=== PATIENT | female | born 1970 | race Caucasian/White ===

== ENCOUNTER 2022-01-11 14:58 | Outpatient (REF) | payer OTHER, SELFPAY ==
--- NOTE | ~2022-01-11 | XR_ITS ---
EXAMINATION: XR hand wrist LT, 4 views XR hand wrist RT, 4 views XR ankle LT min 3V XR foot LT min 3V XR ankle RT min 3V XR foot RT min 3V CLINICAL INFORMATION: Reason for Exam M06.9 - Rheumatoid arthritis, unspecified COMPARISON: None. FINDINGS: Left wrist/hand: No fractures. No erosive changes. Small marginal osteophytes of the first CMC joint. Articular surfaces are otherwise maintained. No unusual soft tissue calcifications. Soft tissues unremarkable. Right wrist/hand: No fractures. No erosive changes. Small marginal osteophytes of the first CMC joint. Articular surfaces are otherwise maintained. No unusual soft tissue calcifications. Soft tissues unremarkable. Left ankle/foot: No acute fracture or dislocation. Well-corticated ossific density inferior to the distal fibula is chronic and degenerative in nature, potentially an old avulsion fracture or heterotopic ossification related to an old injury to the lateral collateral ligament. Ankle mortise is congruent. Talar dome intact. Small plantar calcaneal enthesophyte. Small marginal osteophytes of the first metatarsophalangeal joint and associated small bunion. No erosive changes. Tiny radiodensity within the soft tissues plantar to the first interspace may represent an object on the skin surface or deeper soft tissue foreign body, of doubtful clinical significance. No joint effusions. Right ankle/foot: No acute fracture or dislocation. Ankle mortise is congruent. Talar dome intact. Small plantar calcaneal enthesophyte. Small marginal osteophytes of the first metatarsophalangeal joint. No erosive changes. Soft tissues unremarkable. No joint effusions. XR/XR foot RT min 3V IMPRESSION: * No acute findings. * No evidence of inflammatory arthropathy. * Mild degenerative changes as described.
--- NOTE | ~2022-01-11 | XR_ITS ---
EXAMINATION: XR hand wrist LT, 4 views XR hand wrist RT, 4 views XR ankle LT min 3V XR foot LT min 3V XR ankle RT min 3V XR foot RT min 3V CLINICAL INFORMATION: Reason for Exam M06.9 - Rheumatoid arthritis, unspecified COMPARISON: None. FINDINGS: Left wrist/hand: No fractures. No erosive changes. Small marginal osteophytes of the first CMC joint. Articular surfaces are otherwise maintained. No unusual soft tissue calcifications. Soft tissues unremarkable. Right wrist/hand: No fractures. No erosive changes. Small marginal osteophytes of the first CMC joint. Articular surfaces are otherwise maintained. No unusual soft tissue calcifications. Soft tissues unremarkable. Left ankle/foot: No acute fracture or dislocation. Well-corticated ossific density inferior to the distal fibula is chronic and degenerative in nature, potentially an old avulsion fracture or heterotopic ossification related to an old injury to the lateral collateral ligament. Ankle mortise is congruent. Talar dome intact. Small plantar calcaneal enthesophyte. Small marginal osteophytes of the first metatarsophalangeal joint and associated small bunion. No erosive changes. Tiny radiodensity within the soft tissues plantar to the first interspace may represent an object on the skin surface or deeper soft tissue foreign body, of doubtful clinical significance. No joint effusions. Right ankle/foot: No acute fracture or dislocation. Ankle mortise is congruent. Talar dome intact. Small plantar calcaneal enthesophyte. Small marginal osteophytes of the first metatarsophalangeal joint. No erosive changes. Soft tissues unremarkable. No joint effusions. XR/XR foot LT min 3V IMPRESSION: * No acute findings. * No evidence of inflammatory arthropathy. * Mild degenerative changes as described.
--- NOTE | ~2022-01-11 | XR_ITS ---
EXAMINATION: XR hand wrist LT, 4 views XR hand wrist RT, 4 views XR ankle LT min 3V XR foot LT min 3V XR ankle RT min 3V XR foot RT min 3V CLINICAL INFORMATION: Reason for Exam M06.9 - Rheumatoid arthritis, unspecified COMPARISON: None. FINDINGS: Left wrist/hand: No fractures. No erosive changes. Small marginal osteophytes of the first CMC joint. Articular surfaces are otherwise maintained. No unusual soft tissue calcifications. Soft tissues unremarkable. Right wrist/hand: No fractures. No erosive changes. Small marginal osteophytes of the first CMC joint. Articular surfaces are otherwise maintained. No unusual soft tissue calcifications. Soft tissues unremarkable. Left ankle/foot: No acute fracture or dislocation. Well-corticated ossific density inferior to the distal fibula is chronic and degenerative in nature, potentially an old avulsion fracture or heterotopic ossification related to an old injury to the lateral collateral ligament. Ankle mortise is congruent. Talar dome intact. Small plantar calcaneal enthesophyte. Small marginal osteophytes of the first metatarsophalangeal joint and associated small bunion. No erosive changes. Tiny radiodensity within the soft tissues plantar to the first interspace may represent an object on the skin surface or deeper soft tissue foreign body, of doubtful clinical significance. No joint effusions. Right ankle/foot: No acute fracture or dislocation. Ankle mortise is congruent. Talar dome intact. Small plantar calcaneal enthesophyte. Small marginal osteophytes of the first metatarsophalangeal joint. No erosive changes. Soft tissues unremarkable. No joint effusions. XR/XR ankle RT min 3V IMPRESSION: * No acute findings. * No evidence of inflammatory arthropathy. * Mild degenerative changes as described.
--- NOTE | ~2022-01-11 | XR_ITS ---
EXAMINATION: XR hand wrist LT, 4 views XR hand wrist RT, 4 views XR ankle LT min 3V XR foot LT min 3V XR ankle RT min 3V XR foot RT min 3V CLINICAL INFORMATION: Reason for Exam M06.9 - Rheumatoid arthritis, unspecified COMPARISON: None. FINDINGS: Left wrist/hand: No fractures. No erosive changes. Small marginal osteophytes of the first CMC joint. Articular surfaces are otherwise maintained. No unusual soft tissue calcifications. Soft tissues unremarkable. Right wrist/hand: No fractures. No erosive changes. Small marginal osteophytes of the first CMC joint. Articular surfaces are otherwise maintained. No unusual soft tissue calcifications. Soft tissues unremarkable. Left ankle/foot: No acute fracture or dislocation. Well-corticated ossific density inferior to the distal fibula is chronic and degenerative in nature, potentially an old avulsion fracture or heterotopic ossification related to an old injury to the lateral collateral ligament. Ankle mortise is congruent. Talar dome intact. Small plantar calcaneal enthesophyte. Small marginal osteophytes of the first metatarsophalangeal joint and associated small bunion. No erosive changes. Tiny radiodensity within the soft tissues plantar to the first interspace may represent an object on the skin surface or deeper soft tissue foreign body, of doubtful clinical significance. No joint effusions. Right ankle/foot: No acute fracture or dislocation. Ankle mortise is congruent. Talar dome intact. Small plantar calcaneal enthesophyte. Small marginal osteophytes of the first metatarsophalangeal joint. No erosive changes. Soft tissues unremarkable. No joint effusions. XR/XR ankle LT min 3V IMPRESSION: * No acute findings. * No evidence of inflammatory arthropathy. * Mild degenerative changes as described.
--- NOTE | ~2022-01-11 | XR_ITS ---
EXAMINATION: XR hand wrist LT, 4 views XR hand wrist RT, 4 views XR ankle LT min 3V XR foot LT min 3V XR ankle RT min 3V XR foot RT min 3V CLINICAL INFORMATION: Reason for Exam M06.9 - Rheumatoid arthritis, unspecified COMPARISON: None. FINDINGS: Left wrist/hand: No fractures. No erosive changes. Small marginal osteophytes of the first CMC joint. Articular surfaces are otherwise maintained. No unusual soft tissue calcifications. Soft tissues unremarkable. Right wrist/hand: No fractures. No erosive changes. Small marginal osteophytes of the first CMC joint. Articular surfaces are otherwise maintained. No unusual soft tissue calcifications. Soft tissues unremarkable. Left ankle/foot: No acute fracture or dislocation. Well-corticated ossific density inferior to the distal fibula is chronic and degenerative in nature, potentially an old avulsion fracture or heterotopic ossification related to an old injury to the lateral collateral ligament. Ankle mortise is congruent. Talar dome intact. Small plantar calcaneal enthesophyte. Small marginal osteophytes of the first metatarsophalangeal joint and associated small bunion. No erosive changes. Tiny radiodensity within the soft tissues plantar to the first interspace may represent an object on the skin surface or deeper soft tissue foreign body, of doubtful clinical significance. No joint effusions. Right ankle/foot: No acute fracture or dislocation. Ankle mortise is congruent. Talar dome intact. Small plantar calcaneal enthesophyte. Small marginal osteophytes of the first metatarsophalangeal joint. No erosive changes. Soft tissues unremarkable. No joint effusions. XR/XR hand wrist RT IMPRESSION: * No acute findings. * No evidence of inflammatory arthropathy. * Mild degenerative changes as described.
--- NOTE | ~2022-01-11 | XR_ITS ---
EXAMINATION: XR hand wrist LT, 4 views XR hand wrist RT, 4 views XR ankle LT min 3V XR foot LT min 3V XR ankle RT min 3V XR foot RT min 3V CLINICAL INFORMATION: Reason for Exam M06.9 - Rheumatoid arthritis, unspecified COMPARISON: None. FINDINGS: Left wrist/hand: No fractures. No erosive changes. Small marginal osteophytes of the first CMC joint. Articular surfaces are otherwise maintained. No unusual soft tissue calcifications. Soft tissues unremarkable. Right wrist/hand: No fractures. No erosive changes. Small marginal osteophytes of the first CMC joint. Articular surfaces are otherwise maintained. No unusual soft tissue calcifications. Soft tissues unremarkable. Left ankle/foot: No acute fracture or dislocation. Well-corticated ossific density inferior to the distal fibula is chronic and degenerative in nature, potentially an old avulsion fracture or heterotopic ossification related to an old injury to the lateral collateral ligament. Ankle mortise is congruent. Talar dome intact. Small plantar calcaneal enthesophyte. Small marginal osteophytes of the first metatarsophalangeal joint and associated small bunion. No erosive changes. Tiny radiodensity within the soft tissues plantar to the first interspace may represent an object on the skin surface or deeper soft tissue foreign body, of doubtful clinical significance. No joint effusions. Right ankle/foot: No acute fracture or dislocation. Ankle mortise is congruent. Talar dome intact. Small plantar calcaneal enthesophyte. Small marginal osteophytes of the first metatarsophalangeal joint. No erosive changes. Soft tissues unremarkable. No joint effusions. XR/XR hand wrist LT IMPRESSION: * No acute findings. * No evidence of inflammatory arthropathy. * Mild degenerative changes as described.
[2022-01-11 15:43] LABS: MANUAL DIFF FLAG NO
[2022-01-11 16:02] LABS: Basophils Absolute Auto 0.1 X10*3/uL (0.0-0.2); Basophils Percent Auto 1.1 % (0-2); Eosinophils Absolute Auto 0.1 X10*3/uL (0.0-0.4); Eosinophils Percent Auto 1.4 % (0-4); Hematocrit 50.9 % (37.0-47.0); Hemoglobin 17.4 g/dl (12.0-16.0); Imm Gran Abs Auto 0.02 X10*3/uL (0.00-0.03); Imm Gran Pct Auto 0.3 % (0.0-0.4); Lymphocytes Absolute Auto 3.6 X10*3/uL (1.2-4.9); Mean Corpuscular HGB Conc 34.2 g/dl (31.0-35.0); Mean Corpuscular Hemoglobin 33.1 pg (27.0-33.0); Mean Corpuscular Volume 96.8 fL (80.0-98.0); Mean Platelet Volume 9.5 fL (9.4-12.3); Monocytes Absolute Auto 0.6 X10*3/uL (0.1-1.2); Neutrophils Absolute Auto 3.6 x10*3/uL (2.0-8.3); Neutrophils Percent Auto 45.2 % (45-73); Platelet Count 204 X10*3/uL (160-400); Red Blood Count 5.26 X10*6/uL (4.20-5.50); Red Cell Distribution Width 13.2 % (11.0-16.0)
[2022-01-11 16:07] LABS: Appearance Urine Clear; Color Urine Yellow; Glucose Urine UA Negative (Negative); Leukocyte Esterase Urine Negative (Negative); Nitrite Urine Negative (Negative); PH 5.5 (5.0-9.0); Specific Gravity - Urine 1.025 (1.005-1.025); Urine Blood Negative (Negative); Urine Ketones Trace mg/dL (Negative); Urine Protein Negative (Neg-Trace)
[2022-01-11 16:10] LABS: Bacteria Urine None Seen (None Seen); Hyaline Casts Urine 0-2 /LPF (0-2); RBC Urine 0-2 /HPF (0-2); WBC Urine 0-5 /HPF (0-5)
[2022-01-11 16:17] LABS: Alanine Aminotransferase 39 U/L (0-31); Albumin Level 4.9 g/dL (3.5-5.0); Alkaline Phosphatase 124 U/L (39-117); Anion Gap 17 (12-20); Aspartate Amino Transferase 39 U/L (5-31); Bilirubin Total 0.2 mg/dL (0.0-1.0); Blood Urea Nitrogen 11 mg/dL (9-16); C Reactive Protein 0.16 mg/dL (< or = 0.50); Calcium 10.1 mg/dL (8.4-10.2); Carbon Dioxide 28 mmol/L (22-29); Chloride 101 mmol/L (96-108); Estimated Glomerular Filt Rate > 60; Glucose Random 80 mg/dL (60-115); Potassium 3.7 mmol/L (3.3-5.1); Sodium 142 mmol/L (135-145); Total Protein 8.2 g/dL (6.5-8.0); Uric Acid 4.2 mg/dL (2.4-5.7)
[2022-01-11 16:25] LABS: Rheumatoid Factor < 15.0 IU/mL (<15.0)
[2022-01-11 16:45] LABS: Erythrocyte Sedimentation Rate 2 MM/HR (0-20)
[2022-01-11 16:46] LABS: Creatinine Urine 215.51 mg/dL; Protein/Creatinine Ratio, Ur 0.07 (<0.2); Total Protein Urine Random 16 mg/dL (<12)
[2022-01-12 04:14] LABS: HBS Num1 1.21 mIU/mL (0-7.99); HBc Num1 0.08 S/CO (0.00-0.79); HBsAGNum1 0.18 S/CO (0.00-0.99); HIV AB/AG Nonreactive (Nonreactive); HIV Num 1 0.05 S/CO (0.00-0.99); Hepatitis A Antibody IgM 0.22 Index (0-0.79); Hepatitis B Core Antibody Nonreactive (Nonreactive); Hepatitis B Surface Antigen Negative (Negative); ~HepC Num1 0.12 S/CO (0.00-0.79); ~Hepatitis A Antibody IgM Nonreactive (Nonreactive); ~Hepatitis B Surface Antibody NONREACTIVE (Nonreactive); ~Hepatitis C Antibody Nonreactive (Nonreactive)
[2022-01-12 13:42] LABS: Cardiolipin IgG Ab <2.0 GPL-U/mL
[2022-01-12 20:26] LABS: Antibody to SS-A Antigen <1.0 NEG AI (<1.0 NEG); Antibody to SS-B Antigen <1.0 NEG AI (<1.0 NEG); SM/Ribonucleoprotein Ab <1.0 NEG AI (<1.0 NEG); Scleroderma 70 Antibody <1.0 NEG AI (<1.0 NEG); Smith Protein <1.0 NEG AI (<1.0 NEG)
[2022-01-12 21:52] LABS: Anti-Centromere B Antibodies <1.0 NEG AI (<1.0 NEG)
[2022-01-13 10:26] LABS: Complement C3 139 mg/dL (83-193)
[2022-01-13 14:32] LABS: Cyclic Citrullinated Peptide <16 UNITS; IgA 303 mg/dL (47-310); IgG 1121 mg/dL (600-1640); IgM 144 mg/dL (50-300); TS Negative Control Passed; TS Panel A 1; TS Panel B 0; TS Positive Control Passed; TSpotTB Negative (Negative)
[2022-01-13 14:52] LABS: Mitochondrial Antibodies NEGATIVE (NEGATIVE)
[2022-01-14 11:43] LABS: Anti Nuclear Antibody Screen NEGATIVE (NEGATIVE)
[2022-01-14 12:55] LABS: Liver Kidney Microsomal Ab <=20.0 U (<=20.0)
[2022-01-14 22:47] LABS: Beta-2 Glycoprotein IgA <2.0 U/mL (<20.0); Beta-2 Glycoprotein IgG <2.0 U/mL (<20.0); Beta-2 Glycoprotein IgM 4.6 U/mL (<20.0)
[2022-01-15 06:26] LABS: PTT (LAC) Screen 32 sec (<=40)
[2022-01-15 12:57] LABS: DNAds, Crithidia Antibody Negative (Negative)
[2022-01-15 13:31] LABS: Smooth Muscle Antibody <20 U (<20)
[2022-01-16 21:26] LABS: HLA B27 Negative (Negative)
[2022-01-21 20:03] LABS: EJ Autoantibodies NOT DETECTED (NOT DETECTED); JO-1 Antibody <1.0 NEG AI (<1.0 NEGATIVE); MI 2 Autoantibodies NOT DETECTED (NOT DETECTED); OJ Autoantibodies NOT DETECTED (NOT DETECTED); PL 12 Autoantibodies NOT DETECTED (NOT DETECTED); PL 7 Autoantibodies NOT DETECTED (NOT DETECTED)
== END 2022-01-11 14:59 | disposition home or self-care (01) ==
LOC: HO.LAB 14:58
PROVIDERS: PCP Internal Medicine; Visit Provider Student in an Organized Health Care Education/Training Program
DX: Z11.59 Encounter for screening for other viral diseases (principal); Z11.7 Encounter for testing for latent tuberculosis infection; Z11.4 Encounter for screening for human immunodeficiency virus [HIV]; M06.9 Rheumatoid arthritis, unspecified; M25.542 Pain in joints of left hand; L40.9 Psoriasis, unspecified; R74.01 Elevation of levels of liver transaminase levels; R13.10 Dysphagia, unspecified
CPT/HCPCS: 73110; 73130; 73610; 73630; 80053; 81001; 82550; 82784; 84156; 84550; 85025; 85597; 85613; 85652; 85730; 86015; 86038; 86039; 86140; 86146; 86147; 86160; 86200; 86235; 86255; 86256; 86334; 86376; 86431; 86481; 86704; 86706; 86709; 86803; 86812; 87340; 87389; 99202

== ENCOUNTER 2022-01-12 10:13 | Outpatient (REF) | payer OTHER, SELFPAY ==
[2022-01-18 09:04] LABS: PEU-Protein Creat Ratio Rand 0.129 (0.024-0.184); PEU-Rand. Prot/Creat Ratio 129 mg/g creat (24-184); PEU-Random Ur. Gamma Globulin 26 %; PEU-Random Urine A1 Globulin 1 %; PEU-Random Urine A2 Globulin 10 %; PEU-Random Urine Albumin 37 %; PEU-Random Urine Beta Globulin 26 %; PEU-Random Urine Creatinine 147 mg/dL (20-275); PEU-Random Urine Protein 19 mg/dL (5-24)
== END 2022-01-12 10:14 | disposition home or self-care (01) ==
LOC: HO.LNP 10:13
PROVIDERS: Visit Provider Student in an Organized Health Care Education/Training Program
DX: M06.9 Rheumatoid arthritis, unspecified (principal)
CPT/HCPCS: 82570; 84156; 84166

== ENCOUNTER 2022-02-16 11:04 | Outpatient (REF) | payer OTHER, SELFPAY ==
[2022-02-16 13:12] LABS: Folate 19.6 ng/mL (> or = 4.0); Vitamin B12 296 pg/mL (200-900)
[2022-02-17 07:53] LABS: Prolactin 3.3 ng/mL
== END 2022-02-16 11:05 | disposition home or self-care (01) ==
LOC: HO.LAB 11:04
PROVIDERS: Visit Provider Psychiatry & Neurology Neurology
DX: G30.9 Alzheimer's disease, unspecified (principal)
CPT/HCPCS: 36415; 82607; 82746; 84146

== ENCOUNTER → 2022-02-22 12:49 | Outpatient (BNVA) | payer OTHER, SELFPAY | PROVIDERS: PCP Internal Medicine; Visit Provider Student in an Organized Health Care Education/Training Program | DX: L40.50 Arthropathic psoriasis, unspecified (principal); L40.9 Psoriasis, unspecified; R74.01 Elevation of levels of liver transaminase levels | CPT/HCPCS: 99212 ==

== ENCOUNTER → 2022-03-09 13:24 | Outpatient (BNVA) | payer OTHER, SELFPAY | PROVIDERS: PCP Internal Medicine; Referring Provider Internal Medicine; Visit Provider Student in an Organized Health Care Education/Training Program | DX: Z13.89 Encounter for screening for other disorder (principal) ==

== ENCOUNTER → 2022-04-20 10:18 | Outpatient (BNVA) | payer OTHER, SELFPAY | PROVIDERS: PCP Internal Medicine; Visit Provider Student in an Organized Health Care Education/Training Program | DX: L40.50 Arthropathic psoriasis, unspecified (principal); R74.01 Elevation of levels of liver transaminase levels; M79.7 Fibromyalgia | CPT/HCPCS: 99212 ==

== ENCOUNTER 2022-07-01 09:17 | Day surgery (SDC) | payer OTHER, SELFPAY ==
[2022-07-01] VITALS (7 sets, daily range): BP systolic 122–146; BP diastolic 84–96; PULSE 75–96; RESP 16–20; TEMP 36.8; O2SAT 93–98; BMI 24.2
--- NOTE | ~2022-07-01 | FL_ITS ---
EXAMINATION: XR LUMBAR PUNCTURE CLINICAL INFORMATION: Alzheimer's disease. COMPARISON: None available. TECHNIQUE: Fluoroscopic-guided lumbar puncture. FINDINGS: Informed consent was obtained from the patient prior to the procedure. During this process, the procedure and potential alternatives were explained, along with the intended outcome and benefits. The risks of the procedure, as well as the risk of not doing the procedure, were discussed. The patient was given the opportunity to ask questions regarding the procedure and appeared competent to make medical decisions. A signed consent form which documents this discussion was placed in the medical record. Using sterile technique and fluoroscopic guidance a 22-gauge spinal needle was directed into the thecal sac at the L4-L5 level. Opening pressure was approximately 20 cm of water. A total of 8.25 mL of CSF were removed. Patient tolerated procedure without difficulty. FLUOROSCOPY TIME: 0.6 minutes. DOSE AREA PRODUCT: 4.668 Gy-cm2 (baer-centimeter squared). FL/FL guided lumbar puncture LP IMPRESSION: Uncomplicated lumbar puncture.
[2022-07-01 09:54] LABS: MANUAL DIFF FLAG NO
[2022-07-01 09:58] LABS: Basophils Percent Auto 0.5 % (0-2); Eosinophils Percent Auto 0.2 % (0-4); Hematocrit 44.8 % (37.0-47.0); Hemoglobin 15.8 g/dl (12.0-16.0); Imm Gran Abs Auto 0.05 X10*3/uL (0.00-0.03); Imm Gran Pct Auto 0.9 % (0.0-0.4); Lymphocytes Absolute Auto 1.6 X10*3/uL (1.2-4.9); Lymphocytes Percent Auto 27.8 % (20-40); Mean Corpuscular HGB Conc 35.3 g/dl (31.0-35.0); Mean Corpuscular Hemoglobin 35.5 pg (27.0-33.0); Mean Corpuscular Volume 100.7 fL (80.0-98.0); Mean Platelet Volume 10.4 fL (9.4-12.3); Monocytes Absolute Auto 0.8 X10*3/uL (0.1-1.2); Monocytes Percent Auto 14.3 % (2-11); Neutrophils Absolute Auto 3.2 x10*3/uL (2.0-8.3); Neutrophils Percent Auto 56.3 % (45-73); Platelet Count 137 X10*3/uL (160-400); Red Blood Count 4.45 X10*6/uL (4.20-5.50); Red Cell Distribution Width 13.9 % (11.0-16.0); White Blood Count 5.6 X10*3/uL (4.8-10.8)
[2022-07-01 10:07] LABS: Prothrombin Time 10.9 SEC (10.0-13.1)
[2022-07-01 10:10] LABS: Partial Thromboplastin Time 29.5 SEC (26.0-36.4)
[2022-07-23 09:01] LABS: Other Ref Test - Misc SEE COMMENTS
== END 2022-07-01 15:42 | disposition home or self-care (01) ==
PROVIDERS: Radiology Diagnostic Radiology; PCP Internal Medicine; Visit Provider Psychiatry & Neurology Neurology
PROC: 009U3ZZ Drainage of Spinal Canal, Percutaneous Approach (ICD-10-PCS; CPT 62270; principal; 2022-07-01 11:00)
DX: G30.9 Alzheimer's disease, unspecified (principal); I67.9 Cerebrovascular disease, unspecified; F41.8 Other specified anxiety disorders; G43.009 Migraine without aura, not intractable, without status migrainosus; D35.2 Benign neoplasm of pituitary gland; Z79.51 Long term (current) use of inhaled steroids; Z79.899 Other long term (current) drug therapy
CPT/HCPCS: 36415; 62328; 85025; 85610; 85730

== ENCOUNTER → 2022-07-27 13:51 | Outpatient (BNVA) | payer OTHER, SELFPAY | PROVIDERS: PCP Internal Medicine; Visit Provider Psychiatry & Neurology Neurology | DX: G31.84 Mild cognitive impairment of uncertain or unknown etiology (principal) | CPT/HCPCS: 99202 ==

== ENCOUNTER → 2022-07-28 12:57 | Outpatient (BNVA) | payer OTHER, SELFPAY | PROVIDERS: PCP Internal Medicine; Visit Provider Student in an Organized Health Care Education/Training Program | DX: L40.50 Arthropathic psoriasis, unspecified (principal); L40.9 Psoriasis, unspecified; M79.7 Fibromyalgia; R74.01 Elevation of levels of liver transaminase levels | CPT/HCPCS: 99212 ==

== ENCOUNTER 2022-08-17 12:47 | Outpatient (RCR) | payer OTHER, SELFPAY ==
--- NOTE | 2022-08-23 13:58 | MHC.SP.ADU ---
Referring provider: Nora Mercado MD Reason for Referral: cognitive therapy Type of Treatment: 26618 Standardized Cognitive Performance Testing, per hour Date of Plan of Treatment: 08/17/22 Onset of Symptoms/Illness: 11/19/19 Date Treatment Started: 08/17/22 Medical Diagnosis: Mild cognitive impairment of uncertain or unknown etiology Primary Speech Language Diagnosis: I69.911 Memory deficit Secondary Speech Language Diagnosis: History Janeen Medina is a 52 year old woman who was referred by her neurologist, Dr. Mercado for an assessment and therapy due to a diagnosis of mild cognitive impairment. Ms. Medina reports that she went to Dr. Mercado for a second opinion after another MD diagnosed her with Alzheimer's Dementia. Ms. Medina reports the previous MD had failed to accurately complete a lumbar puncture and had otherwise given informal tests before suggesting this diagnosis. Ms. Medina has a maternal history of Alzheimer's which she described her mother having in her 60s and her aunt having in her 50s. However she also reported that Dr. Mercado advised her that the previous MD was in error giving her a diagnosis on limited information, and has referred her for further evaluation with a neuropsychologist. Ms. Medina reports that she experienced the trauma of losing her son to gun violence in 2019, which she believes escalated difficulties with her memory and processing. 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 However, she was no longer able to continue her business of running a [employer] story and became unemployed/disabled about 1 1/2 years ago. She noted that at that time she was having difficulty keeping the books for the business as well as managing ordering and inventory. Functionally, she reports difficulty recalling and remembering appointments, directions and details. She stated that she can watch and enjoy television programs, as long as there are re-caps between episodes (otherwise she has difficulty recalling plot and characters). She reported that reading novels is too difficulty because she forgets previous information. She is still driving, but only drives during the daytime and to familiar, routine places. Otherwise, she will use a transportation service to get to medical appointments. She is still able to shop for herself, but reports that she will forget her list and just wonder around the store until she finds things she needs. She currently lives in a room in shared house in [place] with at least another, unrelated adult who is her landlord. She reported that she left school after seventh grade to get , so never completed high school, nor obtained a GED. She reported that she was one of seventeen children. Medical History: Acid Reflux Arthritis Asthma COPD High Blood Pressure Other: Ms. Medina additionally reported a pituitary tumor, Depression/Anxiety, panic attacks, insomnia, Medication List: Please refer to medical record. Recent Hospitalizations: No Respiratory Needs: Room Air Patient Orientation: Alert & Oriented x 4 Social History: Employment Status: Unemployed Highest level of education obtained: Completed Grade School Current Living Situation: Lives in a rented room in a shared home in [place]. Ms. Medina expressed vulnerability about her housing, as her landlord has had a history of threatening to end her lease over issues such as forgetting to turn off the stove. Past Speech Language Therapy: None Other Therapies Seen in Current Calendar Year: None Reported Speech, Language, Cognition difficulties: Memory/Cognition Comments: Ms. Medina demonstrated moderate needs with immediate, remote and working memory today. Quality of Life: Fair. Ms. Medina is living independently and is able to manage her daily needs, but is concerned about her ability to sustain this. Patient Stated Goal of Speech-Language Therapy: Assess cognitive/memory domains, provide cognitive therapy strategies. Assessment Speech Production: Articulate Within Functional Limits Clinical Impression: Intact Observations: Ms. Medina presents with clear and articulate speech within normal expectations of function. Informal Voice Assessment: Voice Loudness: Normal Voice Nasal Resonance: Normal Voice Oral Resonance: Normal Voice Phonatory-based Quality: Normal Voice Pitch: Normal Voice Other Observations: Clinical Impression: Intact Clinicial Observations: Tests of Speech & Lang Adults: Clinical Impression: Did Not Test Observations: Ms. Medina informally presented with receptive and expressive language within functional expectations, and was able to express herself well in conversation. Tests of Cognition: RBANS Clinical Impression: Impaired Observations: The Repeatable Battery for the Assessment of Neuropsychological Status (RBANS-Update Form A) was used to assess aspects of cognitive memory, language and attention skills. The RBANS is considered a screening battery for adult cognitive function, and is repeatable for the purpose of evaluating any changes in function. Composite domains assessed in this evaluation are: Immediate Memory; Visuospatial/Constructional; Language; Attention; and Delayed Memory. Domain index scores and percentile ranking are the following: Subtest/Domain Visuospatial/Constructional: Index Score 75; Percentile Rank 5 Immediate Memory: Index Score 61; Percentile Rank 0.5 Language: Index Score 84; Percentile Rank 16 Attention: Index Score 56; Percentile Rank 0.1 Delayed Memory: Index Score 52; Percentile Rank <0.1 TOTAL TEST: Index Score 56; Percentile Rank 0.2 Janeen Medina presents with a moderate to severe impairment of her memory and processing. She has a relative area of strength in language skills represented in this test by word recall/labelling and generative language when listing items in a category (general word finding) Janeen had significant difficulty immediately recalling verbally presented information presented in discreet lists and does somewhat better in recalling information when presented in a narrative form. When recalling information from short term auditory memory, she was noted to recall a fairly fixed amount (e.g. three words from a set of 8) and tended to recall more recent information rather than the items presented initially. However she subsequently had difficulty recalling this information remotely (delayed memory). Janeen was able to copy/produce a picture with good visual detail and was noted to be both methodical and slow when doing visual/writing/drawing tasks. She had great difficulty recalling visual information remotely (delayed visual memory). Impressions and Recommendations Summary: Janeen Medina presents with a moderate to severe impairment of her memory and processing.? Testing today revealed significant weaknesses with immediate, short term recall of verbal information, as well as severe weakness with recall of both verbal and visual information after a delay.? It was noted however, that Ms. Medina demonstrated an awareness of what she might have difficulty with, as well as being very methodical and attentive when attempting tasks.? She has a relative strength with her language skills in general, which are judged to be largely within functional limits.? Ms. Medina would benefit from returning for outpatient therapy to address strategies and accommodations for her memory needs. Ms. Medina will have great difficulty recalling new information, details, brief data presented auditorily.? This may be most evident when verbal directions are given, or phone numbers are recited for recall, or specific dates or other information is briefly given and not written down.? However, this level of difficulty with short term memory can additionally affect general comprehension in daily activities such as difficulty recalling details from conversations, repeating conversational information, and misplacing needed items.? This also may affect other leisure areas such as understanding an evolving plot while reading or watching complex narratives.? Ms. Medina's difficulty with delayed recall/memory will also generally affect new learning, making changes in routines, or synthesizing new information or data, or acquiring new skills very difficult. It is important for for those close to Ms. Medina to know that remembering and recalling information and details will be very challenging, and that learning new tasks, however mundane, may take more time, and will need structure and practice in order to complete them.? It may be at times hard to anticipate what she might have difficulty with or what she cannot remember. Impact on Daily Function/Activity Limitations: Daily Activities: Moderate Interpersonal Interactions: Moderate Education: Moderate Employment: Moderate Community: Moderate Prognosis for Improvement: Fair Comment: Ms. Krauses self awareness of her needs, including her ability to monitor what she will have difficulty with and coping strategies she reported during this assessment indicate that she would benefit from learning specific strategies and accommodations for her memory needs. Further assessment by a neuropsychologist is needed for a complete diagnosis of her cognitive impairment. Recommendation for Speech Therapy: Outpatient Speech Therapy Frequency/Duration: one forty five minute therapy session weekly for a period of six to twelve weeks. Date Range for Service Requested: 6-12 weeks Time to Reassess: PRN Half-Way Goals: Janeen will apply strategies, applications and accommodations to manage tasks that require immediate and remote recall of information and details in four out of five contexts. Short Term Goals: Goal # : 1.1 Janeen will use a rehearsal strategy to recall a detail or specific information from verbal presented information with 80% accuracy Goal Status: Goal# : 2.1 Janeen will use a visualization strategy to recall a detail or specific information from verbally presented information with 80% accuracy. Goal Status: Goal # : 3.1 Janeen will use an association strategy to retrieve a specific word or generate words from a given category with 80% accuracy Goal Status: Goal # : 4.1 Janeen will electively use an adolfo or tech device to record and retrieve needed information in four out of five contexts. Goal Status: Recommended Referrals to be Discussed with Primary Care Provider: Ashkan Vernon has already been referred by her neurologist for a complete cognitive/linguistic assessment and diagnosis. Patient Education: Completed: Yes Patient/Caregiver Education: Described Results of Evaluation Patient expressed understanding of evaluation Comments/Barriers to Learning: Rock Cutter Clinican/Clinical Fellow: No Supervisory Statement: N/A Speech Language Pathologist: Kerry Salcedo M.A., [facility]-PATHOLOGY TRANSCRIPTIONIST
== END 2023-08-10 13:39 | disposition home or self-care (01) ==
LOC: HO.SH 12:47
PROVIDERS: Visit Provider Psychiatry & Neurology Neurology
DX: G31.84 Mild cognitive impairment of uncertain or unknown etiology (principal)
CPT/HCPCS: 96125

== ENCOUNTER 2022-08-17 20:43 | Emergency (ER) | payer OTHER, SELFPAY ==
[2022-08-17 20:59] VITALS: BP 134/91; PULSE 115; RESP 18; O2SAT 98
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
[2022-08-17 21:33] VITALS: BP 144/90; PULSE 107; RESP 18; TEMP 36.1; O2SAT 91; BMI 26.3
[2022-08-17 21:59] VITALS: BP 132/95; PULSE 114; RESP 16; TEMP 36.8; O2SAT 98
== END 2022-08-17 22:27 | disposition home or self-care (01) ==
PROVIDERS: Emergency Provider Emergency Medicine
DX: F10.920 Alcohol use, unspecified with intoxication, uncomplicated (principal); Y90.9 Presence of alcohol in blood, level not specified; I10 Essential (primary) hypertension; F17.210 Nicotine dependence, cigarettes, uncomplicated; Z79.899 Other long term (current) drug therapy
CPT/HCPCS: 99284

== ENCOUNTER 2022-11-17 09:04 | Outpatient (REF) | payer OTHER, SELFPAY ==
[2022-11-17 09:21] LABS: MANUAL DIFF FLAG NO
[2022-11-17 09:52] LABS: Basophils Absolute Auto 0.1 X10*3/uL (0.0-0.2); Basophils Percent Auto 1.1 % (0-2); Eosinophils Absolute Auto 0.3 X10*3/uL (0.0-0.4); Eosinophils Percent Auto 3.4 % (0-4); Hematocrit 46.2 % (37.0-47.0); Hemoglobin 15.5 g/dl (12.0-16.0); Imm Gran Abs Auto 0.04 X10*3/uL (0.00-0.03); Imm Gran Pct Auto 0.5 % (0.0-0.4); Lymphocytes Absolute Auto 2.6 X10*3/uL (1.2-4.9); Lymphocytes Percent Auto 32.4 % (20-40); Mean Corpuscular HGB Conc 33.5 g/dl (31.0-35.0); Mean Corpuscular Hemoglobin 33.8 pg (27.0-33.0); Mean Corpuscular Volume 100.7 fL (80.0-98.0); Mean Platelet Volume 10.9 fL (9.4-12.3); Monocytes Absolute Auto 0.7 X10*3/uL (0.1-1.2); Monocytes Percent Auto 8.3 % (2-11); Neutrophils Absolute Auto 4.3 x10*3/uL (2.0-8.3); Neutrophils Percent Auto 54.3 % (45-73); Platelet Count 219 X10*3/uL (160-400); Red Blood Count 4.59 X10*6/uL (4.20-5.50); Red Cell Distribution Width 11.9 % (11.0-16.0); White Blood Count 7.9 X10*3/uL (4.8-10.8)
[2022-11-17 10:29] LABS: Alanine Aminotransferase 21 U/L (0-31); Anion Gap 11 (12-20); Aspartate Amino Transferase 21 U/L (5-31); Bilirubin Total 0.4 mg/dL (0.0-1.0); Blood Urea Nitrogen 10 mg/dL (9-16); Calcium 9.6 mg/dL (8.4-10.2); Carbon Dioxide 26 mmol/L (22-29); Chloride 105 mmol/L (96-108); Estimated Glomerular Filt Rate > 60; Glucose Random 79 mg/dL (60-115); Potassium 3.8 mmol/L (3.3-5.1); Sodium 138 mmol/L (135-145)
[2022-11-17 10:30] LABS: Albumin Level 3.9 g/dL (3.5-5.0); Alkaline Phosphatase 94 U/L (39-117); C Reactive Protein 0.36 mg/dL (< or = 0.50); Total Protein 6.9 g/dL (6.5-8.0)
[2022-11-17 10:37] LABS: Erythrocyte Sedimentation Rate 9 MM/HR (0-20)
== END 2022-11-17 09:05 | disposition home or self-care (01) ==
LOC: HO.LAB 09:04
PROVIDERS: PCP Internal Medicine; Visit Provider Student in an Organized Health Care Education/Training Program
DX: L40.50 Arthropathic psoriasis, unspecified (principal)
CPT/HCPCS: 36415; 80053; 85025; 85652; 86140

== ENCOUNTER 2022-11-23 13:55 | Outpatient (AMB) | payer OTHER, SELFPAY ==
[2022-11-23 13:58] VITALS: BP 106/70; PULSE 104; TEMP 36.7; O2SAT 93; BMI 27.3
--- NOTE | 2022-11-23 13:58 | MHC.OFFVIS ---
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 Accompanied by: Self / Same As Patient Allergies cephalexin Adverse Reaction (Severe, Verified 11/23/22 14:02) Anaphylaxis acetaminophen [From Tylenol-Codeine] Adverse Reaction (Intermediate, Verified 11/23/22 14:02) Hives amoxicillin [From Augmentin] Adverse Reaction (Intermediate, Verified 11/23/22 14:02) Vomiting clavulanic acid [From Augmentin] Adverse Reaction (Intermediate, Verified 11/23/22 14:02) Vomiting codeine [From Tylenol-Codeine] Adverse Reaction (Intermediate, Verified 11/23/22 14:02) Hives morphine Adverse Reaction (Intermediate, Verified 11/23/22 14:02) Vomiting, Hives egg Adverse Reaction (Mild, Verified 11/23/22 14:02) Vomiting seafood Adverse Reaction (Verified 11/23/22 14:02) Angioedema Medication List - Last Reconciled 11/23/22 by Freddy Wild MD albuterol sulfate 90 mcg/actuation (ProAir HFA) 2 puffs inhalation Q6H PRN albuterol sulfate 0.63 mg inhalation QID PRN bupropion HCl 300 mg PO QAM buspirone 10 mg PO BID cetirizine (All Day Allergy (cetirizine)) 10 mg PO DAILY crisaborole 2% (Eucrisa) 1 appl topical BID donepezil 5 mg PO DAILY epinephrine (EpiPen) 0.3 mg IM Q4H PRN escitalopram oxalate 20 mg PO DAILY fluticasone propion-salmeterol 500-50 mcg/dose (Advair Diskus) 1 inh inhalation BID fluticasone propionate 50 mcg/actuation 1 spray intranasal DAILY hydrochlorothiazide 12.5 mg PO DAILY hydroxyzine HCl 25 mg PO TID ketoconazole 2% 1 appl topical 2XW Lactobacillus acidophilus 500,000,000 cells PO BID mirtazapine 7.5 mg PO BEDTIME montelukast 10 mg PO DAILY mupirocin calcium 2% 1 appl topical BID pantoprazole 40 mg PO DAILY sumatriptan succinate 50 mg PO Q2-4H PRN tiotropium bromide 2.5 mcg/actuation (Spiriva Respimat) 2 puffs inhalation DAILY topiramate 25 mg PO DAILY trazodone 100 mg PO BEDTIME triamcinolone acetonide 0.1% 1 appl topical DAILY ustekinumab (Stelara) Loading dose: 45 mg subQ at weeks 0 and 4 Maintenance dose: 45 mg subQ every 12 weeks varenicline mg PO zafirlukast 20 mg PO BID HPI HPI Comments History of Present Illness Details 52-year-old female with psoriasis and psoriatic arthritis presents for follow-up. She is compliant with Stelara. No reported side effects of the medication. Patient states she feels well overall. She gets bilateral elbow pain and stiffness lasting about 1 hour in the morning. Denies any swelling. She gets achiness in her arms and forearms. Over the last 2-3 months she has been having pain in both calves especially at night, she feels that she has to move her calves. Has not had any psoriasis patches in a long time. Initial history: This is a 51-year-old female with past medical history of asthma/COPD, anxiety, hypertension presents for evaluation of diffuse joint pain. Patient has been having diffuse joint pain for the last 6 years but got worse over the last 3 months. She has pain swelling and stiffness of her hands, elbows, ankles. Stiffness last for 4-5 hours in the morning improved with putting her hands under warm water. Patient does not like to take any medications like Tylenol or NSAIDs. 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 There is no history suggestive of uveitis or IBD. Also of note she has had dry eyes and dry mouth for years. She states she has difficulty swallowing and has severe heartburn. Patient has lost 40 lb over the last 3 years unintentionally. No fevers or night sweats. [facility] Medical History Anxiety Asthma Cataract Cataract (lens) fragments in eye following cataract surgery Cognitive impairment, mild, so stated Depression Dysphagia GERD (gastroesophageal reflux disease) Hepatic steatosis Hypertension Pituitary adenoma Surgical History Hx of tubal ligation Family History Mother Rheumatoid arthritis Lung cancer Congestive heart failure Active asthma Chronic obstructive airway disease Father Stomach cancer Arthritis Sister Multiple sclerosis Social History Household Members Other:: lives with roommate Housing: House Alcohol intake: current Tobacco use type: Cigarette Cigarettes Per Day: 5 Years Smoked: on and off over the years e-Cigarette/Vaping Use: Never Used service: No 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 Review of Systems Musc Reports arthralgias and Reports stiffness Skin/Breast Details: raynaud's Denies photosensitivity Psych Reports abnormal sleep pattern and Reports anxiety Physical Exam Vital Signs: Last Vital Signs Temp 98.1 F 11/23/22 13:58 Pulse 104 H 11/23/22 13:58 BP 106/70 11/23/22 13:58 Pulse Ox 93 11/23/22 13:58 BMI result Body Mass Index 27.3 Const General: cooperative, healthy appearing, comfortable, no acute distress and well developed Nutritional Appearance: average body habitus and well nourished Limitations: no limitations HEENT Head: Yes normocephalic and Yes atraumatic Mouth: Normal oral and palatal mucosa present and moist mucous membranes Resp Effort & Inspection: normal respiratory effort and able to speak in complete sentences GI Palpation (GI): Hepatomegaly present (Nodular border) Extrem Other: No MCP tenderness, negative MCP squeeze test, negative PIP squeeze test Few tender DIPs without swelling No flexor or extensor tendon tenderness of both hands No elbow pain with full flexion and extension bilaterally Left knee crepitus without pain or swelling Few fibromyalgia tender points Results Reviewed Results Reviewed: MRI OF BRAIN WITH AND WITHOUT CONTRAST Exam Date: 11/10/2022 1:56 PM Ordering Diagnosis: Pituitary microadenoma (HCC) ? MRI of the brain and pituitary fossa. ? History pituitary microadenoma. ? Examination was performed on 1.5 Áftima magnet without intravenous contrast followed by postcontrast study after administration of 15 mL of DOTAREM, utilizing pituitary protocol with dynamic administration of the contrast. Compared with previous examination from 10/01/2021. ? Again noted is prominence of the right aspect of the pituitary gland with focal area of decreased enhancement measuring approximately 5.5 x 2.5 mm in the coronal plane and 3.5 mm in the sagittal plane. It is not as well visualized on the sagittal plane as on prior study. Pituitary stalk is midline. Optic chiasm is not compressed. Normal signal voids noted in the cavernous portions of the internal carotid arteries. ? There is no evidence of midline shift, extra or intra-axial blood fluid collections. There is no visible masses or mass effect in the brain and cerebellum. Again noted are numerous foci of increased FLAIR signal in the subcortical and deep white matter of both cerebral hemispheres, unchanged since previous examination. The lesions revealed no restricted diffusion or enhancement. ? Cerebellar tonsils are normally positioned. Ventricular system is symmetric and normal in size. Paranasal sinuses and mastoid processes are aerated. ? CONCLUSIONS: Slight interval decrease in size of the hypoenhancing focus/microadenoma in the right aspect of the pituitary gland. Stable white matter signal abnormalities in both cerebral hemispheres. US SOFT TISSUE ABDOMEN/BACK, LIMITED ABD Exam Date: 05/26/2022 7:56 AM Ordering Diagnosis: Fatty liver ? Limited abdominal ultrasound. History fatty liver. ? Compared to previous examination from 08/29/2021. Gallbladder is unremarkable. There is no biliary ducts dilatation. Common biliary duct measures 5 mm. Liver is enlarged measuring 19.2 cm in long axis. It revealed coarse increased echogenicity without focal lesions, most likely due to hepatic steatosis. There is normal flow in the portal vein. Pancreas is not well seen due to artifact from the bowel gas. Right kidney measures 11.5 cm. There is some lobulated cyst in the lower pole measuring 3.5 x 2.7 x 3.2 cm. There is additional partially exophytic cyst in the lower pole measuring 0.9 x 0.8 x 0.9 cm. ? CONCLUSIONS: Hepatomegaly with abnormal echotexture most likely due to steatosis. Right kidney cysts. Assessment & Plan Assessment & Plan (1) Psoriatic arthritis: Comment: dx 02/2022 (+anti CarP Ab) NSAIDs could not be tolerated due to significant GI upset Failed Otezla due to GI upset MTX and LEF are contraindicated due to transaminitis. Patient could not tolerate Otezla due to significant GI upset with vomiting. TNF inhibitors are relatively contraindicated due to positive family history of demyelinating disease. Sister of multiple sclerosis Stelara started 03/10 effective Code(s): L40.50 - Arthropathic psoriasis, unspecified Plan: This is a 52-year-old female with psoriatic arthritis who returns for follow-up? Stelara started 02/2022 effective Continue Stelara 45 mg every 12 weeks Infectious screening hepatitis panel and T spot -ve 2021 Repeat labs before next visit in 4 months (2) Psoriasis: Code(s): L40.9 - Psoriasis, unspecified Plan: Well controlled on Stelara (3) Transaminitis: Code(s): R74.01 - Elevation of levels of liver transaminase levels Plan: Resolved, can be partly due to BOYLE associated with psoriasis. Patient stopped alcohol consumption. autoimmune liver antibodies are negative. Continue to follow-up with Gastroenterology (4) Fibromyalgia, primary: Code(s): M79.7 - Fibromyalgia Plan: Some improvement now with regular exercise. Patient is having some symptoms suggestive of restless leg at night. Follow-up with PCP Plan I spent 27 minutes reviewing patient's chart, evaluating patient, ordering diagnostic workup, counseling patient and documenting in the chart Orders: Orders Comprehensive Met. Panel 4 Months L40.50 - Arthropathic psoriasis, unspecified C Reactive Protein 4 Months L40.50 - Arthropathic psoriasis, unspecified Complete Blood Count Auto Diff 4 Months L40.50 - Arthropathic psoriasis, unspecified Erythrocyte Sedimentation Rate 4 Months L40.50 - Arthropathic psoriasis, unspecified Coding Level of Care Code Est Pt Level 4 (23848) Diagnoses Psoriatic arthritis L40.50 Psoriasis L40.9 Transaminitis R74.01 Fibromyalgia, primary M79.7
== END 2022-11-23 14:30 | disposition home or self-care (01) ==
PROVIDERS: Visit Provider Student in an Organized Health Care Education/Training Program
DX: L40.50 Arthropathic psoriasis, unspecified (principal); L40.9 Psoriasis, unspecified; R74.01 Elevation of levels of liver transaminase levels; M79.7 Fibromyalgia
CPT/HCPCS: 99214

== ENCOUNTER → 2022-11-23 13:55 | Outpatient (BNVA) | payer OTHER, SELFPAY | PROVIDERS: Visit Provider Student in an Organized Health Care Education/Training Program | DX: L40.50 Arthropathic psoriasis, unspecified (principal); L40.9 Psoriasis, unspecified; R74.01 Elevation of levels of liver transaminase levels; M79.7 Fibromyalgia | CPT/HCPCS: 99212 ==

== ENCOUNTER 2022-12-02 12:38 | Outpatient (AMB) | payer OTHER, SELFPAY ==
[2022-12-02 12:45] VITALS: BP 124/90; PULSE 76; O2SAT 95; BMI 27.5
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
== END 2022-12-02 13:19 | disposition home or self-care (01) ==
PROVIDERS: PCP Internal Medicine; Visit Provider Psychiatry & Neurology Neurology
DX: G31.84 Mild cognitive impairment of uncertain or unknown etiology (principal)
CPT/HCPCS: 99214

== ENCOUNTER → 2022-12-02 12:38 | Outpatient (BNVA) | payer OTHER, SELFPAY | PROVIDERS: PCP Internal Medicine; Visit Provider Psychiatry & Neurology Neurology | DX: G31.84 Mild cognitive impairment of uncertain or unknown etiology (principal) | CPT/HCPCS: 99212 ==

== ENCOUNTER 2023-01-17 12:41 | Outpatient (AMB) | payer OTHER, SELFPAY ==
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
[2023-01-17 12:50] VITALS: BP 118/78; PULSE 102; O2SAT 97; BMI 28.2
== END 2023-01-17 13:15 | disposition home or self-care (01) ==
PROVIDERS: PCP Internal Medicine; Visit Provider Nurse Practitioner Family
DX: G31.84 Mild cognitive impairment of uncertain or unknown etiology (principal)
CPT/HCPCS: 99213

== ENCOUNTER → 2023-01-17 12:41 | Outpatient (BNVA) | payer OTHER, SELFPAY | PROVIDERS: PCP Internal Medicine; Visit Provider Nurse Practitioner Family | DX: G31.84 Mild cognitive impairment of uncertain or unknown etiology (principal) | CPT/HCPCS: 99212 ==

== ENCOUNTER 2023-05-30 14:19 | Outpatient (AMB) | payer OTHER, SELFPAY ==
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
[2023-05-30 14:25] VITALS: BP 132/86; PULSE 84; RESP 16; O2SAT 95; BMI 29.8
== END 2023-05-30 15:49 | disposition home or self-care (01) ==
PROVIDERS: PCP Internal Medicine; Visit Provider Psychiatry & Neurology Neurology
DX: G31.84 Mild cognitive impairment of uncertain or unknown etiology (principal)
CPT/HCPCS: 99214

== ENCOUNTER → 2023-05-30 14:19 | Outpatient (BNVA) | payer OTHER, SELFPAY | PROVIDERS: PCP Internal Medicine; Visit Provider Psychiatry & Neurology Neurology | DX: G31.84 Mild cognitive impairment of uncertain or unknown etiology (principal) | CPT/HCPCS: 99212 ==

== ENCOUNTER 2023-08-17 09:56 | Outpatient (REF) | payer OTHER, SELFPAY ==
[2023-08-17 10:08] LABS: MANUAL DIFF FLAG NO
[2023-08-17 10:47] LABS: Basophils Absolute Auto 0.1 X10*3/uL (0.0-0.2); Basophils Percent Auto 0.9 % (0-2); Eosinophils Absolute Auto 0.8 X10*3/uL (0.0-0.4); Eosinophils Percent Auto 12.7 % (0-4); Hematocrit 47.9 % (37.0-47.0); Hemoglobin 16.7 g/dl (12.0-16.0); Imm Gran Abs Auto 0.02 X10*3/uL (0.00-0.03); Imm Gran Pct Auto 0.3 % (0.0-0.4); Lymphocytes Absolute Auto 2.4 X10*3/uL (1.2-4.9); Lymphocytes Percent Auto 37.4 % (20-40); Mean Corpuscular HGB Conc 34.9 g/dl (31.0-35.0); Mean Corpuscular Hemoglobin 32.1 pg (27.0-33.0); Mean Corpuscular Volume 91.9 fL (80.0-98.0); Mean Platelet Volume 10.3 fL (9.4-12.3); Monocytes Absolute Auto 0.5 X10*3/uL (0.1-1.2); Monocytes Percent Auto 8.4 % (2-11); Neutrophils Absolute Auto 2.6 x10*3/uL (2.0-8.3); Neutrophils Percent Auto 40.3 % (45-73); Platelet Count 170 X10*3/uL (160-400); Red Blood Count 5.21 X10*6/uL (4.20-5.50); Red Cell Distribution Width 14.3 % (11.0-16.0); White Blood Count 6.4 X10*3/uL (4.8-10.8)
[2023-08-17 11:21] LABS: Erythrocyte Sedimentation Rate 2 MM/HR (0-20)
[2023-08-17 11:22] LABS: Alanine Aminotransferase 21 U/L (0-31); Albumin Level 4.4 g/dL (3.5-5.0); Alkaline Phosphatase 95 U/L (39-117); Anion Gap 15 (12-20); Aspartate Amino Transferase 25 U/L (5-31); Bilirubin Total 0.5 mg/dL (0.0-1.0); Blood Urea Nitrogen 10 mg/dL (9-16); C Reactive Protein 0.36 mg/dL (< or = 0.50); Carbon Dioxide 27 mmol/L (22-29); Chloride 103 mmol/L (96-108); Estimated Glomerular Filt Rate > 60; Glucose Random 83 mg/dL (60-115); Potassium 3.8 mmol/L (3.3-5.1); Sodium 141 mmol/L (135-145); Total Protein 7.7 g/dL (6.5-8.0)
== END 2023-08-17 09:57 | disposition home or self-care (01) ==
LOC: HO.LAB 09:56
PROVIDERS: PCP Internal Medicine; Visit Provider Student in an Organized Health Care Education/Training Program
DX: L40.50 Arthropathic psoriasis, unspecified (principal)
CPT/HCPCS: 36415; 80053; 85025; 85652; 86140

== ENCOUNTER 2023-09-13 14:12 | Outpatient (AMB) | payer OTHER, SELFPAY ==
--- NOTE | 2023-09-13 14:24 | A.OFFVIS_ITS ---
Vital Signs 09/13/23 14:25 Height 4 ft 11 in Weight 143 lb 4.807 oz BMI 28.9 BP 132/60 Blood Pressure Location Rt brachial Position Sitting Intake Visit Reasons: PsA/cm Intake Note: Pt seen today for PsA follow up. Reports pain in left heel Solutions Manager Required: No Accompanied by: Self / Same As Patient Allergies cephalexin Adverse Reaction (Severe, Verified 09/13/23 14:31) Anaphylaxis acetaminophen [From Tylenol-Codeine] Adverse Reaction (Intermediate, Verified 09/13/23 14:31) Hives amoxicillin [From Augmentin] Adverse Reaction (Intermediate, Verified 09/13/23 14:31) Vomiting clavulanic acid [From Augmentin] Adverse Reaction (Intermediate, Verified 09/13/23 14:31) Vomiting codeine [From Tylenol-Codeine] Adverse Reaction (Intermediate, Verified 09/13/23 14:31) Hives morphine Adverse Reaction (Intermediate, Verified 09/13/23 14:31) Vomiting, Hives egg Adverse Reaction (Mild, Verified 09/13/23 14:31) Vomiting seafood Adverse Reaction (Verified 09/13/23 14:31) Angioedema Medication List - Last Reconciled 09/13/23 by Freddy Wild MD albuterol sulfate 90 mcg/actuation (ProAir HFA) 2 puffs inhalation Q6H PRN albuterol sulfate mg inhalation budesonide 180 mcg/actuation (Pulmicort Flexhaler) 2 inhalations inhalation BID citalopram 10 mg PO DAILY epinephrine (EpiPen) 0.3 mg IM Q4H PRN famotidine 20 mg PO BID fluticasone propionate 50 mcg/actuation 1 spray intranasal DAILY hydrochlorothiazide 12.5 mg PO DAILY hyoscyamine sulfate 0.125 mg PO BID-QID PRN levocetirizine 5 mg PO DAILY Stelara (ustekinumab) 45 mg (0.5 mL) subcut Q12W NS tiotropium bromide 2.5 mcg/actuation (Spiriva Respimat) 2 puffs inhalation DAILY trazodone 100 mg PO BEDTIME umeclidinium-vilanterol 62.5-25 mcg/actuation (Anoro Ellipta) 1 ea inhalation DAILY zafirlukast 20 mg PO BID HPI Comments Details: 53-year-old female with psoriasis and psoriatic arthritis presents for follow- up. She is compliant with Stelara. No reported side effects of the medication. She states that she was recently admitted to the hospital with an asthma exacerbation, she was admitted for 5 days, she was initially on BiPAP then on flow oxygen. Also treated with steroids and antibiotics. She was evaluated by her facilities and grounds director Dr. Thompson yesterday and Fasnera was discussed. Patient states that her skin is clear of psoriasis however she starts getting joint aches and stiffness before she is due for her Stelara shot. She is due for her Stelara about a month from now. Today she is having pain in the back of her Achilles and her left heel when she steps on it. Initial history: This is a 51-year-old female with past medical history of asthma/COPD, anxiety, hypertension presents for evaluation of diffuse joint pain. Patient has been having diffuse joint pain for the last 6 years but got worse over the last 3 months. She has pain swelling and stiffness of her hands, elbows, ankles. Stiffness last for 4-5 hours in the morning improved with putting her hands under warm water. Patient does not like to take any medications like Tylenol or NSAIDs. Of note 2 months ago she went to the asic verification engineer with a diffuse skin rash, was diagnosed with psoriasis and was prescribed multiple topical steroid creams with significant relief. There is no history suggestive of uveitis or IBD. Also of note she has had dry eyes and dry mouth for years. She states she has difficulty swallowing and has severe heartburn. Patient has lost 40 lb over the last 3 years unintentionally. No fevers or night sweats. [facility] Medical History (Updated 09/13/23 @ 15:02 by Freddy Wild MD) Transaminitis Cognitive impairment, mild, so stated Pituitary adenoma Cataract (lens) fragments in eye following cataract surgery Dysphagia Asthma Hypertension GERD (gastroesophageal reflux disease) Cataract Hepatic steatosis Depression Anxiety Surgical History Hx of tubal ligation Family History Mother Rheumatoid arthritis Lung cancer Congestive heart failure Active asthma Chronic obstructive airway disease Father Stomach cancer Arthritis Sister Multiple sclerosis Social History Household Members Other:: lives with roommate Housing: House Alcohol intake: current Alcohol intake frequency: holidays/special occasions only Patient Tobacco Use Status: Former Tobacco user Tobacco use type: Cigarette Cigarettes Per Day: 5 Years Smoked: on and off over the years e-Cigarette/Vaping Use: Never Used service: No 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 Female Reproductive History Menstrual Total pregnancies: 8 Full term: 6 Ab spontaneous: 2 Review of Systems Musc Reports arthralgias and Reports stiffness Skin/Breast Denies photosensitivity and Denies rash Psych Reports abnormal sleep pattern and Reports anxiety Physical Exam Vital Signs: Last Vital Signs BP 132/60 09/13/23 14:25 BMI result Body Mass Index 28.9 Const General: cooperative, healthy appearing, comfortable, no acute distress and well developed Nutritional Appearance: average body habitus and well nourished Limitations: no limitations HEENT Head: Yes normocephalic and Yes atraumatic Mouth: Normal oral and palatal mucosa present and moist mucous membranes Resp Effort & Inspection: normal respiratory effort and able to speak in complete sentences Auscultation: clear to auscultation bilaterally GI Palpation (GI): Hepatomegaly present (Nodular border) Extrem Other: No MCP tenderness, negative MCP squeeze test, negative PIP squeeze test No flexor or extensor tendon tenderness of both hands No elbow pain with full flexion and extension bilaterally Left Achilles tendon tenderness without swelling Results Reviewed Results Reviewed: MRI OF BRAIN WITH AND WITHOUT CONTRAST Exam Date: 11/10/2022 1:56 PM Ordering Diagnosis: Pituitary microadenoma (HCC) ? MRI of the brain and pituitary fossa. ? History pituitary microadenoma. ? Examination was performed on 1.5 Fátima magnet without intravenous contrast followed by postcontrast study after administration of 15 mL of DOTAREM, utilizing pituitary protocol with dynamic administration of the contrast. Compared with previous examination from 10/01/2021. ? Again noted is prominence of the right aspect of the pituitary gland with focal area of decreased enhancement measuring approximately 5.5 x 2.5 mm in the coronal plane and 3.5 mm in the sagittal plane. It is not as well visualized on the sagittal plane as on prior study. Pituitary stalk is midline. Optic chiasm is not compressed. Normal signal voids noted in the cavernous portions of the internal carotid arteries. ? There is no evidence of midline shift, extra or intra-axial blood fluid collections. There is no visible masses or mass effect in the brain and cerebellum. Again noted are numerous foci of increased FLAIR signal in the subcortical and deep white matter of both cerebral hemispheres, unchanged since previous examination. The lesions revealed no restricted diffusion or enhancement. ? Cerebellar tonsils are normally positioned. Ventricular system is symmetric and normal in size. Paranasal sinuses and mastoid processes are aerated. ? CONCLUSIONS: Slight interval decrease in size of the hypoenhancing focus/microadenoma in the right aspect of the pituitary gland. Stable white matter signal abnormalities in both cerebral hemispheres. US SOFT TISSUE ABDOMEN/BACK, LIMITED ABD Exam Date: 05/26/2022 7:56 AM Ordering Diagnosis: Fatty liver ? Limited abdominal ultrasound. History fatty liver. ? Compared to previous examination from 08/29/2021. Gallbladder is unremarkable. There is no biliary ducts dilatation. Common biliary duct measures 5 mm. Liver is enlarged measuring 19.2 cm in long axis. It revealed coarse increased echogenicity without focal lesions, most likely due to hepatic steatosis. There is normal flow in the portal vein. Pancreas is not well seen due to artifact from the bowel gas. Right kidney measures 11.5 cm. There is some lobulated cyst in the lower pole measuring 3.5 x 2.7 x 3.2 cm. There is additional partially exophytic cyst in the lower pole measuring 0.9 x 0.8 x 0.9 cm. ? CONCLUSIONS: Hepatomegaly with abnormal echotexture most likely due to steatosis. Right kidney cysts. Assessment & Plan Assessment & Plan (1) Psoriatic arthritis: Comment: dx 02/2022 (+anti CarP Ab) NSAIDs could not be tolerated due to significant GI upset Failed Otezla due to GI upset MTX and LEF are contraindicated due to transaminitis. Patient could not tolerate Otezla due to significant GI upset with vomiting. TNF inhibitors are relatively contraindicated due to positive family history of demyelinating disease. Sister of multiple sclerosis Stelara started 03/10 effective Code(s): L40.50 - Arthropathic psoriasis, unspecified Category: Medical Plan: This is a 52-year-old female with psoriatic arthritis who returns for follow- up? Stelara started 02/2022 effective Continue Stelara 45 mg every 12 weeks Patient was admitted twice for an asthma exacerbation over the last year. She was recently evaluated by her facilities and grounds director and Fasnera is being considered Mild flare-up affecting her left ankle. Start prednisone 10 mg daily for 10 days then stop Infectious screening hepatitis panel and T spot -ve 2021 Repeat labs before next visit in 6 months (2) Psoriasis: Code(s): L40.9 - Psoriasis, unspecified Category: Medical Plan: Well controlled on Stelara (3) Plantar fasciitis, left: Code(s): M72.2 - Plantar fascial fibromatosis Category: Medical Plan: Provided patient with a printout of home exercises Plan I spent 27 minutes reviewing patient's chart, evaluating patient, ordering diagnostic workup, counseling patient and documenting in the chart Orders: Orders C Reactive Protein 6 Months L40.50 - Arthropathic psoriasis, unspecified Erythrocyte Sedimentation Rate 6 Months L40.50 - Arthropathic psoriasis, unspecified T Spot TB 6 Months Z11.7 - Encounter for testing for latent tuberculosis infection Complete Blood Count Auto Diff 6 Months L40.50 - Arthropathic psoriasis, unspecified Comprehensive Met. Panel 6 Months L40.50 - Arthropathic psoriasis, unspecified Hepatitis A,B,C Profile 6 Months Z11.59 - Encounter for screening for other viral diseases Medications: New prednisone 10 mg PO DAILY 10 days 10 tabs 0RF Coding Level of Care Code Est Pt Level 4 (24105) Diagnoses Psoriatic arthritis L40.50 Psoriasis L40.9 Plantar fasciitis, left M72.2
[2023-09-13 14:25] VITALS: BP 132/60; BMI 28.9
== END 2023-09-13 14:56 | disposition home or self-care (01) ==
PROVIDERS: PCP Internal Medicine; Visit Provider Student in an Organized Health Care Education/Training Program
DX: L40.50 Arthropathic psoriasis, unspecified (principal); L40.9 Psoriasis, unspecified; M72.2 Plantar fascial fibromatosis
CPT/HCPCS: 99214

== ENCOUNTER → 2023-09-13 14:12 | Outpatient (BNVA) | payer OTHER, SELFPAY | PROVIDERS: PCP Internal Medicine; Visit Provider Student in an Organized Health Care Education/Training Program | DX: L40.50 Arthropathic psoriasis, unspecified (principal); L40.9 Psoriasis, unspecified; M72.2 Plantar fascial fibromatosis | CPT/HCPCS: 99212 ==

== ENCOUNTER 2024-03-06 15:21 | Outpatient (REF) | payer MEDICAID, SELFPAY ==
[2024-03-06 15:33] LABS: MANUAL DIFF FLAG NO
--- OUTSIDE RECORDS SUMMARY | 2024-03-06 16:00 | XMS_ITS | Continuity of Care Document ---
Author Organization [employer] [facility] Address [address] [place] [address] Phone Care Team Providers Care Body Builder Name Role Phone Shiva CANDELARIA FACC, Ced Unavailable Unavaila ble Procedures Procedure Date EKG Interpretation - Hospital 4 Advance Directives Directive Yes / No Effective Date File Name No Information Encounters Encounter Description Practice Location Reason(s) For Visit Diagnoses Date Provider Providers Copied on Encounter [employer] [facility], [address] [place], [place], [id number], tel:[phone] Issue [facility] No Information Shiva Coughlin. [address] [place], [place], [id number], [place]. tel:[phone] Referring Provider: Bruce Lebron, [address] [place] [address], [id number]. tel:[phone] Family History Family Member Type Diagnosis Age At Onset No Information Payers Payer name Insurance type Covered democrat ID Authoriza tion(s) Medicaid [id number] Social History Type Description Quantity Date Captured [...]
[2024-03-06 16:59] LABS: Basophils Percent Auto 0.3 % (0-2); Hematocrit 43.9 % (37.0-47.0); Imm Gran Abs Auto 0.02 X10*3/uL (0.00-0.03); Imm Gran Pct Auto 0.3 % (0.0-0.4); Lymphocytes Absolute Auto 2.4 X10*3/uL (1.2-4.9); Lymphocytes Percent Auto 35.4 % (20-40); Mean Corpuscular HGB Conc 34.2 g/dl (31.0-35.0); Mean Corpuscular Hemoglobin 31.6 pg (27.0-33.0); Mean Corpuscular Volume 92.6 fL (80.0-98.0); Mean Platelet Volume 10.3 fL (9.4-12.3); Monocytes Absolute Auto 0.8 X10*3/uL (0.1-1.2); Monocytes Percent Auto 11.3 % (2-11); Neutrophils Absolute Auto 3.5 x10*3/uL (2.0-8.3); Neutrophils Percent Auto 52.7 % (45-73); Platelet Count 213 X10*3/uL (160-400); Red Blood Count 4.74 X10*6/uL (4.20-5.50); Red Cell Distribution Width 13.8 % (11.0-16.0); White Blood Count 6.7 X10*3/uL (4.8-10.8)
[2024-03-06 17:47] LABS: Alanine Aminotransferase 32 U/L (0-31); Albumin Level 4.1 g/dL (3.5-5.0); Alkaline Phosphatase 97 U/L (39-117); Anion Gap 11 (12-20); Aspartate Amino Transferase 31 U/L (5-31); Bilirubin Total 0.3 mg/dL (0.0-1.0); Blood Urea Nitrogen 12 mg/dL (9-16); C Reactive Protein 0.38 mg/dL (< or = 0.50); Calcium 9.8 mg/dL (8.4-10.2); Carbon Dioxide 26 mmol/L (22-29); Chloride 103 mmol/L (96-108); Estimated Glomerular Filt Rate > 60; Glucose Random 94 mg/dL (60-115); Sodium 136 mmol/L (135-145); Total Protein 7.3 g/dL (6.5-8.0)
[2024-03-06 18:35] LABS: Erythrocyte Sedimentation Rate 7 MM/HR (0-20)
[2024-03-07 04:49] LABS: HBc Num1 0.11 S/CO (0.00-0.79); HBsAGNum1 0.33 S/CO (0.00-0.99); Hepatitis A Antibody IgM 0.16 Index (0-0.79); Hepatitis B Core Antibody Nonreactive (Nonreactive); Hepatitis B Surface Antigen Negative (Negative); ~HepC Num1 0.13 S/CO (0.00-0.79); ~Hepatitis A Antibody IgM Nonreactive (Nonreactive); ~Hepatitis B Surface Antibody NONREACTIVE (Nonreactive); ~Hepatitis C Antibody Nonreactive (Nonreactive)
[2024-03-09 02:53] LABS: TS Negative Control Passed; TS Panel A 0; TS Panel B 0; TS Positive Control Passed; TSpotTB Negative (Negative)
== END 2024-03-06 15:22 | disposition home or self-care (01) ==
LOC: HO.LAB 15:21
PROVIDERS: PCP Internal Medicine; Visit Provider Student in an Organized Health Care Education/Training Program
DX: L40.50 Arthropathic psoriasis, unspecified (principal); Z11.7 Encounter for testing for latent tuberculosis infection; Z11.59 Encounter for screening for other viral diseases
CPT/HCPCS: 36415; 80053; 85025; 85652; 86140; 86481; 86704; 86706; 86709; 86803; 87340

== ENCOUNTER 2024-03-27 08:19 | Outpatient (AMB) | payer OTHER, SELFPAY ==
--- OUTSIDE RECORDS SUMMARY | 2024-03-27 08:28 | XMS_ITS | Continuity of Care Document ---
Author Organization [facility] Address [address] [place] [address] Phone Care Team Providers Care Master [place] Name Role Phone Shiva CANDELARIA FACC, Ced Unavailable Unavaila ble Procedures Procedure Date EKG Interpretation - Hospital 4 Advance Directives Directive Yes / No Effective Date File Name No Information Encounters Encounter Description Practice Location Reason(s) For Visit Diagnoses Date Provider Providers Copied on Encounter [facility], [address] [place], [place], [id number], tel:[phone] [facility] No Information hSiva Coughlin. [address] [place], [place], [id number], [place]. tel:[phone] Referring Provider: Bruce Lebron, [address] [place] [address], [address]. tel:[phone] Family History Family Member Type Diagnosis Age At Onset No Information Payers Payer name Insurance type Covered constitution party ID Authoriza tion(s) Medicaid [id number] Social History Type Description Quantity Date Captured [...]
--- NOTE | 2024-03-27 08:36 | MHC.OFFVIS ---
Vital Signs 03/27/24 08:44 Height 4 ft 11 in Weight 140 lb 10.479 oz BMI 28.4 BP 124/80 Blood Pressure Location Rt brachial Position Sitting Pulse 75 Pulse Source Pulse Oximeter Pulse Oximetry (%) 92 Oxygen Delivery Method Room Air Intake Visit Reasons: PsA Intake Note: Patient presents for PsA. Allergies cephalexin Adverse Reaction (Severe, Verified 03/27/24 08:40) Anaphylaxis acetaminophen [From Tylenol-Codeine] Adverse Reaction (Intermediate, Verified 03/27/24 08:40) Hives amoxicillin [From Augmentin] Adverse Reaction (Intermediate, Verified 03/27/24 08:40) Vomiting clavulanic acid [From Augmentin] Adverse Reaction (Intermediate, Verified 03/27/24 08:40) Vomiting codeine [From Tylenol-Codeine] Adverse Reaction (Intermediate, Verified 03/27/24 08:40) Hives morphine Adverse Reaction (Intermediate, Verified 03/27/24 08:40) Vomiting, Hives egg Adverse Reaction (Mild, Verified 03/27/24 08:40) Vomiting seafood Adverse Reaction (Verified 03/27/24 08:40) Angioedema Medication List - Last Reconciled 03/27/24 by Freddy Wild MD albuterol sulfate 90 mcg/actuation (ProAir HFA) 2 puffs inhalation Q6H PRN albuterol sulfate mg inhalation budesonide 180 mcg/actuation (Pulmicort Flexhaler) 2 inhalations inhalation BID bupropion HCl XL 300 mg PO QAM citalopram 10 mg PO DAILY epinephrine (EpiPen) 0.3 mg IM Q4H PRN famotidine 20 mg PO BID fluticasone propionate 50 mcg/actuation 1 spray intranasal DAILY hydrochlorothiazide 12.5 mg PO DAILY hyoscyamine sulfate 0.125 mg PO BID-QID PRN levocetirizine 5 mg PO DAILY pantoprazole mg PO Stelara (ustekinumab) 45 mg (0.5 mL) subcut Q12W NS trazodone 100 mg PO BEDTIME umeclidinium-vilanterol 62.5-25 mcg/actuation (Anoro Ellipta) 1 ea inhalation DAILY zafirlukast 20 mg PO BID HPI Comments Details: 53-year-old female with psoriasis and psoriatic arthritis presents for follow-up. She is compliant with Stelara. No reported side effects of the medication. She states that her asthma has been much better since she was started on Fasenra. She states that she continues to have intermittent muscle aches, she continues to have intermittent left knee pain. Denies any rashes Initial history: This is a 51-year-old female with past medical history of asthma/COPD, anxiety, hypertension presents for evaluation of diffuse joint pain. Patient has been having diffuse joint pain for the last 6 years but got worse over the last 3 months. She has pain swelling and stiffness of her hands, elbows, ankles. Stiffness last for 4-5 hours in the morning improved with putting her hands under warm water. Patient does not like to take any medications like Tylenol or NSAIDs. Of note 2 months ago she went to the marketing graphics specialist with a diffuse skin rash, was diagnosed with psoriasis and was prescribed multiple topical steroid creams with significant relief. There is no history suggestive of uveitis or IBD. Also of note she has had dry eyes and dry mouth for years. She states she has difficulty swallowing and has severe heartburn. Patient has lost 40 lb over the last 3 years unintentionally. No fevers or night sweats. [facility] Medical History Transaminitis Cognitive impairment, mild, so stated Pituitary adenoma Cataract (lens) fragments in eye following cataract surgery Dysphagia Asthma Hypertension GERD (gastroesophageal reflux disease) Cataract Hepatic steatosis Depression Anxiety Surgical History Hx of tubal ligation Family History Mother Rheumatoid arthritis Lung cancer Congestive heart failure Active asthma Chronic obstructive airway disease Father Stomach cancer Arthritis Sister Multiple sclerosis Social History Household Members Other:: lives with roommate Housing: House Alcohol intake: current Alcohol intake frequency: holidays/special occasions only Patient Tobacco Use Status: Former Tobacco user Tobacco use type: Cigarette Cigarettes Per Day: 5 Years Smoked: on and off over the years e-Cigarette/Vaping Use: Never Used service: No 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 Review of Systems [facility] Reports arthralgias and Reports stiffness Skin/Breast Denies rash Physical Exam Vital Signs: Last Vital Signs Pulse 75 03/27/24 08:44 BP 124/80 03/27/24 08:44 Pulse Ox 92 03/27/24 08:44 Oxygen Delivery Method Room Air 03/27/24 08:44 BMI result Body Mass Index 28.4 Const General: cooperative, healthy appearing, comfortable, no acute distress and well developed Nutritional Appearance: average body habitus and well nourished Limitations: no limitations HEENT Head: Yes normocephalic and Yes atraumatic Mouth: Normal oral and palatal mucosa present and moist mucous membranes Resp Effort & Inspection: normal respiratory effort and able to speak in complete sentences Auscultation: clear to auscultation bilaterally GI Palpation (GI): Hepatomegaly present (Nodular border) Skin General skin exam: no rashes or lesions noted Extrem Other: No MCP tenderness, negative MCP squeeze test, negative PIP squeeze test No flexor or extensor tendon tenderness of both hands No elbow pain with full flexion and extension bilaterally Bilateral knee crepitus Assessment & Plan Assessment & Plan (1) Psoriatic arthritis: Comment: dx 02/2022 (+anti CarP Ab) NSAIDs could not be tolerated due to significant GI upset Failed Otezla due to GI upset MTX and LEF are contraindicated due to transaminitis. Patient could not tolerate Otezla due to significant GI upset with vomiting. TNF inhibitors are relatively contraindicated due to positive family history of demyelinating disease. Sister of multiple sclerosis Stelara started 03/10 effective Code(s): L40.50 - Arthropathic psoriasis, unspecified Category: Medical Plan: This is a 53-year-old female with psoriatic arthritis who returns for follow-up? Stelara started 02/2022 very effective effective Continue Stelara 45 mg every 12 weeks Labs before next visit in 6 months (2) Psoriasis: Code(s): L40.9 - Psoriasis, unspecified Category: Medical Plan: Well controlled on Stelara (3) Osteoarthritis of left knee: Code(s): M17.12 - Unilateral primary osteoarthritis, left knee Category: Medical Qualifiers: Osteoarthritis type: primary Qualified Code(s): M17.12 - Unilateral primary osteoarthritis, left knee Plan: OTC Voltaren gel trial (4) Fibromyalgia, primary: Code(s): M79.7 - Fibromyalgia Category: Medical Plan: Discussed management of fibromyalgia with patient. Is a noninflammatory, non-autoimmune central afferent processing disorder leading to a diffuse pain syndrome. Patient follows up regularly with psychotherapist and psychiatrist. Try to follow sleep hygiene practices. He mentioned that she had a sleep study within the last year and she does not have sleep apnea but she uses oxygen at night. Patient would benefit from increased physical activity, either through formal physical therapy or by joining a gym. Patient has been walking on the treadmill twice a week at the gym. Advised patient to consider adding some low-impact exercises such as aquatherapy or light weights Plan I spent 27 minutes reviewing patient's chart, evaluating patient, ordering diagnostic workup, counseling patient and documenting in the chart Orders: Orders C Reactive Protein 6 Months L40.50 - Arthropathic psoriasis, unspecified Erythrocyte Sedimentation Rate 6 Months L40.50 - Arthropathic psoriasis, unspecified Complete Blood Count Auto Diff 6 Months L40.50 - Arthropathic psoriasis, unspecified Comprehensive Met. Panel 6 Months L40.50 - Arthropathic psoriasis, unspecified Coding Level of Care Code Est Pt Level 4 (63471) Complex EM visit Add On G2211 Diagnoses Psoriatic arthritis L40.50 Psoriasis L40.9 Primary osteoarthritis of left knee M17.12 Osteoarthritis type: primary Fibromyalgia, primary M79.7
[2024-03-27 08:44] VITALS: BP 124/80; PULSE 75; O2SAT 92; BMI 28.4
== END 2024-03-27 09:07 | disposition home or self-care (01) ==
PROVIDERS: PCP Internal Medicine; Visit Provider Student in an Organized Health Care Education/Training Program
DX: L40.50 Arthropathic psoriasis, unspecified (principal); L40.9 Psoriasis, unspecified; M17.12 Unilateral primary osteoarthritis, left knee; M79.7 Fibromyalgia
CPT/HCPCS: 99214

== ENCOUNTER → 2024-03-27 08:19 | Outpatient (BNVA) | payer MEDICAID, SELFPAY | PROVIDERS: PCP Internal Medicine; Visit Provider Student in an Organized Health Care Education/Training Program ==

== ENCOUNTER 2024-07-29 07:59 | Outpatient (AMB) | payer OTHER, SELFPAY ==
--- OUTSIDE RECORDS SUMMARY | 2024-07-29 08:02 | XMS_ITS | Encounter Summary ---
Author Organization [facility] Address [address] [place] [address] Care Team Providers Care Operational Intelligence Analyst Name Role Phone Rebeka Manning MD Primary Care Prov ider Leif Booth MD Unavailable Fe Thompson MD Unavailable Alen Vu MD Unavailable Encounter Details Date Type Department Care Team Description 05/25/2023 Pt. Non Urgent Medical Question Pulmonology - [place] [address] [facility] [address] [place] [phone] Rosie Huff APRN [address] [facility] [address] [place] [phone] Social History Tobacco Use Types Packs/Day Years Used Date Smoking Tobacco: Some Days Cigarettes 0.5 Started: 12/2019; Last attempted to quit: 03/03/2022 Smokeless Tobacco: Never Comments:03/08/22: started s moking @ 11. 1/2 ppd; JOAQUIM:20 Alcohol Use Standard Drinks/Week Comments Yes 0 (1 standard drink = 0.6 oz pur e alcohol) social Sex Assigned at Date Recorded Female 11/09/2022 2:57 PM E DT Job Start Date Occupation Industry Not on file Not on file Not on file documented as of this encounter Miscellaneous Notes * Telephone Encounter - Hina Cook - 05/26/2023 10:02 AM ESTFrom: Janeen Medina To: Steph Huff Sent: 05/25/2023 4:37 PM EST Subject: X-ray of lungs Do you want me to do another. X-ray before my appointment I just wanna make sure I understand documented in this encounter Plan of Treatment Not on file documented as of this encounter Visit Diagnoses Not on filedocumented in this encounter Care Teams Operational Intelligence Analyst Relationship Specialty Start Date End Date Rebeka Manning MD [address] [place] [phone] PCP - General Internal Medicine 10/18/21 Leif Booth MD [address] [place] [id number] Lung Cancer Jacquard Loom Card Changer 03/08/22 Fe Thompson MD [address] [place] [phone] Specialist Pulmonology 12/06/23 Alen Vu MD [address] [place] [phone] Specialist Endocrinology 12/06/23 documented as of this encounter
--- OUTSIDE RECORDS SUMMARY | 2024-07-29 08:02 | XMS_ITS | Encounter Summary ---
Author Organization [facility] Address [address] [place] [address] Care Team Providers Care Overedger Name Role Phone Kelly Rudd MD Primary Care Provider Gem Mcgill MD Primary Care Provider Rebeka Jara MD Primary Care Prov ider Leif Booth MD Unavailable Fe Thompson MD Unavailable Alen Vu MD Unavailable Reason for Visit * Reason Onset Date Comments refill request 05/14/2018 Encounter Details Date Type Department Care Team Description 05/14/2018 Refill Adult Medicine [address] [address] Kelly Rudd MD refill request Social History Tobacco Use Types Packs/Day Years Used Date Smoking Tobacco: Former Smokeless Tobacco: Never Comments:quit 20 years ago - at that time pack/day Alcohol Use Standard Drinks/Week Comments No 0 (1 standard drink = 0.6 oz pur e alcohol) Sex Assigned at Date Recorded Female 11/09/2022 2:57 PM E DT Job Start Date Occupation Industry Not on file Not on file Not on file documented as of this encounter Miscellaneous Notes * Telephone Encounter - Josselyn Cook - 05/14/2018 11:42 AM EST Last office visit: 03.12.2018 * Telephone Encounter - Kalin Lin - 05/14/2018 11:37 AM EST Script needs to have no substitution Patient would like script to be: E-PRESCRIBED/FAXED TO PHARMACY WHEN WAS THE PATIENT'S LAST APPOINTMENT IN ADULT MEDICINE? 03-12-18 WHEN WAS THE LAST TIME THE PATIENT SAW THEIR PCP? Same as above Does patient have an upcoming appointment? no (THE MEDICATION REQUESTED IS ON THE MED LIST ABOVE) All of the medications requested were on the CURRENT MEDS list Did you check the Pharmacy information above?: YES Patient wants: 30 -day supply Is this a mail order prescription request ? NO If the refill is from a FAXED refill request what is the RX # listed on the fax? N/A Patients current insurance carrier is: Payor: [employer] FFS / Plan: [employer] [facility] / Product Type: MEDICAID RISK documented in this encounter Plan of Treatment Not on file documented as of this encounter Visit Diagnoses Not on filedocumented in this encounter Additional Health Concerns Infection Onset Date Last Indicated Resolved Time COVID-19 Comment:Tested positive for COVID 07/03/2022 07/04/20222022 1:38 PM EDT documented as of this encounter Care Teams Overedger Relationship Specialty Start Date End Date Kelly Rudd MD PCP - General Internal Medicine 11/06/1711/02 Gem Rodriguez MD PCP - General Internal Medicine 11/03/20 10/17/21 Nataliya Flores, Rebeka Junior MD [address] [place] [address] PCP - General Internal Medicine 10/18/21 Leif Booth MD [address] [place] [address] Lung Cancer Manufacturing Controller 03/08/22 Fe Thompson MD [address] [place] [phone] Specialist Pulmonology 12/06/23 Alen Vu MD [address] [place] [address] Specialist Endocrinology 12/06/23 documented as of this encounter
--- OUTSIDE RECORDS SUMMARY | 2024-07-29 08:02 | XMS_ITS | Encounter Summary ---
Author Organization [facility] Address [address] [place] [address] Care Team Providers Care Group Insurance Special Agent Name Role Phone Rebeka Manning MD Primary Care Prov ider Leif Booth MD Unavailable Fe Thompson MD Unavailable Alen Vu MD Unavailable Encounter Details Date Type Department Care Team Description 06/04/2023 Hospital Medical Records [address] [place] [address] Harley Pierce Social History Tobacco Use Types Packs/Day Years Used Date Smoking Tobacco: Former Cigarettes 0.5 1 - 03/03/2022 Smokeless Tobacco: Never Comments:03/08/22: started s moking @ 11. 1/2 ppd; JOAQUIM:20 Alcohol Use Standard Drinks/Week Comments Yes 0 (1 standard drink = 0.6 oz pur e alcohol) social Sex Assigned at Date Recorded Female 11/09/2022 2:57 PM E DT Job Start Date Occupation Industry Not on file Not on file Not on file documented as of this encounter Plan of Treatment Not on file documented as of this encounter Visit Diagnoses Not on filedocumented in this encounter Care Teams Group Insurance Special Agent Relationship Specialty Start Date End Date Rebeka Manning MD [address] [place] [address] [phone] PCP - General Internal Medicine 10/18/21 Leif Booth MD [address] [place] [address] Lung Cancer Office Aide 03/08/22 Fe Thompson MD [address] [place] [phone] Specialist Pulmonology 12/06/23 Alen Vu MD [address] [place] [address] Specialist Endocrinology 12/06/23 documented as of this encounter
--- OUTSIDE RECORDS SUMMARY | 2024-07-29 08:02 | XMS_ITS | Encounter Summary ---
Author Organization [employer] [facility] Address [address] [place] [address] Care Team Providers Care Wireless Operator Name Role Phone Rebeka Manning MD Primary Care Prov ider Leif Booth MD Unavailable Fe Thompson MD Unavailable Alen Vu MD Unavailable Encounter Details Date Type Department Care Team Description 09/03/2023 Hospital Medical Records [address] [place], [place] [phone] [place] [address] Social History Tobacco Use Types Packs/Day Years [...] on file documented as of this encounter Procedures Procedure Name Priority Date/Time Associated Diagnosis Comments OUTSIDE ECHO Routine 09/03/2023 documented in this encounter Results * OUTSIDE ECHO (09/03/2023) Provider Default CARDIOLOGY [facility] documented in this encounter Visit Diagnoses Not on filedocumented in this encounter Care Teams Wireless Operator Relationship Specialty Start Date End Date Rebeka Manning MD [address] [place] [address] PCP - General Internal Medicine 10/18/21 Leif Booth MD [address] [place] [address] Lung Cancer Steward/Stewardess Wine 03/08/22 Fe Thompson MD [address] [place] [phone] Specialist Pulmonology 12/06/23 Alen Vu MD [address] [place] [address] Specialist Endocrinology 12/06/23 documented as of this encounter
--- OUTSIDE RECORDS SUMMARY | 2024-07-29 08:02 | XMS_ITS | Encounter Summary ---
Author Organization [facility] Address [address] [place] [address] Care Team Providers Care Splicing Machine Operator Name Role Phone Rebeka Manning MD Primary Care Prov ider Leif Booth MD Unavailable Fe Thompson MD Unavailable Alen Vu MD Unavailable Encounter Details Date Type Department Care Team Description 10/24/2022 Telephone Endocrinology - [address] [address] Alen Vu MD [address] [place] [address] [phone] Social History Tobacco Use Types Packs/Day Years Used Date Smoking Tobacco: Every Day Cigarettes 0.5 Started: 12/2019; Last attempted to quit: 03/03/2022 Smokeless Tobacco: Never Comments:03/08/22: started s moking @ 11. 1/2 ppd; JOAQUIM:20 Alcohol Use Standard Drinks/Week Comments Yes 0 (1 standard drink = 0.6 oz pur e alcohol) social Sex Assigned at Date Recorded Female 11/09/2022 2:57 PM E DT Job Start Date Occupation Industry Not on file Not on file Not on file COVID-19 Exposure Response Date Recorded In the last 10 days, have yo u been in contact with someone who was confirmed or suspected to have Coronavirus/COVID-19? No / Unsure 10/24/2022 9:16 AM EDT documented as of this encounter Plan of Treatment Not on file documented as of this encounter Visit Diagnoses Not on filedocumented in this encounter Additional Health Concerns Infection Onset Date Last Indicated Resolved Time COVID-19 Comment:Tested positive for COVID 07/03/2022 07/04/20222022 1:38 PM EDT documented as of this encounter Care Teams Splicing Machine Operator Relationship Specialty Start Date End Date Rebeka Manning MD [address] [place] [address] PCP - General Internal Medicine 10/18/21 Leif Booth MD [address] [place] [address] Lung Cancer Director Paid Media 03/08/22 Fe Thompson MD [address] [place] [phone] Specialist Pulmonology 12/06/23 Alen Vu MD [address] [place] [address] Specialist Endocrinology 12/06/23 documented as of this encounter
--- OUTSIDE RECORDS SUMMARY | 2024-07-29 08:02 | XMS_ITS | Encounter Summary ---
Author Organization [facility] Address [address] [place] [address] Care Team Providers Care Gravity Meter Observer Name Role Phone Kelly Rudd MD Primary Care Provider Gem Mcgill MD Primary Care Provider Rebeka Jara MD Primary Care Prov ider Leif Booth MD Unavailable Fe Thompson MD Unavailable Alen Vu MD Unavailable Reason for Visit * Reason Comments E-prescribe Rx Request Encounter Details Date Type Department Care Team Description 05/04/2019 Refill Pulmonology - [place] [address] [facility] [address] [place] [phone] Anderson Zabala PA-C [address] [facility] [address] [place] [phone] E-prescribe Rx Request Social History Tobacco Use Types Packs/Day Years Used Date Smoking Tobacco: Former Cigarettes 1 Q uit: 1997 Smokeless Tobacco: Never Comments:quit 20 years ago [...] encounter Miscellaneous Notes * Telephone Encounter - Bria Young M.A. - 05/06/2019 10:31 AM EST Refill sent to pcp Lab Results Component Value Date NA 139 10/30/2018 K 4.3 10/30/2018 CO2 27 10/30/2018 CL 102 10/30/2018 BUN 11 10/30/2018 CREAT 0.53 10/30/2018 GLU 77 10/30/2018 CA 9.4 10/30/2018 GFR > 60 10/30/2018 Lab Results Component Value Date NA 139 10/30/2018 K 4.3 10/30/2018 CO2 27 10/30/2018 CL 102 10/30/2018 BUN 11 10/30/2018 CREAT 0.53 10/30/2018 GLU 77 10/30/2018 CA 9.4 10/30/2018 GFR > 60 10/30/2018 * Telephone Encounter - Betsey Little - 05/06/2019 8:31 AM EST Patient would like script to be: E-PRESCRIBED/FAXED TO PHARMACY WHEN WAS THE PATIENT'S LAST APPOINTMENT IN ADULT MEDICINE? 12.26.2018 WHEN WAS THE LAST TIME THE PATIENT SAW THEIR PCP? Has not seen Does patient have an upcoming appointment? Yes 05.20.2019 (THE MEDICATION REQUESTED IS ON THE MED LIST ABOVE) All of the medications requested were on the CURRENT MEDS list Did you check the Pharmacy information above?: NO Patient wants: 30 -day supply Is this a mail order prescription request ? NO If the refill is from a FAXED refill request what is the RX # listed on the fax? N/A Patients current insurance carrier is: Payor: [employer] FFS / Plan: [employer] / Product Type: MEDICAID RISK documented in this encounter Plan of Treatment Not on file documented as of this encounter Visit Diagnoses Diagnosis Gastroesophageal reflux disease, esophagitis presence not specified documented in this encounter Additional Health Concerns Infection Onset Date Last Indicated Resolved Time COVID-19 Comment:Tested positive for COVID 07/03/2022 07/04/20222022 1:38 PM EDT documented as of this encounter Care Teams Gravity Meter Observer Relationship Specialty Start Date End Date Kelly Rudd MD PCP - General Internal Medicine 11/06/1711/02 Gem Rodriguez MD PCP - General Internal Medicine 11/03/20 10/17/21 Rebeka Manning MD [address] [place] [address] PCP - General Internal Medicine 10/18/21 Leif Booth MD [address] [place] [address] Lung Cancer Electrical Instrument Maker 03/08/22 Fe Thompson MD [address] [place] [phone] Specialist Pulmonology 12/06/23 Alen Vu MD [address] [place] [address] Specialist Endocrinology 12/06/23 documented as of this encounter
--- OUTSIDE RECORDS SUMMARY | 2024-07-29 08:02 | XMS_ITS | Encounter Summary ---
Author Organization [facility] Address [address] [place] [address] Care Team Providers Care Picking Tech Name Role Phone Kelly Rudd MD Primary Care Provider Gem Mcgill MD Primary Care Provider Rebeka Jara MD Primary Care Prov ider Leif Booth MD Unavailable Fe Thompson MD Unavailable Alen Vu MD Unavailable Reason for Visit * Reason Onset Date Comments refill request 06/25/2019 Encounter Details Date Type Department Care Team Description 06/25/2019 Refill Respiratory and Diabetes Medicaid/ACO Pharmacist [address] [place] [address] Kelly Rudd MD refill request Social History [...] encounter Miscellaneous Notes * Telephone Encounter - Alisson Wilson Pharm.D - 06/25/2019 10:54 AM EDT Please consider 90 day supply for patient's medications for new pharmacy [facility] documented in this encounter Plan of Treatment Not on file documented as of this encounter Visit Diagnoses Diagnosis Gastroesophageal reflux disease, esophagitis presence not specified documented in this encounter Additional Health Concerns Infection Onset Date Last Indicated Resolved Time COVID-19 Comment:Tested positive for COVID 07/03/2022 07/04/20222022 1:38 PM EDT documented as of this encounter Care Teams Picking Tech Relationship Specialty Start Date End Date Kelly Rudd MD PCP - General Internal Medicine 11/06/1711/02 Gem Rodriguez MD PCP - General Internal Medicine 11/03/20 10/17/21 Rebeka Manning MD [address] [place] [address] PCP - General Internal Medicine 10/18/21 Leif Booth MD [address] [place] [address] Lung Cancer Lumber Mover 03/08/22 Fe Thompson MD [address] [place] [phone] Specialist Pulmonology 12/06/23 Alen Vu MD [address] [place] [address] Specialist Endocrinology 12/06/23 documented as of this encounter
--- OUTSIDE RECORDS SUMMARY | 2024-07-29 08:02 | XMS_ITS | Encounter Summary ---
Author Organization [facility] Address [address] [place] [address] Care Team Providers Care Carton Waxing Machine Operator Name Role Phone Rebeka Manning MD Primary Care Prov ider Lief Booth MD Unavailable Fe Thompson MD Unavailable Alen Vu MD Unavailable Encounter Details Date Type Department Care Team Description 10/30/2022 Hospital Medical Records [address] [place], [place] [phone] [place] [address] Social History Tobacco Use Types Packs/Day Years [...] Name Priority Date/Time Associated Diagnosis Comments OUTSIDE STRESS TEST Routine 10/31/2022 OUTSIDE LAB Routine 10/31/2022 OUTSIDE LAB Routine 10/31/2022 documented in this encounter Results * OUTSIDE LAB (10/31/2022) Provider Default LAB * OUTSIDE LAB (10/31/2022) Provider Default LAB * OUTSIDE STRESS TEST (10/31/2022) Provider Default CARDIOLOGY documented in this encounter Visit Diagnoses Not on filedocumented in this encounter Additional Health Concerns Infection Onset Date Last Indicated Resolved Time COVID-19 Comment:Tested positive for COVID 07/03/2022 07/04/20222022 1:38 PM EDT documented as of this encounter Care Teams Carton Waxing Machine Operator Relationship Specialty Start Date End Date Rebeka Manning MD [address] [place] [address] PCP - General Internal Medicine 10/18/21 Leif Booth MD [address] [place] [address] Lung Cancer Wood Crew Supervisor 03/08/22 Fe Thompson MD [address] [place] [phone] Specialist Pulmonology 12/06/23 Alen Vu MD [address] [place] [address] Specialist Endocrinology 12/06/23 documented as of this encounter
--- OUTSIDE RECORDS SUMMARY | 2024-07-29 08:02 | XMS_ITS | Encounter Summary ---
Author Organization [facility] Address [address] [place] [address] Care Team Providers Care Sas Developer Analyst Name Role Phone Rebeka Manning MD Primary Care Prov ider Leif Booth MD Unavailable Fe Thompson MD Unavailable Alen Vu MD Unavailable Encounter Details Date Type Department Care Team Description 06/01/2023 Telephone Pulmonology - [place] [address] [facility] [address] [place] [phone] Rosie Huff APRN [address] [phone] Social History Tobacco Use Types Packs/Day Years [...] encounter Miscellaneous Notes * Telephone Encounter - Chiara Avilez M.A. - 06/01/2023 4:27 PM EDT ----- Message from Janeen Medina sent at 06/01/2023 3:12 PM EDT ----- Regarding: Medications Contact: Do I take a anoro with Flovent or do I stop the Flovent ? documented in this encounter Plan of Treatment Not on file documented as of this encounter Visit Diagnoses Not on filedocumented in this encounter Care Teams Sas Developer Analyst Relationship Specialty Start Date End Date Rebeka Manning MD [address] [place] [address] PCP - General Internal Medicine 10/18/21 Leif Booth MD [address] [place] [address] Lung Cancer Causticiser 03/08/22 Fe Thompson MD [address] [place] [phone] Specialist Pulmonology 12/06/23 Alen Vu MD [address] [place] [address] Specialist Endocrinology 12/06/23 documented as of this encounter
--- OUTSIDE RECORDS SUMMARY | 2024-07-29 08:02 | XMS_ITS | Encounter Summary ---
Author Organization [facility] Address [address] [place] [address] Care Team Providers Care Landscape Manager Name Role Phone Kelly Rudd MD Primary Care Provider Gem Mcgill MD Primary Care Provider Rebeka Jara MD Primary Care Prov ider Leif Booth MD Unavailable Fe Thompson MD Unavailable Alen Vu MD Unavailable Reason for Visit * Reason Onset Date Comments medication problems 05/11/2018 ADVAIR DISKU S 250-50 MCG/DOSE diskus inhaler Encounter Details Date Type Department Care Team Description 05/11/2018 Telephone Adult Medicine [address] [address] Kelly Rudd MD medication problems (ADVAIR DISKUS 250-50 MCG/DOSE diskus inhaler) Social History Tobacco Use Types Packs/Day Years [...] encounter Miscellaneous Notes * Telephone Encounter - Betsey Acevedo M.A. - 05/14/2018 10:39 AM EST Advair diskus was approved from 05/11/18 until 05/11/2019 Pa number [id number] Approval faxed to pharmacy * Telephone Encounter - Raisa España M.A. - 05/11/2018 11:59 AM EST Prior auth done by form to [facility] for name brand advair diskus Dx asthma Tried and failed generic airduo,qvar,flovent,pulmicort inadequate response * Telephone Encounter - Omaira Bowen M.A. - 05/11/2018 9:27 AM EST Spoke with the pt and the pharmacy. The Brand name Advair is no longer covered. The pt has tried and failed fluticasone-salmeterol, Qvar, Flovent and Pulmicort. The pt is out of her Advair and unableto fill without a PA. Spoke with the pharmacist they are unable to fax over the rejection for the PA because she states there system automatically defaults to the generic. Will forward to the PA pooll * Telephone Encounter - Allison Couch - 05/11/2018 9:00 AM EST Who is calling? The patient Name of the medication ADVAIR DISKUS 250-50 MCG/DOSE diskus inhaler What is the specific problem or interaction? Patient state that her pharmacy wound not fill her script for the name brand. Patient state that she's tried everything else and that it did not work withthe generic brand. If the patient is having a problem with taking the med - how long has the problem been going on? N/A documented in this encounter Plan of Treatment Not on file documented as of this encounter Visit Diagnoses Not on filedocumented in this encounter Additional Health Concerns Infection Onset Date Last Indicated Resolved Time COVID-19 Comment:Tested positive for COVID 07/03/2022 07/04/20222022 1:38 PM EDT documented as of this encounter Care Teams Landscape Manager Relationship Specialty Start Date End Date Kelly Rudd MD PCP - General Internal Medicine 11/06/1711/02 Gem Rodriguez MD PCP - General Internal Medicine 11/03/20 10/17/21 Rebeka Manning MD [address] [place] [address] PCP - General Internal Medicine 10/18/21 Leif Booth MD [address] [place] [address] Lung Cancer Bale Sewer 03/08/22 Fe Thompson MD [address] [place] [phone] Specialist Pulmonology 12/06/23 Alen Vu MD [address] [place] [address] Specialist Endocrinology 12/06/23 documented as of this encounter
--- OUTSIDE RECORDS SUMMARY | 2024-07-29 08:02 | XMS_ITS | Encounter Summary ---
Author Organization [facility] Address [address] [place] [address] Care Team Providers Care Meat Team Member Name Role Phone Rebeka Manning MD Primary Care Prov ider Leif Booth MD Unavailable Fe Thompson MD Unavailable Alen Vu MD Unavailable Encounter Details Date Type Department Care Team Description 06/03/2023 Hospital Medical Records [address] [place] [address] [facility] Social History Tobacco Use Types Packs/Day Years [...] on filedocumented in this encounter Care Teams Meat Team Member Relationship Specialty Start Date End Date Rebeka Manning MD [address] [place] [address] PCP - General Internal Medicine 10/18/21 Leif Booth MD [address] [place] [address] Lung Cancer Guide Excursion 03/08/22 Fe Thompson MD [address] [place] [phone] Specialist Pulmonology 12/06/23 Alen Vu MD [address] [place] [address] Specialist Endocrinology 12/06/23 documented as of this encounter
--- OUTSIDE RECORDS SUMMARY | 2024-07-29 08:02 | XMS_ITS | Encounter Summary ---
Author Organization [facility] Address [address] [place] [address] Care Team Providers Care Geosciences Professor Name Role Phone Kelly Rudd MD Primary Care Provider Gem Mcgill MD Primary Care Provider Rebeka Jara MD Primary Care Prov ider Leif Booth MD Unavailable Fe Thompson MD Unavailable Alen Vu MD Unavailable Reason for Visit * Reason Onset Date Comments refill request 09/03/2019 Encounter Details Date Type Department Care Team Description 09/03/2019 Refill Respiratory and Diabetes Medicaid/ACO Pharmacist [address] [place] [address] Kelly Rudd MD refill request Social History [...] encounter Miscellaneous Notes * Telephone Encounter - Ngozi Thomas M.A. - 09/03/2019 2:43 PM EDT Last seen 08/31/19. Lab Results Component Value Date NA 139 10/30/2018 K 4.3 10/30/2018 CO2 27 10/30/2018 CL 102 10/30/2018 BUN 11 10/30/2018 CREAT 0.53 10/30/2018 GLU 77 10/30/2018 CA 9.4 10/30/2018 GFR > 60 10/30/2018 * Telephone Encounter - Alisson Wilson Pharm.D - 09/03/2019 2:36 PM EDT Generic airduo is on back order. It should not have been sustituted with Combivent as that is not the same class of medications. Generic symbicort is available and covered under her insurance. Also, Spiriva should have been substituted with Incruse Ellipta, not Breo Ellipta. Breo is an ICS/LABA not LAMA. Please consider the following medication changes. Pharmacy is notified. I will call patient. Thank you, Alisson Wilson, PharmD. Transition of Care Pharmacist [address] [phone] [email or web address] documented in this encounter Plan of Treatment Not on file documented as of this encounter Visit Diagnoses Not on filedocumented in this encounter Additional Health Concerns Infection Onset Date Last Indicated Resolved Time COVID-19 Comment:Tested positive for COVID 07/03/2022 07/04/20222022 1:38 PM EDT documented as of this encounter Care Teams Geosciences Professor Relationship Specialty Start Date End Date Kelly Rudd MD PCP - General Internal Medicine 11/06/1711/02 Gem Rodriguez MD PCP - General Internal Medicine 11/03/20 10/17/21 Rebeka Manning MD [address] [place] [place] [address] PCP - General Internal Medicine 10/18/21 Leif Booth MD [address] [place] [address] Lung Cancer Hedge Fund Accountant 03/08/22 Fe Thompson MD [address] [place] [phone] Specialist Pulmonology 12/06/23 Alen Vu MD [address] [place] [address] Specialist Endocrinology 12/06/23 documented as of this encounter
--- OUTSIDE RECORDS SUMMARY | 2024-07-29 08:02 | XMS_ITS | Encounter Summary ---
Author Organization [facility] Address [address] [place] [address] Care Team Providers Care Software Test Analyst Name Role Phone Kelly Rudd MD Primary Care Provider Gem Mcgill MD Primary Care Provider Rebeka Jara MD Primary Care Prov ider Leif Booth MD Unavailable Fe Thompson MD Unavailable Alen Vu MD Unavailable Reason for Visit * Reason Onset Date Comments medication problems 10/30/2018 Encounter Details Date Type Department Care Team Description 10/30/2018 Telephone Pulmonology - [place] [address] [facility] [address] [place] [phone] Anderson Zabala PA-C [address] [facility] [address] [place] [phone] medication problems Social History Tobacco Use Types Packs/Day Years [...] encounter Miscellaneous Notes * Telephone Encounter - Mag Saldivar - 10/30/2018 2:22 PM EDT Pharmacy requesting alternative for omeprazole (PRILOSEC) 20 MG capsule Take 1 Cap by mouth 2 timesdaily for 360 days. Insurance only covers 1 cap a day. documented in this encounter Plan of Treatment Not on file documented as of this encounter Visit Diagnoses Not on filedocumented in this encounter Additional Health Concerns Infection Onset Date Last Indicated Resolved Time COVID-19 Comment:Tested positive for COVID 07/03/2022 07/04/20222022 1:38 PM EDT documented as of this encounter Care Teams Software Test Analyst Relationship Specialty Start Date End Date Kelly Rudd MD PCP - General Internal Medicine 11/06/1711/02 Gem Rodriguez MD PCP - General Internal Medicine 11/03/20 10/17/21 Rebeka Manning MD [address] [place] [address] PCP - General Internal Medicine 10/18/21 Leif Booth MD [address] [place] [address] Lung Cancer Bank Teller 03/08/22 Fe Thompson MD [address] [place] [phone] Specialist Pulmonology 12/06/23 Alen Vu MD [address] [place] [address] Specialist Endocrinology 12/06/23 documented as of this encounter
--- OUTSIDE RECORDS SUMMARY | 2024-07-29 08:02 | XMS_ITS | Encounter Summary ---
Author Organization [facility] Address [address] [place] [address] Care Team Providers Care Shearing Supervisor Name Role Phone Rebeka Manning MD Primary Care Prov ider Leif Booth MD Unavailable Fe Thompson MD Unavailable Alen Vu MD Unavailable Encounter Details Date Type Department Care Team Description 05/24/2023 Telephone Pulmonology - [place] 175 [facility] [address] [place] [phone] Rosie Huff APRN 175 [facility] [address] [place] [phone] Social History Tobacco Use Types Packs/Day Years [...] on filedocumented in this encounter Care Teams Shearing Supervisor Relationship Specialty Start Date End Date Rebeka Manning MD [address] [place] [address] PCP - General Internal Medicine 10/18/21 Leif Booth MD [address] [place] [address] Lung Cancer Restaurant Hourly Manager 03/08/22 Fe Thompson MD [address] [place] [phone] Specialist Pulmonology 12/06/23 Alen Vu MD [address] [place] [address] Specialist Endocrinology 12/06/23 documented as of this encounter
--- OUTSIDE RECORDS SUMMARY | 2024-07-29 08:02 | XMS_ITS | Encounter Summary ---
Author Organization [facility] Address [address] [place] [address] Care Team Providers Care Skein Yard Drier Name Role Phone Rebeka Manning MD Primary Care Prov ider Leif Booth MD Unavailable Fe Thompson MD Unavailable Alen Vu MD Unavailable Reason for Visit * Reason Onset Date Comments Provider Call Back 01/17/2022 Encounter Details Date Type Department Care Team Description 01/17/2022 Telephone Gastroenterology - [place] 175 [facility] [address] [place] [phone] Maverick Hines PA-C 175 [facility] [address] [place] [address] Provider Call Back Social History Tobacco Use Types Packs/Day Years Used Date Smoking Tobacco: Every Day Cigarettes 0.5 Started: 12/2019 Smokeless Tobacco: Never Comments:restarted smoking 1 after son was killed,quit 20 years ago - at that time pack/day Alcohol Use Standard Drinks/Week Comments Yes 0 [...] suspected to have Coronavirus/COVID-19? No / Unsure 01/20/2022 11:02 AM EDT documented as of this encounter Miscellaneous Notes * Telephone Encounter - Sruthi Loyola M.A. - 01/18/2022 10:25 AM EDT Patient was called to book her for 4pm with [facility]. Left a message to call the office * Telephone Encounter - Lo Smallwood - 01/18/2022 10:16 AM EDT Patient was placed on waitlist. * Telephone Encounter - Magdalena Yin - 01/17/2022 2:09 PM EDT Pt scheduled for 03/28 @ 10am would like a sooner appt every time she east it feels like her stomach is on fire. Please advise for sooner appt [phone] documented in this encounter Plan of Treatment Not on file documented as of this encounter Visit Diagnoses Not on filedocumented in this encounter Additional Health Concerns Infection Onset Date Last Indicated Resolved Time COVID-19 Comment:Tested positive for COVID 07/03/2022 07/04/20222022 1:38 PM EDT documented as of this encounter Care Teams Skein Yard Drier Relationship Specialty Start Date End Date Rebeka Manning MD [address] [place] [address] PCP - General Internal Medicine 10/18/21 Leif Booth MD [address] [place] [address] Lung Cancer Roof Plumber 03/08/22 Fe Thompson MD [address] [place] [phone] Specialist Pulmonology 12/06/23 Alen Vu MD [address] [place] [address] Specialist Endocrinology 12/06/23 documented as of this encounter
--- OUTSIDE RECORDS SUMMARY | 2024-07-29 08:02 | XMS_ITS | Encounter Summary ---
Author Organization [facility] Address [address] [place] [address] Care Team Providers Care Barnworker Groom Name Role Phone Rebeka Manning MD Primary Care Prov ider Leif Booth MD Unavailable Fe Thompson MD Unavailable Alen Vu MD Unavailable Reason for Visit * Reason Onset Date Comments Medication 01/31/2022 Encounter Details Date Type Department Care Team Description 01/31/2022 Refill Gastroenterology - [address] [place] [phone] Brady Lynn MD [address] [place] [address] Medication Social History Tobacco Use Types Packs/Day Years [...] suspected to have Coronavirus/COVID-19? No / Unsure 01/31/2022 2:11 PM EST documented as of this encounter Plan of Treatment Not on file documented as of this encounter Visit Diagnoses Not on filedocumented in this encounter Additional Health Concerns Infection Onset Date Last Indicated Resolved Time COVID-19 Comment:Tested positive for COVID 07/03/2022 07/04/20222022 1:38 PM EDT documented as of this encounter Care Teams Barnworker Groom Relationship Specialty Start Date End Date Rebeka Manning MD [address] [place] [address] PCP - General Internal Medicine 10/18/21 Leif Booth MD [address] [place] [address] Lung Cancer Registrar [employer] 03/08/22 Fe Thompson MD [address] [place] [phone] Specialist Pulmonology 12/06/23 Alen Vu MD [address] [place] [address] Specialist Endocrinology 12/06/23 documented as of this encounter
--- OUTSIDE RECORDS SUMMARY | 2024-07-29 08:02 | XMS_ITS | Encounter Summary ---
Author Organization [facility] Address [address] [place] [address] Care Team Providers Care Animal Taxonomist Name Role Phone Rebeka Manning MD Primary Care Prov ider Leif Booth MD Unavailable Fe Thompson MD Unavailable Alen Vu MD Unavailable Encounter Details Date Type Department Care Team Description 11/28/2022 Telephone Gastroenterology - [place] 175 [facility] [address] [place] [phone] Maverick Hines PA-C [address] [address] Social History Tobacco Use Types Packs/Day Years [...] suspected to have Coronavirus/COVID-19? No / Unsure 12/01/2022 1:01 PM EDT documented as of this encounter Miscellaneous Notes * Telephone Encounter - Lo Mckeon-Alvarez - 11/28/2022 8:18 AM EDT Mailed letter to remind patient to have fasting labs and ultrasound. * Telephone Encounter - Maverick Hines PA-C - 11/28/2022 7:49 AM EDT Patient has a history of fatty liver and needs repeated labs fasting as well as ultrasound. Please give patient phone number to radiology department of choice and we will be in touch with her in regards to results. documented in this encounter Plan of Treatment Not on file documented as of this encounter Results * (ABNORMAL) FIBROSURE (12/08/2022 8:34 AM EDT) [id number] 238 106 - 279 mg/dL 12/13/2022 6:17 PM EDT [facility] HAPTOGLOBIN 103 43 - 212 mg/dL 12/13/2022 6:17 PM EDT [facility] APOLIPOPROTEIN A1 202(A) 101 - 198 mg/dL 12/13/2022 6:17 PM EDT [facility] TOTAL BILIRUBIN 0.6 0.2 - 1.2 mg/dL 12/13/2022 6:17 PM EDT [facility] GAMMA GLUTAMYL TRANSPEPTIDASE 108(A) 3 - 70 U/L 12/13/2022 6:17 PM EDT [facility] ALANINE AMINOTRANSFERASE (ALT) 17 6 - 29 U/L 12/13/2022 6:17 PM EDT [facility] LIVER FIBROSIS SCORE 0.29 11/19 6:17 PM EDT [facility] LIVER FIBROSIS STAGE F1 11/19 6:17 PM EDT [facility] LIVER FIBROSIS INTERPRETATION SEE NOTE 12/13/2022 6:17 PM EDT [facility] Comment: minimal fibrosis Fibro Test Score (f) ??Metavir Score ??f>=0 and f<=0.21 : F0 (no fibrosis) f>0.21 and f<=0.27 : F0-F1 (no fibrosis) f>0.27 and f<=0.31 : F1 (minimal fibrosis) f>0.31 and f<=0.48 : F1-F2 (minimal fibrosis) f>0.48 and f<=0.58 : F2 (moderate fibrosis) f>0.58 and f<=0.72 : F3 (advanced fibrosis) f>0.72 and f<=0.74 : F3-F4 (advanced fibrosis) f>0.74 and f<=1.00 : F4 (severe fibrosis) NECROINFLAMMATORY ACT SCORE 0.06 12/13/2022 6:17 PM EDT [facility] NECROINFLAMMATORY ACT GRADE A0 12/13/2022 6:17 PM EDT [facility] NECROINFLAMMATORY INTERPRET SEE NOTE 12/13/2022 6:17 PM EDT [facility] Comment: no activity ActiTest Score (a) ?Metavir Score ??a>=0 and a<=0.17 : A0 (no activity) a>0.17 and a<=0.29 : A0-A1 (no activity) a>0.29 and a<=0.36 : A1 (minimal activity) a>0.36 and a<=0.52 : A1-A2 (minimal activity) a>0.52 and a<=0.60 : A2 (significant activity) a>0.60 and a<=0.62 : A2-A3 (significant activity) a>0.62 and a<=1.00 : A3 (severe activity) LIVER FIBROSIS REFERENCE ID [id number] 12/13/2022 6:17 PM EDT [facility] LIVER FIBROSIS FOOTNOTE SEE NOTE 12/13/2022 6:17 PM [facility] Comment: The reliability of results is dependent on compliance with the preanalytical and analytical conditions recommended by [employer]. The tests have to be deferred for: acute hemolysis, acute hepatitis, acute inflammation, extra hepatic cholestasis. The advice of a specialist should be sought for interpretation in chronic hemolysis and Gilbert's syndrome. The test interpretation is not validated in liver transplant patients. Isolated extreme values of one of the components should lead to caution in interpreting the results. In case of discordance between a biopsy result and a test, it is recommended to seek the advice of a specialist. The causes of these discordances could be due to a flaw of the test or to a flaw in the biopsy: i.e. a liver biopsy has a 33% variability rate for one fibrosis stage. FibroTest is interpretable for chronic hepatitis B and C, alcoholic and non alcoholic steatosis. ActiTest is interpretable for chronic hepatitis B and C. The performance characteristics have been determined by [facility], [place]. It has not been cleared or approved by the U.S. Food and Drug Administration. Performance characteristics refer to the analytical performance of the test. [employer], the associated logo, Kuznech and all associated [employer] pierson are the registered trademarks of [employer]. All third democrat pierson - (R) and (TM) - are the property of their respective owners. (C) [id number] [employer]. All rights reserved. Test Performed at: [facility] [address] [place] [address], [place] ??[phone] ? I Marcos CANDELARIA, PhD, EMELI 12/08/2022 8:34 AM EDT 12/08/2022 8:34 AM EDT Narrative [facility] - 12/13/2022 6:17 PM EDT Release to patient->Immediate Maverick Hines PA-C LAB [facility] * CHG COMPREHENSIVE METABOLIC PANEL (12/08/2022 8:34 AM EDT) GLUCOSE 85 70 - 100 mg/dL 12/08/2022 10:59 AM EDT [facility] Comment:Reference range appl icable to fasting specimens only Blood Urea Nitrogen 10 5 - 25 mg/dL 12/08/2022 10:59 AM EDT [facility] CREAT 0.87 0.5 - 1.1 mg/dL 12/08/2022 10:59 AM EDT [facility] [place] [employer] GLOMERULAR FILTRATION RATE 79 >60 12/08/2022 10:59 AM EDT [facility] Comment: This eGFR result was calculated using the CKD-EPI 2020 Creatinine Equation NA 137 135 - 145 mEq/L 12/08/2022 10:59 AM EDT [facility] K 3.8 3.5 - 5.5 mmol/L 12/08/2022 10:59 AM EDT [facility] CL 99 96 - 110 mmol/L 12/08/2022 10:59 AM EDT [facility] CARBON DIOXIDE (CO2) 30 21 - 32 mmol/L 12/08/2022 10:59 AM EDT [facility] ANION GAP 8 3 - 11 12/08/2022 10:59 AM EDT [facility] CALCIUM 9.3 8.5 - 10.5 mg/dL 12/08/2022 10:59 AM EDT [facility] TOTAL PROTEIN (TP) 7.0 6.0 - 8.0 G/dL 12/08/2022 10:59 AM EDT [facility] Albumin 3.6 3.2 - 5.0 G/dL 12/08/2022 10:59 AM EDT [facility] BILIRUBIN TOTAL 0.6 0.0 - 1.4 mg/dL 12/08/2022 10:59 AM EDT [facility] SGOT 20 10 - 42 U/L 12/08/2022 10:59 AM EDT [facility] SGPT 27 10 - 60 U/L 12/08/2022 10:59 AM EDT [facility] ALK PHOS 90 42 - 121 U/L 12/08/2022 11:00 AM EDT [facility] 12/08/2022 8:34 AM EDT 12/08/2022 8:34 AM EDT Narrative [facility] - 12/08/2022 11:00 AM EDT Release to patient->Immediate Maverick Hines PA-C LAB [facility] * (ABNORMAL) CHG LIPID PANEL (12/08/2022 8:34 AM EDT) Cholesterol 253(H) 0 - 200 mg/dL 12/08/2022 10:59 AM EDT [facility] TRIGLYCERIDES 120 0 - 150 mg/dL 12/08/2022 10:59 AM EDT [facility] HDL CHOLESTEROL 80 >40 mg/dL 11:00 AM EDT [facility] LDL CALCULATED 149(H) 0 - 100 mg/dL 12/08/2022 11:00 AM EDT [facility] TC-HDLC RATIO 3.2 0 - 4.4 mg/dL 12/08/2022 11:00 AM EDT [facility] 12/08/2022 8:34 AM EDT 12/08/2022 8:34 AM EDT Narrative [facility] - 12/08/2022 11:00 AM EDT Release to patient->Immediate Maverick Hines PA-C LAB [facility] * (ABNORMAL) CHG BLOOD COUNT COMPLETE AUTO&AUTO DIFRNTL WBC (12/08/2022 8:34 AM EDT) WHITE BLOOD COUNT 7.6 4.8 - 10.8 x10-3/uL 12/08/2022 10:37 AM EDT [facility] RED BLOOD COUNT 5.0(H) 3.8 - 4.8 x10-6/uL 12/08/2022 10:37 AM EDT [facility] Hemoglobin 16.4(H) 11.5 - 16.0 g/dL 12/08/2022 10:37 AM EDT [facility] Hematocrit 48.8(H) 35 - 47 % 12/08/2022 10:37 AM EDT [facility] MEAN CORPUSCULAR VOLUME 98.2(H) 79 - 98 fL 12/08/2022 10:37 AM EDT [facility] MEAN CORPUSCULAR HEMOGLOBIN 33.0(H) 27 - 32 pg 12/08/2022 10:37 AM EDT [facility] MEAN CORPUSCULAR HGB CONC 33.6 32 - 37 g/dL 12/08/2022 10:37 AM EDT [facility] RED CELL DISTRIBUTION WIDTH 12.8 11 - 15 % 12/08/2022 10:37 AM EDT [facility] PLT COUNT 189 130 - 400 x10-3/uL 12/08/2022 10:37 AM EDT [facility] MEAN PLATELET VOLUME 10.3 7 - 11 fL 12/08/2022 10:37 AM EDT [facility] NRBC % AUTO 0.0 <1 % 12/08/2022 10:37 AM EDT [facility] NEUTROPHILS % 46.3 % 12/08/2022 10:37 AM EDT [facility] LYMPH % 32.9 % 12/08/2022 10:37 AM EDT [facility] MONO % 11.9 % 12/08/2022 10:37 AM EDT [facility] EOS % 7.7 % 12/08/2022 10:37 AM EDT [facility] BASO % 0.8 % 12/08/2022 10:37 AM EDT [facility] IMMATURE GRANULOCYTES % 0.4 % 12/08/2022 10:37 AM EDT [facility] NRBC # AUTO 0.00 <0.1 x10-3/uL 12/08/2022 10:37 AM EDT [facility] NEUT # 3.51 1.5 - 7.0 x10-3/uL 12/08/2022 10:37 AM EDT [facility] LYMPH # 2.49 1 - 5.0 x10-3/uL 12/08/2022 10:37 AM EDT [facility] MONO # 0.90 0.2 - 1.0 x10-3/uL 12/08/2022 10:37 AM EDT [facility] EOS # 0.58(H) 0 - 0.5 x10-3/uL 12/08/2022 10:37 AM EDT [facility] BASO # 0.06 0 - 0.2 x10-3/uL 12/08/2022 10:37 AM EDT [facility] IMMATURE GRANULOCYTES # 0.03 0 - 0.03 x10-3/uL 12/08/2022 10:37 AM EDT [facility] 12/08/2022 8:34 AM EDT 12/08/2022 8:34 AM EDT Narrative [facility] - 12/08/2022 10:37 AM EDT Release to patient->Immediate Maverick Donny PA-C LAB [facility] * US SOFT TISSUE ABDOMEN/BACK, LIMITED ABD (12/08/2022 8:29 AM EDT) 12/08/2022 12:4 4 PM EDT Narrative [facility] - 12/08/2022 12:46 PM EDT Limited abdominal ultrasound. History fatty liver. Comparison with prior studies, latest from 05/26/2022. Liver measures 15.7 cm in long axis as opposed to 19.2 cm previously. ??It revealed coarse increased echogenicity without evidence of focal lesions could be due to steatosis or chronic hepatocellular disease. ??Gallbladder is unremarkable. ??There is no biliary ducts dilatation. ?? Common biliary duct measures 3 mm. ??Pancreas was not visualized due to bowel gas artifact. ?? Right kidney measures 12 cm. ??There are 2 cysts in the lower pole measuring 2.8 x 2.6 x 3 cm and 0.8 x 1 x 0.9 cm. CONCLUSIONS: Interval decrease in size of the liver. ??Abnormal echotexture of the liver which could be due to steatosis or chronic hepatocellular disease. ??2 cysts in the lower pole of the right kidney. ??Nonvisualization of the pancreas. Procedure Note Ngozi Beard MD - 12/08/2022 Limited abdominal ultrasound. History fatty liver. Comparison with prior studies, latest from 05/26/2022. Liver measures 15.7 cm in long axis as opposed to 19.2 cm previously. Itrevealed coarse increased echogenicity without evidence of focal lesions could be due tosteatosis or chronic hepatocellular disease. Gallbladder is unremarkable. There is no biliaryducts dilatation. Common biliary duct measures 3 mm. Pancreas was not visualized due tobowel gas artifact. Right kidney measures 12 cm. There are 2 cysts in the lower polemeasuring 2.8 x 2.6 x 3 cm and 0.8 x 1 x 0.9 cm. CONCLUSIONS: Interval decrease in size of the liver. Abnormal echotextureof the liver which could be due to steatosis or chronic hepatocellular disease. 2 cysts inthe lower pole of the right kidney. Nonvisualization of the pancreas. Maverick Hines PA-C [facility] documented in this encounter Visit Diagnoses Diagnosis Fatty liver- Primary Other chronic nonalcoholic liver disease Fatty liver Other chronic nonalcoholic liver disease Fatty liver Other chronic nonalcoholic liver disease documented in this encounter Additional Health Concerns Infection Onset Date Last Indicated Resolved Time COVID-19 Comment:Tested positive for COVID 07/03/2022 07/04/20222022 1:38 PM EDT documented as of this encounter Care Teams Animal Taxonomist Relationship Specialty Start Date End Date Rebeka Manning MD [address] [place] [phone] PCP - General Internal Medicine 10/18/21 Leif Booth MD [address] [place] [address] Lung Cancer High School Coach 03/08/22 Fe Thompson MD [address] [place] [phone] Specialist Pulmonology 12/06/23 Alen Vu MD [address] [place] [address] Specialist Endocrinology 12/06/23 documented as of this encounter
--- OUTSIDE RECORDS SUMMARY | 2024-07-29 08:02 | XMS_ITS | Encounter Summary ---
Author Organization [facility] Address [address] [place] [address] Care Team Providers Care Floor Sander Name Role Phone Rebeka Manning MD Primary Care Prov ider Leif Booth MD Unavailable Fe Thompson MD Unavailable Alen Vu MD Unavailable Encounter Details Date Type Department Care Team Description 11/23/2022 Treating Engineer Report Medical Records [address] [place] [phone] Freddy Wild MD Social History Tobacco Use Types Packs/Day Years [...] suspected to have Coronavirus/COVID-19? No / Unsure 11/24/2022 8:01 AM EDT documented as of this encounter Plan of Treatment Not on file documented as of this encounter Visit Diagnoses Not on filedocumented in this encounter Additional Health Concerns Infection Onset Date Last Indicated Resolved Time COVID-19 Comment:Tested positive for COVID 07/03/2022 07/04/20222022 1:38 PM EDT documented as of this encounter Care Teams Floor Sander Relationship Specialty Start Date End Date Rebeka Manning MD [address] [place] [phone] PCP - General Internal Medicine 10/18/21 Leif Booth MD [address] [place] [address] Lung Cancer Plate Former 03/08/22 Fe Thompson MD [address] [place] [phone] Specialist Pulmonology 12/06/23 Alen Vu MD [address] [place] [address] Specialist Endocrinology 12/06/23 documented as of this encounter
--- OUTSIDE RECORDS SUMMARY | 2024-07-29 08:02 | XMS_ITS | Encounter Summary ---
Author Organization [facility] Address [address] [place] [address] Care Team Providers Care Floor Polisher Name Role Phone Kelly Rudd MD Primary Care Provider Gem Mcgill MD Primary Care Provider Rebeka Jara MD Primary Care Prov ider Leif Booth MD Unavailable Fe Thompson MD Unavailable Alen Vu MD Unavailable Reason for Visit * Reason Onset Date Comments Medication 10/19/2018 Encounter Details Date Type Department Care Team Description 10/19/2018 Telephone Respiratory and Diabetes Medicaid/ACO Pharmacist [address] [place] [phone] Kelly Rudd MD Medication Social History Tobacco Use Types Packs/Day [...] encounter Miscellaneous Notes * Telephone Encounter - Devika Harmon L.P.N. - 10/19/2018 2:30 PM EDT There is a rx pended and the Albuterol on the med list was discontinued and that rx had a note to substitute to any generic Albuterol.There is no active rx on med list at this time. * Telephone Encounter - Ivis Ornelas - 10/19/2018 2:15 PM EDT No pending medication, sorry for confusion. The medication request that was sent the first time (encounter 10/18/2018 ) was the wrong medication per insurance. [facility] is aware, so the medication has been updated in the system. It's an FYI. Thank you. If aIf any questions please contact Alisson Wilson. Alisson Wilson PharmD. Transition of Care Pharmacist [facility] [address] [place] [address] P: [phone] [email or web address] Payment Services * Telephone Encounter - Vannessa Latif M.A. - 10/19/2018 2:06 PM EDT Please clarify, medication is pending in this encounter. * Telephone Encounter - Ivis Ornelas - 10/19/2018 1:54 PM EDT Albuterol HFA Generic inhaler does not need to be resent. Pharmacy has been updated. Change has been made to chart. Change in [facility] formulary. If any questions please contact Alisson Wilson. Alisson Wilson PharmD. Transition of Care Pharmacist - Outpatient [facility] [address] [place] [address] P: [phone] [email or web address] Payment Services documented in this encounter Plan of Treatment Not on file documented as of this encounter Visit Diagnoses Not on filedocumented in this encounter Additional Health Concerns Infection Onset Date Last Indicated Resolved Time COVID-19 Comment:Tested positive for COVID 07/03/2022 07/04/20222022 1:38 PM EDT documented as of this encounter Care Teams Floor Polisher Relationship Specialty Start Date End Date Kelly Rudd MD PCP - General Internal Medicine 11/06/1711/02 Gem Rodriguez MD PCP - General Internal Medicine 11/03/20 10/17/21 Rebeka Manning MD [address] [place] [phone] PCP - General Internal Medicine 10/18/21 Leif Booth MD [address] [place] [phone] Lung Cancer Package Reinspector 03/08/22 Fe Thompson MD [address] [place] [phone] Specialist Pulmonology 12/06/23 Alen Vu MD [address] [place] [address] Specialist Endocrinology 12/06/23 documented as of this encounter
--- OUTSIDE RECORDS SUMMARY | 2024-07-29 08:02 | XMS_ITS | Encounter Summary ---
Author Organization [facility] Address [address] [place] [address] Care Team Providers Care Voice Teacher Name Role Phone Kelly Rudd MD Primary Care Provider Gem Mcgill MD Primary Care Provider Rebeka Jara MD Primary Care Prov ider Leif Booth MD Unavailable Fe Thompson MD Unavailable Alen Vu MD Unavailable Reason for Visit * Reason Comments E-prescribe Rx Request Encounter Details Date Type Department Care Team Description 06/28/2019 Refill Pulmonology - [place] [address] [facility] [address] [place] [phone] Anderson Zabala PA-C [address] [facility] [address] [place] [phone] E-prescribe Rx Request Social History Tobacco Use [...] encounter Miscellaneous Notes * Telephone Encounter - Yanira Shaquille - 06/28/2019 10:59 AM EDT Patient would like script to be: E-PRESCRIBED/FAXED TO PHARMACY WHEN WAS THE PATIENT'S LAST APPOINTMENT WITH THE PRESCRIBING PROVIDER? 06/19/19 Does patient have an upcoming appointment? Yes 07/02/19 (THE MEDICATION REQUESTED IS ON THE MED LIST ABOVE) All of the medications requested were on the CURRENT MEDS list Did you check the Pharmacy information above?: YES Patient wants: 30 -day supply Is this a mail order prescription request ? NO Patients current insurance carrier is: Payor: [employer] FFS / Plan: [employer] / Product Type: MEDICAID RISK documented in this encounter Plan of Treatment Not on file documented as of this encounter Visit Diagnoses Diagnosis Moderate persistent asthma, unspecified whether complicated Seasonal allergic conjunctivitis Other chronic allergic conjunctivitis Seasonal allergic rhinitis due to pollen Gastroesophageal reflux disease, esophagitis presence not specified Class 1 obesity due to excess calories with serious comorbidity and body mass index (BMI) of 30.0 to 30.9 in adult Hypertension, unspecified type documented in this encounter Additional Health Concerns Infection Onset Date Last Indicated Resolved Time COVID-19 Comment:Tested positive for COVID 07/03/2022 07/04/20222022 1:38 PM EDT documented as of this encounter Care Teams Voice Teacher Relationship Specialty Start Date End Date Kelly Rudd MD PCP - General Internal Medicine 11/06/1711/02 Gem Rodriguez MD PCP - General Internal Medicine 11/03/20 10/17/21 Rebeka Manning MD [address] [place] [phone] PCP - General Internal Medicine 10/18/21 Leif Booth MD [address] [place] [address] Lung Cancer Yard Person 03/08/22 Fe Thompson MD [address] [place] [phone] Specialist Pulmonology 12/06/23 Alen Vu MD [address] [place] [phone] Specialist Endocrinology 12/06/23 documented as of this encounter
--- OUTSIDE RECORDS SUMMARY | 2024-07-29 08:02 | XMS_ITS | Encounter Summary ---
Author Organization [facility] Address [address] [place] [address] Care Team Providers Care Shipper And Receiving Name Role Phone Rebeka Manning MD Primary Care Prov ider Leif Booth MD Unavailable Fe Thompson MD Unavailable Alen Vu MD Unavailable Encounter Details Date Type Department Care Team Description 07/10/2023 Orders Only Medical Records [address] [place] [phone] [place] [address] Social History Tobacco Use Types Packs/Day Years [...] Name Priority Date/Time Associated Diagnosis Comments OUTSIDE PLAIN FILM Routine 06/03/2023 documented in this encounter Results * OUTSIDE PLAIN FILM (06/03/2023) [facility] RADIOLOGY documented in this encounter Visit Diagnoses Not on filedocumented in this encounter Care Teams Shipper And Receiving Relationship Specialty Start Date End Date Rebeka Manning MD [address] [place] [phone] PCP - General Internal Medicine 10/18/21 Leif Booth MD [address] [place] [phone] Lung Cancer Monotype Operator 03/08/22 Fe Thompson MD [address] [place] [phone] Specialist Pulmonology 12/06/23 Alen Vu MD [address] [place] [phone] Specialist Endocrinology 12/06/23 documented as of this encounter
--- OUTSIDE RECORDS SUMMARY | 2024-07-29 08:02 | XMS_ITS | Encounter Summary ---
Author Organization [facility] Address [address] [place] [address] Care Team Providers Care Architecture Intern Name Role Phone Rebeka Manning MD Primary Care Prov ider Leif Booth MD Unavailable Fe Thompson MD Unavailable Alen Vu MD Unavailable Encounter Details Date Type Department Care Team Description 06/29/2023 Home Health Certification Medical Records [address] [place] [phone] Social History Tobacco Use Types Packs/Day Years [...] on filedocumented in this encounter Care Teams Architecture Intern Relationship Specialty Start Date End Date Rebeka Manning MD [address] [place] [phone] PCP - General Internal Medicine 10/18/21 Leif Booth MD [address] [place] [phone] Lung Cancer Nursing Support Worker 03/08/22 Fe Thompson MD [address] [place] [phone] Specialist Pulmonology 12/06/23 Alen Vu MD [address] [place] [phone] Specialist Endocrinology 12/06/23 documented as of this encounter
--- OUTSIDE RECORDS SUMMARY | 2024-07-29 08:02 | XMS_ITS | Encounter Summary ---
Author Organization [facility] Address [address] [place] [address] Care Team Providers Care Plaster Whittler Name Role Phone Rebeka Manning MD Primary Care Prov ider Leif Booth MD Unavailable Fe Thompson MD Unavailable Alen Vu MD Unavailable Encounter Details Date Type Department Care Team Description 06/04/2023 Socket Welder Helper Report Medical Records [address] [place] [phone] Social History Tobacco Use Types Packs/Day Years [...] on filedocumented in this encounter Care Teams Plaster Whittler Relationship Specialty Start Date End Date Rebeka Manning MD [address] [place] [phone] PCP - General Internal Medicine 10/18/21 Leif Booth MD [address] [place] [phone] Lung Cancer Roofing Machine Tender 03/08/22 Fe Thompson MD [address] [place] [phone] Specialist Pulmonology 12/06/23 Alen Vu MD [address] [place] [phone] Specialist Endocrinology 12/06/23 documented as of this encounter
--- OUTSIDE RECORDS SUMMARY | 2024-07-29 08:02 | XMS_ITS | Clinical Summary ---
Author Organization [facility] [address] [place] [address] [place] [address] Phone Care Team Providers Care Mental Health Nurse Name Role Phone Rebeka Tapia MD Primary Care Prov ider Allergies Active Allergy Reactions Criticality Noted Date Comments Acetaminophen Rash High 11/07/2022 Rash/dermatitis Acetaminophen-Codeine 11/23/2017 Hives all over her body Amoxicillin-Pot Clavulanate 11/23/2017 vomiting Cephalexin Anaphylaxis High 04/29/2020 Clavulanic Acid Nausea And Vomiting 02/01/2022 Egg 04/17/2019 Vomiting for 24 hours Morphine 04/17/2019 Vomiting and hives Shellfish Containing Products 04/17/2019 seafood Angioedema with finned red and white fish and lobster Skin Cleanser Comb No.15 11/09/2021 Madhavi Moisturizing Body Wash [Aquanil Skin Cleanser] Madhavi Moisturizing Body Wash [Aquanil Skin Cleanser] Medications albuterol 2.5 mg /3 mL (0.083 %) nebulizer solution Take 1 Vial by nebulization every 6 hours as needed for Wheezing, Shortness of Breath or Cough for up to 180 days. 11/16/19 22 Active buPROPion XL (WELLBUTRIN XL) 150 mg 24 hr tablet TAKE 1 TABLET BY MOUTH ONCE A DAY WITH ONE 300 MG TAB FOR A TOTAL DOSE OF 450 MG 05/16/19 24 Active buPROPion XL (WELLBUTRIN XL) 300 mg 24 hr tablet Take 1 Tablet by mouth every morning. Active EPINEPHrine (EpiPen 2-Dinesh) 0.3 mg/0.3 mL injection Inject 1 Device as directed as needed (anaphylaxis). Use as directed 04/17/19 Active hydrOXYzine HCL (ATARAX) 25 mg tablet TAKE 1 TABLET BY MOUTH EVERY 6 HOURS NEEDED FOR ANXIETY Active hyoscyamine (LEVSIN) 0.125 mg SL tablet Take 1 Tablet by mouth every 4 hours as needed for Cramping. Use for esopahgeal spasm 12/15/19 Active miscellaneous medical supply [facility] Medical ID Bracelet [facility] [place] Each by Does not apply route daily. [id number] 12/30/19 23 Active sertraline (ZOLOFT) 50 mg tablet Take 1 Tablet by mouth daily. Active traZODone (DESYREL) 150 mg tablet TAKE 1 TABLET BY MOUTH EVERYDAY AT BEDTIME 04/11/19 24 Active azelastine (OPTIVAR) 0.05 % ophthalmic solution INSTILL 1 DROP INTO BOTH EYES TWICE A DAY 6 mL 5 01/23/20 24 Active famotidine (PEPCID) 20 mg tablet TAKE 1 TABLET BY MOUTH 2 TIMES DAILY NEEDED FOR HEARTBURN. 180 tablet 3 03/08/20 24 Active zafirlukast (ACCOLATE) 20 mg tablet Take 1 tablet (20 mg total) by mouth 2 (two) times a day. 180 tablet 1 04/16/19 25 Active levocetirizin e (XYZAL) 5 mg tablet Take 1 tablet (5 mg total) by mouth 1 (one) time each day in the evening. 90 tablet 1 04/16/19 25 Active hydroCHLOROth iazide (MICROZIDE) 12.5 mg capsule TAKE 1 CAPSULE BY MOUTH EVERY DAY 90 capsule 1 04/22/19 25 Active umeclidinium- vilanteroL (Anoro Ellipta) 62.5-25 mcg/actuation inhaler Inhale 1 puff by mouth 1 (one) time each day. 1 each 04/19/19 25 2025 Active budesonide (Pulmicort Flexhaler) 180 mcg/actuation inhaler Inhale 1 puff by mouth 2 (two) times a day. Rinse mouth with water after use to reduce aftertaste and incidence of candidiasis. Do not swallow. 1 each 04/19/19 25 2025 Active albuterol HFA (PROAIR HFA ; PROVENTIL HFA ; VENTOLIN HFA) 90 mcg/actuation inhaler Inhale 2 puffs by mouth every 4 (four) hours if needed for wheezing. 6.7 g 11 04/19/19 25 2025 Active predniSONE (DELTASONE) 20 mg tablet 1-2 tab po qd x 5 days for exacerbation 10 each 05/14/19 25 Active fluticasone propion-salme teroL (Wixela Inhub) 500-50 mcg/dose diskus inhaler Inhale 1 puff by mouth 2 (two) times a day. Rinse mouth with water after use to reduce aftertaste and incidence of candidiasis. Do not swallow. 1 each 05/22/19 25 2025 Active fluticasone propionate (FLONASE) 50 mcg/actuation nasal sprayIndicati ons:Chronic rhinitis,Acut e cough SPRAY 2 SPRAYS BY NASAL ROUTE DAILY 48 mL 1 05/31/19 25 Active Stelara 45 mg/0.5 mL syringe Inject 0.5 mL (45 mg total) under the skin every 3 (three) months. 06/01/19 25 Active pantoprazole (PROTONIX) 40 mg EC tablet TAKE 1 TABLET BY MOUTH EVERY DAY BEFORE BREAKFAST 28 tablet 3 07/19/19 25 Active benralizumab (Fasenra Pen) 30 mg/mL auto-injector injection INJECT 1 PEN SUBCUTANEOUSLY EVERY 8 WEEKS 1 mL 5 07/23/19 25 Active pantoprazole (PROTONIX) 40 mg EC tablet TAKE 1 TABLET BY MOUTH EVERY DAY BEFORE BREAKFAST 05/25/19 24 2024 Discontinued benralizumab (Fasenra Pen) 30 mg/mL auto-injector injection Inject 1 mL (30 mg total) under the skin once every eight weeks. 1 each 6 03/29/19 25 2024 Discontinued Active Problems Problem Noted Date Diagnosed Date Acute respiratory failure wi th hypoxia ([facility] V24, [facility] V28) 03/07/2024 Benign neoplasm of pituitary gland ([facility] V24, [facility] V28) 03/07/2024 Other cerebrovascular disease 03/07/2024 Alzheimer's disease ([facility] V24, [facility] V28) 1 05/08/2023 Dementia in other diseases c lassified elsewhere, unspecified severity, with anxiety ([facility] V24, [facility] V28) 03/07/2024 Depression, unspecified 03/07/2024 Nicotine dependence, cigarettes, uncomplicated 1 05/08/2023 Other chest pain 03/07/2024 Dyskinesia of esophagus 03/07/2024 Alcohol dependence, uncompli cated ([facility] V24, [facility] V28) 03/07/2024 Asthma 12/15/2023 Overview (12/15/2023): Last Assessment & Plan: 52-year-old woman with a more than [id number] history of smoking who quit 2 months ago and is coming now for a sick visit with history of 5 days with persistent wheezing despite the use of maximal triple therapy with long-acting beta agonist, long-acting antimuscarinic agents and inhaled steroids at maximum dose. I explained Mrs. Medina that the findings and the pulmonary function test did not show COPD and the response to bronchodilator is not compatible with the degree of symptoms. Her diffusing capacity is normal stroke she does not have COPD. I do think that she may benefit from first and evaluation by occupational hygienist and at some point she may benefit also from biological medications for her asthma. She has not have the IgE and other blood test that I reorder. I gave her a short course of prednisone for 7 days and I spoke with Trina that saw her before to continue following in a couple weeks with her to see how she is doing. Also that there is no indication for azithromycin chronically at this point. Chronic pain of left ankle 12/15/2023 Alzheimer's dementia ([facility] V24, [facility] V28) 03/07/2022 Cerebral microvascular disease 03/07/2022 Migraine 03/07/2022 Psoriatic arthritis ([facility] V24, [facility] V28) 1 05/08/2021 Overview (12/15/2023): [facility] [place] Pituitary microadenoma ([facility] V24, [facility] V28 ) 03/07/2022 Nocturnal hypoxia 01/24/2022 Overview (12/15/2023): Sleep medicine services 12/15/2021 1. Lowest oxygen is 84% 2. Time spent less than 89% is 179 minutes. 3. No sleep apnea noted. 08/16/2022 overnight oximetry on room air through [employer] showed: 1. Lowest oxygen saturation 65% 2. Basal oxygen saturation is 89% 3. Time under 88 or below is normal hour 49 minutes. 4. Supplemental oxygen is indicated. Last Assessment & Plan: Sent [employer] 2L with sleep and naps. Periodic limb movement disorder (PLMD) 2 Overview (12/15/2023): Mild Breast discharge 12/23/2021 Anxiety and depression 04/29/2021 Hepatic steatosis 01/08/2021 Overview (12/15/2023): Chest CT scan 01/08/2021 Cataract 11/12/2019 Adverse food reaction 04/17/2019 Overweight (BMI 25.0-29.9) 10/29/2018 Allergic rhinitis 09/25/2018 GERD (gastroesophageal reflux disease) 9 HTN (hypertension) 09/25/2018 Seasonal allergic conjunctivitis 09/25/2018 Sleep apnea 05/23/2016 Encounters Date Type Department Care Team Description 07/12/2024 11:00 AM EDT Consult Breast Care [address] [place] [address] Guero Mathew MD Breast discharge 07/08/2024 12:39 PM EDT - 07/08/2024 11:59 PM EDT Hospital Encounter [address] [phone] Chronic neck pain Discharge Disposition: Home or Self Care 07/08/2024 12:30 PM EDT Office Visit Adult Medicine [address] [phone] Kimberly Juan PA Chronic nonintractable headache, unspecified headache type (Primary Dx); Chronic neck pain; Fatigue, unspecified type; Encounter for screening involving social determinants of health (SDoH) 06/19/[address] [phone] Alen Vu MD 06/11/2024 11:15 AM EDT Office Visit Endocrinology - [address] [phone] Alen Vu MD Pituitary microadenoma ([facility] V24, [facility] V28) (Primary Dx); Breast discharge 05/27/2024 11:06 AM EDT - 05/27/2024 11:59 PM EDT Hospital Encounter Radiology Department - [address] [phone] Benign neoplasm of pituitary gland ([facility] V24, [facility] V28) Discharge Disposition: Home or Self Care 05/22/2024 7:03 AM EST - 05/22/2024 11:59 PM EST Hospital Encounter [facility] Scan [address] [place] [phone] Encounter for screening for lung cancer; Cigarette smoker Discharge Disposition: Home or Self Care 05/21/2024 Telephone Pulmonolgy - [place] [address] [phone] Fe Thompson MD Med Refill 05/15/2024 Telephone Endocrinology - [address] [phone] Alen Vu MD orders 05/13/2024 Telephone Pulmonolgy [facility] [address] [phone] Fe Thompson MD Med Refill 05/13/2024 Telephone Adult Medicine [address] [phone] Ely Perez LPN Fitting for DME (Faxed request from [facility]) 05/08/2024 Telephone Adult Medicine [address] [phone] Mansi cardoza, Rebeka Junior MD Referral 05/07/2024 Telephone Lung Screening Program - [place] [address] [place] [address] [employer] First Notification 05/02/2024 Telephone Adult Medicine [address] [phone] Ely Perez LPN Fitting for DME (Faxed form from [employer]) from Last 3 Months Immunizations Name Administration Dates Next Due Influenza Quadravalent, MDCK , 0.5ml, preservative free (Flucelvax) 6mo and older 12/01/2022,03/07/2022 Pfizer SARS-CoV-2 COVID-19, mRNA, LNP-S, preservative free 11/25/2020 Pneumococcal polysaccharide 23 valent (Pneumovax 23) 2yo and older 03/20/2015 Tdap Tetanus diptheria acell ular pertussis (Boostrix; Adacel) 7yo and older 04/13/2020 Varicella live (Varivax) 12mo and older 06/05/19 20 Surgical History Surgery Date Site/Laterality Comments TUBAL LIGATION PROCEDURE: HISTORICAL TUBAL LIGATION OTHER SURGICAL HISTORY PROCEDURE: ---- OTHER ----; COMMENT: Gastric Sleeve (2013) Medical History Medical History Date Comments Asthma DX:Asthma GERD (gastroesophageal reflu x disease) 09/25/2018 DX:GERD (gastroesophageal re flux disease) HTN (hypertension) 09/25/2018 DX:HTN (hyper tension) Obstructive sleep apnea 01/24/2022 DX:Obstr uctive sleep apnea; COMMENT: Sleep medicine services 12/15/2021 Periodic limb movement disor prakash (PLMD) 01/24/2022 DX:Periodic limb movement di sorder (PLMD); COMMENT: Mild Fatty liver DX:Fatty liver Epigastric pain DX:Epigastric pa in Elevated liver enzymes DX:Elevat ed liver enzymes Encounter for screening colonoscopy DX:Encounter for screening colonoscopy Psoriatic arthritis (CMS/HCC V24, CMS/HCC V28) 03/07/2022 DX:Psoriatic arthritis (HCC) ; COMMENT: [facility] [place] Status post dilation of esop hageal narrowing DX:Status post dilation of e sophageal narrowing S/P gastric surgery DX:S/P gastr ic surgery GERD (gastroesophageal reflu x disease) DX:GERD (gastroesophageal re flux disease) Esophageal spasm DX:Esophageal s pasm Tubular adenoma of colon DX:Tubu lar adenoma of colon Esophageal spasm DX:Esophageal s pasm Family History Medical History Relation Name Comments Other cancer Aunt Maternal brain per patie nt Asthma Daughter 1 Eczema Daughter 1 Asthma Daughter 2 Hypertension Father Other cancer Father stomach per pat ient Stomach cancer Father Lung cancer Maternal Grandfather Emphysema Maternal Grandmother Lung cancer Maternal Grandmother Asthma Mother Cataracts Mother Emphysema Mother Heart failure Mother Hypertension Mother Diabetes Paternal Grandmother Breast cancer Sister 1 Diabetes Sister 1 Stroke Sister 1 Lung cancer Sister 2 Hypertension Sister 3 Multiple sclerosis Sister 3 No Known Problems Sister 4 Other: Traumatic Son murde red in 2019 Blindness Neg Hx Colon cancer Neg Hx Glaucoma Neg Hx Macular degeneration Neg Hx Ovarian cancer Neg Hx Strabismus Neg Hx Relation Name Status Comments Aunt Maternal Alive Daughter 1 Daughter 2 Father Maternal Grandfather Maternal Grandmother Mother Paternal Grandfather Paternal Grandmother Sister 1 Alive Sister 2 Sister 3 Alive Sister 4 Alive Son Social History Tobacco Use Types Packs/Day Years Used Date Smoking Tobacco: Former Cigarettes 0.5 2.2 1 - 03/03/2022 Smokeless Tobacco: Never Tobacco Cessation:Counseling Given: Not Answered Alcohol Use Standard Drinks/Week Comments Yes 0 (1 standard drink = 0.6 oz pur e alcohol) Housing Instability Answer Date Recorde d Are you worried that in the next 2 months you may not have stable housing? No 07/08/2024 Food Access & Nutrition Answer Date Rec orded Do you have access to a vari ety of food including fruits and vegetables? Yes 07/08/2024 Health Literacy Answer Date Recorded How often do you need to hav e someone help you when you read instructions, pamphlets, or other written material from your doctor or pharmacy? Never 07/08/2024 Caregiver: How often do you need to have someone help you when you read instructions, pamphlets, or other written material from your doctor or pharmacy? Not on file 07/08/2024 Financial Risk Answer Date Recorded How hard is it for you to pa y for the very basics like food, housing, medical care, and air conditioning / heating? Not very hard 07/08/2024 Transportation Answer Date Recorded Has the lack of transportati on kept you from meetings, work, or from getting things needed for daily living? No Has the lack of transportati on kept you from medical appointments or from getting medications? No 07/08/2024 Social Isolation Answer Date Recorded How often do you feel lonely or isolated from th ose around you? Never 07/08/2024 Food Risk Answer Date Recorded Within the past 12 months we worried whether our food would run out before we got money to buy more. Never true 07/08/2024 Within the past 12 months th e food we bought just didn't last and we didn't have money to get more. Never true 07/08/2024 Dependent Care Answer Date Recorded Do you need help finding or paying for care for your loved ones. For example, child care coordinator or elderly care for an older adult? No 07/08/2024 Education Answer Date Recorded Do you think completing more education or training, like finishing a GED, going to college, or learning a trade, would be helpful for you? No 07/08/2024 Employment and Income Answer Date Recor ded During the last four weeks, have you been actively looking for work? No 07/08/2024 Living Situation Answer Date Recorded What is your living situation? 0 07/08/2024 Comments No Sex and Gender Information Value Date Recorded Sex Assigned at Female 02/07/2024 9:20 PM EST Legal Sex Female 9:19 PM EST Gender Identity Female 02/07/2024 9:20 PM EST Sexual Orientation Straight 02/07/2024 9: 20 PM EST Obstetrics History Para Term AB IAB SAB Ectopic Multiple Livin g Live Births 14 11 6 0 3 0 3 0 1 5 6 Date Outcome GA Total Labor Labor/2nd/3rd Weight Sex Type Anes PTL Snehal A1 A5 Name Clin Para M Vag-S pont Deceas ed Para M Vag-S pont Living Para F Vag-S pont Living Para F Vag-S pont Living Para F Vag-S pont Living TWINS Para F Vag-S pont Living Comments:TWINS SAB SAB SAB Term Term Term Term Term Term Last Filed Vital Signs Vital Sign Reading Time Taken Comments Blood Pressure 109/74 07/12/2024 11:13 AM EDT Pulse 94 07/12/2024 11:13 AM EDT Temperature 36.4 ??C (97.6 ??F) 07/12/2024 11:13 AM E DT Respiratory Rate 16 07/08/2024 12:11 PM EDT Oxygen Saturation 98% 07/08/2024 12:11 PM EDT Inhaled Oxygen Concentration - - Weight 61.7 kg (136 lb) 07/12/2024 11:13 AM EDT Height 149.9 cm (4' 11 ) 07/08/2024 12:11 PM EDT Body Mass Index 27.47 07/08/2024 12:11 PM EDT Plan of Treatment Upcoming Encounters Date Type Department Care Team (Late st Contact Info) Description 08/07/2024 9:00 AM EDT Appointment [facility] Bone Density [address] [place] [phone] 08/08/2024 3:30 PM EDT Evaluation Outpatient Rehabilitation [address] [phone] Corbin Siddiqui, PT 08/19/2024 8:45 AM EDT Office Visit Pulmonolgy [facility] [address] [phone] Fe Thompson MD [address] [address] 10/15/2024 2:00 PM EDT Office Visit Adult Medicine [facility] - [address] [phone] Rebeka Tapia MD [address] [place] [address] 06/11/2025 11:00 AM EDT Office Visit Endocrinology [address] [phone] Alen Vu MD [address] [place] [address] Health Maintenance Due Date Last Done Comments Hepatitis A Vaccines (1 of 2 - Risk 2-dose series) 06/13/1987 Hepatitis B Vaccines (1 of 3 - 19+ 3-dose series) 06/13/1987 Pneumococcal Vaccine: 50+ Years (2 of 2 - PCV) 03/20/2016 03/20/2015 Zoster Vaccines (1 of 2) 07/31/2019 06/05/2019 Cervical Cancer Screening: Pap Smear 02/13/2021 02/13/2018, 02/13/2018, 02/13/2018 Medicare Annual Wellness Visit 02/26/2022 Depression Screening 11/15/2024 11/16/2023 Influenza Vaccine (Season Ended) 2024 12/01/2022, 03/07/2022 Hypertension/CHF/CAD Annual BMP Blood Test 07/08/2025 07/08/2024, 06/29/2023 Social Influencers of Health Screening 07/08/2025 07/08/2024 Breast Cancer Screening 02/26/2026 02/27/20 24, 01/22/2022, 06/22/2018 Colorectal Cancer Screening: Colonoscopy 02/04/2027 02/04/2022 Cholesterol Screening (Lipid Panel) 06/28/2028 06/29/2023 DTaP,Tdap,and Td Vaccines (2 - Td or Tdap) 04/13/2030 04/13/2020 Pneumococcal Vaccine: Pediatrics (0 to 5 Years) and At-Risk Patients (6 to 64 Years) Discontinued 03/20/2015 Varicella Vaccines Aged Out 06/05/2019 No longer eligible based on patient's age to complete this topic COVID-19 Vaccine Discontinued 11/25/2020 Hepatitis C Screening Completed 07/20/2021 HIV Screening Completed 02/06/2024 HIB Vaccines Aged Out No longer eligi ble based on patient's age to complete this topic HPV Vaccines Aged Out No longer eligi ble based on patient's age to complete this topic IPV Vaccines Aged Out No longer eligi ble based on patient's age to complete this topic MMR Vaccines Aged Out No longer eligi ble based on patient's age to complete this topic Meningococcal ACWY Vaccine Aged Out N o longer eligible based on patient's age to complete this topic Meningococcal B Vaccine Aged Out No l onger eligible based on patient's age to complete this topic RSV Immunization Patients Under 20 months Aged Out No longer eligible based on patient's age to complete this topic Procedures Procedure Name Priority Date/Time Associated Diagnosis Comments CBC WITH AUTO DIFFERENTIAL Routine 07/08/2024 12:57 PM EDT Fatigue, unspecified type THYROID STIMULATING HORMONE WITH REFLEX TO FREE T4 AND FREE T3 Routine 07/08/2024 12:57 PM EDT Fatigue, unspecified type VITAMIN B12 Routine 07/08/2024 12:57 PM EDT Fatigue, unspecified type COMPREHENSIVE METABOLIC PANEL Routine 07/08/2024 12:57 PM EDT Fatigue, unspecified type CBC AND DIFFERENTIAL Routine 07/08/2024 12:57 PM EDT Fatigue, unspecified type XR CERVICAL SPINE 4-5 VIEWS Routine 07/08/2024 12:49 PM EDT Chronic neck pain MR BRAIN WO AND W CONTRAST Routine 05/27/2024 12:05 PM EDT Benign neoplasm of pituitary gland (CMS/HCC V24, CMS/HCC V28) CT LUNG SCREENING Routine 05/22/2024 7:2 9 AM EST Encounter for screening for lung cancer Cigarette smoker MG MAMMO DIGITAL SCREENING W ZACKERY BILAT Routine 02/27/2024 10:32 AM EST Screening mammogram, encounter for HIV 1, 2 ANTIBODY, P24 ANTIGEN WITH REFLEX TO DIFFERENTIATION Routine 02/06/2024 3:23 PM EST Screen for STD (sexually transmitted disease) HM DEPRESSION SCREENING Routine 11/16/2023 LIPID PANEL Routine 06/29/2023 HM COLONOSCOPY Routine 02/04/2022 HEPATITIS C SCREENING Routine 07/20/2021 PAP SMEAR Routine 02/13/2018 from Last 3 Months or Most Recently Relevant to Health Maintenance Results * Thyroid stimulating hormone with reflex to free t4 and free t3 (07/08/2024 12:57 PM EDT) Pathologist [facility] [place] TSH 3.09 0.40 - 4.00 mcIU/mL LAB CHEMISTRY METHOD 07/08/2024 7:58 PM EDT [facility] Blood Venous blood specimen / Unknown Venipuncture / Unknown 07/08/2024 12:57 PM EDT 07/08/2024 12:57 PM EDT us Kimberly UGALDE LAB BLOOD ORDERABLES Final Resu lt [facility] [address] [place] [address], [place] [phone] * (ABNORMAL) CBC auto differential (07/08/2024 12:57 PM EDT) Pathologist [facility] [place] WBC 6.6 4.8 - 10.8 K/mcL LAB HEMETOLOGY METHOD 07/08/2024 3:04 PM EDT [facility] RBC 4.80 3.80 - 4.80 M/mcL LAB HEMETOLOGY METHOD 07/08/2024 3:04 PM EDT [facility] Hemoglobin 15.4 11.5 - 16.0 g/dL LAB HEMETOLOGY METHOD 07/08/2024 3:04 PM EDT [facility] Hematocrit 46.6 35.0 - 47.0 % LAB HEMETOLOGY METHOD 07/08/2024 3:04 PM EDT [facility] MCV 97.3 79.0 - 98.0 FL LAB HEMETOLOGY METHOD 07/08/2024 3:04 PM EDT [facility] MCH 32.2(H) 27.0 - 32.0 pcg LAB HEMETOLOGY METHOD 07/08/2024 3:04 PM EDT [facility] MCHC 33.0 32.0 - 37.0 g/dL LAB HEMETOLOGY METHOD 07/08/2024 3:04 PM EDT [facility] RDW 13.4 11.0 - 15.0 % LAB HEMETOLOGY METHOD [facility] 172 130 - 400 K/mcL LAB HEMETOLOGY METHOD 07/08/2024 3:04 PM [facility] MPV 11.2(H) 7.0 - 11.0 FL LAB HEMETOLOGY METHOD 07/08/2024 3:[facility] NRBC 0.0 <1.0 % LAB HEMETOLOGY METHOD 07/08/2024 3:04 PM [facility] NRBC Absolute 0.00 <0.10 K/mcL LAB HEMETOLOGY METHOD 07/08/2024 3:04 PM [facility] Neutrophils Relative 50.1 % LAB HEMETOLOGY METHOD 07/08/2024 3:04 PM [facility] Lymphocytes Relative 34.1 % LAB HEMETOLOGY METHOD 07/08/2024 3:04 PM [facility] Monocytes Relative 15.1 % LAB HEMETOLOGY METHOD 07/08/2024 3:04 PM [facility] Eosinophils Relative 0.0 % LAB HEMETOLOGY METHOD 07/08/2024 3:04 PM [facility] Basophils Relative 0.2 % LAB HEMETOLOGY METHOD 07/08/2024 3:04 PM [facility] Immature Granulocytes Relative 0.5 % LAB HEMETOLOGY METHOD 07/08/2024 3:04 PM [facility] Neutrophils Absolute 3.30 1.50 - 7.00 K/mcL LAB HEMETOLOGY METHOD 07/08/2024 3:04 PM [facility] Lymphocytes Absolute 2.24 1.00 - 5.00 K/mcL LAB HEMETOLOGY METHOD 07/08/2024 3:04 PM EDT [facility] Monocytes Absolute 0.99 0.20 - 1.00 K/mcL LAB HEMETOLOGY METHOD 07/08/2024 3:04 PM EDT [facility] Eosinophils Absolute 0.00 0.00 - 0.50 K/[facility] LAB HEMETOLOGY METHOD 07/08/2024 3:04 PM EDT [facility] Basophils Absolute 0.01 0.00 - 0.20 K/[facility] LAB HEMETOLOGY METHOD 07/08/2024 3:04 PM EDT [facility] Immature Granulocytes Absolute 0.03 0.00 - 0.03 K/[facility] LAB HEMETOLOGY METHOD 07/08/2024 3:04 PM EDT [facility] Blood Venous blood specimen / Unknown Venipuncture / Unknown 07/08/2024 12:57 PM EDT 07/08/2024 12:57 PM EDT us Kimberly UGALDE LAB BLOOD ORDERABLES Final Resu lt Performing Organization Address City/[facility]/ZIP Co de Phone Number [facility] [address] [place] [address], [place] [phone] * Vitamin B12 (07/08/2024 12:57 PM EDT) Vitamin B-12 717 250 - 900 pcg/mL LAB CHEMISTRY METHOD 07/08/2024 7:41 PM EDT [facility] Blood Venous blood specimen / Unknown Venipuncture / Unknown 07/08/2024 12:57 PM EDT 07/08/2024 12:57 PM EDT Kimberly Juan PA LAB BLOOD ORDERABLES Final Resu lt [facility] [address] [place] [address], [place] [phone] * Comprehensive metabolic panel (07/08/2024 12:57 PM EDT) Sodium 139 133 - 145 mmol/L LAB CHEMISTRY METHOD 07/08/2024 7:18 PM [facility] Potassium 3.9 3.5 - 5.5 mmol/L LAB CHEMISTRY METHOD 07/08/2024 7:18 PM [facility] Chloride 103 96 - 110 mmol/L LAB CHEMISTRY METHOD 07/08/2024 7:18 PM [facility] CO2 29 21 - 32 mmol/L LAB CHEMISTRY METHOD 07/08/2024 7:18 PM [facility] Anion Gap 7 3 - 11 LAB CHEMISTRY METHOD 07/08/2024 7:18 PM [facility] Glucose 79 70 - 100 mg/dL LAB CHEMISTRY METHOD 07/08/2024 7:18 PM [facility] BUN 15 5 - 25 mg/dL LAB CHEMISTRY METHOD 07/08/2024 7:18 PM [facility] Creatinine 0.70 0.50 - 1.10 mg/dL LAB CHEMISTRY METHOD 07/08/2024 7:18 PM [facility] eGFR 102 >=60 mL/min/1. 73m2 LAB CHEMISTRY METHOD 07/08/2024 7:18 PM [facility] Comment:Calculation based on the??Chronic Kidney Disease Epidemiology Collaboration (CKD-EPI) equation refit??without adjustment for race. BUN/Creatinine Ratio 21.4 LAB CHEMISTRY METHOD 07/08/2024 7:18 PM [facility] Calcium 9.7 8.5 - 10.5 mg/dL LAB CHEMISTRY METHOD 07/08/2024 7:18 PM [facility] AST (SGOT) 27 10 - 42 unit/L LAB CHEMISTRY METHOD 07/08/2024 7:18 PM [facility] ALT (SGPT) 42 10 - 60 unit/L LAB CHEMISTRY METHOD 07/08/2024 7:18 PM EDT [facility] Alkaline Phosphatase 111 42 - 121 unit/L LAB CHEMISTRY METHOD 07/08/2024 7:18 PM EDT [facility] Total Protein 7.4 6.0 - 8.0 g/dL LAB CHEMISTRY METHOD 07/08/2024 7:18 PM EDT [facility] Albumin 3.9 3.2 - 5.0 g/dL LAB CHEMISTRY METHOD 07/08/2024 7:18 PM EDT [facility] Total Bilirubin 0.3 0.0 - 1.4 mg/dL LAB CHEMISTRY METHOD 07/08/2024 7:18 PM EDT [facility] Blood Venous blood specimen / Unknown Venipuncture / Unknown 07/08/2024 12:57 PM EDT 07/08/2024 12:57 PM EDT us Kimberly UGALDE LAB BLOOD ORDERABLES Final Resu lt [facility] [address] [place] [address], [place] [phone] * XR Cervical Spine 4-5 Views (07/08/2024 12:49 PM EDT) Anatomical Region Laterality Modality Spine, C-spine Radiographic Akilah ging 07/08/2024 6:29 PM EDT Narrative 07/08/2024 6:42 PM EDT Cervical spine, 4 views. History pain. Vertebral bodies are maintained in height. There is narrowing of the disc spaces at C4-5 and C6-7 levels. There are hypertrophic degenerative changes in the uncovertebral joints at several levels. There is osteophytic narrowing of the right C5 and C7 neural foramina and left C5, C6 and C7 neural foramina.. There is no evidence of fractures or dislocations.. CONCLUSIONS: Degenerative changes as detailed. -------- FINAL REPORT -------- Dictated By: Ngozi Beard Dictated Date: 07/08/2024 18:29 ET Assigned Physician: Ngozi Beard Reviewed and Electronically Signed By: Ngozi Beard Signed Date: 07/08/2024 18:42 ET Workstation ID: [id number] Transcribed By: Self Edit Transcribed Date: 07/08/2024 18:29 ET Procedure Note Ngozi Beard MD - 07/08/2024 Cervical spine, 4 views. History pain. Vertebral bodies are maintained in height. There is narrowing of the discspaces at C4-5 and C6-7 levels. There are hypertrophic degenerativechanges in the uncovertebral joints at several levels. There isosteophytic narrowing of the right C5 and C7 neural foramina and left C5,C6 and C7 neural foramina.. There is no evidence of fractures ordislocations.. CONCLUSIONS: Degenerative changes as detailed. -------- FINAL REPORT -------- Dictated By: Ngozi Beard Dictated Date: 07/08/2024 18:29 ET Assigned Physician: Ngozi Beard Reviewed and Electronically Signed By: Ngozi Beard Signed Date: 07/08/2024 18:42 ET Workstation ID: [id number] Transcribed By: Self Edit Transcribed Date: 07/08/2024 18:29 ET Kimberly UGALDE IMG XR PROCEDURES Final Result * MR Brain wo and w Contrast (05/27/2024 12:05 PM EDT) Anatomical Region Laterality Modality Head and Neck Magnetic Resonan ce 05/27/2024 1:53 PM EDT Impressions 05/27/2024 8:11 PM EDT No significant interval change in the right pituitary lesion, likely a pituitary microadenoma. POS - [id number] -------- FINAL REPORT -------- Dictated By: Harper Rainey Dictated Date: 05/27/2024 13:53 ET Assigned Physician: Harper Rainey Reviewed and Electronically Signed By: Harper Rainey Signed Date: 05/27/2024 20:11 ET Workstation ID: [id number] Transcribed By: Self Edit Transcribed Date: 05/27/2024 15:55 ET Narrative 05/27/2024 8:11 PM EDT EXAM: BRAIN MRI HISTORY: ??Follow-up pituitary lesion. COMPARISON: 12/05/2023, 11/10/2022, and 10/01/2021 TECHNIQUE: Exam performed on a 1.5 Fátima high-field MRI scanner. ??Multiplanar imaging performed without and with contrast. ??13 cc of Dotarem administered intravenously. FINDINGS: Pituitary gland is not enlarged. ??Hypoenhancing area in the right pituitary gland is better seen in the coronal plane and is not significantly changed in size measuring 0.6 x 0.5 cm (transverse x craniocaudad). ??It is subtly visualized in the sagittal plane measuring 0.4 cm in AP extent. ??Infundibulum has midline position. ??No mass effect on the optic chiasm. No restricted diffusion to indicate a recent infarct. ??No evidence of intracranial hemorrhage. ??No significant interval change in scattered nonenhancing T2/FLAIR white matter signal abnormalities measuring up to 0.9 cm in the left frontal lobe. No new enhancing parenchymal mass, mass effect, or midline shift. ??No hydrocephalus. ??Basal cisterns are patent. ??No cerebellar ectopia. ??Normal vascular flow- voids appear present in the major intracranial arteries at the skull base. Mild mucosal thickening in the right frontal sinus, bilateral ethmoid sinuses, bilateral maxillary sinuses, and right sphenoid sinus. ??No significant fluid signal within mastoid air cells. Procedure Note Harper Rainey MD - 05/27/2024 EXAM: BRAIN MRI HISTORY: Follow-up pituitary lesion. COMPARISON: 12/05/2023, 11/10/2022, and 10/01/2021 TECHNIQUE: Exam performed on a 1.5 Fátima high-field MRI scanner.Multiplanar imaging performed without and with contrast. 13 cc of Dotaremadministered intravenously. FINDINGS: Pituitary gland is not enlarged. Hypoenhancing area in the rightpituitary gland is better seen in the coronal plane and is notsignificantly changed in size measuring 0.6 x 0.5 cm (transverse xcraniocaudad). It is subtly visualized in the sagittal plane measuring0.4 cm in AP extent. Infundibulum has midline position. No mass effecton the optic chiasm. No restricted diffusion to indicate a recent infarct. No evidence ofintracranial hemorrhage. No significant interval change in scatterednonenhancing T2/FLAIR white matter signal abnormalities measuring up to0.9 cm in the left frontal lobe. No new enhancing parenchymal mass, mass effect, or midline shift. Nohydrocephalus. Basal cisterns are patent. No cerebellar ectopia. Normalvascular flow-voids appear present in the major intracranial arteries atthe skull base. Mild mucosal thickening in the right frontal sinus, bilateral ethmoidsinuses, bilateral maxillary sinuses, and right sphenoid sinus. Nosignificant fluid signal within mastoid air cells. IMPRESSION: No significant interval change in the right pituitary lesion, likely apituitary microadenoma. POS - [id number] -------- FINAL REPORT -------- Dictated By: Harper Rainey Dictated Date: 05/27/2024 13:53 ET Assigned Physician: Harper Rainey Reviewed and Electronically Signed By: Harper Rainey Signed Date: 05/27/2024 20:11 ET Workstation ID: [id number] Transcribed By: Self Edit Transcribed Date: 05/27/2024 15:55 ET us Alen Vu MD IMG MRI PROCEDURES Final Result * CT Lung Screening (05/22/2024 7:29 AM EST) Anatomical Region Laterality Modality Chest Computed Tomogra phy 05/23/2024 4:22 PM EST Impressions 05/23/2024 4:42 PM EST 1. ??No suspicious pulmonary nodule. 2. ??Mild bronchial wall thickening with a few areas of minimal small airways mucus plugging at the lung bases. 3. ??A small focus of patchy groundglass opacity in the inferior right upper lobe noted on the previous study has resolved and was likely inflammatory. Lung RADS 1. ??No suspicious pulmonary nodule. ??Guidelines recommend repeat low-dose screening CT in 12 months. -------- FINAL REPORT -------- Dictated By: Garett Anderson Dictated Date: 05/23/2024 16:22 ET Assigned Physician: Garett Anderson Reviewed and Electronically Signed By: Garett Anderson Signed Date: 05/23/2024 16:42 ET Workstation ID: [id number] Transcribed By: Self Edit Transcribed Date: 05/23/2024 16:37 ET Narrative 05/23/2024 4:42 PM EST PROCEDURE: Low-dose CT of the chest without intravenous contrast. TECHNIQUE: Low-dose CT of the chest without intravenous contrast administration. ??Coronal and sagittal reformats and MIP reconstructions were created. Dose length product: ??103 mGy-cm. HISTORY: Lung cancer screening, >=20 pk yr current smoker (Age 50-80y) COMPARISON: FINDINGS: Lungs/pleura: Normal caliber central airways. ??Mild bronchial wall thickening and a few foci of small airways mucus plugging at the lung bases. ??Linear and groundglass opacities at both bases suggesting atelectasis. ??No suspicious pulmonary nodule or mass. ??A small area of patchy groundglass opacity in the inferior right upper lobe seen on the previous study has resolved. ??No pleural effusion or pneumothorax. Mediastinum/alison: Small hiatal hernia. ??Mild mural thickening of the esophagus. ??No mediastinal mass or lymphadenopathy. ??No appreciable hilar lymphadenopathy on limited noncontrast evaluation. Vasculature: Normal caliber pulmonary arteries. ??Mild atherosclerotic calcifications of the great vessels. Cardiac: Normal heart size. ??No coronary artery calcification. Chest wall: No axillary or supraclavicular lymphadenopathy. 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 Bones: Mild degenerative changes of the spine. Procedure Note Garett Anderson MD - 05/23/2024 PROCEDURE: Low-dose CT of the chest without intravenous contrast. TECHNIQUE: Low-dose CT of the chest without intravenous contrastadministration. Coronal and sagittal reformats and MIP reconstructionswere created. Dose length product: 103 mGy-cm. HISTORY: Lung cancer screening, >=20 pk yr current smoker (Age 50-80y) COMPARISON: FINDINGS: Lungs/pleura: Normal caliber central airways. Mild bronchial wallthickening and a few foci of small airways mucus plugging at the lungbases. Linear and groundglass opacities at both bases suggestingatelectasis. No suspicious pulmonary nodule or mass. A small area ofpatchy groundglass opacity in the inferior right upper lobe seen on theprevious study has resolved. No pleural effusion or pneumothorax. Mediastinum/alison: Small hiatal hernia. Mild mural thickening of theesophagus. No mediastinal mass or lymphadenopathy. No appreciable hilarlymphadenopathy on limited noncontrast evaluation. Vasculature: Normal caliber pulmonary arteries. Mild atheroscleroticcalcifications of the great vessels. Cardiac: Normal heart size. No coronary artery calcification. Chest wall: No axillary or supraclavicular lymphadenopathy. 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 Bones: Mild degenerative changes of the spine. IMPRESSION: 1. No suspicious pulmonary nodule. 2. Mild bronchial wall thickening with a few areas of minimal smallairways mucus plugging at the lung bases. 3. A small focus of patchy groundglass opacity in the inferior rightupper lobe noted on the previous study has resolved and was likelyinflammatory. Lung RADS 1. No suspicious pulmonary nodule. Guidelines recommend repeatlow-dose screening CT in 12 months. -------- FINAL REPORT -------- Dictated By: Garett Anderson Dictated Date: 05/23/2024 16:22 ET Assigned Physician: Garett Anderson Reviewed and Electronically Signed By: Garett Anderson Signed Date: 05/23/2024 16:42 ET Workstation ID: [id number] Transcribed By: Self Edit Transcribed Date: 05/23/2024 16:37 ET us Leif Booth MD IM CT PROCEDURES Final Result * MG Mammo Digital Screening w Zackery bilat (02/27/2024 10:32 AM EST) Anatomical Region Laterality Modality Breast Bilateral Mammography 02/27/2024 11:3 3 AM EST Impressions 02/27/2024 11:37 AM EST Benign. BI-RADS CATEGORY: 1 - NEGATIVE RECOMMENDATION: Screening bilateral mammogram is recommended in 1 year. Mammo Location: [facility], [address] [place] [address], [id number], . -------- FINAL REPORT -------- Dictated By: Jyoti Martinez Dictated Date: 02/27/2024 11:33 ET Assigned Physician: Jyoti Martinez Reviewed and Electronically Signed By: Jyoti Martinez Signed Date: 02/27/2024 11:37 ET Workstation ID: [id number] Transcribed By: Self Edit Transcribed Date: 02/27/2024 11:33 ET Narrative 02/27/2024 11:37 AM EST CLINICAL: 53 years old, Female, routine annual exam. COMPARISON: Mammogram 01/22/2022. ?? TECHNIQUE: Bilateral MLO and CC views were obtained digitally with 3-D mammogram (digital breast tomosynthesis). Computer-aided detection was utilized in evaluation of this exam (CAD). FINDINGS: There is no evidence of suspicious mass or architectural distortion. ??No worrisome calcifications are evident. ??There has been no significant change from prior exam(s). ?? BREAST DENSITY: C - The breasts are heterogeneously dense which may obscure small masses. Procedure Note Jyoti Martinez MD - 02/27/2024 CLINICAL: 53 years old, Female, routine annual exam. COMPARISON: Mammogram 01/22/2022. TECHNIQUE: Bilateral MLO and CC views were obtained digitally with 3-Dmammogram (digital breast tomosynthesis). Computer-aided detection wasutilized in evaluation of this exam (CAD). FINDINGS: There is no evidence of suspicious mass or architectural distortion. Noworrisome calcifications are evident. There has been no significantchange from prior exam(s). BREAST DENSITY: C - The breasts are heterogeneously dense which mayobscure small masses. IMPRESSION: Benign. BI-RADS CATEGORY: 1 - NEGATIVE RECOMMENDATION: Screening bilateral mammogram is recommended in 1 year. Mammo Location: [facility], [address] [place] [address], [id number], . -------- FINAL REPORT -------- Dictated By: Jyoti Martinez Dictated Date: 02/27/2024 11:33 ET Assigned Physician: Jyoti Martinez Reviewed and Electronically Signed By: Jyoti Martinez Signed Date: 02/27/2024 11:37 ET Workstation ID: [id number] Transcribed By: Self Edit Transcribed Date: 02/27/2024 11:33 ET us Rebeka Tapia MD IMG BI PROCEDURES Final Result * HIV 1,2 antibody, p24 antigen with reflex to differentiation (02/06/2024 3:23 PM EST) [facility] HIV Combo AB/AG Negative Negative LAB CHEMISTRY METHOD 02/06/2024 7:12 PM EST [facility] Blood Venous blood specimen / Unknown Venipuncture / Unknown 02/06/2024 3:23 PM EST 02/06/2024 3:23 PM EST Narrative [facility] - 02/06/2024 7:12 PM EST This assay is a 4th generation assay allowing for earlier detection of HIV infection by detecting the presence of the HIV-1 p24 antigen as well as the traditional antibodies to HIV type 1 (including group O) and type 2. ??Use of a 4th generation assay is the current CDC recommendation for HIV screening. us Doreen UGALDE LAB BLOOD ORDERABLES Final R esult [facility] [address] [place] [address], * Depression Screening (11/16/2023) [facility] Depression Screening abstracted us Historical Provider HEALTH MAINTENANCE Final Result * (ABNORMAL) Lipid panel (06/29/2023) [facility] LDL/HDL Ratio 3 0 - 4 Triglycerides 104 0 - 150 mg/dL Cholesterol 238(A) 0 - 200 mg/dL HDL 84 >=40 mg/dL LDL Cholesterol 134(A) 0 - 100 mg/dL Blood Venous blood specimen / Unknown Historical Provider LAB BLOOD ORDERABLES Sylvie l Result * Colonoscopy (02/04/2022) Colonoscopy no interpretation , abstracted Anatomical Region Laterality Modality Other Historical Provider HEALTH MAINTENANCE Final Result * Hepatitis C Screening (07/20/2021) Hepatitis C Screening abstracted Historical Provider HEALTH MAINTENANCE Final Result * Pap smear (02/13/2018) 02/13/2018 Narrative HISTORICAL TESTING LAB RESULTING AGENCY - 02/15/2018 5:02 PM EST [id number] THINPREP PAP, IMAGED: NEGATIVE FOR SQUAMOUS INTRAEPITHELIAL LESION AND MALIGNANCY . CECILE SHI , MAGO(ASCP) (CASE ELECTRONICALLY SIGNED 02 15 2018) RESULT OF APTIMA HIGH RISK HPV ASSAY: HIGH RISK HPV: ??NEGATIVE (SEROTYPES 16,18,31,33,35,39,45,51,52,56,58,59,66,68) COMPLETED ON 2018-02-15 ADEQUACY: SATISFACTORY ENDOCERVICAL/TRANSFORMATION ZONE COMPONENT ABSENT. SOURCE: THINPREP PAP HPV ANY DX: ??REFLEX 16 AND 18, CERVICAL, IMAGED: CLINICAL INFORMATION: HPV ANY DIAGNOSIS. 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
--- OUTSIDE RECORDS SUMMARY | 2024-07-29 08:02 | XMS_ITS | Encounter Summary ---
Author Organization [facility] Address [address] [place] [address] Care Team Providers Care Agility Instructor Name Role Phone Kelly Rudd MD Primary Care Provider Gem Mcgill MD Primary Care Provider Rebeka Jara MD Primary Care Prov ider Leif Booth MD Unavailable Fe Thompson MD Unavailable Alen Vu MD Unavailable Reason for Visit * Reason Comments E-prescribe Rx Request Encounter Details Date Type Department Care Team Description 05/09/2018 Refill Adult Medicine - [address] [address] Kelly Rudd MD E-prescribe Rx Request Social History Tobacco Use [...] encounter Miscellaneous Notes * Telephone Encounter - Kelly Johansen MD - 05/09/2018 2:50 PM EST Signed, thank you. She missed her appointment with me today. Please have her reschedule. * Telephone Encounter - Omaira Bowen M.A. - 05/09/2018 2:13 PM EST Date of last office visitw as 03/12/18. Pended appt for 05/09/18 Lab Results Component Value Date NA 142 02/12/2018 K 4.3 02/12/2018 CO2 25.0 02/12/2018 CL 100 02/12/2018 BUN 16 02/12/2018 CREAT 0.6 02/12/2018 GLU 96 02/12/2018 CA 10.0 02/12/2018 GFR > 60 02/12/2018 * Telephone Encounter - Kalin Lin - 05/09/2018 8:10 AM EST Patient would like script to be: E-PRESCRIBED/FAXED TO PHARMACY WHEN WAS THE PATIENT'S LAST APPOINTMENT IN ADULT MEDICINE? 03-12-18 WHEN WAS THE LAST TIME THE PATIENT SAW THEIR PCP? Same as above Does patient have an upcoming appointment? Yes 05-09-18 (THE MEDICATION REQUESTED IS ON THE MED [...] N/A Patients current insurance carrier is: Payor: [employer] / Plan: [employer] / Product Type: MEDICAID RISK documented in this encounter Plan of Treatment Not on file documented as of this encounter Visit Diagnoses Not on filedocumented in this encounter Additional Health Concerns Infection Onset Date Last Indicated Resolved Time COVID-19 Comment:Tested positive for COVID 07/03/2022 07/04/20222022 1:38 PM EDT documented as of this encounter Care Teams Agility Instructor Relationship Specialty Start Date End Date Kelly Rudd MD PCP - General Internal Medicine 11/06/1711/02 Gem Rodriguez MD PCP - General Internal Medicine 11/03/20 10/17/21 Rebeka Manning MD [address] [place] [id number] PCP - General Internal Medicine 10/18/21 Leif Booth MD [address] [place] [phone] Lung Cancer High Climber 03/08/22 Fe Thompson MD [address] [place] [phone] Specialist Pulmonology 12/06/23 Alen Vu MD [address] [place] [phone] Specialist Endocrinology 12/06/23 documented as of this encounter
--- OUTSIDE RECORDS SUMMARY | 2024-07-29 08:02 | XMS_ITS | Encounter Summary ---
Author Organization [facility] Address [address] [place] [address] Care Team Providers Care Exhibit Preparator Name Role Phone Rebeka Manning MD Primary Care Prov ider Leif Booth MD Unavailable Fe Thompson MD Unavailable Alen Vu MD Unavailable Encounter Details Date Type Department Care Team Description 08/28/2023 Home Health Certification Medical Records [address] [place] [phone] Social History Tobacco Use Types Packs/Day Years [...] on filedocumented in this encounter Care Teams Exhibit Preparator Relationship Specialty Start Date End Date Rebeka Manning MD [address] [place] [phone] PCP - General Internal Medicine 10/18/21 Leif Booth MD [address] [place] [phone] Lung Cancer Store Custodian 03/08/22 Fe Thompson MD [address] [place] [phone] Specialist Pulmonology 12/06/23 Alen Vu MD [address] [place] [phone] Specialist Endocrinology 12/06/23 documented as of this encounter
--- OUTSIDE RECORDS SUMMARY | 2024-07-29 08:02 | XMS_ITS | Encounter Summary ---
Author Organization [facility] Address [address] [place] [address] Care Team Providers Care County Tax Assessor Name Role Phone Rebeka Manning MD Primary Care Prov ider Leif Booth MD Unavailable Fe Thompson MD Unavailable Alen Vu MD Unavailable Reason for Visit * Reason Comments E-prescribe Rx Request Encounter Details Date Type Department Care Team Description 09/18/2023 Refill Pulmonology - [place] [address] [facility] [address] [place] [phone] Rosie Huff APRN [address] [facility] [address] [place] [phone] E-prescribe Rx Request Social History Tobacco Use [...] encounter Miscellaneous Notes * Telephone Encounter - Sharlene Jauregui - 09/18/2023 8:20 AM EDT Shon: 09/11/2023 Nov: 12/15/2023 documented in this encounter Plan of Treatment Not on file documented as of this encounter Visit Diagnoses Diagnosis Acute cough Chronic rhinitis documented in this encounter Care Teams County Tax Assessor Relationship Specialty Start Date End Date Rebeka Manning MD [address] [place] [id number] PCP - General Internal Medicine 10/18/21 Leif Booth MD [address] [place] [address] Lung Cancer Quality Tech 03/08/22 Fe Thompson MD [address] [place] [phone] Specialist Pulmonology 12/06/23 Alen Vu MD [address] [place] [phone] Specialist Endocrinology 12/06/23 documented as of this encounter
--- OUTSIDE RECORDS SUMMARY | 2024-07-29 08:02 | XMS_ITS | Encounter Summary ---
Author Organization [facility] Address [address] [place] [address] Care Team Providers Care Doubler Helper Name Role Phone Rebeka Manning MD Primary Care Prov ider Leif Booth MD Unavailable Fe Thompson MD Unavailable Alen Vu MD Unavailable Encounter Details Date Type Department Care Team Description 11/01/2022 Home Health Certification Medical Records [address] [place] [id number] Social History Tobacco Use Types Packs/Day Years [...] documented as of this encounter Care Teams Doubler Helper Relationship Specialty Start Date End Date Rebeka Manning MD [address] [place] [phone] PCP - General Internal Medicine 10/18/21 Leif Booth MD [address] [place] [phone] Lung Cancer Director Business Development 03/08/22 Fe Thompson MD [address] [place] [phone] Specialist Pulmonology 12/06/23 Alen Vu MD [address] [place] [phone] Specialist Endocrinology 12/06/23 documented as of this encounter
--- OUTSIDE RECORDS SUMMARY | 2024-07-29 08:03 | XMS_ITS | Encounter Summary ---
Author Organization [facility] Address [address] [place] [address] Care Team Providers Care Primary Care Nurse Name Role Phone Rebeka Manning MD Primary Care Prov ider Leif Booth MD Unavailable Fe Thompson MD Unavailable Alen Vu MD Unavailable Encounter Details Date Type Department Care Team Description 11/16/2023 Hospital Medical Records [address] [place] [id number] [facility] Social History Tobacco Use Types Packs/Day Years [...] on filedocumented in this encounter Care Teams Primary Care Nurse Relationship Specialty Start Date End Date Rebeka Manning MD [address] [place] [phone] PCP - General Internal Medicine 10/18/21 Leif Booth MD [address] [place] [phone] Lung Cancer Cot Assembler 03/08/22 Fe Thompson MD [address] [place] [phone] Specialist Pulmonology 12/06/23 Alen Vu MD [address] [place] [phone] Specialist Endocrinology 12/06/23 documented as of this encounter
--- OUTSIDE RECORDS SUMMARY | 2024-07-29 08:03 | XMS_ITS | Encounter Summary ---
Author Organization [facility] Address [address] [place] [address] Care Team Providers Care Manager Critical Care Unit Name Role Phone Gem Rodriguez MD Primary Care Provider Rebeka Jara MD Primary Care Prov ider Leif Booth MD Unavailable Fe Thompson MD Unavailable Alen uV MD Unavailable Encounter Details Date Type Department Care Team Description 07/13/2021 Pt. Non Urgent Medic al Question Adult Medicine [address] [address] Emerita Casper APRN Social History Tobacco Use Types Packs/Day Years Used Date Smoking Tobacco: Former Cigarettes 1 Q uit: 1997 Smokeless Tobacco: Never Comments:restarted smoking 1 after [...] suspected to have Coronavirus/COVID-19? No / Unsure 06/29/2021 11:40 AM EDT documented as of this encounter Plan of Treatment Not on file documented as of this encounter Visit Diagnoses Not on filedocumented in this encounter Additional Health Concerns Infection Onset Date Last Indicated Resolved Time COVID-19 Comment:Tested positive for COVID 07/03/2022 07/04/20222022 1:38 PM EDT documented as of this encounter Care Teams Manager Critical Care Unit Relationship Specialty Start Date End Date Gem Rodriguez MD PCP - General Internal Medicine 11/03/20 10/17/21 Rebeka Manning MD [address] [place] [phone] PCP - General Internal Medicine 10/18/21 Leif Booth MD [address] [place] [phone] Lung Cancer Non Profit Job Titles 03/08/22 Fe Thompson MD [address] [place] [phone] Specialist Pulmonology 12/06/23 Alen Vu MD [address] [place] [phone] Specialist Endocrinology 12/06/23 documented as of this encounter
--- OUTSIDE RECORDS SUMMARY | 2024-07-29 08:03 | XMS_ITS | Encounter Summary ---
Author Organization [facility] Address [address] [place] [address] Care Team Providers Care Boots And Shoes Supervisor Name Role Phone Kelly Rudd MD Primary Care Provider Gem Mcgill MD Primary Care Provider Rebeka Jara MD Primary Care Prov ider Leif Booth MD Unavailable Fe Thompson MD Unavailable Alen Vu MD Unavailable Reason for Visit * Reason Onset Date Comments medication problems 06/04/2020 fluconazole 150 mg oral tablet Encounter Details Date Type Department Care Team Description 06/04/2020 Telephone Dermatology - [address] [phone] Chinyere Drake PA-C medication problems (fluconazole 150 mg oral tablet) Social History Tobacco Use Types Packs/Day Years [...] Exposure Response Date Recorded In the last month, have you been in contact with someone who was confirmed or suspected to have Coronavirus / COVID-19? No / Unsure 06/04/2020 10:58 AM EDT documented as of this encounter Miscellaneous Notes * Telephone Encounter - Lucina Ornelas M.A. - 06/05/2020 2:43 PM EDT Informed patient floconazole was resend to pharmacy, lexapro was d/c from her list due to s/e to [facility]. Patient was advise to let pcp know about d/c of this medication and s/e, which she had already done. * Telephone Encounter - Chinyere Drake P.A.-C. - 06/05/2020 2:21 PM EDT Spoke to Lucina to clarify Patient NOT taking lexapro since it caused side effects Please inform patient she needs to inform prescribing physician that she stopped this medication. Will d/c this from her med list Since she is not taking lexapro, she can take the floconazole that I originally prescribed thanks * Telephone Encounter - Lucina Ornelas M.A. - 06/05/2020 11:55 AM EDT Spoke let her know about Rx sent to pharmacy instead of Fluconazole, Rx shows interaction with escitalopran, was informed by patient that this Rx was prescribed to her but she only took once dose andstopped because she did not like the way it made her feel. * Telephone Encounter - Aide Key - 06/05/2020 11:09 AM EDT Patient returned your call. Please call when available * Telephone Encounter - Lucina Ornelas M.A. - 06/05/2020 10:55 AM EDT Message left for patient to return my call. * Telephone Encounter - Lucina Ornelas M.A. - 06/04/2020 4:04 PM EDT Called pharmacy since I was not able to contact patient, they will not dispense this Rx to patient. * Telephone Encounter - Lucina Ornelas M.A. - 06/04/2020 3:44 PM EDT Message left for patient to return my call. * Telephone Encounter - Chinyere Drake P.A.-C. - 06/04/2020 3:37 PM EDT No I did not see any drug interactions when prescribing this earlier today Please DO NOT have patient take this medication Will rpescribe and anti-yeast/antifungal shampoo instead Continue with lidex solution thanks * Telephone Encounter - Jazmine Burgess - 06/04/2020 1:36 PM EDT Who is [facility]? [facility] Name of the medication Fluconazole 150 mg oral tablet What is the specific problem or interaction? Script clarification: are you aware the pt is on escitalopram from another provider and the risk of qtc prolongation? If the patient is having a problem [...] documented as of this encounter Care Teams Boots And Shoes Supervisor Relationship Specialty Start Date End Date Kelly Rudd MD PCP - General Internal Medicine 8/20/18 8/16 /21 Gem Rodriguez MD PCP - General Internal Medicine 11/03/20 10/17/21 Rebeka Manning MD [address] [place] [phone] PCP - General Internal Medicine 10/18/21 Leif Booth MD [address] [place] [phone] Lung Cancer Planning Lead 03/08/22 Fe Thompson MD [address] [place] [phone] Specialist Pulmonology 12/06/23 Alen Vu MD [address] [place] [address] [phone] Specialist Endocrinology 12/06/23 documented as of this encounter
--- OUTSIDE RECORDS SUMMARY | 2024-07-29 08:03 | XMS_ITS | Data Portability ---
Author Organization [place] - [facility], [facility] Address [address] [place] [address] Care Team Providers Care Wastewater Superintendent Name Role Phone SARAHIANDRES LUND Primary Care Provider Assessment No assessment recorded. Plan of Treatment Reminders Order Date Submit Date Provider Last Modified By Organization Details Last Modified Time Details Appointments None recorded. Lab urinalysis , dipstick 2014 015 [email or web address] In-Office Order, Internal Use Only DO Not Attach Compendium DO Not Attach Compendium, Do Not Delete/merge, [id number] 16:39:44 Referral None recorded. Procedures None recorded. Surgeries None recorded. Imaging None recorded. Medication Orders None recorded. Patient TargetsNo targets recorded. Patient Instructions Encounter Date Encounter Id Patient Instructions Last Modified By Organization Details Last Modified Time 02/17/2015 [id number] Patient presents for a well woman exam. Her history is unremarkable and her exam is normal. Pt c/o heavier menses and lasting a little longer. She also tested + for hpv 1 year ago. Pap and hpv; if still hpv+, will schedule colpo TVUS EMB v. 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 Not available 02/17/2015 15:08:46 03/10/2015 [id number] Pt with heavier, longer periods - emb obtained. Mgmt options briefly reviewed. Pt will make apt after results in, if she desires intervention Mycolog ointment Affirm [email or web address] Not available 03/10/2015 13:09:48 Reason for Referral None Reported. Results Created Date Observation Date Name Description Value Unit Range Abnormal Flag Note LastModifiedBy Organization Detail LastModifiedTime 02/18/20 15 02/17/2015 urina lysis , dipst ick Interpretati on negati ve Not Available In-Office Order Internal Use Only DO Not Attach Compendium DO Not Attach Compendium, Do Not Delete/merge, [id number] 02/17/2015 14:26:37 02/18/20 15 02/17/2015 urina lysis , dipst ick Leukocytes Negati ve Not Available In-Office Order Internal Use Only DO Not Attach Compendium DO Not Attach Compendium, Do Not Delete/merge, [id number] 02/17/2015 14:26:37 02/18/20 15 02/17/2015 urina lysis , dipst ick Nitrite negati ve Not Available In-Office Order Internal Use Only DO Not Attach Compendium DO Not Attach Compendium, Do Not Delete/merge, [id number] 02/17/2015 14:26:37 02/18/20 15 02/17/2015 urina lysis , dipst ick Urobilinogen Normal : 0.2 mg/dl Not Available In-Office Order Internal Use Only DO Not Attach Compendium DO Not Attach Compendium, Do Not Delete/merge, [id number] 02/17/2015 14:26:37 02/18/20 15 02/17/2015 urina lysis , dipst ick Protein Negati ve Not Available In-Office Order Internal Use Only DO Not Attach Compendium DO Not Attach Compendium, Do Not Delete/merge, [id number] 02/17/2015 14:26:37 02/18/20 15 02/17/2015 urina lysis , dipst ick pH 5.0 Not Available In-Office Order Internal Use Only DO Not Attach Compendium DO Not Attach Compendium, Do Not Delete/merge, [id number] 02/17/2015 14:26:37 02/18/20 15 02/17/2015 urina lysis , dipst ick Blood Negati ve Not Available In-Office Order Internal Use Only DO Not Attach Compendium DO Not Attach Compendium, Do Not Delete/merge, [id number] 02/17/2015 14:26:37 02/18/20 15 02/17/2015 urina lysis , dipst ick Specific [place] 1.000 Not Available In-Off ice Order Internal Use Only DO Not Attach Compendium DO Not Attach Compendium, Do Not Delete/merge, [id number] 02/17/2015 14:26:37 02/18/20 15 02/17/2015 urina lysis , dipst ick Ketone Negati ve Not Available In-Office Order Internal Use Only DO Not Attach Compendium DO Not Attach Compendium, Do Not Delete/merge, [id number] 02/17/2015 14:26:37 02/18/20 15 02/17/2015 urina lysis , dipst ick Bilirubin Small: +1 Not Available In-Office Order Internal Use Only DO Not Attach Compendium DO Not Attach Compendium, Do Not Delete/merge, [id number] 02/17/2015 14:26:37 02/18/20 15 02/17/2015 urina lysis , dipst ick Glucose Negati ve Not Available In-Office Order Internal Use Only DO Not Attach Compendium DO Not Attach Compendium, Do Not Delete/merge, [id number] 02/17/2015 14:26:37 02/18/20 15 02/17/2015 urina lysis , dipst ick Appearance Clear Not Available In-Offi ce Order Internal Use Only DO Not Attach Compendium DO Not Attach Compendium, Do Not Delete/merge, [id number] 02/17/2015 14:26:37 02/18/20 15 02/17/2015 urina lysis , dipst ick Color Yellow Not Available In-Office Order Internal Use Only DO Not Attach Compendium DO Not Attach Compendium, Do Not Delete/merge, [id number] 02/17/2015 14:26:37 02/18/20 15 02/18/2015 pap, IG + HPV report GYNEC OLOGI PARKER CYTOL OGY REPOR T THINP REP PAP (IMAG ER) WITH HPV SCREE N AND REFLE X TO HPV 16,18 /45 SPECI MEN ADEQU ACY: SATIS FACTO RY FOR EVALU ATION ; ENDOC ERVIC AL/TR ANSFO RMATI ON ZONE COMPO NENT ABSEN T/INS UFFIC IENT. INTER PRETA TION: NEGAT CASS FOR INTRA EPITH ELIAL LESIO N OR GAURAV BRANDON . Ada pelletier Zully d Out By: SHEKHAR MANZANARES ON, [place]( CP) CLINI PARKER INFOR MATIO N: LMP: NI Sourc e CERVI X/END OCERV IX Numbe r of vials /slid es submi tted 1 Diagn osis / ICD CODE Z01.4 19 / Z11.5 1 Hyste recto my N/A Abnor mal Pap Date NI Autom ated presc reeni ng of all liqui d based speci mens is perfo rmed by the ThinP rep Imagi ng elissa Prabhakar [facility]. The Pap test is a scree ubaldo test with an inher ent false negat cass rate. Testi ng perfo rmed at [facility] , [address], [place] [address] CLIA [id number] CL-PO [id number]. Not Available [facility] [address] [place], [address], 02/18/2015 14:50:49 02/18/20 15 02/18/2015 pap, IG + HPV HPV result Negati ve negati ve APTIM A HPV assay detec ts 14 high risk HPV types (HPV 16,18 ,31,3 3,35, 39,45 , 51,52 ,56,5 8,59, 66,68 ). The assay is FDA appro quinten for testi ng ThinP rep liqui d Pap vials but not FDA appro quinten for detec ting HPV in SureP ath liqui d Pap speci mens. In-ho use valid ation has shown the assay can detec t all HPV types from this sourc e. Not Available [facility] [address] [place], [address], 02/18/2015 14:50:49 03/10/20 15 03/11/2015 bacte rial vagin osis + vagin itis panel , vagin al trichomonas vaginalis DNA Negati ve negati ve Not Available [facility] [address] [place], [address], 03/11/2015 10:34:51 03/10/20 15 03/11/2015 bacte rial vagin osis + vagin itis panel , vagin al gardnerella vaginalis DNA Negati ve negati ve Not Available [facility] [address] [place], [address], 03/11/2015 10:34:51 03/10/20 15 03/11/2015 bacte rial vagin osis + vagin itis panel , vagin al marlene species DNA Negati ve negati ve Not Available [facility] [address] [place], [address], 03/11/2015 10:34:51 03/10/20 15 03/11/2015 surgi parker patho logy study report Surgi parker Patho logy Repor t DIAGN OSIS ENDOM ETRIA L BIOPS Y: PROLI FERAT CASS ENDOM ETRIU M WITH PADMA AL BREAK DOWN. NEGAT CASS FOR HYPER PLASI A. El ectro nical ly Zully d Out * [place] [id number] Clini parker Diagn osis and Histo ry: N92.0 Exces sive and frequ ent menst ruati on with regul ar cycle Tissu e(s) Submi tted: ENDOM ETRIA L BIOPS Y Gross Descr iptio n: Conta iner is label ed with patie nt's name, Janeen Medina . Endom etria l is noted on the req and the vial. The speci men is recei quinetn in forma magdalena and consi sts of irreg ular tissu e fragm ents admix ed with mucus and blood measu ring 1.0 cc. The speci men is submi tted in toto in casse tte 1A. SA Testi ng [facility]fo [facility]med at [facility] , [address], [place] [address] CLIA [id number] CL-PO [id number]. Not Available [facility] [address] [place], [address], 03/11/2015 15:24:18 02/21/20 15 02/20/2015 ultra sound , pelvi c trans vagin al No observ ation record ed. [email or web address] In-Office Order Internal Use Only DO Not Attach Compendium DO Not Attach Compendium, Do Not Delete/merge, [id number] 02/23/2015 11:24:41 03/27/19 16 03/27/2015 mammo gram, scree ubaldo No observ ation record ed. [email or web address] [address], [place], [address], 04/02/2015 09:46:30 04/04/19 17 04/04/2016 MA mammo graph y scree n bilat eral w/wo Ca Mammog mani Exam Exam Date/T aniyah MA Mammog mani Screen Bilate ral W/WO 2016 08:26: 38 EST CAD Report SCREEN ING BILATE RAL DIGITA L MAMMOG POWER WITH CAD HISTOR Y: routin e screen ing. TECHNI QUE: Routin e views of each breast are obtain ed. Comput er aided detect ion is utiliz ed. COMPAR RAJ: Previo us studie s. FINDIN GS: There are scatte red areas of fibrog landul ar densit y (compo sition catego ry b). There is an asymme try/po ssible distor tion in the centra l right breast seen only on the cranio caudal view. While this is likely second alfred to slight differ ences in techni que and compre ssion from the prior studie s, additi onal imagin g will be necess alfred for furthe r evalua tion. There are no suspic ious cluste rs of microc alcifi cation . IMPRES MARINA: Asymme try/po ssible everardo ectura l distor tion in the centra l right breast on the cranio caudal view. Additi onal imagin g will be necess alfred for furthe r evalua tion. The patien t will be recall ed for the additi onal imagin g. BIRADS Catego ry 0: Incomp lete - Need Additi onal Imagin g Evalua tion. Final DICTAT ED BY: Matias rodriguez M.D., Redd Kam SIGNED BY:Shabnam urrutia M.D., Redd Kam Practi ce: [facility] Julisa barba Dictat ed : 2016 11:38 Signed : 2016 5:46 A summar y of the above report , in laymen 's terms, will be sent to the patien t. Result sent to: Andres Sarahi ano Result sent to: Demetra [email or web address] [facility] [address] [place], [address], 04/06/2016 17:57:37 04/05/19 17 04/04/2016 MAMMO , scree ubaldo, digit al, bilat eral No observ ation record ed. [email or web address] Not Available 03/20 17:57:38 04/18/19 17 04/18/2016 US, breas t, unila teral Mammog mani Exam Exam Date/T aniyah US Breast Uni Right Limite d 2016 08:46: 48 EST MA Mammog mani Diag Right W/WO CAD 2016 08:02: 04 EST Report Right diagno stic digita l mammog power with tomosy nthesi s, CAD, limite d right breast ultras ound with color Dopple r, 017 CLINIC AL INDICA TION: Called back for additi onal imagin g. MAMMOG POWER: In correl ation with screen ing mammog mani of 017, right 90 degree latera l whole breast and right CC spot compre ssion standa rd as well as tomosy nthesi s images were digita lly acquir ed. CAD was employ ed. There are scatte red areas of fibrog landul ar densit y (BI-RA DS Type b patter n). Additi onal mammog raphic images do not confir m presen ce of suspic ious distor tion, densit y, or mass. ULTRAS OUND: Limite d right breast ultras ound examin ation was perfor med attent ion centra l upper breast . Color Dopple r was utiliz ed. No focal sonogr aphic abnorm ality is detect ed. IMPRES MARINA: No mammog raphic confir mation of suspic ious findin g, and limite d right breast ultras ound examin ation is negati ve. ASSESS MENT: Negati ve, BI-RAD S 1. RECOMM ENDATI ON: Homero rodriguez was instru cted to resume normal screen ing mammog mani in one year. Thank you for bia ng us to partic ipate in the care of this homero rodriguez. Final DICTAT ED BY: Jimena queen M.D., Prince Abreu SIGNED BY:Eufemia ma M.D., Prince Mckinley ce: [facility] Dictat ed : 2016 8:55 Signed : 2016 10:52 A summar y of the above report , in laymen 's terms, will be sent to the homero rodriguez. Result sent to: Andres Yeung ano Result sent to: Demetra Valentino [email or web address] [facility] [address] [place] [address], [address], 04/19/2016 16:27:02 04/18/19 17 04/18/2016 MA mammo graph y diag right w/wo CAD Mammog mani Exam Exam Date/T aniyah US Breast Uni Right Limite d 2016 08:46: 48 EST MA Mammog mani Diag Right W/WO CAD 2016 08:02: 04 EST Report Right diagno stic digita l mammog power with tomosy nthesi s, CAD, limite d right breast ultras ound with color Dopple r, 017 CLINIC AL INDICA TION: Called back for additi onal imagin g. MAMMOG POWER: In correl ation with screen ing mammog mani of 017, right 90 degree latera l whole breast and right CC spot compre ssion standa rd as well as tomosy nthesi s images were digita lly acquir ed. CAD was employ ed. There are scatte red areas of fibrog landul ar densit y (BI-RA DS Type b patter n). Additi onal mammog raphic images do not confir m presen ce of suspic ious distor tion, densit y, or mass. ULTRAS OUND: Limite d right breast ultras ound examin ation was perfor med attent ion centra l upper breast . Color Dopple r was utiliz ed. No focal sonogr aphic abnorm ality is detect ed. IMPRES MARINA: No mammog raphic confir mation of suspic ious findin g, and limite d right breast ultras ound examin ation is negati ve. ASSESS MENT: Negati ve, BI-RAD S 1. RECOMM ENDATI ON: Homero rodriguez was instru cted to resume normal screen ing mammog mani in one year. Thank you for allowi ng us to partic ipate in the care of this homero rodriguez. Final DICTAT ED BY: Jimena queen M.D., Prince Abreu SIGNED BY:Eufemia ma M.D., Prince Mckinley ce: [facility] Julisa barba Dictat ed : 2016 8:55 Signed : 2016 10:52 A summar y of the above report , in laymen 's terms, will be sent to the homero rodriguez. Result sent to: Andres lund Result sent to: Demetra Valentino [email or web address] [facility] [address] [place] [address], [address], 04/19/2016 16:27:03 Result Notes None recorded. Problems Name Problem SNOMED Code Status Onset Date Resolution Date Notes Provider Name and Address Organization Details Recorded Time Asthma 944421904 Active 2013 Not Available [facility] 5 06:27:39 Menorrhagia 154924821 Active SHELLEY VALENTINO MD [address] [place] [address], [address] [place], [address] , [facility] 5 13:09:48 Vaginitis 80433411 Active SHELLEY VALENTINO MD [address] [place] [address], [address] [place] [address], [address] , [facility] 5 13:09:48 Problem Notes None recorded. Procedures Surgical History Date Name Laterality Status Provider Name and Address Organization Details Recorded Time 7 Date of Last Mammogram completed SHELLEY VALENTINO MD [address], [address], [place], [address], [place] [facility] 04/05/2016 13:11:32 5 Endometrial Biopsy Procedure Note completed SHELLEY VALENTINO MD [address], [place], [address], [place] [facility] 03/10/2015 13:08:40 5 Endometrial Biopsy completed SHELLEY VALENTINO MD [address], [address], [place], [address], [place] [facility] 03/11/2015 15:47:02 5 Date of Last Pap Smear completed SHELLEY VALENTINO MD [address] [facility], [place], [address], [place] [facility] 02/18/2015 16:36:11 5 Gastric Bypass completed SHELLEY VALENTINO MD [address] [facility], [place], [address], [place] [facility] 02/17/2015 14:57:10 2 Tubal Ligation completed SHELLEY AVLENTINO MD 175 [facility], [address] [place] [address], [place], [address], [facility] 02/17/2015 14:57:10 Imaging Results Imaging Date Name Status LastModified by Organization Details LastModified Time 02/20/2015 ultrasound, pelvic transvaginal completed [email or web address] In-Office Order Internal Use Only DO Not Attach Compendium DO Not Attach Compendium, Do Not Delete/merge, [id number] 02/23/2015 11:24:41 03/27/2015 mammogram, screening completed [email or web address] [address], [address], 04/02/2015 09:46:30 04/04/2016 MA mammography screen bilateral w/wo Ca completed [email or web address] [address], [address], 04/06/2016 17:57:37 04/04/2016 MAMMO, screening, digital, bilateral completed [email or web address] Information not available 04/06/2016 17:57:38 04/18/2016 US, breast, unilateral completed [email or web address] [facility] [address] [place] [address], [address], 04/19/2016 16:27:02 04/18/2016 MA mammography diag right w/wo CAD completed [email or web address] [address], [address], 04/19/2016 16:27:03 Procedure Notes None recorded. Medical Equipment None Reported. Allergies Allergen ID Allergen Name Allergen Category Reaction Reaction Severity Criticality Documentation Date Start Date Code Code System Note Provider Name and Address Organization Details Recorded Time 996418 codeine medicatio n rash Not available Not available 08/26/20142013 2670 RxNorm REACT ION: RASH; Not Available [facility] 5 09:44:32 221571 Augmentin medicatio n vomiting severe Not available 02/17/2015 39341 2 RxNorm June [place], [place] - [facility] 5 14:37:27 Medications Name Sig Start Date Stop Date Status Note LastModified by Organization Details LastModified Time multivita min tablet active PRESCRIB ED ELSEWHER E Not Available Not Available Not Available azithromy sherry 250 mg tablet active Not Available Not Available No t Available phenazopy ridine 200 mg tablet active Not Available Not Available Not Available Cleocin 100 mg vaginal supposito ry INSERT 1 SUPPOSIT ORY BY VAGINAL ROUTE EVERY DAY FOR 3 DAYS AT BEDTIME 01/09 completed Not Available Not Available Not Available Advair Diskus 100 mcg-50 mcg/dose powder for inhalatio n INHALE 1 PUFF BY INHALATI ON ROUTE 2 TIMES EVERY DAY IN THE MORNING AND EVENING APPROXIM ATELY 12 HOURS APART active Not Available Not Available No t Available ciproflox acin 500 mg tablet active Not Available Not Available No t Available Tamiflu 75 mg capsule active Not Available Not Available Not Available nystatin- triamcino lone 100,000 unit/gram -0.1 % topical ointment APPLY TO THE AFFECTED AREA(S) BY TOPICAL ROUTE 2 TIMES PER DAY active Not Available Not Available No t Available benzonata te 100 mg capsule active Not Available Not Available Not Available pantopraz ole 40 mg tablet,de layed release active Not Available Not Available Not Available Advair Diskus 500 mcg-50 mcg/dose powder for inhalatio n active Not Available Not Available Not Available monteluka st 10 mg tablet active Not Available Not Available Not Available ibuprofen 600 mg tablet active Not Available Not Available Not Available methylpre dnisolone 4 mg tablets in a dose pack active Not Available Not Available Not Available doxycycli ne hyclate 100 mg tablet active Not Available Not Available Not Available Ciprodex 0.3 %-0.1 % ear drops,sona pension active Not Available Not Available Not Available ursodiol 500 mg tablet active Not Available Not Available Not Available ProAir HFA 90 mcg/actua tion aerosol inhaler INHALE 2 PUFF BY INHALATI ON ROUTE EVERY 4 - 6 HOURS NEEDED active Not Available Not Available No t Available levocetir izine 5 mg tablet active Not Available Not Available No t Available iron,carb onyl 65 mg-vitami n C 125 mg tablet,de layed release Take by oral route. active Not Available Not Available No t Available Anoro Ellipta 62.5 mcg-25 mcg/actua tion powder for inhalatio n active Not Available Not Available Not Available Breo Ellipta 200 mcg-25 mcg/dose powder for inhalatio n active Not Available Not Available Not Available Vitals Date Recorded Body height Body weight Body mass index (BMI) Systolic blood pressure Diastolic blood pressure Provider Name and Address Organization Details Last Updated DateTime 02/17/2015 154.94 cm 90544.55 631 g 30.8 kg/m2 120 mm[Hg] 78 mm[Hg] [facility] 5 14:37:05 Date Recorded Body weight Systolic blood pressure Diastolic blood pressure Provider Name and Address Organization Details Last Updated DateTime 03/10/2015 22585.0020 9 g 118 mm[Hg] 80 mm[Hg] [facility] 03/10/2015 11:30:37 Social History Question Answer Notes LastModified by Organizat ion Details LastModified Time Tobacco Smoking Status Former Smoker quit 1999 SHELLEY VALENTINO MD [address] [place] [address], [address] Floor, [place], [address], [place] [facility] 02/17/2015 14:53:53 Is Blood Transfusion Acceptable In An Emergency? Yes [email or web address] Information not available 02/17/2015 Sex: Unknown Functional Status Question Answer Note LastModified by Organizat ion Details LastModified Time What is your level of alcohol consumption? socially Information not available 02/17/2015 What is your occupation? [employer] Information not available 02/17/2015 What is your exercise level? walk daily [email or web address] Information not available 02/17/2015 Mental Status None recorded. Family History Relationship Description Onset Age of this Age Resolved Age Notes LastModified by Organization Details LastModified Time Maternal Aunt Malignant neoplasm of brain [email or web address] Not available 2014 14:57:42 Father Malignant tumor of stomach [email or web address] Not available 2014 14:57:42 Father Hypertensive disorder [email or web address] Not available 2014 14:57:42 Mother Malignant neoplasm of lung [email or web address] Not available 2014 14:57:42 Mother Hypertensive disorder [email or web address] Not available 2014 14:57:42 Maternal Grandmother Diabetes mellitus [email or web address] Not available 2014 14:57:42 Sister Hypertensive disorder [email or web address] Not available 2014 14:57:42 Medical History Condition Response Anemia Y Asthma Y Gynecological History Statement/Question Response History of Endometrial Biopsy? Y Abnormal Pap Y Flow Heavy Date of Last Mammogram 04/04/2016 Duration of Flow (days) Date of Last Pap Smear 02/17/2015 Fibroids N Obstetrics History GPAL:G 5 P 5 0 0 6 Type Value Full Term 5 Living 6 Total 5 Past Encounters Encounter ID Performer Location Encounter Start Date Encounter Closed Date Diagnosis/Indication Diagnosis SNOMED-CT Code Diagnosis ICD10 Code Diagnosis Note [id number] [facility] [address] [place] [address] 01/03/2014 00:00:00 [id number] [facility] [address] [place] [address] 07/08/2014 00:00:00 [id number] SHELLEY VALENTINO MD [facility] [address] [place] [address] 02/17/2015 14:20:04 02/17/2015 15:07:35 Gynecologic examination 70924463 Z01.779 [id number] SHELLEY VALENTINO MD [facility] [address] [place] [address] 03/10/2015 10:51:25 03/10/2015 11:56:16 Vaginitis 96308574 N76.0 Menorrhagia 897558341 N9 2.0 Health Concerns Section Related Observation LastModified by Organization Detai ls LastModified Time None Recorded Concern Status LastModified by Organization Details LastModified Time None Recorded Advance Directives Directive None Recorded Payers Insurance Date Sequence Insurance Name Policy Number Policy [place]orne Covered Member ID [place] Member ID Guarantor Name 11/19/2016 1 [place] Janeen Medina [id number] Janeen Medina Notes Date Note Type Note Provider Name and Address Organization Details Recorded Time 02/17/2015 text/html [facility] Annual GYNReported bypatient.History: no gynecologic complaints; no change in interval history Menstrual cycle:Menorrhagia Urinary symptoms:No hematuria; No incontinence Vulva:No genital lesion Vagina:Normal vaginal discharge Breast:No breast pain; No breast lump; No nipple discharge Current Contraception:Sati sfied with current contraception; Monogamous relationship; Tubal ligation Psychological symptoms:No depression; No anxiety; No PMDD Preventive measures:Encourage self breast examination; Followed with yearly pap smears; Needs to schedule mammogram SHELLEY VALENTINO MD [address], [address], [facility] 02/17/2015 15:09:10 03/10/2015 text/html external vaginal irritation since yesterday SHELLEY VALENTINO MD [address], [address], [facility] 03/10/2015 13:10:01 OBGyn Episode No OBEpisode recorded.
--- OUTSIDE RECORDS SUMMARY | 2024-07-29 08:03 | XMS_ITS | Encounter Summary ---
Author Organization [facility] Address [address] [place] [address] Care Team Providers Care Stereotyper Apprentice Name Role Phone Rebeka Manning MD Primary Care Prov ider Leif Booth MD Unavailable Fe Thompson MD Unavailable Alen Vu MD Unavailable Reason for Visit * Reason Onset Date Comments Faxed Order 01/10/2023 [facility] plan of care 12/31/22 - 02/28/23 Encounter Details Date Type Department Care Team Description 01/10/2023 Telephone Adult [address] [address] Rebeka Manning MD [address] [place] [phone] Faxed Order ([facility] plan of care 12/31/22 - 02/28/23) Social History Tobacco Use Types Packs/Day Years [...] was confirmed or suspected to have Coronavirus/COVID-19? Unable to assess 12/14/2022 7:43 AM EDT documented as of this encounter Plan of Treatment Not on file documented as of this encounter Visit Diagnoses Not on filedocumented in this encounter Care Teams Stereotyper Apprentice Relationship Specialty Start Date End Date Rebeka Manning MD [address] [place] [address] PCP - General Internal Medicine 10/18/21 Leif Booth MD [address] [place] [address] Lung Cancer Pathology Technician 03/08/22 Fe Thompson MD [address] [place] [phone] Specialist Pulmonology 12/06/23 Alen Vu MD [address] [place] [address] Specialist Endocrinology 12/06/23 documented as of this encounter
--- OUTSIDE RECORDS SUMMARY | 2024-07-29 08:03 | XMS_ITS | Encounter Summary ---
Author Organization [facility] Address [address] [place] [address] Care Team Providers Care Sliver Lap Tender Name Role Phone Rebeka Manning MD Primary Care Prov ider Leif Booth MD Unavailable Fe Thompson MD Unavailable Alen Vu MD Unavailable Reason for Visit * Reason Onset Date Comments Form 10/13/2023 [facility] Physi kayla Summary Form Encounter Details Date Type Department Care Team Description 10/13/2023 Telephone Adult Medicine [facility] [address] [place] [address] Rebeka Manning MD [address] [place] [address] [phone] Form ([facility] Physician Summary Form) Social History Tobacco Use Types Packs/Day Years [...] encounter Miscellaneous Notes * Telephone Encounter - Niya Gabriel - 10/13/2023 1:12 PM EDT Received [facility] Physician Summary Form. Please review and fax to [phone] documented in this encounter Plan of Treatment Not on file documented as of this encounter Visit Diagnoses Not on filedocumented in this encounter Care Teams Sliver Lap Tender Relationship Specialty Start Date End Date Rebeka Manning MD [address] [place] [address] PCP - General Internal Medicine 10/18/21 Leif Booth MD [address] [place] [address] Lung Cancer Hose Wrapper 03/08/22 Fe Thompson MD [address] [place] [phone] Specialist Pulmonology 12/06/23 Alen Vu MD [address] [place] [address] Specialist Endocrinology 12/06/23 documented as of this encounter
--- OUTSIDE RECORDS SUMMARY | 2024-07-29 08:03 | XMS_ITS | Encounter Summary ---
Author Organization [facility] Address [address] [place] [address] Care Team Providers Care Hearing Screen Coordinator Name Role Phone Rebeka Manning MD Primary Care Prov ider Leif Booth MD Unavailable Fe Thompson MD Unavailable Alen Vu MD Unavailable Encounter Details Date Type Department Care Team Description 05/11/2022 Telephone Gastroenterology - [place] 175 [facility] [address] [place] [phone] Maverick Hines PA-C [address] [address] Social History Tobacco Use Types Packs/Day Years [...] suspected to have Coronavirus/COVID-19? No / Unsure 04/26/2022 1:02 PM EST documented as of this encounter Miscellaneous Notes * Telephone Encounter - Sruthi Loyola M.A. - 05/11/2022 12:24 PM EST I received a call from [facility] letting me know they have the Patient scheduled for her Motility test tomorrow @ 8am nothing to eat or drink after midnight over at [facility] in [place]. They have tried calling the Patient phone number just comes up busy. I wrote to the Patient on [employer] to make her aware of this appointment. I did try phone number on file phone rang until it became busy. If we get ahold of Patient to confirm please call [phone] to confirm Patients appointment documented in this encounter Plan of Treatment Not on file documented as of this encounter Visit Diagnoses Not on filedocumented in this encounter Additional Health Concerns Infection Onset Date Last Indicated Resolved Time COVID-19 Comment:Tested positive for COVID 07/03/2022 07/04/20222022 1:38 PM EDT documented as of this encounter Care Teams Hearing Screen Coordinator Relationship Specialty Start Date End Date Rebeka Manning MD [address] [place] [address] PCP - General Internal Medicine 10/18/21 Leif Booth MD [address] [place] [address] Lung Cancer Distribution Engineering Technologist 03/08/22 Fe Thompson MD [address] [place] [phone] Specialist Pulmonology 12/06/23 Alen Vu MD [address] [place] [address] Specialist Endocrinology 12/06/23 documented as of this encounter
--- OUTSIDE RECORDS SUMMARY | 2024-07-29 08:03 | XMS_ITS | Encounter Summary ---
Author Organization [facility] Address [address] [place] [address] Care Team Providers Care Glassware Selector Name Role Phone Rebeka Manning MD Primary Care Prov ider Leif Booth MD Unavailable Fe Thompson MD Unavailable Alen Vu MD Unavailable Encounter Details Date Type Department Care Team Description 01/03/2023 Orders Only Pulmonology - [place] 175 [facility] [address] [place] [phone] Rosie Huff APRN 175 [facility] 200 [place] [phone] Nocturnal hypoxia; COVID-19 virus infection Social History Tobacco Use Types Packs/Day Years [...] Procedure Name Priority Date/Time Associated Diagnosis Comments [place] NONINVASIVE EAR/PULSE OXIMETRY OVERNIGHT MONITOR Routine 11/11/2022 Nocturnal hypoxia [place] NONINVASIVE EAR/PULSE OXIMETRY OVERNIGHT MONITOR Routine 08/16/2022 COVID-19 virus infection Nocturnal hypoxia documented in this encounter Results * [place] NONINVASIVE EAR/PULSE OXIMETRY OVERNIGHT MONITOR (11/11/2022) Rosie Sevastyanova HYDROELECTRIC POWERPLANT SUPERVISOR PERFORMABLES * [place] NONINVASIVE EAR/PULSE OXIMETRY OVERNIGHT MONITOR (08/16/2022) Rosie Sevastyanova HYDROELECTRIC POWERPLANT SUPERVISOR PERFORMABLES documented in this encounter Visit Diagnoses Diagnosis Nocturnal hypoxia Hypoxemia COVID-19 virus infection documented in this encounter Care Teams Glassware Selector Relationship Specialty Start Date End Date Rebeka Manning MD [address] [place] [address] PCP - General Internal Medicine 10/18/21 Leif Booth MD [address] [place] [address] Lung Cancer Hand Patcher 03/08/22 Fe Tohmpson MD 175 [place] [phone] Specialist Pulmonology 12/06/23 Alen Vu MD [address] [place] [address] Specialist Endocrinology 12/06/23 documented as of this encounter
--- OUTSIDE RECORDS SUMMARY | 2024-07-29 08:03 | XMS_ITS | Encounter Summary ---
Author Organization [facility] Address [address] [place] [address] Care Team Providers Care Keyseater Operator Name Role Phone Rebeka Manning MD Primary Care Prov ider Leif Booth MD Unavailable Fe Thompson MD Unavailable Alen Vu MD Unavailable Reason for Visit * Reason Onset Date Comments refill request 08/04/2022 Encounter Details Date Type Department Care Team Description 08/04/2022 Refill Pulmonology - [place] 175 [facility] [address] [place] [phone] Rosie Huff APRN 175 [facility] [address] [place] [phone] refill request Social History Tobacco Use Types [...] encounter Miscellaneous Notes * Telephone Encounter - Rylee Duffy - 08/05/2022 1:47 PM EDT Patient called in regards to wanting to get prescribed Predisone. Yet she was given that medication2 weeks ago; and was covid + about 3 weeks ago. And is covid+ again; and she feels like her chest is tight and heavy. I did speak with [place] and she stated she needs to be seen by urgent care; due to provider not having no openings today or next week. Patient agreed on this and stated she will also call her pcp as well. * Telephone Encounter - Rosie Huff APRN - 08/05/2022 8:37 AM EDT Please let know patient that I cant just prescribe prednisone if she has trouble with her COPD needs appoinment or can go to . Last prednisone was prescribed 2 weeks ago. * Telephone Encounter - Jenifer Young - 08/04/2022 4:36 PM EDT [place] 07/06/22 NOV 09/06/22 documented in this encounter Plan of Treatment Not on file documented as of this encounter Visit Diagnoses Diagnosis Moderate persistent asthma, unspecified whether complicated Chest congestion Other symptoms involving respiratory system and chest Acute cough documented in this encounter Additional Health Concerns Infection Onset Date Last Indicated Resolved Time COVID-19 Comment:Tested positive for COVID 07/03/2022 07/04/20222022 1:38 PM EDT documented as of this encounter Care Teams Keyseater Operator Relationship Specialty Start Date End Date Rebeka Manning MD [address] [place] [address] PCP - General Internal Medicine 10/18/21 Leif Booth MD [address] [place] [address] Lung Cancer Director Foundation 03/08/22 Fe Thompson MD [address] [place] [phone] Specialist Pulmonology 12/06/23 Alen Vu MD [address] [place] [address] Specialist Endocrinology 12/06/23 documented as of this encounter
--- OUTSIDE RECORDS SUMMARY | 2024-07-29 08:03 | XMS_ITS | Encounter Summary ---
Author Organization [facility] Address [address] [place] [address] Care Team Providers Care Safety Counselor Name Role Phone Gem Rodriguez MD Primary Care Provider Rebeka Jara MD Primary Care Prov ider Leif Booth MD Unavailable Fe Thompson MD Unavailable Alen Vu MD Unavailable Reason for Visit * Reason Onset Date Comments REFERRAL 05/04/2021 ENT or Derm ear sx worsened joselin at yesterdays appt Encounter Details Date Type Department Care Team Description 05/04/2021 Pt. Non Urgent Medic al Question Adult Medicine [address] [address] Emerita Casper APRN Social History Tobacco Use [...] have Coronavirus / COVID-19? No / Unsure 05/06/2021 8:57 AM EST documented as of this encounter Miscellaneous Notes * Telephone Encounter - Lizzette Weaver M.A. - 05/04/2021 9:29 AM ESTFrom: Janeen Medina To: Eddy Casper Sent: 05/04/2021 9:16 AM EST Subject: Ear swelling and cracked bleeding It???s much worse I was in the office yesterday and I was given antibiotics I???m taking those the last time I seen you you gave me some ointment for my ear but it doesn???t seem to be helping and it???s very painful is there any other sort of cream that you can give me maybe a little bit stronger? documented in this encounter Plan of Treatment Not on file documented as of this encounter Visit Diagnoses Not on filedocumented in this encounter Additional Health Concerns Infection Onset Date Last Indicated Resolved Time COVID-19 Comment:Tested positive for COVID 07/03/2022 07/04/20222022 1:38 PM EDT documented as of this encounter Care Teams Safety Counselor Relationship Specialty Start Date End Date Gem Rodriguez MD PCP - General Internal Medicine 11/03/20 10/17/21 Rebeka Manning MD [address] [place] [address] PCP - General Internal Medicine 10/18/21 Leif Booth MD [address] [place] [address] Lung Cancer Supervisor Hot Dip Plating 03/08/22 Fe Thompson MD [address] [place] [phone] Specialist Pulmonology 12/06/23 Alen Vu MD [address] [place] [address] Specialist Endocrinology 12/06/23 documented as of this encounter
--- OUTSIDE RECORDS SUMMARY | 2024-07-29 08:03 | XMS_ITS | Encounter Summary ---
Author Organization [facility] Address [address] [place] [address] Care Team Providers Care Bunk Assembler Name Role Phone Rebeka Manning MD Primary Care Prov ider Leif Booth MD Unavailable Fe Thompson MD Unavailable Alen Vu MD Unavailable Encounter Details Date Type Department Care Team Description 02/22/2022 Brick Molder Hand Report Medical Records [address] [place] [address] Freddy Wild MD Social History Tobacco Use [...] suspected to have Coronavirus/COVID-19? No / Unsure 02/21/2022 9:56 AM EST documented as of this encounter Plan of Treatment Not on file documented as of this encounter Visit Diagnoses Not on filedocumented in this encounter Additional Health Concerns Infection Onset Date Last Indicated Resolved Time COVID-19 Comment:Tested positive for COVID 07/03/2022 07/04/20222022 1:38 PM EDT documented as of this encounter Care Teams Bunk Assembler Relationship Specialty Start Date End Date Rebeka Manning MD [address] [place] [address] PCP - General Internal Medicine 10/18/21 Leif Booth MD [address] [place] [address] Lung Cancer Tobacco Scrap Sifter 03/08/22 Fe Thompson MD [address] [place] [phone] Specialist Pulmonology 12/06/23 Alen Vu MD [address] [place] [address] Specialist Endocrinology 12/06/23 documented as of this encounter
--- OUTSIDE RECORDS SUMMARY | 2024-07-29 08:03 | XMS_ITS | Encounter Summary ---
Author Organization [facility] Address [address] [place] [address] Care Team Providers Care Golf Ball Winder Name Role Phone Rebeka Manning MD Primary Care Prov ider Leif Booth MD Unavailable Fe Thompson MD Unavailable Alen Vu MD Unavailable Reason for Visit * Reason Comments E-prescribe Rx Request Encounter Details Date Type Department Care Team Description 05/02/2023 Refill Pulmonology - [place] 175 [facility] 200 [place] [phone] Rosie Huff APRN 175 [facility] 200 [place] [phone] E-prescribe Rx Request Social History Tobacco Use [...] encounter Miscellaneous Notes * Telephone Encounter - eJnifer Young - 05/03/2023 11:10 AM EST [place] 08/21/23 NOV 05/04/23 documented in this encounter Plan of Treatment Not on file documented as of this encounter Visit Diagnoses Not on filedocumented in this encounter Care Teams Golf Ball Winder Relationship Specialty Start Date End Date Rebeka Manning MD [address] [place] [address] PCP - General Internal Medicine 10/18/21 Leif Booth MD [address] [place] [address] Lung Cancer Repair Department Supervisor 03/08/22 Fe Thompson MD [address] [place] [phone] Specialist Pulmonology 12/06/23 Alen Vu MD [address] [place] [address] Specialist Endocrinology 12/06/23 documented as of this encounter
--- OUTSIDE RECORDS SUMMARY | 2024-07-29 08:03 | XMS_ITS | Encounter Summary ---
Author Organization [facility] Address [address] [place] [address] Care Team Providers Care Gold Cutter Name Role Phone Rebeka Manning MD Primary Care Prov ider Leif Booth MD Unavailable Fe Thomposn MD Unavailable Alen Vu MD Unavailable Encounter Details Date Type Department Care Team Description 02/10/2023 Telephone Pulmonology - [place] 175 [facility] [address] [place] [phone] Rosie Huff APRN 175 [facility] 200 [place] [phone] Social History Tobacco Use Types Packs/Day Years [...] on filedocumented in this encounter Care Teams Gold Cutter Relationship Specialty Start Date End Date Rebeka Manning MD [address] [place] [address] PCP - General Internal Medicine 10/18/21 Leif Booth MD [address] [place] [address] Lung Cancer Cns 03/08/22 Fe Thompson MD 175 [place] [phone] Specialist Pulmonology 12/06/23 Alen Vu MD [address] [place] [address] Specialist Endocrinology 12/06/23 documented as of this encounter
--- OUTSIDE RECORDS SUMMARY | 2024-07-29 08:03 | XMS_ITS | Encounter Summary ---
Author Organization [facility] Address [address] [place] [address] Care Team Providers Care Livestock Farmers Name Role Phone Rebeka Manning MD Primary Care Prov ider Leif Booth MD Unavailable Fe Thompson MD Unavailable Alen Vu MD Unavailable Reason for Visit * Reason Onset Date Comments Faxed Order 01/04/2024 [employer]- SN Care Plan Cert. 12/26/23-02/23/24//Fax # [phone] Encounter Details Date Type Department Care Team Description 01/04/2024 [place] Adult [address] [address] Rebeka Manning MD [address] [place] [address] Faxed Order ([facility]- SN Care Plan Cert. 12/26/23-02/23/24//Fax # [phone]) Social History Tobacco Use Types Packs/Day Years [...] encounter Miscellaneous Notes * Telephone Encounter - Rocky Tiffani - 01/04/2024 1:09 PM EDT [facility] SN Care Plan Cert. 12/26/23-02/23/24 received. Please sign and Fax to [phone] documented in this encounter Plan of Treatment Not on file documented as of this encounter Visit Diagnoses Not on filedocumented in this encounter Care Teams Livestock Farmers Relationship Specialty Start Date End Date Rebeka Manning MD [address] [place] [address] PCP - General Internal Medicine 10/18/21 Leif Booth MD [address] [place] [address] Lung Cancer Grips 03/08/22 Fe Thompson MD [address] [place] [phone] Specialist Pulmonology 12/06/23 Alen Vu MD [address] [place] [address] Specialist Endocrinology 12/06/23 documented as of this encounter
--- OUTSIDE RECORDS SUMMARY | 2024-07-29 08:03 | XMS_ITS | Encounter Summary ---
Author Organization [facility] Address [address] [place] [address] Care Team Providers Care Traffic Rate Computer Name Role Phone Rebeka Manning MD Primary Care Prov ider Leif Booth MD Unavailable Fe Thompson MD Unavailable Alen Vu MD Unavailable Encounter Details Date Type Department Care Team Description 07/04/2022 Home Health Certification Medical Records [address] [place] [address] Social History Tobacco Use Types Packs/Day Years [...] documented as of this encounter Care Teams Traffic Rate Computer Relationship Specialty Start Date End Date Rebeka Manning MD [address] [place] [address] PCP - General Internal Medicine 10/18/21 Leif Booth MD [address] [place] [address] Lung Cancer Hotel General Manager 03/08/22 Fe Thompson MD 175 [place] [phone] Specialist Pulmonology 12/06/23 Alen Vu MD [address] [place] [address] Specialist Endocrinology 12/06/23 documented as of this encounter
--- OUTSIDE RECORDS SUMMARY | 2024-07-29 08:03 | XMS_ITS | Encounter Summary ---
Author Organization [facility] Address [address] [place] [address] Care Team Providers Care Juvenile Justice Specialist Name Role Phone Rebeka Manning MD Primary Care Prov ider Leif Booth MD Unavailable Fe Thompson MD Unavailable Alen Vu MD Unavailable Reason for Visit * Reason Onset Date Comments Provider Call Back 06/01/2022 Encounter Details Date Type Department Care Team Description 06/01/2022 Telephone Gastroenterology - [place] [address] [facility] [address] [place] [phone] Maverick Hines PA-C [address] [facility] [address] [place] [address] Provider Call Back Social History Tobacco Use [...] suspected to have Coronavirus/COVID-19? No / Unsure 05/26/2022 7:40 AM EST documented as of this encounter Miscellaneous Notes * Telephone Encounter - Maverick Hines PA-C - 06/02/2022 3:51 PM EDT Appreciate the update from [facility] motility * Telephone Encounter - Kaylee Medina - 06/01/2022 2:38 PM EDT Venessa from [facility] Motilty lab is calling to inform Maverick the patient had a appointment last week but she was unable to complete it as she couldn't tolerate it. Just an FYI documented in this encounter Plan of Treatment Not on file documented as of this encounter Visit Diagnoses Not on filedocumented in this encounter Additional Health Concerns Infection Onset Date Last Indicated Resolved Time COVID-19 Comment:Tested positive for COVID 07/03/2022 07/04/20222022 1:38 PM EDT documented as of this encounter Care Teams Juvenile Justice Specialist Relationship Specialty Start Date End Date Rebeka Manning MD [address] [place] [address] PCP - General Internal Medicine 10/18/21 Leif Booth MD [address] [place] [address] Lung Cancer Soft Metals Hand Engraver 03/08/22 Fe Thompson MD 175 [place] [phone] Specialist Pulmonology 12/06/23 Alen Vu MD [address] [place] [address] Specialist Endocrinology 12/06/23 documented as of this encounter
--- OUTSIDE RECORDS SUMMARY | 2024-07-29 08:03 | XMS_ITS | Encounter Summary ---
Author Organization [facility] Address [address] [place] [address] Care Team Providers Care Production Lapping Machine Operator Name Role Phone Rebeka Manning MD Primary Care Prov ider Leif Booth MD Unavailable Fe Thompson MD Unavailable Alen Vu MD Unavailable Encounter Details Date Type Department Care Team Description 12/26/2023 Home Health Certification Medical Records [address] [place] [address] Social History Tobacco Use Types Packs/Day Years [...] on filedocumented in this encounter Care Teams Production Lapping Machine Operator Relationship Specialty Start Date End Date Rebeka Manning MD [address] [place] [address] PCP - General Internal Medicine 10/18/21 Leif Booth MD [address] [place] [address] Lung Cancer Retort Unloader 03/08/22 Fe Thompson MD [address] [place] [phone] Specialist Pulmonology 12/06/23 Alen Vu MD [address] [place] [address] Specialist Endocrinology 12/06/23 documented as of this encounter
--- OUTSIDE RECORDS SUMMARY | 2024-07-29 08:03 | XMS_ITS | Encounter Summary ---
Author Organization [facility] Address [address] [place] [address] Care Team Providers Care Theatre Arts Professor Name Role Phone Rebeka Manning MD Primary Care Prov ider Leif Booth MD Unavailable Fe Thompson MD Unavailable Alen Vu MD Unavailable Encounter Details Date Type Department Care Team Description 04/06/2022 Pt. Non Urgent Medical Question Gastroenterology - [place] [address] [phone] Maverick Hines PA-C [address] [address] Social History Tobacco Use Types Packs/Day Years [...] suspected to have Coronavirus/COVID-19? Unable to assess 04/06/2022 7:59 AM EST documented as of this encounter Plan of Treatment Not on file documented as of this encounter Visit Diagnoses Not on filedocumented in this encounter Additional Health Concerns Infection Onset Date Last Indicated Resolved Time COVID-19 Comment:Tested positive for COVID 07/03/2022 07/04/20222022 1:38 PM EDT documented as of this encounter Care Teams Theatre Arts Professor Relationship Specialty Start Date End Date Rebeka Manning MD [address] [place] [address] PCP - General Internal Medicine 10/18/21 Leif Booth MD [address] [place] [address] Lung Cancer Report Manager 03/08/22 Fe Thompson MD [address] [place] [phone] Specialist Pulmonology 12/06/23 Alen Vu MD [address] [place] [address] Specialist Endocrinology 12/06/23 documented as of this encounter
--- OUTSIDE RECORDS SUMMARY | 2024-07-29 08:03 | XMS_ITS | Encounter Summary ---
Author Organization [facility] Address [address] [place] [address] Care Team Providers Care Commercial Appraiser Name Role Phone Rebeka Manning MD Primary Care Prov ider Leif Booth MD Unavailable Fe Thompson MD Unavailable Alen Vu MD Unavailable Reason for Visit * Reason Onset Date Comments medication problems 12/20/2022 Encounter Details Date Type Department Care Team Description 12/20/2022 Telephone Gastroenterology - [place] 175 [facility] [address] [place] [phone] Maverick Hines PA-C [address] [address] medication problems Social History Tobacco Use Types [...] Telephone Encounter - Maverick Hines PA-C - 12/20/2022 4:58 PM EDT Patient is looking for a 90-day supply of Pepcid. Has been sent to [facility] [address] * Telephone Encounter - Blanka Higgins - 12/20/2022 2:01 PM EDT Received fax from [facility] [address] about patients medication Famotidine 20 MG. [facility] is requesting a 90 day supply documented in this encounter Plan of Treatment Not on file documented as of this encounter Visit Diagnoses Not on filedocumented in this encounter Care Teams Commercial Appraiser Relationship Specialty Start Date End Date Rebeka Manning MD [address] [place] [address] PCP - General Internal Medicine 10/18/21 Leif Booth MD [address] [place] [address] 31611 Lung Cancer Signal And Communications Maintainer 03/08/22 Fe Thompson MD 175 [place] [phone] Specialist Pulmonology 12/06/23 Alen Vu MD [address] [place] [address] Specialist Endocrinology 12/06/23 documented as of this encounter
--- OUTSIDE RECORDS SUMMARY | 2024-07-29 08:03 | XMS_ITS | Encounter Summary ---
Author Organization [facility] Address [address] [place] [address] Care Team Providers Care Account Management Assistant Name Role Phone Rebeka Manning MD Primary Care Prov ider Leif Booth MD Unavailable Fe Thompson MD Unavailable Alen Vu MD Unavailable Encounter Details Date Type Department Care Team Description 12/31/2022 Home Health Certification Medical Records [address] [place] [address] Social History Tobacco Use Types Packs/Day Years [...] on filedocumented in this encounter Care Teams Account Management Assistant Relationship Specialty Start Date End Date Rebeka Manning MD [address] [place] [address] [phone] PCP - General Internal Medicine 10/18/21 Leif Booth MD 4 [place], [place] [phone] Lung Cancer Health Services Coordinator 03/08/22 Fe Thompson MD [address] [place] [phone] Specialist Pulmonology 12/06/23 Alen Vu MD 305 [place] [address] Specialist Endocrinology 12/06/23 documented as of this encounter
--- OUTSIDE RECORDS SUMMARY | 2024-07-29 08:03 | XMS_ITS | Encounter Summary ---
Author Organization [facility] Address [address] [place] [address] Care Team Providers Care Pit Furnace Operator Name Role Phone Kelly Rudd MD Primary Care Provider Gem Mcgill MD Primary Care Provider Rebeka Jara MD Primary Care Prov ider Leif Booth MD Unavailable Fe Thompson MD Unavailable Alen Vu MD Unavailable Reason for Visit * Reason Comments E-prescribe Rx Request Encounter Details Date Type Department Care Team Description 05/21/2020 Refill Adult Medicine B - [address] [address] Kelly Rudd MD E-prescribe Rx Request Social [...] encounter Miscellaneous Notes * Telephone Encounter - Yolette Richter - 05/21/2020 10:44 AM EST Patient would like script to be: E-PRESCRIBED/FAXED TO PHARMACY WHEN WAS THE PATIENT'S LAST APPOINTMENT IN ADULT MEDICINE? 2/10/21 WHEN WAS THE LAST TIME THE PATIENT SAW THEIR PCP? 03/12/18 Does patient have an upcoming appointment? No (THE MEDICATION REQUESTED IS ON THE MED [...] N/A Patients current insurance carrier is: Payor: [employer] FFS / Plan: [employer] / Product Type: MEDICAID RISK documented in this encounter Plan of Treatment Not on file documented as of this encounter Visit Diagnoses Not on filedocumented in this encounter Additional Health Concerns Infection Onset Date Last Indicated Resolved Time COVID-19 Comment:Tested positive for COVID 07/03/2022 07/04/20222022 1:38 PM EDT documented as of this encounter Care Teams Pit Furnace Operator Relationship Specialty Start Date End Date Kelly Rudd MD PCP - General Internal Medicine 11/06/1711/02 Gem Rodriguez MD PCP - General Internal Medicine 11/03/20 10/17/21 Rebeka Manning MD [address] [place] [address] PCP - General Internal Medicine 10/18/21 Leif Booth MD [address] [place] [address] Lung Cancer Administrator Of Home Health 03/08/22 Fe Thompson MD 175 [place] [phone] Specialist Pulmonology 12/06/23 Alen Vu MD [address] [place] [address] Specialist Endocrinology 12/06/23 documented as of this encounter
--- OUTSIDE RECORDS SUMMARY | 2024-07-29 08:03 | XMS_ITS | Encounter Summary ---
Author Organization [facility] Address [address] [place] [address] Care Team Providers Care Mutton Puncher Name Role Phone Rebeka Manning MD Primary Care Prov ider Leif Booth MD Unavailable Fe Thompson MD Unavailable Alen Vu MD Unavailable Encounter Details Date Type Department Care Team Description 04/30/2023 Home Health Certification Medical Records [address] [place] [address] Social History Tobacco Use Types Packs/Day Years [...] on filedocumented in this encounter Care Teams Mutton Puncher Relationship Specialty Start Date End Date Rebeka Manning MD [address] [place] [address] PCP - General Internal Medicine 10/18/21 Leif Booth MD [address] [place] [address] Lung Cancer Alining Inspector 03/08/22 Fe Thompson MD [address] [place] [phone] Specialist Pulmonology 12/06/23 Alen Vu MD [address] [place] [address] Specialist Endocrinology 12/06/23 documented as of this encounter
--- OUTSIDE RECORDS SUMMARY | 2024-07-29 08:03 | XMS_ITS | Encounter Summary ---
Author Organization [facility] Address [address] [place] [address] Care Team Providers Care Kennel Staff Member Name Role Phone Rebeka Manning MD Primary Care Prov ider Leif Booth MD Unavailable Fe Thompson MD Unavailable Alen Vu MD Unavailable Encounter Details Date Type Department Care Team Description 03/09/2022 Econometrician Report Medical Records [address] [place] [address] [facility] [address] [place] [address] Social History Tobacco Use Types Packs/Day Years [...] suspected to have Coronavirus/COVID-19? No / Unsure 03/07/2022 8:27 AM EST documented as of this encounter Plan of Treatment Not on file documented as of this encounter Visit Diagnoses Not on filedocumented in this encounter Additional Health Concerns Infection Onset Date Last Indicated Resolved Time COVID-19 Comment:Tested positive for COVID 07/03/2022 07/04/20222022 1:38 PM EDT documented as of this encounter Care Teams Kennel Staff Member Relationship Specialty Start Date End Date Rebeka Manning MD [address] [place] [address] PCP - General Internal Medicine 10/18/21 Leif Booth MD [address] [place] [address] Lung Cancer Tool Or Die Drawing Checker 03/08/22 Fe Thompson MD [address] [place] [phone] Specialist Pulmonology 12/06/23 Alen Vu MD [address] [place] [address] Specialist Endocrinology 12/06/23 documented as of this encounter
--- OUTSIDE RECORDS SUMMARY | 2024-07-29 08:03 | XMS_ITS | Encounter Summary ---
Author Organization [facility] Address [address] [place] [address] Care Team Providers Care Galley Hand Name Role Phone Gem Rodriguez MD Primary Care Provider Rebeka Jara MD Primary Care Prov ider Leif Booth MD Unavailable Fe Thompson MD Unavailable Alen Vu MD Unavailable Reason for Visit * Reason Onset Date Comments Prior Authorization 09/09/2021 scan Encounter Details Date Type Department Care Team Description 09/09/2021 Telephone Adult Medicine [address] [address] Astrid Ambrose PA-C [address] [place] [address] Prior Authorization (scan ) Social History Tobacco Use Types Packs/Day Years [...] suspected to have Coronavirus/COVID-19? No / Unsure 09/08/2021 8:39 AM EDT documented as of this encounter Miscellaneous Notes * Telephone Encounter - Delma Brown - 09/09/2021 9:56 AM EDT Pending with insurance documented in this encounter Plan of Treatment Not on file documented as of this encounter Visit Diagnoses Not on filedocumented in this encounter Additional Health Concerns Infection Onset Date Last Indicated Resolved Time COVID-19 Comment:Tested positive for COVID 07/03/2022 07/04/20222022 1:38 PM EDT documented as of this encounter Care Teams Galley Hand Relationship Specialty Start Date End Date Gem Rodriguez MD PCP - General Internal Medicine 11/03/20 10/17/21 Rebeka Manning MD [address] [place] [address] PCP - General Internal Medicine 10/18/21 Leif Booth MD [address] [place] [address] Lung Cancer Utility Bill Complaints Investigator 03/08/22 Fe Thompson MD [address] [place] [phone] Specialist Pulmonology 12/06/23 Alen Vu MD [address] [place] [address] Specialist Endocrinology 12/06/23 documented as of this encounter
--- OUTSIDE RECORDS SUMMARY | 2024-07-29 08:03 | XMS_ITS | Encounter Summary ---
Author Organization [facility] Address [address] [place] [address] Care Team Providers Care Ski Lift Mechanic Name Role Phone Rebeka Manning MD Primary Care Prov ider Leif Booth MD Unavailable Fe Thompson MD Unavailable Alen Vu MD Unavailable Reason for Visit * Reason Comments E-prescribe Rx Request Encounter Details Date Type Department Care Team Description 11/30/2022 Refill Gastroenterology - [place] 175 [facility] [address] [place] [phone] Maverick Hines PA-C [address] [address] E-prescribe Rx Request Social History Tobacco Use [...] PM EDT documented as of this encounter Plan of Treatment Not on file documented as of this encounter Visit Diagnoses Diagnosis Nocturnal hypoxia Hypoxemia documented in this encounter Additional Health Concerns Infection Onset Date Last Indicated Resolved Time COVID-19 Comment:Tested positive for COVID 07/03/2022 07/04/20222022 1:38 PM EDT documented as of this encounter Care Teams Ski Lift Mechanic Relationship Specialty Start Date End Date Rebeka Manning MD [address] [place] [address] PCP - General Internal Medicine 10/18/21 Leif Booth MD [address] [place] [address] Lung Cancer Religion Professor 03/08/22 Fe Thompson MD [address] [place] [phone] Specialist Pulmonology 12/06/23 Alen Vu MD [address] [place] [address] Specialist Endocrinology 12/06/23 documented as of this encounter
--- OUTSIDE RECORDS SUMMARY | 2024-07-29 08:03 | XMS_ITS | Encounter Summary ---
Author Organization [facility] Address [address] [place] [address] Care Team Providers Care Garbage Pick Up Man Name Role Phone Rebeka Manning MD Primary Care Prov ider Leif Booth MD Unavailable Fe Thompson MD Unavailable Alen Vu MD Unavailable Encounter Details Date Type Department Care Team Description 04/20/2022 Copyright Expert Report Medical Records [address] [place] [address] Freddy Wild MD Social History Tobacco Use [...] Time COVID-19 Comment:Tested positive for COVID 07/03/2022 07/04/2022 2023 1:38 PM EDT documented as of this encounter Care Teams Garbage Pick Up Man Relationship Specialty Start Date End Date Rebeka Manning MD [address] [place] [address] PCP - General Internal Medicine 10/18/21 Leif Booth MD [address] [place] [address]649 Lung Cancer Rand Cementer 03/08/22 Fe Thompson MD [address] [place] [phone] Specialist Pulmonology 12/06/23 Alen Vu MD [address] [place] [address] Specialist Endocrinology 12/06/23 documented as of this encounter
--- OUTSIDE RECORDS SUMMARY | 2024-07-29 08:03 | XMS_ITS | Encounter Summary ---
Author Organization [facility] Address [address] [place] [address] Care Team Providers Care Nursery Hand Name Role Phone Rebeka Manning MD Primary Care Prov ider Leif Booth MD Unavailable Fe Thompson MD Unavailable Alen Vu MD Unavailable Encounter Details Date Type Department Care Team Description 01/06/2023 SCAN Medical Records [address] [place] [address] [facility] Social History Tobacco Use Types Packs/Day Years [...] on filedocumented in this encounter Care Teams Nursery Hand Relationship Specialty Start Date End Date Rebeka Manning MD [address] [place] [address] PCP - General Internal Medicine 10/18/21 Leif Booth MD 4 [place] [address] Lung Cancer Plug Assembler 03/08/22 Fe Thompson MD [address] [place] [phone] Specialist Pulmonology 12/06/23 Alen Vu MD [address] [place] [address] Specialist Endocrinology 12/06/23 documented as of this encounter
--- OUTSIDE RECORDS SUMMARY | 2024-07-29 08:03 | XMS_ITS | Encounter Summary ---
Author Organization [facility] Address [address] [place] [address] Care Team Providers Care Sheet Metal Layout Mechanic Name Role Phone Rebeka Manning MD Primary Care Prov ider Leif Booth MD Unavailable Fe hTompson MD Unavailable Alen Vu MD Unavailable Encounter Details Date Type Department Care Team Description 10/27/2023 Home Health Certification Medical Records [address] [place] [address] Social History Tobacco Use Types Packs/Day Years [...] on filedocumented in this encounter Care Teams Sheet Metal Layout Mechanic Relationship Specialty Start Date End Date Rebeka Manning MD [address] [place] [address] PCP - General Internal Medicine 10/18/21 Leif Booth MD [address] [place] [address] Lung Cancer Pc Support Specialist 03/08/22 Fe Thompson MD [address] [place] [phone] Specialist Pulmonology 12/06/23 Alen Vu MD [address] [place] [address] Specialist Endocrinology 12/06/23 documented as of this encounter
--- OUTSIDE RECORDS SUMMARY | 2024-07-29 08:03 | XMS_ITS | Encounter Summary ---
Author Organization [facility] Address [address] [place] [address] Care Team Providers Care Chemical Plant Technical Director Name Role Phone Rebeka Manning MD Primary Care Prov ider Leif Booth MD Unavailable Fe Thompson MD Unavailable Alen Vu MD Unavailable Reason for Visit * Reason Onset Date Comments Information Needed 10/05/2023 Encounter Details Date Type Department Care Team Description 10/05/2023 Telephone Adult Medicine [facility] [address] [place] [address] Rebeka Manning MD [address] [place] [address] [phone] Information Needed Social History Tobacco Use Types Packs/Day Years [...] encounter Miscellaneous Notes * Telephone Encounter - Mirta Alvarez - 10/05/2023 9:05 AM EDT Information Needed Who is calling: Other international [employer] service ([employer]) callers name is Vivian Information being requested? A copy of the most recent office visit and a copy of the last annual PE If other information is needed, was an SARAH signed? How is the information to be communicated back to the caller? Faxed to [phone] documented in this encounter Plan of Treatment Not on file documented as of this encounter Visit Diagnoses Not on filedocumented in this encounter Care Teams Chemical Plant Technical Director Relationship Specialty Start Date End Date Rebeka Manning MD [address] [place] [address] PCP - General Internal Medicine 10/18/21 Leif Booth MD [address] [place] [address] Lung Cancer Roller Operator 03/08/22 Fe Thompson MD [address] [place] [phone] Specialist Pulmonology 12/06/23 Alen Vu MD [address] [place] [address] Specialist Endocrinology 12/06/23 documented as of this encounter
--- OUTSIDE RECORDS SUMMARY | 2024-07-29 08:03 | XMS_ITS | Encounter Summary ---
Author Organization [facility] Address [address] [place] [address] Care Team Providers Care Websphere Commerce Consultant Name Role Phone Rebeka Manning MD Primary Care Prov ider Leif Booth MD Unavailable Fe Thompson MD Unavailable Alen Vu MD Unavailable Reason for Visit * Reason Onset Date Comments Faxed Order 07/08/2022 [facility] 05/05/2022-07/03/2022 Encounter Details Date Type Department Care Team Description 07/08/2022 Telephone Adult Medicine [address] [address] Rebeka Manning MD [address] [place] [address] Faxed Order ([employer] [facility] 05/05/2022-07/03/2022) Social History Tobacco Use Types Packs/Day Years [...] documented as of this encounter Care Teams Websphere Commerce Consultant Relationship Specialty Start Date End Date Rebeka Manning MD [address] [place] [address] PCP - General Internal Medicine 10/18/21 Leif Booth MD [address] [place] [address] Lung Cancer Med Dir 03/08/22 Fe Thompson MD [address] [place] [phone] Specialist Pulmonology 12/06/23 Alen Vu MD [address] [place] [address] Specialist Endocrinology 12/06/23 documented as of this encounter
--- OUTSIDE RECORDS SUMMARY | 2024-07-29 08:03 | XMS_ITS | Encounter Summary ---
Author Organization [facility] Address [address] [place] [address] Care Team Providers Care Asphalt Smoother Name Role Phone Rebeka Manning MD Primary Care Prov ider Leif Booth MD Unavailable Fe Thompson MD Unavailable Alen Vu MD Unavailable Encounter Details Date Type Department Care Team Description 03/03/2023 Artificial Foliage Arranger Report Medical Records [address] [place] [address] Alysha Manriquez, PH.D Social History Tobacco Use Types Packs/Day Years [...] on filedocumented in this encounter Care Teams Asphalt Smoother Relationship Specialty Start Date End Date Rebeka Manning MD [address] [place] [address] PCP - General Internal Medicine 10/18/21 Leif Booth MD [address] [place] [address] Lung Cancer Service Center Appraiser 03/08/22 Fe Thompson MD [address] [place] [phone] Specialist Pulmonology 12/06/23 Alen Vu MD [address] [place] [address] Specialist Endocrinology 12/06/23 documented as of this encounter
--- OUTSIDE RECORDS SUMMARY | 2024-07-29 08:03 | XMS_ITS | Encounter Summary ---
Author Organization [facility] Address [address] [place] [address] Care Team Providers Care Client Application Support Engineer Name Role Phone Rebeka Manning MD Primary Care Prov ider Leif Booth MD Unavailable Fe Thompson MD Unavailable Alen Vu MD Unavailable Encounter Details Date Type Department Care Team Description 05/05/2022 Home Health Certification Medical Records [address] [place] [address] Social History Tobacco Use Types Packs/Day Years [...] documented as of this encounter Care Teams Client Application Support Engineer Relationship Specialty Start Date End Date Rebeka Manning MD [address] [place] [address] PCP - General Internal Medicine 10/18/21 Leif Booth MD [address] [place] [address] Lung Cancer Data Transcriber 03/08/22 Fe Thompson MD [address] [place] [phone] Specialist Pulmonology 12/06/23 Alen Vu MD [address] [place] [address] Specialist Endocrinology 12/06/23 documented as of this encounter
--- OUTSIDE RECORDS SUMMARY | 2024-07-29 08:03 | XMS_ITS | Encounter Summary ---
Author Organization [facility] Address [address] [place] [address] Care Team Providers Care Executive Business Coach Name Role Phone Rebeka Manning MD Primary Care Prov ider Leif Booth MD Unavailable Fe Thompson MD Unavailable Alen Vu MD Unavailable Reason for Visit * Reason Onset Date Comments Provider Call Back 05/11/2023 Encounter Details Date Type Department Care Team Description 05/11/2023 Telephone Adult Medicine [address] [address] Rebeka Manning MD [address] [place] [address] [phone] Provider Call Back Social History Tobacco Use [...] encounter Miscellaneous Notes * Telephone Encounter - Cristiana Cabral - 05/11/2023 10:31 AM EST Caller requesting call back from provider: Is the caller the patient? NO If caller is not the patient, what is the callers name? Nelda Callers relationship to patient? [facility] If person calling is not the patient themselves, is there a verbal release in FYI or permanent comments for this person: NO Reason for call back: Nelda states that the patient is trying to be admitted into their adult daycare and they had sent over a few faxes and has not gotten any responses, she also notes the the patient has gone missing in the last few days and turned up at their office. Nelda believes it would bevery beneficial to have her admitted with them to prevent this in the future and wanted the PCP to be aware. She is requesting for someone to look out for their form and if there are any further questions, please reach out to Nelda. Caller offered to speak with the nurse for assistance: YES Response: Patient offered to speak with nurse for assistance and patient agreed. Message forwarded to nurse. documented in this encounter Plan of Treatment Not on file documented as of this encounter Visit Diagnoses Not on filedocumented in this encounter Care Teams Executive Business Coach Relationship Specialty Start Date End Date Rebeka Manning MD [address] [place] [address] PCP - General Internal Medicine 10/18/21 Leif Booth MD [address] [place] [address] Lung Cancer Merchandising Assistant 03/08/22 Fe Thompson MD [address] [place] [phone] Specialist Pulmonology 12/06/23 Alen Vu MD [address] [place] [address] Specialist Endocrinology 12/06/23 documented as of this encounter
--- OUTSIDE RECORDS SUMMARY | 2024-07-29 08:03 | XMS_ITS | Encounter Summary ---
Author Organization [facility] Address [address] [place] [address] Care Team Providers Care Machine Quilt Stuffer Name Role Phone Rebeka Manning MD Primary Care Prov ider Leif Booth MD Unavailable Fe Thompson MD Unavailable Alen Vu MD Unavailable Encounter Details Date Type Department Care Team Description 01/17/2023 Energy Conservation Director Report Medical Records [address] [place] [address] Liv Tobias NP Social History Tobacco Use Types Packs/Day Years [...] on filedocumented in this encounter Care Teams Machine Quilt Stuffer Relationship Specialty Start Date End Date Rebeka Manning MD [address] [place] [address] PCP - General Internal Medicine 10/18/21 Leif Booth MD [address] [place] [address] Lung Cancer Quality Lab Technician 03/08/22 Fe Thompson MD [address] [place] [phone] Specialist Pulmonology 12/06/23 Alen Vu MD [address] [place] [address] Specialist Endocrinology 12/06/23 documented as of this encounter
--- OUTSIDE RECORDS SUMMARY | 2024-07-29 08:03 | XMS_ITS | Encounter Summary ---
Author Organization [facility] Address [address] [place] [address] Care Team Providers Care Application Support Consultant Name Role Phone Rebeka Manning MD Primary Care Prov ider Leif Booth MD Unavailable Fe Thompson MD Unavailable Alen Vu MD Unavailable Reason for Visit * Reason Onset Date Comments Faxed Order 12/21/2022 Certification pe riod 11/01/22-12/30/22 Encounter Details Date Type Department Care Team Description 12/21/2022 Telephone Adult Medicine [facility] [address] [place] [address] Rebeka Manning MD [address] [place] [address] Faxed Order (Certification period 11/01/22-12/30/22) Social History Tobacco Use Types Packs/Day Years [...] Recorded In the last 10 days, have hans u been in contact with someone who was confirmed or suspected to have Coronavirus/COVID-19? Unable to assess 12/14/2022 7:43 AM EDT documented as of this encounter Miscellaneous Notes * Telephone Encounter - Jacquie Jose - 12/21/2022 9:22 AM EDT Faxed orders received from [facility], placed in providers bin for review. Please sign and fax orders to [phone]. documented in this encounter Plan of Treatment Not on file documented as of this encounter Visit Diagnoses Not on filedocumented in this encounter Care Teams Application Support Consultant Relationship Specialty Start Date End Date Rebeka Manning MD [address] [place] [address] PCP - General Internal Medicine 10/18/21 Leif Booth MD [address] [place] [address] Lung Cancer Protective Clothing Issuer 03/08/22 eF Thompson MD [address] [place] [phone] Specialist Pulmonology 12/06/23 Alen Vu MD [address] [place] [address] Specialist Endocrinology 12/06/23 documented as of this encounter
--- OUTSIDE RECORDS SUMMARY | 2024-07-29 08:03 | XMS_ITS | Encounter Summary ---
Author Organization [facility] Address [address] [place] [address] Care Team Providers Care Correctional Corporal Name Role Phone Rebeka Manning MD Primary Care Prov ider Leif Booth MD Unavailable Fe Thompson MD Unavailable Alen Vu MD Unavailable Encounter Details Date Type Department Care Team Description 02/09/2022 Orders Only Medical Records [address] [place] [address] Brady Lynn MD [address] [place] [address] Social History Tobacco Use Types Packs/Day Years [...] PM EST documented as of this encounter Progress Notes * Elio Lynn MD - 02/22/2022 8:03 PM EST Dear Ms. Medina, The polyp(s) that were removed during your colonoscopy were precancerous, but benign. Fortunately, we removed them and therefore, they will not cause any more problems in the future. Based on the number, the size, and the features of the polyp(s) removed, I recommend a follow-up colonoscopy in 5 years. Before, the 5 years are due, we will send you a reminder in the mail asking you to contact our office to have the colonoscopy scheduled. The biopsies of your stomach are showing changes associated with taking antacids for long-term. However these changes are considered to be benign and do not predispose you to any health risks. Please follow up in order to discuss these findings with the referring physician at [facility]. I would like to personally thank you for allowing us to take care of you. Please don't hesitate to call us for any questions or concerns. Regards, Hugh Lynn MD Board Certified Gastroenterology and Internal Medicine Transplant Hepatology [facility] documented in this encounter Plan of Treatment Not on file documented as of this encounter Procedures Procedure Name Priority Date/Time Associated Diagnosis Comments OUTSIDE PATHOLOGY Routine 02/04/2022 documented in this encounter Results * OUTSIDE PATHOLOGY (02/04/2022) Brady Lynn MD OUTSIDE LAB documented in this encounter Visit Diagnoses Not on filedocumented in this encounter Additional Health Concerns Infection Onset Date Last Indicated Resolved Time COVID-19 Comment:Tested positive for COVID 07/03/2022 07/04/20222022 1:38 PM EDT documented as of this encounter Care Teams Correctional Corporal Relationship Specialty Start Date End Date Rebeka Manning MD [address] [place] [address] PCP - General Internal Medicine 10/18/21 Leif Booth MD [address] [place] [address] Lung Cancer Design Technology Professor 03/08/22 Fe Thompson MD [address] [place] [phone] Specialist Pulmonology 12/06/23 Alen Vu MD [address] [place] [address] Specialist Endocrinology 12/06/23 documented as of this encounter
--- OUTSIDE RECORDS SUMMARY | 2024-07-29 08:03 | XMS_ITS | Encounter Summary ---
Author Organization [facility] Address [address] [place] [address] Care Team Providers Care Wide Piece Goods Inspector Name Role Phone Gem Rodriguez MD Primary Care Provider Rebeka Jara MD Primary Care Prov ider Leif Booth MD Unavailable Fe Thompson MD Unavailable Alen Vu MD Unavailable Encounter Details Date Type Department Care Team Description 07/21/2021 Pt. Referral Request [address] [address] Md Gavino Social History Tobacco Use Types Packs/Day Years [...] suspected to have Coronavirus/COVID-19? No / Unsure 07/20/2021 9:44 AM EDT documented as of this encounter Plan of Treatment Not on file documented as of this encounter Visit Diagnoses Not on filedocumented in this encounter Additional Health Concerns Infection Onset Date Last Indicated Resolved Time COVID-19 Comment:Tested positive for COVID 07/03/2022 07/04/20222022 1:38 PM EDT documented as of this encounter Care Teams Wide Piece Goods Inspector Relationship Specialty Start Date End Date Gem Rodriguez MD PCP - General Internal Medicine 11/03/20 10/17/21 Rebeka Manning MD [address] [place] [address] PCP - General Internal Medicine 10/18/21 Leif Booth MD [address] [place] [address] Lung Cancer Cheese Grader 03/08/22 Fe Thompson MD [address] [place] [phone] Specialist Pulmonology 12/06/23 Alen Vu MD [address] [place] [address] Specialist Endocrinology 12/06/23 documented as of this encounter
--- OUTSIDE RECORDS SUMMARY | 2024-07-29 08:03 | XMS_ITS | Encounter Summary ---
Author Organization [facility] Address [address] [place] [address] Care Team Providers Care Cyber Systems Administrator Name Role Phone Rebeka Manning MD Primary Care Prov ider Leif Booth MD Unavailable Fe Thompson MD Unavailable Alen Vu MD Unavailable Encounter Details Date Type Department Care Team Description 07/28/2022 Ferryboat Ticket Taker Report Medical Records [address] [place] [address] Freddy Wild MD Social History Tobacco Use [...] documented as of this encounter Care Teams Cyber Systems Administrator Relationship Specialty Start Date End Date Rebeka Manning MD [address] [place] [address] PCP - General Internal Medicine 10/18/21 Leif Booth MD [address] [place] [address] Lung Cancer Brakes Inspector 03/08/22 Fe Thompson MD [address] [place] [phone] Specialist Pulmonology 12/06/23 Alen Vu MD [address] [place] [address] Specialist Endocrinology 12/06/23 documented as of this encounter
--- OUTSIDE RECORDS SUMMARY | 2024-07-29 08:03 | XMS_ITS | Encounter Summary ---
Author Organization [facility] Address [address] [place] [address] Care Team Providers Care Material Control Manager Name Role Phone Rebeka Manning MD Primary Care Prov ider Leif Booth MD Unavailable Fe Thompson MD Unavailable Alen Vu MD Unavailable Reason for Visit * Reason Comments E-prescribe Rx Request Encounter Details Date Type Department Care Team Description 02/14/2023 Refill Pulmonology - [place] 175 [facility] [address] [place] [phone] Rosie Huff APRN 175 [facility] [address] [place] [phone] E-prescribe Rx Request Social History Tobacco Use [...] encounter Miscellaneous Notes * Telephone Encounter - Jenifer Young - 02/15/2023 8:49 AM EST [place] 08/21/23 NOV 05/04/23 documented in this encounter Plan of Treatment Not on file documented as of this encounter Visit Diagnoses Diagnosis Moderate persistent asthma with acute exacerbation Allergic rhinitis, unspecified seasonality, unspecified trigger documented in this encounter Care Teams Material Control Manager Relationship Specialty Start Date End Date Rebeka Manning MD [address] [place] [address] PCP - General Internal Medicine 10/18/21 Leif Booth MD [address] [place] [address] Lung Cancer Abap Developer 03/08/22 Fe Thompson MD [address] [place] [phone] Specialist Pulmonology 12/06/23 Alen Vu MD [address] [place] [address] Specialist Endocrinology 12/06/23 documented as of this encounter
--- OUTSIDE RECORDS SUMMARY | 2024-07-29 08:03 | XMS_ITS | Encounter Summary ---
Author Organization [facility] Address [address] [place] [address] Care Team Providers Care Filer Repairer Name Role Phone Rebeka Manning MD Primary Care Prov ider Leif Booth MD Unavailable Fe Thompson MD Unavailable Alen Vu MD Unavailable Encounter Details Date Type Department Care Team Description 04/06/2022 Pt. Non Urgent Medical Question Gastroenterology - [place] [address] [phone] Maverick Hines PA-C [address] [address] Social History Tobacco Use Types Packs/Day Years [...] documented as of this encounter Care Teams Filer Repairer Relationship Specialty Start Date End Date Rebeka Manning MD [address] [place] [address] PCP - General Internal Medicine 10/18/21 Leif Booth MD [address] [place] [address] Lung Cancer Manager Product Marketing 03/08/22 Fe Thompson MD [address] [place] [phone] Specialist Pulmonology 12/06/23 Alen Vu MD [address] [place] [address] Specialist Endocrinology 12/06/23 documented as of this encounter
--- OUTSIDE RECORDS SUMMARY | 2024-07-29 08:03 | XMS_ITS | Encounter Summary ---
Author Organization [facility] Address [address] [place] [address] Care Team Providers Care Shop Supervisor Name Role Phone Rebeka Manning MD Primary Care Prov ider Leif Booth MD Unavailable Fe Thompson MD Unavailable Alen Vu MD Unavailable Reason for Visit * Reason Onset Date Comments Faxed Order 11/30/2023 [facility] 11/24/23 Encounter Details Date Type Department Care Team Description 11/30/2023 Telephone Adult Medicine [address] [address] Rebeka Manning MD [address] [place] [address] Faxed Order ([facility] 11/24/23) Social History Tobacco Use Types Packs/Day Years [...] Miscellaneous Notes * Telephone Encounter - Betsey Quezada - 11/30/2023 11:19 AM EDT Received orders from [employer] 11/24/23. Please sign and fax to [phone] documented in this encounter Plan of Treatment Not on file documented as of this encounter Visit Diagnoses Not on filedocumented in this encounter Care Teams Shop Supervisor Relationship Specialty Start Date End Date Rebeka Manning MD [address] [place] [address] PCP - General Internal Medicine 10/18/21 Leif Booth MD [address] [place] [address] Lung Cancer Match Marker 03/08/22 Fe Thompson MD [address] [place] [phone] Specialist Pulmonology 12/06/23 Alen Vu MD [address] [place] [address] Specialist Endocrinology 12/06/23 documented as of this encounter
--- OUTSIDE RECORDS SUMMARY | 2024-07-29 08:03 | XMS_ITS | Encounter Summary ---
Author Organization [facility] Address [address] [place] [address] Care Team Providers Care Appliance Sales Associate Name Role Phone Rebeka Manning MD Primary Care Prov ider Leif Booth MD Unavailable Fe Thompson MD Unavailable Alen Vu MD Unavailable Reason for Visit * Reason Comments E-prescribe Rx Request Encounter Details Date Type Department Care Team Description 03/27/2023 Refill Gastroenterology - [place] 175 [facility] 200 [place] [phone] Maverick Hines PA-C [address] [address] E-prescribe Rx Request Social History Tobacco Use [...] encounter Miscellaneous Notes * Telephone Encounter - Mita Easley M.A. - 03/27/2023 4:44 PM EST [facility] 12/14/2022 NOV none documented in this encounter Plan of Treatment Not on file documented as of this encounter Visit Diagnoses Not on filedocumented in this encounter Care Teams Appliance Sales Associate Relationship Specialty Start Date End Date Rebeka Manning MD [address] [place] [address] PCP - General Internal Medicine 10/18/21 Leif Booth MD [address] [place] [address] Lung Cancer Partner Management Consultant 03/08/22 Fe Thompson MD [address] [place] [phone] Specialist Pulmonology 12/06/23 Alen Vu MD [address] [place] [address] Specialist Endocrinology 12/06/23 documented as of this encounter
--- OUTSIDE RECORDS SUMMARY | 2024-07-29 08:03 | XMS_ITS | Encounter Summary ---
Author Organization [facility] Address [address] [place] [address] Care Team Providers Care Welder Fitter Apprentice Name Role Phone Rebeka Manning MD Primary Care Prov ider Leif Booth MD Unavailable Fe Thompson MD Unavailable Alen Vu MD Unavailable Reason for Visit * Reason Onset Date Comments VNA Call 04/21/2023 Encounter Details Date Type Department Care Team Description 04/21/2023 Telephone Adult Medicine [address] [address] Rebeka Manning MD [address] [place] [address] [phone] VNA Call Social History Tobacco Use Types Packs/Day Years [...] encounter Miscellaneous Notes * Telephone Encounter - Odin PonceP.NYokasta - 04/24/2023 10:15 AM EST VO given to Mick * Telephone Encounter - Kimberly Juan PA-C - 04/24/2023 10:11 AM EST PCP here today, but okay to give VO * Telephone Encounter - Odin Maria LYokastaP.NYokasta - 04/24/2023 10:04 AM EST [facility] are requesting nursing 3 x's a week instead on once a week Last seen by Nicolasa ROSADO 03/02/23 Please review and advise for Dr. An Thank you Please send response to the VNA pool P [phone] Thank you * Telephone Encounter - Shelbi Chen - 04/21/2023 1:12 PM EST VNA CALL Which VNA office is calling? [facility] Full name of caller: Mick The caller is A nurse Is the caller at the patients home?: YES Reason for call: Requesting 3 visits with VNA per week instead of 1 Does caller need an urgent call back? YES Was CONTACT Telephone # obtained above?: YES Fax #: documented in this encounter Plan of Treatment Not on file documented as of this encounter Visit Diagnoses Not on filedocumented in this encounter Care Teams Welder Fitter Apprentice Relationship Specialty Start Date End Date Rebeka Manning MD [address] [place] [address] PCP - General Internal Medicine 10/18/21 Leif Booth MD [address] [place] [address] Lung Cancer Green Ware Caster 03/08/22 Fe Thompson MD [address] [place] [phone] Specialist Pulmonology 12/06/23 Alen Vu MD [address] [place] [address] Specialist Endocrinology 12/06/23 documented as of this encounter
--- OUTSIDE RECORDS SUMMARY | 2024-07-29 08:04 | XMS_ITS | Encounter Summary ---
Author Organization [facility] Address [address] [place] [address] Care Team Providers Care Manager Banking Name Role Phone Rebeka Manning MD Primary Care Prov ider Leif Booth MD Unavailable Fe Thompson MD Unavailable Alen Vu MD Unavailable Reason for Visit * Reason Onset Date Comments Testing 12/29/2021 Encounter Details Date Type Department Care Team Description 12/29/2021 Telephone Radiology - [address] [address] Kaylee Munoz MD [address] [place] [address] [phone] Testing Social History Tobacco Use Types Packs/Day Years [...] suspected to have Coronavirus/COVID-19? No / Unsure 12/22/2021 8:41 AM EDT documented as of this encounter Miscellaneous Notes * Telephone Encounter - Kaylee Munoz MD - 12/29/2021 12:22 PM EDT She needs routine screening mammo. If her senior maintenance mechanic wants more, then can order. I had no abnormal findings on my exam. Thanks * Telephone Encounter - Ashley Camargo - 12/29/2021 12:16 PM EDT Patient states joselin you want her to have a diagnostic mammo and breast ultrasound because she is leaking. I have no order....did you want to order these exams? documented in this encounter Plan of Treatment Not on file documented as of this encounter Visit Diagnoses Not on filedocumented in this encounter Additional Health Concerns Infection Onset Date Last Indicated Resolved Time COVID-19 Comment:Tested positive for COVID 07/03/2022 07/04/20222022 1:38 PM EDT documented as of this encounter Care Teams Manager Banking Relationship Specialty Start Date End Date Rebeka Manning MD [address] [place] [address] PCP - General Internal Medicine 10/18/21 eLif Booth MD [address] [place] [address] Lung Cancer Machine Tool Technician Instructor 03/08/22 Fe Thompson MD [address] [place] [phone] Specialist Pulmonology 12/06/23 Alen Vu MD [address] [place] [address] Specialist Endocrinology 12/06/23 documented as of this encounter
--- OUTSIDE RECORDS SUMMARY | 2024-07-29 08:04 | XMS_ITS | Encounter Summary ---
Author Organization [facility] Address [address] [place] [address] Care Team Providers Care Charge Master Coordinator Name Role Phone Rebeka Manning MD Primary Care Prov ider Leif Booth MD Unavailable Fe Thompson MD Unavailable Alen Vu MD Unavailable Encounter Details Date Type Department Care Team Description 12/20/2021 Refill Pulmonology - [place] 175 [facility] [address] [place] [phone] Loi Huff APRN 175 [facility] 200 [place] [phone] Social History Tobacco Use Types Packs/Day Years Used Date Smoking Tobacco: Every Day Cigarettes 0.1 Started: 12/2019 Smokeless Tobacco: Never Comments:restarted smoking [...] Miscellaneous Notes * Telephone Encounter - Hina Pederson M.A. - 12/20/2021 10:19 AM EDT loi's patient * Telephone Encounter - Jenifer Young - 12/20/2021 9:59 AM EDT Patient called stating pharmacy needs alternative as [facility] is no longer being made. Please advice. documented in this encounter Plan of Treatment Not on file documented as of this encounter Visit Diagnoses Diagnosis Encounter for smoking cessation counseling Counseling on substance use and abuse Encounter for screening for lung cancer Cigarette smoker Tobacco use disorder Moderate persistent asthma, unspecified whether complicated documented in this encounter Additional Health Concerns Infection Onset Date Last Indicated Resolved Time COVID-19 Comment:Tested positive for COVID 07/03/2022 07/04/20222022 1:38 PM EDT documented as of this encounter Care Teams Charge Master Coordinator Relationship Specialty Start Date End Date Rebeka Manning MD [address] [place] [address] PCP - General Internal Medicine 10/18/21 Leif Booth MD [address] [place] [address] Lung Cancer Vamp Throater 03/08/22 Fe Thompson MD [address] [place] [phone] Specialist Pulmonology 12/06/23 Alen Vu MD [address] [place] [address] Specialist Endocrinology 12/06/23 documented as of this encounter
--- OUTSIDE RECORDS SUMMARY | 2024-07-29 08:04 | XMS_ITS | Encounter Summary ---
Author Organization [facility] Address [address] [place] [address] Care Team Providers Care Hose Stripper Name Role Phone Gem Rodriguez MD Primary Care Provider Rebeka Jara MD Primary Care Prov ider Leif Booth MD Unavailable Fe Thompson MD Unavailable Alen Vu MD Unavailable Reason for Visit * Reason Onset Date Comments DME Request 09/16/2021 Encounter Details Date Type Department Care Team Description 09/16/2021 Telephone Pulmonology - [employer] 175 [facility] [address] [place] [address] Rosie Huff APRN 175 [facility] 200 [place] [phone] DME Request Social History Tobacco Use Types Packs/Day Years Used Date Smoking Tobacco: Every Day Cigarettes 1 Started: 12/2019 Smokeless Tobacco: Never Comments:restarted smoking [...] suspected to have Coronavirus/COVID-19? No / Unsure 09/15/2021 11:33 AM EDT documented as of this encounter Miscellaneous Notes * Telephone Encounter - Ana Cristina Hand - 09/16/2021 4:03 PM EDT Call from a RN from [facility] calling for Patient she's requesting a new nebulizer machine. Please Advise. documented in this encounter Plan of Treatment Not on file documented as of this encounter Visit Diagnoses Not on filedocumented in this encounter Additional Health Concerns Infection Onset Date Last Indicated Resolved Time COVID-19 Comment:Tested positive for COVID 07/03/2022 07/04/20222022 1:38 PM EDT documented as of this encounter Care Teams Hose Stripper Relationship Specialty Start Date End Date Gem Rodriguez MD PCP - General Internal Medicine 11/03/20 10/17/21 Rebeka Manning MD [address] [place] [address] PCP - General Internal Medicine 10/18/21 Leif Booth MD [address] [place] [address] Lung Cancer Air Intercept Controller 03/08/22 Fe Thompson MD [address] [place] [phone] Specialist Pulmonology 12/06/23 Alen Vu MD [address] [place] [address] Specialist Endocrinology 12/06/23 documented as of this encounter
--- OUTSIDE RECORDS SUMMARY | 2024-07-29 08:04 | XMS_ITS | Encounter Summary ---
Author Organization [facility] Address [address] [place] [address] Care Team Providers Care Vet Tech Name Role Phone Rebeka Manning MD Primary Care Prov ider Leif Booth MD Unavailable Fe Thompson MD Unavailable Alen Vu MD Unavailable Encounter Details Date Type Department Care Team Description 12/19/2023 Actuarial Assistant Report Medical Records [address] [place] [address] Social History Tobacco Use Types Packs/Day Years [...] on filedocumented in this encounter Care Teams Vet Tech Relationship Specialty Start Date End Date Rebeka Manning MD [address] [place] [address] PCP - General Internal Medicine 10/18/21 Leif Booth MD [address] [place] [address] Lung Cancer Loading Unit Operator Crimping 03/08/22 Fe Thompson MD [address] [place] [phone] Specialist Pulmonology 12/06/23 Alen Vu MD [address] [place] [address] Specialist Endocrinology 12/06/23 documented as of this encounter
--- OUTSIDE RECORDS SUMMARY | 2024-07-29 08:04 | XMS_ITS | Continuity of Care Document ---
Author Organization [facility] Address [address] [place] [address] Phone Care Team Providers Care Flatbed Company Driver Name Role Phone Shiva CANDELARIA FACC, Ced Unavailable Unavaila ble Procedures Procedure Date EKG Interpretation - Hospital 4 Advance Directives Directive Yes / No Effective Date File Name No Information Encounters Encounter Description Practice Location Reason(s) For Visit Diagnoses Date Provider Providers Copied on Encounter [facility], [address] [place], [place], [id number], tel:[phone] [employer] [facility] No Information Shiva Coughlin. [address] [place], [place], [id number], [place]. tel:[phone] Referring Provider: Bruce Lebron, [address] [place] [address], [address]. tel:[phone] Family History Family Member Type Diagnosis Age At Onset No Information Payers Payer name Insurance type Covered republican ID Authoriza tion(s) Medicaid [id number] Social History Type Description Quantity Date Captured [...]
--- OUTSIDE RECORDS SUMMARY | 2024-07-29 08:04 | XMS_ITS | Encounter Summary ---
Author Organization [facility] Address [address] [place] [address] Care Team Providers Care Road Design Draftsperson Name Role Phone Kelly Rudd MD Primary Care Provider Gem Mcgill MD Primary Care Provider Rebeka Jara MD Primary Care Prov ider Leif Booth MD Unavailable Fe Thompson MD Unavailable Alen Vu MD Unavailable Reason for Visit * Reason Comments E-prescribe Rx Request Encounter Details Date Type Department Care Team Description 07/23/2020 Refill Dermatology - [address] [phone] Chinyere Drake PA-C E-prescribe Rx Request Social History Tobacco Use [...] have Coronavirus / COVID-19? No / Unsure 07/14/2020 3:30 PM EDT documented as of this encounter Miscellaneous Notes * Telephone Encounter - Lucina Ornelas M.A. - 07/29/2020 1:58 PM EDT Script sent to pharmacy. * Telephone Encounter - Joyce BurtonP.NYokasta - 07/27/2020 1:36 PM EDT Shon:07/14/2020 F/u:10/20/2020 documented in this encounter Plan of Treatment Not on file documented as of this encounter Visit Diagnoses Not on filedocumented in this encounter Additional Health Concerns Infection Onset Date Last Indicated Resolved Time COVID-19 Comment:Tested positive for COVID 07/03/2022 07/04/20222022 1:38 PM EDT documented as of this encounter Care Teams Road Design Draftsperson Relationship Specialty Start Date End Date Kelly Rudd MD PCP - General Internal Medicine 11/06/1711/02 Gem Rodriguez MD PCP - General Internal Medicine 11/03/20 10/17/21 Rebeka Manning MD [address] [place] [address] PCP - General Internal Medicine 10/18/21 Leif Booth MD [address] [place] [address] Lung Cancer Receiving Coordinator 03/08/22 Fe Thompson MD [address] [place] [phone] Specialist Pulmonology 12/06/23 Alen Vu MD [address] [place] [address] Specialist Endocrinology 12/06/23 documented as of this encounter
--- OUTSIDE RECORDS SUMMARY | 2024-07-29 08:04 | XMS_ITS | Encounter Summary ---
Author Organization [facility] Address [address] [place] [address] Care Team Providers Care Project Scientist Name Role Phone Gem Rodriguez MD Primary Care Provider Rebeka Jara MD Primary Care Prov ider Leif Booth MD Unavailable Fe Thompson MD Unavailable Alen Vu MD Unavailable Encounter Details Date Type Department Care Team Description 10/08/2021 Orders Only Medical Records [address] [place] [address] Abstract, Provider Moderate persistent asthma, unspecified whether complicated; Snoring Social History Tobacco Use Types Packs/Day Years [...] suspected to have Coronavirus/COVID-19? No / Unsure 10/01/2021 8:55 AM EDT documented as of this encounter Plan of Treatment Not on file documented as of this encounter Procedures Procedure Name Priority Date/Time Associated Diagnosis Comments SLEEP STUDY-FULL NEURO 16 CHANNEL Routine 09/30/2021 Moderate persistent asthma, unspecified whether complicated Snoring documented in this encounter Results * SLEEP STUDY-FULL NEURO 16 CHANNEL (09/30/2021) Rosie Huff APRN PULMONOLOGY documented in this encounter Visit Diagnoses Diagnosis Moderate persistent asthma, unspecified whether complicated Snoring Other dyspnea and respiratory abnormality documented in this encounter Additional Health Concerns Infection Onset Date Last Indicated Resolved Time COVID-19 Comment:Tested positive for COVID 07/03/2022 07/04/20222022 1:38 PM EDT documented as of this encounter Care Teams Project Scientist Relationship Specialty Start Date End Date Gem Rodriguez MD PCP - General Internal Medicine 11/03/20 10/17/21 Rebeka Manning MD [address] [place] [address] PCP - General Internal Medicine 10/18/21 Leif Booth MD [address] [place] [address] Lung Cancer Manager Business Planning 03/08/22 Fe Thompson MD [address] [place] [phone] Specialist Pulmonology 12/06/23 Alen Vu MD [address] [place] [address] Specialist Endocrinology 12/06/23 documented as of this encounter
--- OUTSIDE RECORDS SUMMARY | 2024-07-29 08:04 | XMS_ITS | Encounter Summary ---
Author Organization [facility] Address [address] [place] [address] Care Team Providers Care Waterway Traffic Checker Name Role Phone Kelly Rudd MD Primary Care Provider Gem Mcgill MD Primary Care Provider Rebeka Jara MD Primary Care Prov ider Leif Booth MD Unavailable Fe Thompson MD Unavailable Alen Vu MD Unavailable Reason for Visit * Reason Onset Date Comments Prior Authorization 08/21/2020 Otezla 30mg Encounter Details Date Type Department Care Team Description 08/21/2020 Telephone Dermatology - [address] [phone] Chinyere Drake PA-C Prior Authorization (Otezla 30mg) Social History Tobacco Use Types Packs/Day Years [...] Telephone Encounter - Lucina Ornelas M.A. - 08/31/2020 11:26 AM EDT Spoke to patient f/u appointment scheduled to review treatment options, s/e Otezla * Telephone Encounter - Jazmine Burgess - 08/28/2020 4:13 PM EDT Patient states she is returning a phone call to [place], please advise * Telephone Encounter - Lucina Ornelas M.A. - 08/27/2020 4:04 PM EDT Spoke to patient she d/c Otezla, patient informed she needs to schedule f/u appointment to discuss treatment options, patient will call our office to schedule appointment. * Telephone Encounter - Aide Key - 08/27/2020 3:10 PM EDT Patient returned your call. Please call when available * Telephone Encounter - Lucina Ornelas M.A. - 08/27/2020 2:55 PM EDT Message left for patient to return my call, in regards of Otezla s/e if patient can't tolerate tx she needs f/u appointment no double book, to review further treatment. * Telephone Encounter - Chinyere Drake P.A.-C. - 08/25/2020 8:34 AM EDT If she cannot tolerate otezla, she will need to f/u so we can discuss biologics, b\get baseline bloodwork etc Do not double book * Telephone Encounter - Lucina Ornelas M.A. - 08/24/2020 1:39 PM EDT P/a for Otezla was cancelled, spoke to patient in regards of Otezla, she is still having s/e to medication eventhough she is taking Ondasetron for nausea, will informed provider to see next step of care. * Telephone Encounter - Lucina Ornelas M.A. - 08/24/2020 1:30 PM EDT P/A for Otezla 30mg submitted through cover my meds, waiting for determination. * Telephone Encounter - Aide Key - 08/21/2020 11:13 AM EDT [facility] [employer] is calling stating that a prior auth needs to be submitted for the 1 tablet twice daily maintenance dose of the Otezla. Please process. documented in this encounter Plan of Treatment Not on file documented as of this encounter Visit Diagnoses Not on filedocumented in this encounter Additional Health Concerns Infection Onset Date Last Indicated Resolved Time COVID-19 Comment:Tested positive for COVID 07/03/2022 07/04/20222022 1:38 PM EDT documented as of this encounter Care Teams Waterway Traffic Checker Relationship Specialty Start Date End Date Kelly Rudd MD PCP - General Internal Medicine 11/06/1711/02 Gem Rodriguez MD PCP - General Internal Medicine 11/03/20 10/17/21 Rebeka Manning MD [address] [place] [address] PCP - General Internal Medicine 10/18/21 Leif Booth MD [address] [place] [address] Lung Cancer Tow Car Driver 03/08/22 Fe Thompson MD [address] [place] [phone] Specialist Pulmonology 12/06/23 Alen Vu MD [address] [place] [address] Specialist Endocrinology 12/06/23 documented as of this encounter
--- OUTSIDE RECORDS SUMMARY | 2024-07-29 08:04 | XMS_ITS | Encounter Summary ---
Author Organization [facility] Address [address] [place] [address] Care Team Providers Care 3D Artist Name Role Phone Rebeka Manning MD Primary Care Prov ider Leif Booth MD Unavailable Fe Thompson MD Unavailable Alen Vu MD Unavailable Reason for Visit * Reason Comments E-prescribe Rx Request Encounter Details Date Type Department Care Team Description 08/05/2022 Refill Pulmonology - [place] 175 [facility] [address] [place] [phone] Rosie Huff APRN 175 [facility] [address] [place] [phone] E-prescribe Rx Request Social History Tobacco Use [...] Telephone Encounter - Rylee Duffy - 08/05/2022 1:49 PM EDT See notation of the day before for the request of predisone. documented in this encounter Plan of Treatment [...] documented as of this encounter Care Teams 3D Artist Relationship Specialty Start Date End Date Rebeka Manning MD [address] [place] [address] PCP - General Internal Medicine 10/18/21 Leif Booth MD [address] [place] [address] Lung Cancer Sales Representative Health Insurance 03/08/22 Fe Thompson MD [address] [place] [phone] Specialist Pulmonology 12/06/23 Alen Vu MD [address] [place] [address] Specialist Endocrinology 12/06/23 documented as of this encounter
--- OUTSIDE RECORDS SUMMARY | 2024-07-29 08:04 | XMS_ITS | Data Portability ---
Author Organization [place] [facility] Address [address] [place] [address] Care Team Providers Care Cook Helper Name Role Phone ANDRES LOPEZ Primary Care Provider ANDRES MELENDEZ OTHER Assessment No assessment recorded. Plan of Treatment Reminders Order Date Submit Date Provider Last Modified By Organization Details Last Modified Time Details Appointments None recorded. Lab None recorded. Referral None recorded. Procedures None recorded. Surgeries None recorded. Imaging XR, chest, 2 view 017 017 [email or web address] [email or web address] In-House Results, For Internal Use Only, Do Not Delete/merge, [id number] 7 08:42:02 XR, sinuses 017 017 [email or web address] n2 In-House Results, For Internal Use Only, Do Not Delete/merge, [id number] 7 08:42:02 Medication Orders None recorded. Patient TargetsNo targets recorded. Patient Instructions Encounter Date Encounter Id Patient Instructions Last Modified By Organization Details Last Modified Time 05/23/2016 [id number] allergies: care instructions [email or web address] Not available 05/26/2016 09:28:40 managing your allergies: care instructions aavellino Not available 05/26/2016 09:28:40 insomnia: care instructions aavellino Not available 05/26/2016 09:28:39 chronic sinusitis: care instructions aavellino Not available 05/26/2016 09:28:40 Acute Sinusitis: Care Instructions aavellino Not available 05/26/2016 09:28:40 controlling your asthma: care instructions aavellino Not available 05/26/2016 09:28:39 learning about asthma aavellino Not available 05/26/2016 09:28:39 spirometry testing* [email or web address] Not available 05/26/2016 08:42:02 sleep apnea: car e instructions [email or web address] Not available 05/26/2016 09:28:39 Reason for Referral None Reported. Results Created Date Observation Date Name Description Value Unit Range Abnormal Flag Note LastModifiedBy Organization Detail LastModifiedTime 05/27/19 17 05/26/2016 XR, chest , 2 view Indication Snorin g; shortn ess of breath Not Available In-House Results For Internal Use Only, Do Not Delete/merge, [id number] 05/26/2016 08:38:49 05/27/19 17 05/26/2016 XR, chest , 2 view Results No new infilt rates. No effusi ons. Normal heart size. No films for compar janna. Not Available In-House Results For Internal Use Only, Do Not Delete/merge, [id number] 05/26/2016 08:38:49 05/27/19 17 05/26/2016 XR, chest , 2 view Interpretati on by: Ivan cummings M.D. Not Available In-House Results For Internal Use Only, Do Not Delete/merge, [id number] 05/26/2016 08:38:49 05/27/19 17 05/26/2016 XR, sinus es Indication Snorin g; shortn ess of breath Not Available In-House Results For Internal Use Only, Do Not Delete/merge, 05/26/2016 08:34:39 05/27/1905/26/2016 XR, sinus es Results Mucope rioste al thicke ubaldo in the floor of both maxill alfred sinuse s. No other parana tera air-fl uid levels . No films for compar janna Not Available In-House Results For Internal Use Only, Do Not Delete/merge, [id number] 05/26/2016 08:34:39 05/27/19 17 05/26/2016 XR, sinus es Interpretati on by: Ivan cummings M.D. Not Available In-House Results For Internal Use Only, Do Not Delete/merge, [id number] 05/26/2016 08:34:39 05/27/19 17 05/26/2016 cleo metry testi ng* Spirometry Mild airway obstru ction Not Available In-House Results For Internal Use Only, Do Not Delete/merge, [id number] 05/26/2016 08:33:15 Result Notes None recorded. Problems Name Problem SNOMED Code Status Onset Date Resolution Date Notes Provider Name and Address Organization Details Recorded Time Asthma 539045429 Active 2016 DANYELLE [place], [place] [facility] 7 13:24:15 Sleep apnea 11046910 Active 2016 DANYELLE [place], [place] [facility] 7 13:24:25 Allergic rhinitis 72613854 Active 2016 DANYELLE [place], [place] - [facility] 7 13:24:47 Problem Notes None recorded. Procedures Surgical History Date Name Laterality Status Provider Name and Address Organization Details Recorded Time 04/06/19 16 Abdominal Surgery completed DANYELLE MUNOZ [place] - [facility] 05/23/2016 13:30:55 Other completed DANYELLE MUNOZ [place] - [facility] 05/23/2016 13:32:18 Imaging Results None recorded. Procedure Notes None recorded. Medical Equipment None Reported. Allergies Allergen ID Allergen Name Allergen Category Reaction Reaction Severity Criticality Documentation Date Start Date Code Code System Note Provider Name and Address Organization Details Recorded Time 5095 Tylenol medicatio n rash severe Not available 05/23/2016 90667 3 RxNorm D[place]LE [place], [place] - [facility] 13:17:43 5096 codeine medicatio n rash severe Not available 05/23/2016 2670 RxNorm DANYELLE [place], [place] [facility] 13:17:58 5097 Augmentin medicatio n vomiting severe Not available 05/23/2016 24196 2 RxNorm DANY[place]LE [place], [place] [facility] 13:18:28 Medications Name Sig Start Date Stop Date Status Note LastModified by Organization Details LastModified Time azithromyci n 250 mg tablet 05/23 completed Not Available Not Available Not Available Advair Diskus 100 mcg-50 mcg/dose powder for inhalation 05/23 completed Not Available Not Available Not Available Tamiflu 75 mg capsule 05/23 completed Not Available Not Available Not Available benzonatate 100 mg capsule 05/23 completed Not Available Not Available Not Available montelukast 10 mg tablet 05/23 completed Not Available Not Available Not Available methylpredn isolone 4 mg tablets in a dose pack 05/23 completed Not Available Not Available Not Available doxycycline hyclate 100 mg tablet 05/23 completed Not Available Not Available Not Available Vitamin D3 25 mcg (1,000 unit) capsule Take 1 capsule every day by oral route. active Not Available Not Available No t Available Ciprodex 0.3 %-0.1 % ear drops,suspe nsion 05/23 completed Not Available Not Available Not Available Multiple Vitamin, Womens 1 TABLET QD active Not Available Not Available No t Available ProAir HFA 90 mcg/actuati on aerosol inhaler 2 INHALATIO NS QID PRN active Not Available Not Available No t Available Breo Ellipta 200 mcg-25 mcg/dose powder for inhalation 1 INHALATIO N QD active Not Available Not Available No t Available Vitals Date Recorded Heart rate Oxygen saturation Oxygen saturation in Arterial blood by Pulse oximetry Respiratory rate Body height Body weight Body mass index (BMI) Systolic blood pressure Diastolic blood pressure Provider Name and Address Organization Details Last Updated DateTime 7 92 /min 100 % 100 % 20 /min 154.94 cm 10091.4 1 g 29.5 kg/m2 110 mm[Hg] 70 mm[Hg] DANYELLE [place]UNOZ [place] [facility] 7 13:08:26 Social History Question Answer Notes LastModified by Organizat ion Details LastModified Time Tobacco Smoking Status Former Smoker DANYELLE MUNOZ null, [place] - [facility] 05/23/2016 13:28:01 Animal Exposure? Yes Information not available 05/23/2016 What Is Your Level Of Caffeine Consumption? Moderate 1 COFFEE PER DAY Information not available 05/23/2016 How Much Tobacco Do You Chew? None Information not available 05/23/2016 Dog Both Information no t available 05/23/2016 When Did You Quit Smoking? 11-15yearssi ncelastcigar ette Information not available 05/23/2016 Marital Status Information not available 05/23/2016 How Many Children Do You Have? 6 Information not available 05/23/2016 Do You Have Any Pets? Yes Information not available 05/23/2016 How Much Tobacco Do You Smoke? 1 PPD Information not available 05/23/2016 How Many Years Have You Smoked Tobacco? 20 YEARS Information not available 05/23/2016 Sex: Unknown Functional Status Question Answer Note LastModified by Organizat ion Details LastModified Time What is your level of alcohol consumption? 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 Family History Relationship Description Onset Age of this Age Resolved Age Notes LastModified by Organization Details LastModified Time Mother Asthma swaltz Not available 08/2016 13:25:16 Mother Chronic obstructive pulmonary disease swaltz Not available 2016 13:25:29 Mother Emphysema swaltz Not available 05/23/2016 13:25:53 Mother Primary malignant neoplasm of lung swaltz Not available 2016 13:26:40 Father Malignant tumor of stomach swaltz Not available 2016 13:26:58 Sister Asthma swaltz Not available 08/2016 13:27:31 Medical History Condition Response Allergies/Hayfever Y Obesity Y Anemia Y Sleep Apnea Y Insomnia Y Hospital Admission Other Than Y Asthma Y Pneumonia Y Gynecological HistoryNo gynecological history recorded. Obstetrics History GPAL:G 0 P 0 0 0 0 Past Encounters Encounter ID Performer Location Encounter Start Date Encounter Closed Date Diagnosis/Indication Diagnosis SNOMED-CT Code Diagnosis ICD10 Code Diagnosis Note [id number] Ivan Bangura MD Main Office [address] [place] [address] 05/23/2016 12:41:26 05/23/2016 14:30:15 Obstructive sleep apnea syndrome 59107767 G47.33 FACILITY SLEEP STUDY ; DX OSAS ; RESTLESS LEGS SYNDROME Insomnia 827590137 G47.0 0 SLEEP LOGSLEEP HYGIENE INSTRUCTIO NSREM PLUS, 1-2 TABS 30-60 MINUTES BEFORE BEDTIME Asthma 488657185 J45.90 9 PFTSTRESS TESTBREO 100/25, 1 PUFF QD Allergic rhinitis 909015 04 J30.2 ALLERGEN AVOIDANCE Acute sinusitis 84261352 J01.90 Atelectasis 98854860 J98 .11 Health Concerns Section Related Observation LastModified by Organization Detai ls LastModified Time None Recorded Concern Status LastModified by Organization Details LastModified Time None Recorded Advance Directives Directive None Recorded Payers Encounter Date Sequence Insurance Name Policy Number Policy [place] Covered Member ID [place] Member ID Guarantor Name 05/23/2016 1 [place] Janeen Medina [id number] Janeen Medina Notes Date Note Type Note Provider Name and Address Organization Details Recorded Time 05/23/2016 text/html Sleep ProblemsReported bypatient.Hand Dominance:right General Sleep:insomnia: difficulty falling asleep;insomnia: awakening in the middle of the night;unrefreshing sleep;excessive sleepiness during the day (daytime somnolence) Onset/Timing:new onset (OVER THE PAST 3 MONTHS) Severity:difficulty getting going in the morning;drowsiness while driving Quality:frequent breathing through the mouth Location of sleep apnea:dryness of mouth Pain disturbing sleep:heartburn(INTER MITTENT) Restless leg syndrome:legs feel restless: disturbing sleep Narcolepsy Symptoms:no cataplexy Orthopnea:using 4extra pillows or sleeping upright (orthopnea) Itching:causing awakening from sleep Prescribed sleep medications:not taking medication to help sleep CPAP:PT DOES NOT HAVE A CPAP MACHINE Associated Symptoms:history of sleep disorderNotes:IN LAST 3-4 MONTHS HAS BEEN HAVING DIFFICULTY STAYING ASLEEP. HAD ALWAYS HAD DIFFICULTY FALLING ASLEEP BUT THAT HAS BEEN WORSE. SLEEP ONSET MAY BE UP TO 2 HOURS; HAS BEEN WIDE AWAKE. NO PHYSICAL SYMPTOMS. OCCASIONALLY LEGS BOTHER HER (ACHE). NO RESTLESS LEG SYMPTOMS. NO RECENT SLEEP PARTNERS. HAS NOT HAD REPORTED SNORING. SHE HAS BEEN TALKING IN HER SLEEP. NO ACTING OUT OF DREAMS. HAD AN EPISODE OF SLEEPWALKING 2-3 MONTHS. NO CHRONIC HISTORY OF THAT IN THE PAST. BEDTIME IS 10 PM; ACTUALLY FALLS ASLEEP AT MIDNIGHT OR LATER. WAKES UP BETWEEN 2:30-3 AM; USUALLY AWAKE TILL 5:30 AM; GETS BACK SLEEP TILL 8:30 AM (MORE CONSISTENT SLEEP PERIOD). MAXIMUM SLEEP TIME IS 6 HOURS. NO SNORING. HAD A PSG 1 YEAR AGO (HAD BEEN 100 LBS HEAVIER). HAD BEEN SLEEPING BETTER WHEN SHE WAS HEAVIER. NO KNOWN KICKING DURIN THE NIGHT. HAS BEEN RESTLESS IN BED. OCCASIONAL REFLUX AT NIGHT. HAS HAD A GASTRIC SLEEVE SURGERY. MORNING HEADACHES. CONCENTRATION HAS BEEN WORSE BUT SHORT TERM MEMORY HAS BEEN INTACT. IRON LOW DUE TO ANEMIA. HAS TRIED MELATONIN IN THE PAST; PROLONGED SLEEP ONSET THE PATIENT HAS BEEN HAVING TROUBLE FALLING ASLEEP, STAYING ASLEEP, AND SHE IS TIRED IN THE MORNING. Ivan Bangura MD [address], [place], [address], [place] [facility] 05/26/2016 08:44:26 OBGyn Episode No OBEpisode recorded.
--- OUTSIDE RECORDS SUMMARY | 2024-07-29 08:04 | XMS_ITS | Encounter Summary ---
Author Organization [facility] Address [address] [place] [address] Care Team Providers Care Hot Metal Car Operator Name Role Phone Rebeka Manning MD Primary Care Prov ider Leif Booth MD Unavailable Fe Thompson MD Unavailable Alen Vu MD Unavailable Encounter Details Date Type Department Care Team Description 10/16/2022 Refill Pulmonology - [place] 175 [facility] [address] [place] [phone] Rosie Huff APRN 175 [facility] [address] [place] [phone] Social History Tobacco Use Types Packs/Day Years [...] Notes * Telephone Encounter - Hina Pederson C.M.A. - 10/18/2022 9:33 AM EDT FYI Sick visit schedule with Dr Gray on 10/21/22 at 1:30 pm * Telephone Encounter - Rosie Huff APRN - 10/17/2022 11:34 PM EDT Please schedule sick visit * Telephone Encounter - Chente Mckeon CMA - 10/17/2022 11:27 AM EDT [place] 08/11/22 NOV 11/07/22 documented in this encounter Plan of Treatment Not on file documented as of this encounter Visit Diagnoses Diagnosis Moderate persistent asthma with acute exacerbation documented in this encounter Additional Health Concerns Infection Onset Date Last Indicated Resolved Time COVID-19 Comment:Tested positive for COVID 07/03/2022 07/04/20222022 1:38 PM EDT documented as of this encounter Care Teams Hot Metal Car Operator Relationship Specialty Start Date End Date Rebeka Manning MD [address] [place] [address] PCP - General Internal Medicine 10/18/21 Leif Booth MD [address] [place] [address] Lung Cancer Boiler Testing Technician 03/08/22 Fe Thompson MD [address] [place] [phone] Specialist Pulmonology 12/06/23 Alen Vu MD [address] [place] [address] Specialist Endocrinology 12/06/23 documented as of this encounter
--- OUTSIDE RECORDS SUMMARY | 2024-07-29 08:04 | XMS_ITS | Encounter Summary ---
Author Organization [facility] Address [address] [place] [address] Care Team Providers Care Speech Communication Professor Name Role Phone Kelly Rudd MD Primary Care Provider Gem Mcgill MD Primary Care Provider Rebeka Jara MD Primary Care Prov ider Leif Booth MD Unavailable Fe Thompson MD Unavailable Alen Vu MD Unavailable Reason for Visit * Reason Comments E-prescribe Rx Request Encounter Details Date Type Department Care Team Description 07/31/2020 Refill Dermatology - [address] [phone] Chinyere Drake PA-C E-prescribe Rx Request Social [...] Telephone Encounter - Lucina Ornelas M.A. - 08/06/2020 9:16 AM EDT Script sent to pharmacy. * Telephone Encounter - Joyce BurtonP.NYokasta - 07/31/2020 8:50 AM EDT Shon:07/14/2020 F/u::10/20/2020 documented in this encounter Plan of Treatment Not on file documented as of this encounter Visit Diagnoses Not on filedocumented in this encounter Additional Health Concerns Infection Onset Date Last Indicated Resolved Time COVID-19 Comment:Tested positive for COVID 07/03/2022 07/04/20222022 1:38 PM EDT documented as of this encounter Care Teams Speech Communication Professor Relationship Specialty Start Date End Date Kelly Rudd MD PCP - General Internal Medicine 11/06/1711/02 Gem Rodriguez MD PCP - General Internal Medicine 11/03/20 10/17/21 Rebeka Manning MD [address] [place] [address] PCP - General Internal Medicine 10/18/21 Leif Booth MD [address] [place] [address] Lung Cancer Primary Teacher 03/08/22 Fe Thompson MD [address] [place] [phone] Specialist Pulmonology 12/06/23 Alen Vu MD [address] [place] [address] Specialist Endocrinology 12/06/23 documented as of this encounter
--- OUTSIDE RECORDS SUMMARY | 2024-07-29 08:04 | XMS_ITS | Encounter Summary ---
Author Organization [facility] Address [address] [place] [address] Care Team Providers Care Spool Carrier Name Role Phone Gem Rodriguez MD Primary Care Provider Rebeka Jara MD Primary Care Prov ider Leif Booth MD Unavailable Fe Thompson MD Unavailable Alen Vu MD Unavailable Encounter Details Date Type Department Care Team Description 02/24/2021 SCAN Medical Records [address] [place] [phone] Abstract, Provider Social History Tobacco Use Types Packs/Day Years [...] have Coronavirus / COVID-19? No / Unsure 02/23/2021 8:52 AM EST documented as of this encounter Plan of Treatment Not on file documented as of this encounter Visit Diagnoses Not on filedocumented in this encounter Additional Health Concerns Infection Onset Date Last Indicated Resolved Time COVID-19 Comment:Tested positive for COVID 07/03/2022 07/04/20222022 1:38 PM EDT documented as of this encounter Care Teams Spool Carrier Relationship Specialty Start Date End Date Gem Rodriguez MD PCP - General Internal Medicine 11/03/20 10/17/21 Rebeka Manning MD [address] [place] [address] PCP - General Internal Medicine 10/18/21 Leif Booth MD [address] [place] [address] Lung Cancer Childcare Director 03/08/22 Fe Thompson MD [address] [place] [phone] Specialist Pulmonology 12/06/23 Alen Vu MD [address] [place] [address] Specialist Endocrinology 12/06/23 documented as of this encounter
--- OUTSIDE RECORDS SUMMARY | 2024-07-29 08:04 | XMS_ITS | Encounter Summary ---
Author Organization [facility] Address [address] [place] [address] Care Team Providers Care Adjunct History Instructor Name Role Phone Rebeka Manning MD Primary Care Prov ider Leif Booth MD Unavailable Fe Thompson MD Unavailable Alen Vu MD Unavailable Encounter Details Date Type Department Care Team Description 09/02/2022 Home Health Certification Medical Records [address] [place] [address] Social History Tobacco Use Types Packs/Day Years [...] suspected to have Coronavirus/COVID-19? No / Unsure 08/11/2022 4:00 PM EDT documented as of this encounter Plan of Treatment Not on file documented as of this encounter Visit Diagnoses Not on filedocumented in this encounter Additional Health Concerns Infection Onset Date Last Indicated Resolved Time COVID-19 Comment:Tested positive for COVID 07/03/2022 07/04/20222022 1:38 PM EDT documented as of this encounter Care Teams Adjunct History Instructor Relationship Specialty Start Date End Date Rebeka Manning MD [address] [place] [address] PCP - General Internal Medicine 10/18/21 Leif Booth MD [address] [place] [address] Lung Cancer Manager Personal 03/08/22 Fe Thompson MD [address] [place] [phone] Specialist Pulmonology 12/06/23 Alen Vu MD [address] [place] [address] Specialist Endocrinology 12/06/23 documented as of this encounter
--- OUTSIDE RECORDS SUMMARY | 2024-07-29 08:04 | XMS_ITS | Encounter Summary ---
Author Organization [facility] Address [address] [place] [address] Care Team Providers Care Hotel Front Desk Agent Name Role Phone Rebeka Manning MD Primary Care Prov ider Leif Booth MD Unavailable Fe Thompson MD Unavailable Alen Vu MD Unavailable Reason for Visit * Reason Onset Date Comments DME Request 09/01/2022 Encounter Details Date Type Department Care Team Description 09/01/2022 Telephone Pulmonology - [place] [address] [facility] [address] [place] [phone] Rosie Huff APRN [address] [facility] [address] [place] [phone] DME Request Social History Tobacco Use Types [...] Telephone Encounter - Ana Cristina Hand - 09/01/2022 2:22 PM EDT Oxygen order sent to [facility] documented in this encounter Plan of Treatment Not on file documented as of this encounter Visit Diagnoses Not on filedocumented in this encounter Additional Health Concerns Infection Onset Date Last Indicated Resolved Time COVID-19 Comment:Tested positive for COVID 07/03/2022 07/04/20222022 1:38 PM EDT documented as of this encounter Care Teams Hotel Front Desk Agent Relationship Specialty Start Date End Date Rebeka Manning MD [address] [place] [address] PCP - General Internal Medicine 10/18/21 Leif Booth MD [address] [place] [address] Lung Cancer Soils Engineer 03/08/22 Fe Thompson MD [address] [place] [phone] Specialist Pulmonology 12/06/23 Alen Vu MD [address] [place] [address] Specialist Endocrinology 12/06/23 documented as of this encounter
--- OUTSIDE RECORDS SUMMARY | 2024-07-29 08:04 | XMS_ITS | Encounter Summary ---
Author Organization [facility] Address [address] [place] [address] Care Team Providers Care Fluoroscope Operator Name Role Phone Kelly Rudd MD Primary Care Provider Gem Mcgill MD Primary Care Provider Rebeka Jara MD Primary Care Prov ider Leif Booth MD Unavailable Fe Thompson MD Unavailable Alen Vu MD Unavailable Reason for Visit * Reason Comments E-prescribe Rx Request Encounter Details Date Type Department Care Team Description 07/23/2020 Refill Gastroenterology [address] [place] [phone] Jordan Gamble MD E-prescribe Rx Request Social History Tobacco [...] documented as of this encounter Care Teams Fluoroscope Operator Relationship Specialty Start Date End Date Kelly Rudd MD PCP - General Internal Medicine 11/06/1711/02 Gem Rodriguez MD PCP - General Internal Medicine 11/03/20 10/17/21 Rebeka Manning MD [address] [place] [address] PCP - General Internal Medicine 10/18/21 Leif Booth MD [address] [place] [address] Lung Cancer Furnace Hand 03/08/22 Fe Thompson MD [address] [place] [phone] Specialist Pulmonology 12/06/23 Alen Vu MD [address] [place] [address] Specialist Endocrinology 12/06/23 documented as of this encounter
[2024-07-29 08:14] VITALS: BP 132/92; PULSE 63; O2SAT 98; BMI 28.7
--- NOTE | 2024-07-29 08:14 | MHC.OFFVIS ---
Vital Signs 07/29/24 08:14 Height 4 ft 11 in Weight 142 lb BMI 28.7 BP 132/92 H Blood Pressure Location Rt brachial Position Sitting Pulse 63 Pulse Source Pulse Oximeter Pulse Oximetry (%) 98 Oxygen Delivery Method Room Air Intake Visit Reasons: 1 yr follow up-Conf Intake Note: Patient following up neuropsych eval . patient was not aware of another neurophsych eval nor any one called her regarding this referral. Allergies cephalexin Adverse Reaction (Severe, Verified 07/29/24 08:18) Anaphylaxis acetaminophen [From Tylenol-Codeine] Adverse Reaction (Intermediate, Verified 07/29/24 08:18) Hives amoxicillin [From Augmentin] Adverse Reaction (Intermediate, Verified 07/29/24 08:18) Vomiting clavulanic acid [From Augmentin] Adverse Reaction (Intermediate, Verified 07/29/24 08:18) Vomiting codeine [From Tylenol-Codeine] Adverse Reaction (Intermediate, Verified 07/29/24 08:18) Hives morphine Adverse Reaction (Intermediate, Verified 07/29/24 08:18) Vomiting, Hives egg Adverse Reaction (Mild, Verified 07/29/24 08:18) Vomiting seafood Adverse Reaction (Verified 07/29/24 08:18) Angioedema Medication List - Last Reconciled 07/29/24 by Nora Mercado MD albuterol sulfate 90 mcg/actuation (ProAir HFA) 2 puffs inhalation Q6H PRN albuterol sulfate mg inhalation benralizumab (Fasenra) 30 mg subcut Q8W budesonide 180 mcg/actuation (Pulmicort Flexhaler) 2 inhalations inhalation BID bupropion HCl XL 300 mg PO QAM citalopram 20 mg PO DAILY epinephrine (EpiPen) 0.3 mg IM Q4H PRN famotidine 20 mg PO BID fluticasone propionate 50 mcg/actuation 1 spray intranasal DAILY hydrochlorothiazide 12.5 mg PO DAILY hyoscyamine sulfate 0.125 mg PO BID-QID PRN levocetirizine 5 mg PO DAILY pantoprazole mg PO Stelara (ustekinumab) 45 mg (0.5 mL) subcut Q12W NS trazodone 100 mg PO BEDTIME umeclidinium-vilanterol 62.5-25 mcg/actuation (Anoro Ellipta) 1 ea inhalation DAILY zafirlukast 20 mg PO BID HPI Comments Details: 54 y/o female patient presents for follow up of memory loss. Her neuropsych evaluation - 02/[address] Wheeler c/w mild cognitive impairment - multifactorial , mood , meds, COPD, poor sleep etc. She uses oxygen 3L at night for COPD and asthma. SHe is on fasenra and her breathing is better. She is sleeping better and uses trazadone as needed Her mood is stable now. Pt reports she has routine sleep schedule and daily walking. Previous History- She reports worsening of her memory issues about 1 year ago. In 2019 her son was murdered and since then she started having cognitive issues and she thought it was related to depression . But since then it has progressed.she is under a care of psychiatrist. Pt's mood has been better and stable. She has insomnia, anxiety, panic attacks. She is better with buspar, hydroxyzine, lorazepam. She has psoriatic arthritis, rheumatoid arthritis. [facility] Medical History Transaminitis Cognitive impairment, mild, so stated Pituitary adenoma Cataract (lens) fragments in eye following cataract surgery Dysphagia Asthma Hypertension GERD (gastroesophageal reflux disease) Cataract Hepatic steatosis Depression Anxiety Surgical History Hx of tubal ligation Family History Mother Rheumatoid arthritis Lung cancer Congestive heart failure Active asthma Chronic obstructive airway disease Father Stomach cancer Arthritis Sister Multiple sclerosis Social History Household Members Other:: lives with roommate Housing: House Alcohol intake: current Alcohol intake frequency: holidays/special occasions only Patient Tobacco Use Status: Former Tobacco user Tobacco use type: Cigarette Cigarettes Per Day: 5 Years Smoked: on and off over the years e-Cigarette/Vaping Use: Never Used service: No 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 Physical Exam Vital Signs: Last Vital Signs Pulse 63 07/29/24 08:14 BP 132/92 H 07/29/24 08:14 Pulse Ox 98 07/29/24 08:14 Oxygen Delivery Method Room Air 05/12/25 08:14 BMI result Body Mass Index 28.7 Const General: cooperative, healthy appearing, comfortable and no acute distress Nutritional Appearance: average body habitus Orientation/consciousness: patient oriented x3 Limitations: no limitations Neck Neck: Yes no meningeal signs Neuro General: patient oriented x3, gait normal, tone normal, moves all extremities, no meningeal signs and no focal motor deficits Cranial nerves: Yes Facial sensation intact/muscles of mastication intact, Yes Bilaterally intact EOM present, Yes Nystagmus not present, Yes Normal facial strength present, Yes Midline tongue present, Yes Symmetric palate elevation present and Yes Ability to bilaterally elevate shoulders present Cognition (Neuro): normal cognition Gait exam (Neuro): Normal gait present Motor exam (neuro): 5/5 motor strength present throughout, Pronator motor function not present and Normal motor muscle tone present throughout Assessment & Plan Assessment & Plan (1) Cognitive impairment, mild, so stated: Comment: multifactorial - mood disorder, medications, likely poor sleep , vascular Code(s): G31.84 - Mild cognitive impairment of uncertain or unknown etiology Category: Medical Plan Repeat Neuropsych eval with MRI brain report from [facility] Sleep hygiene education provided. Continue to follow up of her psychiatrist and manages her mood. Orders: Referrals Neuropsychiatry Referral G31.84 - Mild cognitive impairment of uncertain or unknown etiology Coding Level of Care Code Est Pt Level 4 (98988) Complex EM visit Add On G2211 Diagnoses Cognitive impairment, mild, so stated G31.84
== END 2024-07-29 08:54 | disposition home or self-care (01) ==
LOC: HO.HSMS 07:59
PROVIDERS: PCP Internal Medicine; Visit Provider Psychiatry & Neurology Neurology
DX: G31.84 Mild cognitive impairment of uncertain or unknown etiology (principal)
CPT/HCPCS: 99214

== ENCOUNTER 2024-09-25 09:29 | Outpatient (REF) | payer MEDICARE, SELFPAY ==
--- OUTSIDE RECORDS SUMMARY | 2024-09-24 12:30 | XMS_ITS | Encounter Summary ---
Author Organization [facility] Address [address] [place] [address] Care Team Providers Care Chemist Steroids Name Role Phone Rebeka Tapia MD Primary Care Prov ider Reason for Visit * Consultation (Routine) - Authorized Specialty Diagnoses / Procedures Referred By María rodriguez Referred To Contact Physical Therapy Diagnoses Cervicalgia Radiculopathy, cervical region Flo Valencia DO [address] [facility] [address] [place] [address] Phone: tel: fax: Referral ID Status Reason Start Date Expiration Date Visits Requested Visits Authorized [id number] Authorized Specialty Services Required 07/24/2024 07/24/2025 13 13 Encounter Details Date Type Department Care Team (Late st Contact Info) Description 09/24/2024 12:30 PM EDT Treatment Outpatient [address] [phone] Bee Ann PTA Cervicalgia (Primary Dx); Radiculopathy, cervical region Social History Tobacco Use Types Packs/Day Years Used Date Smoking Tobacco: Former Cigarettes 0.5 2.2 1 - 03/03/2022 Smokeless Tobacco: Never Alcohol Use Standard Drinks/Week Comments Yes 0 [...] care for your loved ones. For example, exceptional children's teacher or elderly care for an older adult? [...] Orientation Straight 02/07/2024 9: 20 PM EST documented as of this encounter Progress Notes * Bee Ann PTA - 09/24/2024 12:[address] [facility] - Outpatient PHYSICAL THERAPY DAILY TREATMENT NOTE - OP Date: 09/24/2024 Visit Number: [id number] Patient Name: Janeen Medina : 1970 Age: 54 y.o. Gender: female Diagnosis: ICD-10-CM ICD-9-CM 1. Cervicalgia M54.2 723.1 2. Radiculopathy, cervical region M54.12 723.4 Date of Onset/Surgery: 07/24/2024 Referring Provider: Flo Valencia DO Insurance: Payor: [employer] MEDICARE / Plan: [facility] MEDICARE COMPLETE / Product Type: *No Product type* / Patient Identified by: Bee Ann PTA Language: Persian Medications: Current Outpatient Medications on File Prior to Visit Medication Sig Dispense Refill albuterol 2.5 mg /3 mL (0.083 %) nebulizer solution Take 1 Vial by nebulization every 6 hours as needed for Wheezing, Shortness of Breath or Cough for up to 180 days. albuterol HFA (PROAIR HFA ; PROVENTIL HFA ; VENTOLIN HFA) 90 mcg/actuation inhaler Inhale 2 puffs by mouth every 4 (four) hours if needed for wheezing. 6.7 g 11 azelastine (OPTIVAR) 0.05 % ophthalmic solution INSTILL 1 DROP INTO BOTH EYES TWICE A DAY 6 mL 3 benralizumab (Fasenra Pen) 30 mg/mL auto-injector injection INJECT 1 PEN SUBCUTANEOUSLY EVERY 8 WEEKS 1 mL 5 budesonide (Pulmicort Flexhaler) 180 mcg/actuation inhaler Inhale 1 puff by mouth 2 (two) times a day. Rinse mouth with water after use to reduce aftertaste and incidence of candidiasis. Do not swallow. 1 each 12 buPROPion XL (WELLBUTRIN XL) 150 mg 24 hr tablet TAKE 1 TABLET BY MOUTH ONCE A DAY WITH ONE 300 MG TAB FOR A TOTAL DOSE OF 450 MG buPROPion XL (WELLBUTRIN XL) 300 mg 24 hr tablet Take 1 Tablet by mouth every morning. EPINEPHrine (EpiPen 2-Dinesh) 0.3 mg/0.3 mL injection Inject 1 Device as directed as needed (anaphylaxis). Use as directed famotidine (PEPCID) 20 mg tablet TAKE 1 TABLET BY MOUTH 2 TIMES DAILY NEEDED FOR HEARTBURN. 180 tablet 3 fluticasone propion-salmeteroL (Wixela Inhub) 500-50 mcg/dose diskus inhaler Inhale 1 puff by mouth2 (two) times a day. Rinse mouth with water after use to reduce aftertaste and incidence of candidiasis. Do not swallow. 1 each 12 fluticasone propionate (FLONASE) 50 mcg/actuation nasal spray SPRAY 2 SPRAYS BY NASAL ROUTE DAILY 48 mL 1 hydroCHLOROthiazide (MICROZIDE) 12.5 mg capsule TAKE 1 CAPSULE BY MOUTH EVERY DAY 28 capsule 6 hydrOXYzine HCL (ATARAX) 25 mg tablet TAKE 1 TABLET BY MOUTH EVERY 6 HOURS NEEDED FOR ANXIETY hyoscyamine (LEVSIN) 0.125 mg SL tablet Take 1 Tablet by mouth every 4 hours as needed for Cramping. Use for esopahgeal spasm levocetirizine (XYZAL) 5 mg tablet Take 1 tablet (5 mg total) by mouth 1 (one) time each day in [facility]. 90 tablet 1 miscellaneous medical supply [facility] [place] [place] Medical ID Bracelet [facility] 1 Each by Does not apply route daily. NETO-99 pantoprazole (PROTONIX) 40 mg EC tablet TAKE 1 TABLET BY MOUTH EVERY DAY BEFORE BREAKFAST 28 tablet3 predniSONE (DELTASONE) 20 mg tablet 1-2 tab po qd x 5 days for exacerbation 10 each 0 sertraline (ZOLOFT) 50 mg tablet Take 1 Tablet by mouth daily. Stelara 45 mg/0.5 mL syringe Inject 0.5 mL (45 mg total) under the skin every 3 (three) months. traZODone (DESYREL) 150 mg tablet 200 mg. zafirlukast (ACCOLATE) 20 mg tablet TAKE 1 TABLET BY MOUTH TWICE A DAY 180 tablet 1 No current facility-administered medications on file prior to visit. Allergies: is allergic to acetaminophen, cephalexin, acetaminophen-codeine, amoxicillin-pot clavulanate, clavulanic acid, egg, morphine, shellfish containing products, and skin cleanser comb no.15. Precautions: Fall risk: No Patient/Caregiver Goals: SUBJECTIVE Subjective Report: I felt a lot better after the traction Chart Reviewed: Yes Pain 2/10 neck and shoulders OBJECTIVE TREATMENT INTERVENTION: Modalities: None performed Procedures: UBE 3 min fwd Rows green cord 3x10 ARCHIE shoulder ext green cord 2x10 W's GTB 2x10 SLTR with modification due to shoulder pain 5 sec hold x10 Supine pull apart GTB 2x10 Cervical traction 20 degree angle of pull, 12 lbs, 60 on, 20 off x13 min HEP...supine cervical rotation stretch and supine chin tucks ASSESSMENT/Response to Treatment Good Good response to cervical traction, pain decreased Patient Education: Education provided: Yes Education Provided To: Patient utilizing Explanation and Demonstration mode(s) of education Response to Education: Applied Knowledge and Verbal Understanding PLAN POC Development/Review: No Change in the Plan of Care; Participants: Patient Total Treatment Time: 30 Modalities: Therapeutic procedures: Documentation completed by Bee Ann PTA documented in this encounter Plan of Treatment Upcoming Encounters Date Type Department Care Team (Late st Contact Info) Description 09/27/2024 12:30 PM EDT Treatment Outpatient Rehabilitation [address] [phone] Corbin Siddiqui, PT 10/15/2024 2:00 PM EDT Office Visit Adult Medicine [address] [phone] Rebeka Tapia MD [address] [place] [address] 10/16/2024 10:30 AM EDT Office Visit Endocrinology [address] [phone] Alen Vu MD [address] [place] [address] 03/17/2025 9:30 AM EST Office Visit Pulmonolgy [address] [phone] Fe Thompson MD [address] [place] [address] 06/11/2025 11:00 AM EDT Office Visit Endocrinology - [place] [address] [place] [address] Alen Vu MD [address] [place] [address] documented as of this encounter Goals Goal Patient Goal Type Associated Problems Recent Progress Patient-Stated? Author STG's 6 visits General Yes Corbin Siddiqui, PT Note: Pt will report end of day neck pain of 7/10 or less. (Met) Pt will demonstrate B cervical rotations of 65 degrees or better. (Progress made) Pt will demonstrate DNFET of 15 seconds or better. (Progress made) Pt is Independent and compliant with initial HEP. (Met). LTG's 12 visits General Yes Corbin Siddiqui PT Note: Pt will report end of day neck pain of 5/10 or less. Pt will demonstrate B cervical rotations of 70 degrees or better. Pt will demonstrate DNFET of 25 seconds or better. Pt will be Independent and compliant with final HEP. documented as of this encounter Visit Diagnoses Diagnosis Cervicalgia- Primary Radiculopathy, cervical region Brachial neuritis or radiculitis nos documented in this encounter Care Teams Chemist Steroids Relationship Specialty Start Date End Date Rebeka Tapia MD [address] [place] [address] PCP - General Internal Medicine 10/18/21 documented as of this encounter
--- OUTSIDE RECORDS SUMMARY | 2024-09-25 09:55 | XMS_ITS | Patient Health Record ---
Author Organization [facility] Address [address] [facility] [address] [place] [address] Care Team Providers Care Geoduck Diver Name Role Phone Romario Whitney Unavailable [phone] Reason For Referral No Information Medications Medication SIG (Take, Route, Frequency, Duration) Notes Start Date End Date Status Advair Diskus Advair Diskus *P ick strength-form from [employer] for eRX* 11/21/2013 Active ProAir HFA ProAir HFA *Reor prakash from [employer] for eRx and Interaction Alerts* 11/21/2013 Active Problems Problem Type SNOMED Code ICD Code Onset Dates Problem Status W/U Status Risk Notes Problem Abdominal pain, right upper quadrant (789.01) 11/21/2013 Problem resolved confirmed [facility]-[address] 57- Plan Of Treatment No Information Insurance Providers Payer Name Payer Address Payer Phone Subscriber Number Group Number Insured Name Patient Relationship to Insured Coverage Start Date Coverage End Date Medicaid - [place] [address] [place] [address] [id number] Janeen Medina Self - patient is the insured 4 Medical (General) History Surgical History Surgery Date(Month/Year) Tubal Ligation
--- OUTSIDE RECORDS SUMMARY | 2024-09-25 09:55 | XMS_ITS | Data Portability ---
Author Organization [place] - [facility], [facility] Address [id number] [place] [address] Care Team Providers Care Salesperson New Cars Name Role Phone SARAHIANDRES LUND Primary Care Provider [phone] Assessment No assessment recorded. Plan of Treatment Reminders Order Date Submit Date Provider Last Modified By Organization Details Last Modified Time Details Appointments None recorded. Lab urinalysis , dipstick 2014 015 [email or web address] In-Office Order, Internal Use Only DO Not Attach Compendium DO Not Attach Compendium, Do Not Delete/merge, [id number] 5 16:39:44 Referral None recorded. Procedures None recorded. Surgeries None recorded. Imaging None recorded. Medication Orders None recorded. Patient TargetsNo targets recorded. Patient Instructions Encounter Date Encounter Id Patient Instructions Last Modified By Organization Details Last Modified Time 02/17/2015 [id number] Patient presents for a well woman exam. Her history is unremarkable and her exam is normal. Pt c/o heavier menses and lasting a little longer. She also tested + for hpv 1 year ago. Pap and hpv; if still hpv+, will schedule colpo TVUS EMB v. 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 [email or web address] Not available 02/17/2015 15:08:46 03/10/2015 [id number] Pt with heavier, longer periods - emb obtained. Mgmt options briefly reviewed. Pt will make apt after results in, if she desires intervention Mycolog ointment Affirm [email or web address] Not available 03/10/2015 13:09:48 Reason for Referral None Reported. Results Created Date Observation Date Name Description Value Unit Range Abnormal Flag Note LastModifiedBy Organization Detail LastModifiedTime 02/18/20 15 02/17/2015 urina lysis , dipst ick Interpretati on negati ve Not Available In-Office Order Internal Use Only DO Not Attach Compendium DO Not Attach Compendium, Do Not Delete/merge, [id number] 02/17/2015 14:26:37 02/18/20 15 02/17/2015 urina lysis , dipst ick Leukocytes Negati ve Not Available In-Office Order Internal Use Only DO Not Attach Compendium DO Not Attach Compendium, Do Not Delete/merge, [id number] 02/17/2015 14:26:37 02/18/20 15 02/17/2015 urina lysis , dipst ick Nitrite negati ve Not Available In-Office Order Internal Use Only DO Not Attach Compendium DO Not Attach Compendium, Do Not Delete/merge, [id number] 02/17/2015 14:26:37 02/18/20 15 02/17/2015 urina lysis , dipst ick Urobilinogen Normal : 0.2 mg/dl Not Available In-Office Order Internal Use Only DO Not Attach Compendium DO Not Attach Compendium, Do Not Delete/merge, [id number] 02/17/2015 14:26:37 02/18/20 15 02/17/2015 urina lysis , dipst ick Protein Negati ve Not Available In-Office Order Internal Use Only DO Not Attach Compendium DO Not Attach Compendium, Do Not Delete/merge, [id number] 02/17/2015 14:26:37 02/18/20 15 02/17/2015 urina lysis , dipst ick pH 5.0 Not Available In-Office Order Internal Use Only DO Not Attach Compendium DO Not Attach Compendium, Do Not Delete/merge, [id number] 02/17/2015 14:26:37 02/18/20 15 02/17/2015 urina lysis , dipst ick Blood Negati ve Not Available In-Office Order Internal Use Only DO Not Attach Compendium DO Not Attach Compendium, Do Not Delete/merge, [id number] 02/17/2015 14:26:37 02/18/20 15 02/17/2015 urina lysis , dipst ick Specific [place] 1.000 Not Available In-Off ice Order Internal Use Only DO Not Attach Compendium DO Not Attach Compendium, Do Not Delete/merge, [id number] 02/17/2015 14:26:37 02/18/20 15 02/17/2015 urina lysis , dipst ick Ketone Negati ve Not Available In-Office Order Internal Use Only DO Not Attach Compendium DO Not Attach Compendium, Do Not Delete/merge, [id number] 02/17/2015 14:26:37 02/18/20 15 02/17/2015 urina lysis , dipst ick Bilirubin Small: +1 Not Available In-Office Order Internal Use Only DO Not Attach Compendium DO Not Attach Compendium, Do Not Delete/merge, [id number] 02/17/2015 14:26:37 02/18/20 15 02/17/2015 urina lysis , dipst ick Glucose Negati ve Not Available In-Office Order Internal Use Only DO Not Attach Compendium DO Not Attach Compendium, Do Not Delete/merge, [id number] 02/17/2015 14:26:37 02/18/20 15 02/17/2015 urina lysis , dipst ick Appearance Clear Not Available In-Offi ce Order Internal Use Only DO Not Attach Compendium DO Not Attach Compendium, Do Not Delete/merge, [id number] 02/17/2015 14:26:37 02/18/20 15 02/17/2015 urina lysis , dipst ick Color Yellow Not Available In-Office Order Internal Use Only DO Not Attach Compendium DO Not Attach Compendium, Do Not Delete/merge, [id number] 02/17/2015 14:26:37 02/18/20 15 02/18/2015 pap, IG + HPV report GYNEC OLOGI PARKER CYTOL OGY REPOR T THINP REP PAP (IMAG ER) WITH HPV SCREE N AND REFLE X TO HPV 16,18 /45 SPECI MEN ADEQU ACY: SATIS FACTO RY FOR EVALU ATION ; ENDOC ERVIC AL/TR ANSFO RMATI ON ZONE COMPO NENT ABSEN T/[facility] IENT. INTER PRETA TION: NEGAT CASS FOR INTRA EPITH ELIAL LESIO N OR GAURAV BRANDON . Elect ramon pelletier Zully d Out By: SHEKHAR MANZANARES [...] the ThinP rep Imagi ng elissa [facility] andrez. The Pap test is a scree ubaldo test with an inher ent false negat cass rate. Testi ng perfo rmed at [facility] , [address], [place] [address] CLIA [id number] CL-PO [id number]. Not Available [facility] [address] [place], [address], 02/18/2015 14:50:49 02/18/20 15 02/18/2015 pap, IG [...] e. Not Available [facility] [address] [place], [address], 02/18/2015 14:50:49 03/10/20 15 03/11/2015 bacte rial vagin osis + vagin itis panel , vagin al trichomonas vaginalis DNA Negati ve negati ve Not Available [facility] [address] [place], [address], 03/11/2015 10:34:51 03/10/20 15 03/11/2015 bacte rial vagin osis + vagin itis panel , vagin al gardnerella vaginalis DNA Negati ve negati ve Not Available [facility] [address] [place], [address], 03/11/2015 10:34:51 03/10/20 15 03/11/2015 bacte rial vagin osis + vagin itis panel , vagin al marlene species DNA Negati ve negati ve Not Available [facility] [address] [place], [address], 03/11/2015 10:34:51 03/10/20 15 03/11/2015 surgi parker patho logy study report Surgi parker Patho logy Repor t DIAGN OSIS ENDOM ETRIA L BIOPS Y: PROLI FERAT CASS ENDOM ETRIU M WITH PADMA AL BREAK DOWN. NEGAT CASS FOR HYPER PLASI A. El ectro nical ly Zully d Out * [place] [address] Clini parker Diagn osis and Histo ry: N92.0 Exces sive and frequ ent menst ruati on with regul ar cycle Tissu e(s) Submi tted: ENDOM ETRIA L BIOPS Y Gross Descr iptio n: Conta iner is label ed with annette nt's name, Janeen Medina . Endom etria l is noted on the req and the vial. The speci men is recei quinten in forma magdalena and consi sts of irreg ular tissu e fragm ents admix ed with mucus and blood measu ring 1.0 cc. The speci men is submi tted in toto in casse tte 1A. SA Testi ng [facility] at [facility] , [address], [place] [address] CLIA [id number] CL-PO [id number] 7. Not Available [facility] [address] [place], [address], 03/11/2015 15:24:18 02/21/20 15 02/20/2015 ultra sound , pelvi c trans vagin al No observ ation record ed. [email or web address] In-Office Order Internal Use Only DO Not Attach Compendium DO Not Attach Compendium, Do Not Delete/merge, [id number] 02/23/2015 11:24:41 03/27/19 16 03/27/2015 mammo gram, scree ubaldo No observ ation record ed. [email or web address] [facility] [address] [facility], [place], [address], 04/02/2015 09:46:30 04/04/19 17 04/04/2016 [place] mammo [...] Final DICTAT ED BY: Matias rodriguez M.D., Todd J SIGNED BY:Shabnam rett, M.Redd Piña ce: Rose Marie y [facility] Julisa barba Dictat ed : 2016 11:38 Signed : 2016 5:46 A summar y of the above report , in laymen 's terms, will be sent to the patien t. Result sent to: Andres Sarahi ano Result sent to: Demetra [email or web address] [facility] [address] [place], [address], 04/06/2016 17:57:37 04/05/19 17 04/04/2016 MAMMO , scree ubaldo, digit al, bilat eral No observ ation record ed. [email or web address] Not Available 03/20 17:57:38 04/18/19 17 04/18/2016 [...] mani in one year. Thank you for gaurii ng us to partic ipate in the care of this homero rodriguez. Final DICTAT ED BY: Jimena queen M.D., Prince Abreu SIGNED BY:Eufemia ma M.D., Prince Mckinley ce: Rose Marie kwong Radiol ogical Associ Julsia barba Dictat ed : 2016 8:55 Signed : 2016 10:52 A summar y of the above report , in laymen 's terms, will be sent to the homero rodriguez. Result sent to: Andres Yeung ano Result sent to: Demetra Valentino [email or web address] [facility] [address] [place], [address], 04/19/2016 16:27:02 04/18/19 17 04/18/2016 [place] mammo [...] M.D., Prince Abreu SIGNED BY:Eufemia ma M.D., Donald Practi ce: Rose Marie kwong [facility]iol [facility] Associ freda [email or web address] Dictat ed : 2016 8:55 Signed : 2016 10:52 A jewell y of the above report , in laymen 's terms, will be sent to the homero rodriguez. Result sent to: Andres lund Result sent to: Demetra Valentino [email or web address] [facility] [address] [place] [address], [address], 04/19/2016 16:27:03 Result Notes None recorded. Problems Name Problem SNOMED Code Status Onset Date Resolution Date Notes Provider Name and Address Organization Details Recorded Time Asthma 364042954 Active 2013 Not Available [facility] 5 06:27:39 Menorrhagia 620370898 Active SHELLEY VALENTINO MD [address] [facility], [address] [place], [address] , [facility] 5 13:09:48 Vaginitis 43718180 Active SHELLEY VALENTINO MD [address] [facility], [address] [place], [address] , [facility] 5 13:09:48 Problem Notes None recorded. Procedures Surgical History Date Name Laterality Status Provider Name and Address Organization Details Recorded Time 7 Date of Last Mammogram completed SHELLEY VALENTINO MD [address] [facility], [address] [place] [address], [place], [address], [facility] 04/05/2016 13:11:32 5 Endometrial Biopsy Procedure Note completed SHELLEY VALENTINO MD [address] [facility], [address] [place] [address], [phone], [facility] 03/10/2015 13:08:40 5 Endometrial Biopsy completed SHELLEY VALENTINO MD [address] [facility], [address] [place] [address], [phone], [facility] 03/11/2015 15:47:02 5 Date of Last Pap Smear completed SHELLEY VALENTINO MD [address] [facility], [address] [place] [address], [address] [place] [address], [facility] 02/18/2015 16:36:11 5 Gastric Bypass completed SHELLEY VALENTINO MD [address] [place] [address], [address] [place] [address], [phone], [facility] 02/17/2015 14:57:10 2 Tubal Ligation completed SHELLEY VALENTINO MD [address] [place] [address], [address] [place] [address], [phone], [facility] 02/17/2015 14:57:10 Imaging Results None recorded. Procedure Notes None recorded. Medical Equipment None Reported. Allergies Allergen ID Allergen Name Allergen Category Reaction Reaction Severity Criticality Documentation Date Start Date Code Code System Note Provider Name and Address Organization Details Recorded Time 286766 codeine medicatio n rash Not available Not available 08/26/20142013 2670 RxNorm REACT ION: RASH; Not Available [facility] 5 09:44:32 594417 Augmentin medicatio n vomiting severe Not available 02/17/2015 16154 2 RxNorm Nimisha Peyre null, [facility] 5 14:37:27 Medications Name Sig Start Date [...] Body weight Body mass index (BMI) Systolic And Diastolic Provider Name and Address Organization Details Last Updated DateTime 02/17/2015 154.94 cm 20074.556 31 g 30.8 kg/m2 120/78 mm[Hg] [facility] 02/17/2015 14:37:05 Date Recorded Body weight Systolic And Diastolic Provider Name and Address Organization Details Last Updated DateTime 03/10/2015 13009.51932 g 118/80 mm[Hg] [facility] 03/10/2015 11:30:37 Social History Question Answer Notes LastModified by [employer] Details LastModified Time Tobacco Smoking Status Former Smoker quit 1999 SHELLEY VALENTINO MD [address] [place] [address], [address], [place], [address] 02/17/2015 14:53:53 Is Blood Transfusion Acceptable In An Emergency? Yes Information not available 02/17/2015 Sex: Unknown Functional Status Question Answer Note LastModified by [employer] Details LastModified Time What is your level of alcohol consumption? socially Information not available 02/17/2015 What is your occupation? [employer] [email or web address] Information not available 02/17/2015 What is your exercise level? walk daily [email or web address] Information not available 02/17/2015 Mental Status None recorded. Family History Relationship Description Onset Age of this Age Resolved Age Notes LastModified by Organization Details LastModified Time Maternal Aunt Malignant neoplasm of brain [email or web address] Not available 2014 14:57:42 Father Malignant tumor of stomach [email or web address] Not available 2014 14:57:42 Father Hypertensive disorder Not available 2014 14:57:42 Mother Malignant neoplasm of lung Not available 2014 14:57:42 Mother Hypertensive disorder [email or web address] Not available 2014 14:57:42 Maternal Grandmother Diabetes mellitus [email or web address] Not available 2014 14:57:42 Sister Hypertensive disorder [email or web address] Not available 2014 14:57:42 Medical History Condition [...] SNOMED-CT Code Diagnosis ICD10 Code Diagnosis Note [id number] [facility] [address] [place] [address] 01/03/2014 00:00:00 [id number] [facility] [address] [place] [address] 07/08/2014 00:00:00 [id number] SHELLEY VALENTINO MD HCN1 [address] [facility] [place] [address] 02/17/2015 14:20:04 02/17/2015 15:07:35 Gynecologic examination 16996550 Z01.314 [id number] SHELLEY VALENTINO MD [facility]CN[facility] [address] [facility] [place] [address] 03/10/2015 10:51:25 03/10/2015 11:56:16 Vaginitis 25941396 N76.0 Menorrhagia 216488520 N9 2.0 Health Concerns Section Related Observation LastModified by Organization Detai ls LastModified Time None Recorded Concern Status LastModified by Organization Details LastModified Time None Recorded Advance Directives Directive None Recorded Payers Insurance Date Sequence Insurance Name Policy Number Policy [place] Covered Member ID [place] Member ID Guarantor Name 11/19/2016 1 [place] Janeen Medina [id number] Janeen Medina Notes Date Note Type Note Provider Name and Address Organization Details Recorded Time 02/17/2015 text/html [facility] Annual GYNReported bypatient.History: no gynecologic complaints; no [...] to schedule mammogram SHELLEY VALENTINO MD [address] [facility], [address] [place], [address], [facility] 02/17/2015 15:09:10 03/10/2015 text/html external vaginal irritation since yesterday SHELLEY VALENTINO MD [address] [facility], [address] [facility], [place], [address], [facility] 03/10/2015 13:10:01 OBGyn Episode No OBEpisode recorded.
[2024-09-25 10:17] LABS: Hematocrit 45.0 % (37.0-47.0); Hemoglobin 15.0 g/dl (12.0-16.0); Imm Gran Abs Auto 0.03 X10*3/uL (0.00-0.03); Imm Gran Pct Auto 0.5 % (0.0-0.4); Lymphocytes Absolute Auto 2.4 X10*3/uL (1.2-4.9); MANUAL DIFF FLAG NO; Mean Corpuscular HGB Conc 33.3 g/dl (31.0-35.0); Mean Corpuscular Hemoglobin 32.0 pg (27.0-33.0); Mean Corpuscular Volume 95.9 fL (80.0-98.0); NRBC Abs Auto 0.000 X10*3/uL (0.0-0.012); NRBC Pct Auto 0.0 /100WBC (0.0-0.2); Platelet Count 183 X10*3/uL (160-400); Red Blood Count 4.69 X10*6/uL (4.20-5.50); White Blood Count 5.9 X10*3/uL (4.8-10.8)
[2024-09-25 13:05] LABS: Alanine Aminotransferase 31 U/L (0-31); Albumin Level 4.2 g/dL (3.5-5.0); Alkaline Phosphatase 98 U/L (39-117); Anion Gap 11 (12-20); Aspartate Amino Transferase 29 U/L (5-31); Blood Urea Nitrogen 13 mg/dL (9-16); Calcium 9.1 mg/dL (8.4-10.2); Carbon Dioxide 29 mmol/L (22-29); Chloride 105 mmol/L (96-108); Estimated Glomerular Filt Rate > 60; Potassium 4.2 mmol/L (3.3-5.1); Sodium 141 mmol/L (135-145); Total Protein 6.8 g/dL (6.5-8.0)
== END 2024-09-25 09:30 | disposition home or self-care (01) ==
LOC: HO.LAB 09:29
PROVIDERS: PCP Internal Medicine; Visit Provider Student in an Organized Health Care Education/Training Program
DX: L40.50 Arthropathic psoriasis, unspecified (principal)
CPT/HCPCS: 36415; 80053; 85025; 85652; 86140

== ENCOUNTER 2024-12-19 09:18 | Outpatient (AMB) | payer MEDICARE, SELFPAY ==
--- OUTSIDE RECORDS SUMMARY | 2013-10-18 20:00 | XMS_ITS | Continuity of Care Document ---
Author Organization [facility] Address [address] [place] [address] Phone Care Team Providers Care Stacker Name Role Phone Shiva CANDELARIA FACC, Ced Unavailable Unavaila ble Procedures Procedure Date EKG Interpretation - Hospital 4 Advance Directives Directive Yes / No Effective Date File Name No Information Encounters Encounter Description Practice Location Reason(s) For Visit Diagnoses Date Provider Providers Copied on Encounter [facility], [address], [place], [id number], tel:[phone] [employer] No Information Shiva Coughlin. [address], [place], [id number], [place]. tel:[phone] Referring Provider: Bruce Lebron, [address] [place] [address], [id number]. tel:[phone] Family History Family Member Type Diagnosis Age At Onset No Information Payers Payer name Insurance type Covered alliance party ID Authoriza tion(s) Medicaid [id number] Social History Type Description Quantity Date Captured Comments Sex Female Smoking Status No Information Chief Complaint And Reason For Visit No Information Reason For Referral Reason For Referral No Information History Of Present Illness Encounter Date Complaint History Of Prese nt Illness No Information Functional Status Date Functional Assessmen t No Information Instructions Date Instruction Additional Infor mation No Information Assessments Type Assessment Date No Information Patient Care Teams Name Effective Dates (start - stop) Status Members No Information
--- OUTSIDE RECORDS SUMMARY | 2024-11-08 09:00 | XMS_ITS ---
Author Organization [facility] [employer] [facility] Address [address] [facility] [address] [place] [address] Care Team Providers Care Lead Atg Developer Name Role Phone Aiden Menjivar Primary Care Provider Aiden Menjivar Unavailable Unavailable REASON FOR VISIT BAREBACK RIDER Cognitive Impairment Encounters Encounter Location Date Provider Diagnosis [facility], [address] [address] 11/08/2024 Aiden Menjivar Plan Of Treatment No Information Progress Notes * Janeen MEDINADOB:1970 ([age] yo F)Acc No.[id number]:11/08/2024 Progress Notes Patient: Janeen LAWRENCE Provider: Eddy Menjivar MD :1970 A ge:54 Y S ex:Female Date:11/08/2024 Address:[address] [place] [address] Subjective: * Chief Complaints: * 1 . BAREBACK RIDER Cognitive Impairment. * Medical History: Objective: * Vitals: Assessment: Plan: * Treatment: * * Electronic signature of Kale Menjivar MD on 12/19/2024 at 10:14 AM EDT Sign off status: Pending * Provider: Eddy Menjivar MD Date: 0 11/08/2024 Generated for Bridger gray/Kevon/Elvin on: 1 10:14 AM EDT
--- NOTE | 2024-12-19 09:28 | A.OFFVIS_ITS ---
Vital Signs 12/19/24 09:33 Height 4 ft 11 in Weight 140 lb 3.424 oz BMI 28.3 BP 132/100 H Blood Pressure Location Lt brachial Position Sitting Pulse 88 Pulse Source Pulse Oximeter Pulse Oximetry (%) 95 Oxygen Delivery Method Room Air Intake Visit Reasons: PsA Intake Note: Patient presents for PsA follow up. Allergies cephalexin Adverse Reaction (Severe, Verified 12/19/24 09:33) Anaphylaxis acetaminophen (From Tylenol-Codeine) Adverse Reaction (Intermediate, Verified 12/19/24 09:33) Hives amoxicillin (From Augmentin) Adverse Reaction (Intermediate, Verified 12/19/24 09:33) Vomiting clavulanic acid (From Augmentin) Adverse Reaction (Intermediate, Verified 12/19/24 09:33) Vomiting codeine (From Tylenol-Codeine) Adverse Reaction (Intermediate, Verified 12/19/24 09:33) Hives morphine Adverse Reaction (Intermediate, Verified 12/19/24 09:33) Vomiting, Hives egg Adverse Reaction (Mild, Verified 12/19/24 09:33) Vomiting seafood Adverse Reaction (Verified 12/19/24 09:33) Angioedema Medication List - Last Reconciled 12/19/24 by Kenyatta Stephenson MD albuterol sulfate 90 mcg/actuation (ProAir HFA) 2 puffs inhalation Q6H PRN albuterol sulfate mg inhalation benralizumab (Fasenra) 30 mg subcut Q8W budesonide 180 mcg/actuation (Pulmicort Flexhaler) 2 inhalations inhalation BID bupropion HCl XL 300 mg PO QAM citalopram 20 mg PO DAILY epinephrine (EpiPen) 0.3 mg IM Q4H PRN famotidine 20 mg PO BID fluticasone propionate 50 mcg/actuation 1 spray intranasal DAILY hydrochlorothiazide 12.5 mg PO DAILY hyoscyamine sulfate 0.125 mg PO BID-QID PRN levocetirizine 5 mg PO DAILY pantoprazole mg PO trazodone 100 mg PO BEDTIME umeclidinium-vilanterol 62.5-25 mcg/actuation (Anoro Ellipta) 1 ea inhalation DAILY ustekinumab-stba 45 mg (0.5 mL) subcut Q12W zafirlukast 20 mg PO BID HPI Comments Details: Patient is a 54-year-old female with history of pituitary adenoma, polyarticular osteoarthritis, psoriasis complicated by psoriatic arthritis and fibromyalgia here today for follow up Interval History: Patient last seen 03/27/[address] Wild - On Ustekinumab-stba 45mg every 12 weeks - She is compliant with Stelara. No reported side effects of the medication. She states that her asthma has been much better since she was started on Fasenra. She states that she continues to have intermittent muscle aches, she continues to have intermittent left knee pain. Denies any rashes Today - On Ustekinumab-stba 45mg every 12 weeks - PsO and PsA have been fairly - Complains of bilateral hand pain especially the right 5th digit (previous fracture), back pain, bilateral knee pain and bilateral ankle pain - Also noting increased muscle tension in neck and shoulders - Not on any medication due to esophageal abnormalities, and patient not wanting more medications - Does neck stretches but no whole body stretches Rheumatologic History: dx 02/2022 (+anti CarP Ab) NSAIDs could not be tolerated due to significant GI upset Failed Otezla due to GI upset MTX and LEF are contraindicated due to transaminitis. Patient could not tolerate Otezla due to significant GI upset with vomiting. TNF inhibitors are relatively contraindicated due to positive family history of demyelinating disease. Sister of multiple sclerosis Stelara started 03/10 effective Initial history: This is a 51-year-old female with past medical history of asthma/COPD, anxiety, hypertension presents for evaluation of diffuse joint pain. Patient has been having diffuse joint pain for the last 6 years but got worse over the last 3 months. She has pain swelling and stiffness of her hands, elbows, ankles. Stiffness last for 4-5 hours in the morning improved with putting her hands under warm water. Patient does not like to take any medications like Tylenol or NSAIDs. Of note 2 months ago she went to the clinical informatics physician with a diffuse skin rash, was diagnosed with psoriasis and was prescribed multiple topical steroid creams with significant relief. There is no history suggestive of uveitis or IBD. Also of note she has had dry eyes and dry mouth for years. She states she has difficulty swallowing and has severe heartburn. Patient has lost 40 lb over the last 3 years unintentionally. No fevers or night sweats. Current Rheumatology Medication(s): Ustekinumab-stba 45mg every 12 weeks [facility] Medical History Transaminitis Cognitive impairment, mild, so stated Pituitary adenoma Cataract (lens) fragments in eye following cataract surgery Dysphagia Asthma Hypertension GERD (gastroesophageal reflux disease) Cataract Hepatic steatosis Depression Anxiety Surgical History Hx of tubal ligation Family History Mother Rheumatoid arthritis Lung cancer Congestive heart failure Active asthma Chronic obstructive airway disease Father Stomach cancer Arthritis Sister Multiple sclerosis Social History Household Members Other:: lives with roommate Housing: House Alcohol intake: current Alcohol intake frequency: holidays/special occasions only Patient Tobacco Use Status: Former Tobacco user Tobacco use type: Cigarette Cigarettes Per Day: 5 Years Smoked: on and off over the years e-Cigarette/Vaping Use: Never Used service: No 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 Review of Systems Const Details: Review of Systems Constitutional: Denies fever, chills, weight loss ENT: Denies vision changes, eye pain or eye redness, dental caries, dry mouth GI: Denies nausea, vomiting, diarrhea, abdominal pain, change in BM Pulm: Denies SOB, ESTEVES, hemoptysis, wheezing Cards: Denies chest pain, palpitations Skin: Denies Raynaud's, rash, nail changes, photosensitivity, [employer]ENT [employer] EXAMINER: Denies headaches, weakness, paresthesias, recurrent falls MSK: as per HPI All other systems reviewed and are unremarkable except noted above Physical Exam Exam Exam: Vital signs reviewed Physical Examination CONSTITUITIONAL Patient alert and cooperative. Well appearing and in no apparent painful distress MSK Hands * Right Hand: Able to make a fist. No swelling or tenderness to palpation of the MCPs, PIPs or DIPs. TTP of the 5th PIP with mild swelling * Left Hand: Able to make a fist. No swelling or tenderness to palpation of the MCPs, PIPs or DIPs. * Herbedens nodes noted bilaterally Wrists * Right Wrist: Full ROM to flexion and extension. No swelling or TTP * Left Wrist: Full ROM to flexion and extension. No swelling or TTP Elbows * Right Elbow: Full ROM. No swelling or TTP. No TTP of the medial epicondyle. TTP of the lateral epicondyle * Left Elbow: Full ROM. No swelling or TTP. No TTP of the medial epicondyle. TTP of the lateral epicondyle Shoulders * Right shoulder: Full ROM. No swelling noted. No TTP of the AC joint. No TTP of the subacromial bursa. No TTP of the posterior shoulder * Left shoulder: Full ROM. No swelling noted. No TTP of the AC joint. No TTP of the subacromial bursa. No TTP of the posterior shoulder Hip bursa: Tenderness to palpation bilaterally Knees * Right knee: Full ROM. No swelling noted. TTP of the knee joint line. TTP of pes anserine bursa * Left knee: Full ROM. No swelling noted. TTP of the knee joint line. TTP of pes anserine bursa. Ankles * Right ankle: Good ankle dorsiflexion and plantar flexion. No swelling. No TTP of the ankle joint * Left ankle: Good ankle dorsiflexion and plantar flexion. No swelling. No TTP of the ankle joint Feet * Right foot: Negative squeeze test * Left foot: Negative squeeze test * Noted achyness with palpation of the feet but no overt synovitis Tender points? * Tenderness to palpation of the bilateral trapezius, supraspinatus, anterior costochondral junctions, bilateral suboccipital muscle insertions SKIN No rashes Vital Signs: Last Vital Signs Pulse 88 12/19/24 09:33 BP 132/100 H 12/19/24 09:33 Pulse Ox 95 12/19/24 09:33 Oxygen Delivery Method Room Air 12/19/24 09:33 BMI result Body Mass Index 28.3 Results Reviewed Results Reviewed: Laboratory Tests 09/25/24 09:34 WBC 5.9 RBC 4.69 Hgb 15.0 Hct 45.0 Plt Count 183 ESR 5 Sodium 141 Potassium 4.2 Chloride 105 Carbon Dioxide 29 BUN 13 Creatinine 0.68 AST 29 ALT 31 C-Reactive Protein 0.20 Laboratory Tests 01/11/22 15:39 Rheumatoid Factor < 15.0 Cycl Citrul Peptide IgG <16 BIJAN Screen NEGATIVE HLA-B27 Negative Laboratory Tests 03/06/24 15:32 Hepatitis A IgM Ab Nonreactive Hep Bs Antigen Negative Hep Bs Antibody NONREACTIVE Hep B Core Total Ab Nonreactive Hepatitis C Ab (EIA) Nonreactive TB Test (T-Spot) Com Negative XR Bilateral Hands and Wrists 12/2021 FINDINGS: Left wrist/hand: No fractures. No erosive changes. Small marginal osteophytes of the first CMC joint. Articular surfaces are otherwise maintained. No unusual soft tissue calcifications. Soft tissues unremarkable. Right wrist/hand: No fractures. No erosive changes. Small marginal osteophytes of the first CMC joint. Articular surfaces are otherwise maintained. No unusual soft tissue calcifications. Soft tissues unremarkable. IMPRESSION: * No acute findings. * No evidence of inflammatory arthropathy. * Mild degenerative changes as described. XR Bilateral Ankle and Feet 12/2021 FINDINGS: Left ankle/foot: No acute fracture or dislocation. Well-corticated ossific density inferior to the distal fibula is chronic and degenerative in nature, potentially an old avulsion fracture or heterotopic ossification related to an old injury to the lateral collateral ligament. Ankle mortise is congruent. Talar dome intact. Small plantar calcaneal enthesophyte. Small marginal osteophytes of the first metatarsophalangeal joint and associated small bunion. No erosive changes. Tiny radiodensity within the soft tissues plantar to the first interspace may represent an object on the skin surface or deeper soft tissue foreign body, of doubtful clinical significance. No joint effusions. Right ankle/foot: No acute fracture or dislocation. Ankle mortise is congruent. Talar dome intact. Small plantar calcaneal enthesophyte. Small marginal osteophytes of the first metatarsophalangeal joint. No erosive changes. Soft tissues unremarkable. No joint effusions. IMPRESSION: * No acute findings. * No evidence of inflammatory arthropathy. * Mild degenerative changes as described. Assessment & Plan Assessment & Plan (1) Psoriatic arthritis: Comment: dx 02/2022 (+anti CarP Ab) NSAIDs could not be tolerated due to significant GI upset Failed Otezla due to GI upset MTX and LEF are contraindicated due to transaminitis. Patient could not tolerate Otezla due to significant GI upset with vomiting. TNF inhibitors are relatively contraindicated due to positive family history of demyelinating disease. Sister of multiple sclerosis Stelara started 03/10 effective Code(s): L40.50 - Arthropathic psoriasis, unspecified Category: Medical Plan: #Psoriatic Arthritis Patient is a 54-year-old female with psoriasis complicated by psoriatic arthritis here today for follow up. No evidence of active disease or synovitis at this time with normal inflammatory markers Plan - Continue Ustekinuma-stba 45mg every 12 weeks SC - RTC 6 months - Labs before visit: CBC, CMP, ESR, CRP, Hepatitis panel and T spot (2) Generalized osteoarthritis: Code(s): M15.9 - Polyosteoarthritis, unspecified Plan: #Polyarticular OA Patient with polyarticular osteoarthritis, affecting her knees, her hands, and her spine. I had a very long discussion with the patient explaining the diagnosis of osteoarthritis and the underlying pathophysiology of osteoarthritis. I explained that Stelara does not treat this disease because it is not an autoimmune disease I recommended topical diclofenac for her knees as well as her hands Patient is not interested in any medications at this time due to her difficulty swelling in her esophageal problems Plan - Topical diclofenac 1% qid - Can consider gabapentin in the future - Advised her to follow up with physiatry for neck/back injections (3) Fibromyalgia, primary: Code(s): M79.7 - Fibromyalgia Category: Medical Plan: #Fibromyalgia Patient with fibromyalgia and several fibromyalgia tender points. Had a long discussion about the importance of stretching in adduction of the chronic pain and muscle tension that is associated with fibromyalgia (4) Long-term current use of ustekinumab: Code(s): Z79.620 - director long term care (current) use of immunosuppressive biologic Plan: #Long-term use of ustekinumab Risks and benefits of ustekinumab in the management of psoriatic arthritis and psoriasis discussed with the patient Benefits include improved psoriasis and psoriatic arthritis Risks include GI upset, injection site reactions, increased risk of fungal infections and other serious infections Plan This is my first visit with the patient. I spent 45 minutes reviewing the record and labs, taking a history, examining the patient, discussing the treatment plan, explaining the diagnosis, ordering diagnostic work up and documenting in the medical record Medications: New diclofenac sodium 1% (Arthritis Pain (diclofenac)) apply to bilateral knees 4 grams topical QID 100 grams 5RF M15.9 - Polyosteoarthritis, unspecified Refilled ustekinumab-stba 45 mg (0.5 mL) subcut Q12W 0.5 mL 1RF L40.50 - Arthropathic psoriasis, unspecified Coding Level of Care Code Est Pt Level 5 (23176) Complex EM visit Add On G2211 Diagnoses Psoriatic arthritis L40.50 Generalized osteoarthritis M15.9 Fibromyalgia, primary M79.7 Long-term current use of ustekinumab Z79.620
[2024-12-19 09:33] VITALS: BP 132/100; PULSE 88; O2SAT 95; BMI 28.3
--- OUTSIDE RECORDS SUMMARY | 2024-12-19 10:14 | XMS_ITS | Patient Health Record ---
Author Organization [facility] Address [address] [place] [address] Care Team Providers Care Collection Card Clerk Name Role Phone Romario Whitney Unavailable [phone] Reason For Referral No Information Medications Medication SIG (Take, Route, Frequency, Duration) Notes Start Date End Date Status Advair Diskus Advair Diskus *P ick strength-form from [employer] for eRX* 11/21/2013 Active ProAir HFA ProAir HFA *Reor prakash from [employer] for eRx and Interaction Alerts* 11/21/2013 Active Problems Problem Type SNOMED Code ICD Code Onset Dates Problem Status W/U Status Risk Notes Problem Right upper quadrant pain (691822089) Abdominal pain, right upper quadrant (789.01) 4 Problem resolved confirmed [id number] Plan Of Treatment No Information Insurance Providers Payer Name Payer Address Payer Phone Subscriber Number Group Number Insured Name Patient Relationship to Insured Coverage Start Date Coverage End Date Medicaid - [place] [address] [place] [address] [id number] Janeen Medina Self - patient is the insured 4 Medical (General) History Surgical History Surgery Date(Month/Year) Tubal Ligation
--- OUTSIDE RECORDS SUMMARY | 2024-12-19 10:14 | XMS_ITS | Encounter Summary ---
Author Organization [facility] [place] [address] Care Team Providers Care Java User Interface Developer Name Role Phone Rebeka Tapia MD Primary Care Prov ider Reason for Visit * Reason Onset Date Comments Referral 03/21/2024 External Referra l: Dr. Bruce Hassan MD ENT Encounter Details Date Type Department Care Team (Late st Contact Info) Description 03/21/2024 Telephone Adult Medicine [address] [phone] Rebeka Tapia MD [address] [place] [address] Social History Tobacco Use Types Packs/Day Years Used Date Smoking Tobacco: Former Cigarettes 0.5 2.2 1 - 03/03/2022 Smokeless Tobacco: Never Alcohol Use Standard Drinks/Week Comments Yes 0 (1 standard drink = 0.6 oz pur e alcohol) Comments No Sex and Gender Information Value Date Recorded Sex Assigned at Female 02/07/2024 9:20 PM EST Legal Sex Female 9:19 PM EST Gender Identity Female 02/07/2024 9:20 PM EST Sexual Orientation Straight 02/07/2024 9: 20 PM EST documented as of this encounter Progress Notes * Lisha Rodriguez RN - 03/22/2024 10:36 AM EST Called and spoke with pt. Pt c/o decrease hearing x 3-4 months no pain no known injury no discharge. Would like ears checked advised we would have to do an evaluation first before referring to specialist. Offered appt 03/25 unable request 04/08 appt given will call back sooner for any new or worseningsx or concerns * Rebeka Tapia MD - 03/21/2024 4:16 PM EST What's the diagnosis? * Stefano Cruz - 03/21/2024 12:11 PM EST Referral Request: What insurance does the patient have today? [facility] medicare [id number] Referrals cannot be processed if the insurance is not accurate. If the insurance listed above in red is NO BILLING INFORMATION FOUND FOR THIS ENCOUTNER The patients correct insurance must be obtained and registered in [facility] or their referral can not be processed. Is this a retro request? no. If yes for what date of service do you need the retro referral? not applicable Who is calling to request this referral? Patient If the caller is not the patient, what is their name? not applicable Ask the patient WHO referred them to this specialty: Patient was seen by external specialist DanielI. Mo CANDELARIA who has now referred them to this specialty FIRST and LAST NAME of SPECIALIST PATIENT is seeing: Bruce Hassan MD What specialty is this? ENT DIAGNOSIS Patient is being seen for (Not a body part or a procedure): Both ears hard time hearing Have you seen this SPECIALIST for this PROBLEM/DX before? If YES, when? No Have you checked REVIEW or the APPT DESK to see if this referral has already been done or has visits left? no Is this visit: Initial Visit Address of Specialist: [address] [place] [address], [place] [address] Phone # of Specialist: [phone] Fax #: (if applicable): [phone] Does patient have an appointment scheduled?: no Date of appointment- (including a retro-request): TBD Is this appointment related to: no documented in this encounter Plan of Treatment Upcoming Encounters Date Type Department Care Team (Late st Contact Info) Description 02/10/2025 1:15 PM EST Office Visit Adult Medicine [address] [phone] Rebeka Tapia MD [address] [place] [address] 02/11/2025 2:00 PM EST Office Visit Gastroenterology [address] [phone] Karen Koroma NP [address] [place] [phone] 03/17/2025 9:30 AM EST Office Visit Pulmonology [address] [phone] Fe Thompson MD [address] [place] [phone] 03/24/2025 11:00 AM EST Office Visit Endocrinology [address] [phone] Olamide Gilbert MD [address] [place] [address] 03/25/2025 7:30 AM EST Office Visit Adult Medicine [address] [phone] Rebeka Tapia MD [address] [place] [address] 06/11/2025 11:00 AM EDT Office Visit Endocrinology - [address] [phone] Alen Vu MD [address] [place] [phone] documented as of this encounter Visit Diagnoses Not on filedocumented in this encounter Care Teams Java User Interface Developer Relationship Specialty Start Date End Date Rebeka Tapia MD [address] [place] [address] PCP - General Internal Medicine 10/18/21 documented as of this encounter
--- OUTSIDE RECORDS SUMMARY | 2024-12-19 10:14 | XMS_ITS | Patient Health Record ---
Author Organization [facility], [facility] Address [address] [place] [address] Care Team Providers Care Paediatric Thoracic Physician Name Role Phone Aiden Menjivar Primary Care Provider [phone] Aiden Menjivar Unavailable Unavailable Reason For Referral No Information Encounters Encounter Location Date Provider Diagnosis [facility], [address] [address] 11/06/2024 Aiden Menjivar Plan Of Treatment No Information Insurance Providers Payer Name Payer Address Payer Phone Subscriber Number Group Number Insured Name Patient Relationship to Insured Coverage Start Date Coverage End Date [facility] [address] [address] [place], [place] [id number] [phone] [id number] Janeen Medina Self - patient is the insured
--- OUTSIDE RECORDS SUMMARY | 2024-12-19 10:15 | XMS_ITS | Clinical Summary ---
Author Organization [facility] Address [address] [place] [address] Phone Care Team Providers Care Cartoon Artist Name Role Phone Rebeka Tapia MD Primary Care Prov ider Social History Tobacco Use Types Packs/Day Years Used Date Smoking Tobacco: Never Assessed Education Answer Date Recorded Are you interested in more education? Not on grover e 04/06/2024 Are you concerned about learning? Not on file 04/06/2024 No 04/06/2024 No 04/06/2024 Digital Access Answer Date Recorded No 04/06/2024 No 04/06/2024 Reliable internet access at home? Not on file 04/06/2024 Device with a working camera? Not on file Comments Unknown Sex and Gender Information Value Date Recorded Sex Assigned at Not on file Legal Sex Female 2:20 PM EST Gender Identity Not on file Sexual Orientation Not on file Plan of Treatment Health Maintenance Due Date Last Done Comments Adult Td,Tdap Booster 1968 DEPRESSION SCREENING 1980 SMOKING Hx and SMOKELESS TOBACCO SCREENING 1981 HEPATITIS C SCREENING 1986 HIV ONE-TIME SCREENING (18-6 5 YEARS) 1986 COLOGUARD 2013 COLONOSCOPY 2013 COLORECTAL CANCER SCREENING 2013 FIT TEST 2013 FOBT 2013 SIGMOIDOSCOPY 2013 VIRTUAL COLONOSCOPY 2013 PNEUMOCOCCAL VACCINES (50+ years) (1 of 1 - PCV) 2018 ZOSTER VACCINES (1 of 2) 2018 PAP SMEAR 02/13/2021 02/13/2018 INFLUENZA VACCINE (#1) 2024 COVID-19 VACCINE (2023-2 5 season) 2024 MAMMOGRAM 02/26/2026 02/27/2024, 02/27/2024 LIPID PANEL 06/28/2028 06/29/2023 HEPATITIS A VACCINES Aged Out No long er eligible based on patient's age to complete this topic HIB VACCINES Aged Out No longer eligi ble based on patient's age to complete this topic MENINGOCOCCAL VACCINES (ACWY) Aged Out No longer eligible based on patient's age to complete this topic MENINGOCOCCAL VACCINES (B) Aged Out N o longer eligible based on patient's age to complete this topic Medical Devices Not on file Insurance MEDICARE REPLACEMENT Member Subscriber Plan / Payer ( fective 2024-Present) Name:Janeen Medina Relation to Subscriber:Self Name:Janeen Medina Payer ID:[id number] (NAIC) Group ID:[id number] Type:Medicare Address: [place] [phone] [place] [address] [place] [address] CARE MEDICARE REPLACEMENT CARE MEDICARE REPLACEMENT CARE MEDICARE REPLACEMENT CARE MEDICARE REPLACEMENT Care Teams Cartoon Artist Relationship Specialty Start Date End Date Rebeka Tapia MD [address] [place] [phone] PCP - General Internal Medicine 04/05/24 Additional Source Comments The information contained in this document represents components of the legal health record. It is not the complete legal health record.[facility]
--- OUTSIDE RECORDS SUMMARY | 2024-12-19 10:15 | XMS_ITS | Clinical Summary ---
Author Organization [facility] [address] [place] [address] [place] [address] Phone Care Team Providers Care Diaper Folder Name Role Phone Rebeka Tapia MD Primary [...] or Cough for up to 180 days. 022 Active buPROPion XL (WELLBUTRIN XL) 150 mg 24 hr tablet TAKE 1 TABLET BY MOUTH ONCE A DAY WITH ONE 300 MG TAB FOR A TOTAL DOSE OF 450 MG 024 Active buPROPion XL (WELLBUTRIN XL) 300 mg 24 hr tablet Take 1 Tablet by mouth every morning. Active EPINEPHrine (EpiPen 2-Dinesh) 0.3 mg/0.3 mL injection Inject 1 Device as directed as needed (anaphylaxis). Use as directed 020 Active hydrOXYzine HCL (ATARAX) 25 mg tablet TAKE 1 TABLET BY MOUTH EVERY 6 HOURS NEEDED FOR ANXIETY Active hyoscyamine (LEVSIN) 0.125 mg SL tablet Take 1 Tablet by mouth every 4 hours as needed for Cramping. Use for esopahgeal spasm 023 Active miscellaneous medical supply [facility] Medical ID Bracelet [facility] 1 Each by Does not apply route daily. [id number] 023 Active sertraline (ZOLOFT) 50 mg tablet Take 1 Tablet by mouth daily. Active traZODone (DESYREL) 150 mg tablet 200 mg. 024 Active budesonide (Pulmicort Flexhaler) 180 mcg/actuation inhaler Inhale 1 puff by mouth 2 (two) times a day. Rinse mouth with water after use to reduce aftertaste and incidence of candidiasis. Do not swallow. 1 each 12 025 2025 Active albuterol HFA (PROAIR HFA ; PROVENTIL HFA ; VENTOLIN HFA) 90 mcg/actuation inhaler Inhale 2 puffs by mouth every 4 (four) hours if needed for wheezing. 6.7 g 11 025 2025 Active predniSONE (DELTASONE) 20 mg tablet 1-2 tab po qd x 5 days for exacerbation 10 each 025 Active fluticasone propion-salme teroL (Wixela Inhub) 500-50 mcg/dose diskus inhaler Inhale 1 puff by mouth 2 (two) times a day. Rinse mouth with water after use to reduce aftertaste and incidence of candidiasis. Do not swallow. 1 each 12 025 2025 Active fluticasone propionate (FLONASE) 50 mcg/actuation nasal sprayIndicati ons:Chronic rhinitis,Acut e cough SPRAY 2 SPRAYS BY NASAL ROUTE DAILY 48 mL 1 025 Active Stelara 45 mg/0.5 mL syringe Inject 0.5 mL (45 mg total) under the skin every 3 (three) months. Active benralizumab (Fasenra Pen) 30 mg/mL auto-injector injection INJECT 1 PEN SUBCUTANEOUSLY EVERY 8 WEEKS 1 mL 5 Active hydroCHLOROth iazide (MICROZIDE) 12.5 mg capsule TAKE 1 CAPSULE BY MOUTH EVERY DAY 28 capsule 6 Active zafirlukast (ACCOLATE) 20 mg tablet TAKE 1 TABLET BY MOUTH TWICE A DAY 180 tablet 1 Active levocetirizin e (XYZAL) 5 mg tablet TAKE 1 TABLET BY MOUTH 1 TIME EACH DAY IN THE EVENING. 90 tablet Active azelastine (OPTIVAR) 0.05 % ophthalmic solution INSTILL 1 DROP INTO BOTH EYES TWICE A DAY 18 mL 1 Active pantoprazole (PROTONIX) 40 mg EC tablet Take 1 tablet (40 mg total) by mouth 2 (two) times a day before meals. before breakfast 180 each 3 025 2025 Active famotidine (PEPCID) 20 mg tablet Take 1 tablet (20 mg total) by mouth 1 (one) time each day. 90 each 3 025 2025 Active pantoprazole (PROTONIX) 40 mg EC tablet TAKE 1 TABLET BY MOUTH EVERY DAY BEFORE BREAKFAST 28 tablet 3 025 2024 Discontinued(R eorder) azelastine (OPTIVAR) 0.05 % ophthalmic solution INSTILL 1 DROP INTO BOTH EYES TWICE A DAY 6 mL 3 025 2024 Discontinued famotidine (PEPCID) 20 mg tablet Take 1 tablet (20 mg total) by mouth 1 (one) time each day. 90 each 025 2024 Discontinued(R eorder) Active Problems Problem Noted Date Diagnosed Date Acute respiratory failure wi th hypoxia ([facility] V24, [facility] V28) 03/07/2024 Benign neoplasm of pituitary gland ([facility] V24, [facility] V28) 03/07/2024 Other cerebrovascular disease 03/07/2024 Alzheimer's disease ([facility] V24, [facility] V28) 1 05/08/2023 Dementia in other diseases c lassified elsewhere, unspecified severity, with anxiety ([facility] V24, [facility] V28) 03/07/2024 Depression, unspecified 03/07/2024 Nicotine dependence, cigarettes, uncomplicated 1 05/08/2023 Other chest pain 03/07/2024 Dyskinesia of esophagus 03/07/2024 Alcohol dependence, uncompli cated ([facility] V24, [facility] V28) 03/07/2024 Asthma 12/15/2023 Overview (12/15/2023): Last Assessment & Plan: 52-year-old woman with a more than 80-wtld-froo history of smoking who quit 2 months [...] may benefit from first and evaluation by book sorter and at some point she may benefit [...] pain of left ankle 12/15/2023 Alzheimer's dementia ([facility] V24, [facility] V28) 03/07/2022 Cerebral microvascular disease 03/07/2022 Migraine 03/07/2022 Psoriatic arthritis ([facility] V24, [facility] V28) 1 05/08/2021 Overview (12/15/2023): [facility] rheumatology Pituitary microadenoma ([facility] V24, [facility] V28 ) 03/07/2022 Nocturnal hypoxia 01/24/2022 Overview [...] Encounters Date Type Department Care Team Description 12/11/2024 1:30 PM EDT Office Visit Endocrinology [address] [phone] Alen Vu MD Osteoporosis, unspecified osteoporosis type, unspecified pathological fracture presence (Primary Dx) 12/10/2024 11:00 AM EDT Office Visit Gastroenterology - [place] [address] [place] [address] Karen Koroma NP Chronic gastroesophageal reflux disease without esophagitis (Primary Dx); History of adenomatous polyp of colon 10/16/2024 10:30 AM EDT Office Visit Endocrinology [address] [phone] Alen Vu MD Osteoporosis, unspecified osteoporosis type, unspecified pathological fracture presence (Primary Dx) 09/27/2024 12:30 PM EDT Treatment Outpatient Rehabilitation [address] [phone] Corbin Siddiqui, PT Cervicalgia (Primary Dx) 09/24/2024 12:30 PM EDT Treatment Outpatient [address] [phone] Bee Ann, BUSINESS COORDINATOR Cervicalgia (Primary Dx); Radiculopathy, cervical region 09/18/2024 12:30 PM EDT Treatment Outpatient [address] [phone] RyleyrRoxydy, BUSINESS COORDINATOR Cervicalgia (Primary Dx); Radiculopathy, cervical region from Last 3 Months Immunizations Immunization Administration Dates Next Due Influenza Quadravalent, MDCK , 0.5ml, preservative free (Flucelvax) 6mo and older 12/01/2022,03/07/2022 CirroSecure SARS-CoV-2 COVID-19, mRNA, LNP-S, preservative free 11/25/2020 [...] colonoscopy DX:Encounter for screening colonoscopy Psoriatic arthritis ([facility] V24, [facility] V28) 03/07/2022 DX:Psoriatic arthritis (HCC) ; COMMENT: [facility] rheumatology Status post dilation of esop hageal [...] care for your loved ones. For example, early childhood education worker or elderly care for an older adult? [...] Date Recorded What is your living situation? Unrecognized valu e 07/08/2024 Comments No Sex and Gender Information Value Date Recorded Sex Assigned at Female 02/07/2024 9:20 PM EST Legal Sex Female 9:19 PM EST Gender Identity Female 02/07/2024 9:20 PM EST Sexual Orientation Straight 02/07/2024 9: 20 PM EST Obstetrics History * This document contains information received from the source organization and may not represent a complete record from that organization. Para Term AB IAB SAB Ectopic Multiple Livin g Live Births 14 11 6 0 0 1 5 6 Date Outcome GA Total Labor Labor/2nd/3rd Weight Sex Type Anes PTL Snehal A1 A5 Name Clin Para M Vag-S pont Deceas ed Para M Vag-S pont Living Para F Vag-S pont Living Para F Vag-S pont Living Para F Vag-S pont Living TWINS Para F Vag-S pont Living Comments:TWINS Term Term Term Term Term Term Last Filed Vital Signs Vital Sign Reading Time Taken Comments Blood Pressure 121/83 12/11/2024 1:44 PM EDT Pulse 75 12/11/2024 1:44 PM EDT Temperature 36.6 C (97.9 F) 09/10/2024 1:12 PM EDT Respiratory Rate 13 12/11/2024 1:44 PM EDT Oxygen Saturation 99% 12/10/2024 10:52 AM EDT Inhaled Oxygen Concentration - - Weight 63.5 kg (140 lb) 12/11/2024 1:44 PM EDT Height 149.9 cm (4' 11 ) 12/11/2024 1:44 PM EDT Body Mass Index 28.28 12/11/2024 1:44 PM EDT Plan of Treatment Upcoming Encounters Date Type Department Care Team (Late st Contact Info) Description 02/10/2025 1:15 PM EST Office Visit Adult Medicine [address] [phone] Rebeka Tapia MD [address] [place] [address] 02/11/2025 2:00 PM EST Office Visit Gastroenterology [address] [phone] Karen Koroma NP [address] [place] [phone] 03/17/2025 9:30 AM EST Office Visit Pulmonology [address] [phone] Fe Thompson MD [address] [place] [address] 03/24/2025 11:00 AM EST Office Visit Endocrinology [address] [phone] Olamide Gilbert MD [address] [place] [address] 03/25/2025 7:30 AM EST Office Visit Adult Medicine East [address] [phone] Rebeka Tapia MD [address] [place] [address] 06/11/2025 11:00 AM EDT Office Visit Endocrinology [address] [phone] Alen Vu MD [address] [place] [phone] Health Maintenance Due Date Last Done Comments Hepatitis A Vaccines (1 of 2 - Risk 2-dose series) 06/13/1987 Hepatitis B Vaccines (1 of 3 - 19+ 3-dose series) 06/13/1987 Pneumococcal Vaccine: 50+ Years (2 of 2 - PCV) 03/20/2016 03/20/2015 Zoster Vaccines (1 of 2) 07/31/2019 06/05/2019 Cervical Cancer Screening: Pap Smear 02/13/2021 02/13/2018, 02/13/2018, 02/13/2018 Medicare Annual Wellness Visit 02/26/2022 Depression Screening 03/20/2024 11/16/2023 Influenza Vaccine (#1) 2024 , 03/07/2022 Social Influencers of Health Screening 07/08/2025 07/08/2024 Hypertension/CHF/CAD Annual BMP Blood Test 10/24/2025 10/24/2024, 07/08/2024, 06/29/2023 Breast Cancer Screening 02/26/2026 02/27/20 24, 01/22/2022, 06/22/2018 Colorectal Cancer Screening: Colonoscopy 02/04/2027 02/04/2022 Cholesterol Screening (Lipid Panel) 06/28/2028 06/29/2023 DTaP,Tdap,and Td Vaccines (2 - Td or Tdap) 04/13/2030 04/13/2020 Osteoporosis Screening (Bone Density Screening) 08/07/2034 08/07/2024 RSV Immunization Adult Patients (1 - 1-dose 75+ series) 06/13/2043 Varicella Vaccines Aged Out 06/05/2019 No longer [...] Procedure Name Priority Date/Time Associated Diagnosis Comments PA PROTEIN ELECTROPHORETIC FRACTIONATION & QUANTITATION SERUM Routine 10/24/2024 12:43 PM EDT Osteoporosis, unspecified osteoporosis type, unspecified pathological fracture presence PROTEIN, TOTAL Routine 10/24/2024 12:43 PM EDT Osteoporosis, unspecified osteoporosis type, unspecified pathological fracture presence CALCIUM Routine 10/24/2024 12:43 PM EDT Osteoporosis, unspecified osteoporosis type, unspecified pathological fracture presence CREATININE, SERUM Routine 10/24/2024 12: 43 PM EDT Osteoporosis, unspecified osteoporosis type, unspecified pathological fracture presence BUN Routine 10/24/2024 12:43 PM EDT Osteoporosis, unspecified osteoporosis type, unspecified pathological fracture presence PARATHYROID HORMONE INTACT Routine 10/24/2024 12:43 PM EDT Osteoporosis, unspecified osteoporosis type, unspecified pathological fracture presence PROTEIN ELECTROPHORESIS, SERUM Routine 10/24/2024 12:43 PM EDT Osteoporosis, unspecified osteoporosis type, unspecified pathological fracture presence VITAMIN D 25 HYDROXY Routine 10/24/2024 12:43 PM EDT Osteoporosis, unspecified osteoporosis type, unspecified pathological fracture presence CALCIUM, URINE, 24H Routine 10/24/2024 1 2:43 PM EDT Osteoporosis, unspecified osteoporosis type, unspecified pathological fracture presence CREATININE, URINE, 24H Routine 12:43 PM EDT Osteoporosis, unspecified osteoporosis type, unspecified pathological fracture presence BD BONE DENSITY DXA AXIAL SKELETON Routine 08/07/2024 9:13 AM EDT Encounter for screening for osteoporosis [facility] (current) use of inhaled steroids MG MAMMO DIGITAL SCREENING W ZACKERY BILAT Routine 02/27/2024 10:32 AM EST Screening mammogram, encounter for HIV 1, 2 ANTIBODY, P24 ANTIGEN WITH REFLEX TO DIFFERENTIATION Routine 02/06/2024 3:23 PM EST Screen for STD (sexually transmitted disease) DEPRESSION SCREENING Routine 11/16/2023 LIPID PANEL Routine 06/29/2023 COLONOSCOPY Routine 02/04/2022 HEPATITIS C SCREENING Routine 07/20/2021 PAP SMEAR Routine 02/13/2018 from Last 3 Months or Most Recently Relevant to Health Maintenance Results * PATHOLOGIST REVIEW PROTEIN ELECTROPHORESIS (10/24/2024 12:43 PM EDT) Pathologist Interpretation Stefanie Armenta MD 10/29/2024 1:10 PM EDT [facility] Blood Venous blood specimen / Unknown Venipuncture / Unknown 10/24/2024 12:43 PM EDT 10/24/2024 12:43 PM EDT us Alen Vu MD LAB BLOOD ORDERABLES Final Resul t Performing Organization Address [facility] de Phone Number [facility] [address] [place] [address], [place] [phone] * Calcium, urine, 24H (10/24/2024 12:43 PM EDT) Calcium, Ur 11.0 mg/dL LAB CHEMISTRY METHOD 10/24/2024 3:09 PM EDT [facility] Calcium, 24H Urine 121 50 - 400 mg/24 hr LAB CHEMISTRY METHOD 10/24/2024 3:09 PM EDT [facility] Urine Volume 1,100 mL LAB CHEMISTRY METHOD 10/24/2024 3:09 PM EDT [facility] Collection Interval, Ur 24 hr LAB CHEMISTRY METHOD 10/24/2024 3:09 PM EDT [facility] Urine Urine specimen from urethra / Unknown Non-blood Collection / Unknown 10/24/2024 12:43 PM EDT 10/24/2024 12:43 PM EDT us Alen Vu MD LAB URINE ORDERABLES Final Resul t Performing Organization Address [facility] de Phone Number [facility] [address] [place] [address], [place] [phone] * Creatinine, urine, 24H (10/24/2024 12:43 PM EDT) Creatinine, Urine 91.0 mg/dL LAB CHEMISTRY METHOD 10/24/2024 3:09 PM EDT [facility] Creatinine, 24H Ur 1,001 800 - 2,000 mg/24 Hr LAB CHEMISTRY METHOD 10/24/2024 3:09 PM EDT [facility] Urine Volume 1,100 mL LAB CHEMISTRY METHOD 10/24/2024 3:09 PM EDT [facility] Collection Interval, Ur 24 hr LAB CHEMISTRY METHOD 10/24/2024 3:09 PM EDT [facility] Urine Urine specimen from urethra / Unknown Non-blood Collection / Unknown 10/24/2024 12:43 PM EDT 10/24/2024 12:43 PM EDT Alen Vu MD LAB URINE ORDERABLES Final Resul t Performing Organization Address [facility]/ZIP Co de Phone Number [facility] [address] [place] [address], [place] [phone] * Creatinine (10/24/2024 12:43 PM EDT) Creatinine 0.68 0.50 - 1.10 mg/dL LAB CHEMISTRY METHOD 10/24/2024 4:32 PM EDT [facility] eGFR 102 >=60 mL/min/1. 73m2 LAB CHEMISTRY METHOD 10/24/2024 4:32 PM EDT [facility] Comment:Calculation based on the Chronic Kidney Disease Epidemiology Collaboration (CKD-EPI) equation refit without adjustment for race. Blood Venous blood specimen / Unknown Venipuncture / Unknown 10/24/2024 12:43 PM EDT 10/24/2024 12:43 PM EDT Alen Vu MD LAB BLOOD ORDERABLES Final Resul t [facility] [address] [place] [address], [place] [phone] * Vitamin D 25 hydroxy (10/24/2024 12:43 PM EDT) Vit D, 25-Hydroxy 31.1 30.0 - 80.0 ng/mL LAB CHEMISTRY METHOD 10/24/2024 5:55 PM EDT [facility] Blood Venous blood specimen / Unknown Venipuncture / Unknown 10/24/2024 12:43 PM EDT 10/24/2024 12:43 PM EDT Alen Vu MD LAB BLOOD ORDERABLES Final Resul t Performing Organization Address City/[facility]/ZIP Co de Phone Number [facility] [address] [place] [address], [place] [phone] * BUN (10/24/2024 12:43 PM EDT) BUN 15 5 - 25 mg/dL LAB CHEMISTRY METHOD 10/24/2024 4:32 PM EDT [facility] Blood Venous blood specimen / Unknown Venipuncture / Unknown 10/24/2024 12:43 PM EDT 10/24/2024 12:43 PM EDT Alen Vu MD LAB BLOOD ORDERABLES Final Resul t Performing Organization Address City/[facility]/ZIP Co de Phone Number [facility] [address] [place] [address], [place] [phone] * Protein electrophoresis, serum (10/24/2024 12:43 PM EDT) Total Protein 6.7 6.0 - 8.0 g/dL LAB CHEMISTRY METHOD 10/29/2024 1:10 PM EDT [facility] Albumin, Serum 3.5 2.9 - 4.1 g/dL LAB CHEMISTRY METHOD 10/29/2024 1:10 PM EDT [facility] Alpha 1 Globulin (g/dL) 0.2 0.1 - 0.5 g/dL LAB CHEMISTRY METHOD 10/29/2024 1:10 PM EDT [facility] Alpha 2 Globulin (g/dL) 1.0 0.7 - 1.5 g/dL LAB CHEMISTRY METHOD 10/29/2024 1:10 PM EDT [facility] Beta (g/dL) 1.1 0.7 - 1.5 g/dL LAB CHEMISTRY METHOD 10/29/2024 1:10 PM EDT [facility] Gamma Globulin (g/dL) 0.9 0.7 - 1.9 g/dL LAB CHEMISTRY METHOD 10/29/2024 1:10 PM EDT [facility] SPEP Interpretation No M-Negro seen. Essentially normal pattern. LAB CHEMISTRY METHOD 10/29/2024 1:10 PM EDT [facility] Blood Venous blood specimen / Unknown Venipuncture / Unknown 10/24/2024 12:43 PM EDT 10/24/2024 12:43 PM EDT us Alen Vu MD LAB BLOOD ORDERABLES Final Resul t Performing Organization Address City/[facility]/ZIP Co de Phone Number [facility] [address] [place] [address], [place] [phone] * Protein, total (10/24/2024 12:43 PM EDT) Total Protein 6.7 6.0 - 8.0 g/dL LAB CHEMISTRY METHOD 10/24/2024 5:02 PM EDT [facility] Blood Venous blood specimen / Unknown Venipuncture / Unknown 10/24/2024 12:43 PM EDT 10/24/2024 12:43 PM EDT Alen uV MD LAB BLOOD ORDERABLES Final Resul t [facility] [address] [place] [address], [place] [phone] * Parathyroid hormone intact (10/24/2024 12:43 PM EDT) PTH 67.4 18.5 - 88.0 pcg/mL LAB CHEMISTRY METHOD 10/24/2024 5:56 PM EDT [facility] Blood Venous blood specimen / Unknown Venipuncture / Unknown 10/24/2024 12:43 PM EDT 10/24/2024 12:43 PM EDT Alen Vu MD LAB BLOOD ORDERABLES Final Resul t Performing Organization Address City/[facility]/ZIP Co de Phone Number [facility] [address] [place] [address], [place] [phone] * Calcium (10/24/2024 12:43 PM EDT) [facility] Signature Calcium 8.9 8.5 - 10.5 mg/dL LAB CHEMISTRY METHOD 10/24/2024 4:32 PM EDT [facility] Blood Venous blood specimen / Unknown Venipuncture / Unknown 10/24/2024 12:43 PM EDT 10/24/2024 12:43 PM EDT Alen Vu MD LAB BLOOD ORDERABLES Final Resul t Performing Organization Address City/[facility]/ZIP Co de Phone Number [facility] [address] [place] [address], [place] [phone] * BD Bone Density DXA Axial Skeleton (08/07/2024 9:13 AM EDT) Anatomical Region Laterality Modality Wrist, Hip, L-spine Bone Densito metry 08/09/2024 8:04 AM EDT Impressions 08/09/2024 8:05 AM EDT 1. Osteoporosis. 2. FRAX analysis yields a 10-year probability of major osteoporotic fracture of 20.4% and a 10-year probability of hip fracture of 3.6%. Code 01310 -------- FINAL REPORT -------- Dictated By: Aydin Lorenz Dictated Date: 08/09/2024 08:04 ET Assigned Physician: Aydin Lorenz Reviewed and Electronically Signed By: Aydin Lorenz Signed Date: 08/09/2024 08:05 ET Workstation ID: [id number] Transcribed By: Self Edit Transcribed Date: 08/09/2024 08:04 ET Narrative 08/09/2024 8:05 AM EDT HISTORY: The patient is a 54-year-old postmenopausal female with clinical concern for metabolic bone disease. FINDINGS: Dual energy x-ray absorptiometry of the lumbar spine and femurs is performed. The mean bone mineral density at L1-L4 (with the exclusion of L2) is 0.806 gm/cm2 which is 69% of that of young normals and 76% of that of age matched controls. This yields a T-score of -3.0 and a Z-score of -2.1 which is diagnostic of osteoporosis. The mean bone mineral density of the femurs bilaterally is 0.823 gm/cm2 which is 82% of that of young normals and 90% of that of age matched controls. This yields a T-score of -1.5 and a Z-score of -0.7 which is diagnostic of osteopenia. Procedure Note Aydin Lorenz MD - 08/09/2024 HISTORY: The patient is a 54-year-old postmenopausal female with clinicalconcern for metabolic bone disease. FINDINGS: Dual energy x-ray absorptiometry of the lumbar spine and femursis performed. The mean bone mineral density at L1-L4 (with the exclusionof L2) is 0.806 gm/cm2 which is 69% of that of young normals and 76% ofthat of age matched controls. This yields a T-score of -3.0 and a Z-scoreof -2.1 which is diagnostic of osteoporosis. The mean bone mineral density of the femurs bilaterally is 0.823 gm/eq9wkswb is 82% of that of young normals and 90% of that of age matchedcontrols. This yields a T-score of -1.5 and a Z-score of -0.7 which isdiagnostic of osteopenia. IMPRESSION: 1. Osteoporosis. 2. FRAX analysis yields a 10-year probability of major osteoporoticfracture of 20.4% and a 10-year probability of hip fracture of 3.6%. Code 85829 -------- FINAL REPORT -------- Dictated By: Aydin Lorenz Dictated Date: 08/09/2024 08:04 ET Assigned Physician: Aydin Lorenz Reviewed and Electronically Signed By: Aydin Lorenz Signed Date: 08/09/2024 08:05 ET Workstation ID: [id number] Transcribed By: Self Edit Transcribed Date: 08/09/2024 08:04 ET Alen Vu MD IMG DXA PROCEDURES Final Result * MG Mammo Digital Screening w Zackery bilat (02/27/2024 10:32 AM EST) Anatomical Region Laterality Modality Breast Bilateral Mammography 02/27/2024 11:3 3 AM EST Impressions 02/27/2024 11:37 AM EST Benign. BI-RADS CATEGORY: 1 - NEGATIVE RECOMMENDATION: Screening bilateral mammogram is recommended in 1 year. Mammo Location: [facility], [address] [place] [address], [facility] [phone]. -------- FINAL REPORT -------- Dictated By: Jyoti Martinez Dictated Date: 02/27/2024 11:33 ET Assigned Physician: Jyoti Martinez Reviewed and Electronically Signed By: Jyoti Martinez Signed Date: 02/27/2024 11:37 ET Workstation ID: [id number] Transcribed By: Self Edit Transcribed Date: 02/27/2024 11:33 ET Narrative 02/27/2024 11:37 AM EST CLINICAL: 53 years old, Female, routine annual exam. COMPARISON: Mammogram 01/22/2022. TECHNIQUE: Bilateral MLO and CC views were obtained digitally with 3-D mammogram (digital breast tomosynthesis). Computer-aided detection was utilized in evaluation of this exam (CAD). FINDINGS: There is no evidence of suspicious mass or architectural distortion. No worrisome calcifications are evident. There has been no significant change from prior exam(s). BREAST DENSITY: C - [...] is recommended in 1 year. Mammo Location: [facility], [address] [place] [address], [id number], . -------- FINAL REPORT -------- Dictated By: Jyoti Martinez Dictated Date: 02/27/2024 11:33 ET Assigned Physician: Jyoti Martinez Reviewed and Electronically Signed By: Jyoti Martinez Signed Date: 02/27/2024 11:37 ET Workstation ID: [id number] Transcribed By: Self Edit Transcribed Date: 02/27/2024 11:33 ET Rebeka Tapia MD IMG BI PROCEDURES Final Result * HIV 1,2 antibody, p24 antigen with reflex to differentiation (02/06/2024 3:23 PM EST) HIV Combo AB/AG Negative Negative LAB CHEMISTRY METHOD 02/06/2024 7:12 PM EST [facility] Blood Venous blood specimen / Unknown Venipuncture / Unknown 02/06/2024 3:23 PM EST 02/06/2024 3:23 PM EST [facility] - 02/06/2024 7:12 PM EST This assay is a 4th generation assay allowing for earlier detection of HIV infection by detecting the presence of the HIV-1 p24 antigen as well as the traditional antibodies to HIV type 1 (including group O) and type 2. Use of a 4th generation assay is the current CDC recommendation for HIV screening. Doreen UGALDE LAB BLOOD ORDERABLES Final R esult [facility] ([facility]) [facility] [address] [place] [address], [place] [phone] * Depression Screening (11/16/2023) Pathologist [facility] Depression Screening abstracted Historical Provider HEALTH MAINTENANCE Final Result * (ABNORMAL) Lipid panel (06/29/2023) [facility] LDL/HDL Ratio 3 0 - 4 Triglycerides 104 0 - 150 mg/dL Cholesterol 238(A) 0 - 200 mg/dL HDL 84 >=40 mg/dL LDL Cholesterol 134(A) 0 - 100 mg/dL Blood Venous blood specimen / Unknown Historical Provider LAB BLOOD ORDERABLES Sylvie l Result * Colonoscopy (02/04/2022) Pathologist [facility] Colonoscopy no interpretation , abstracted Anatomical Region Laterality Modality Other [facility] Provider HEALTH MAINTENANCE Final Result * Hepatitis C Screening (07/20/2021) [facility] Hepatitis C Screening abstracted Historical Provider HEALTH MAINTENANCE Final Result * Pap smear (02/13/2018) 02/13/2018 Narrative HISTORICAL TESTING LAB RESULTING AGENCY - 02/15/2018 5:02 PM EST [id number] THINPREP PAP, IMAGED: NEGATIVE FOR SQUAMOUS INTRAEPITHELIAL LESION AND MALIGNANCY . MAGO ROMERO(ASCP) (CASE ELECTRONICALLY SIGNED 02 15 2018) RESULT OF APTIMA HIGH RISK HPV ASSAY: HIGH RISK HPV: NEGATIVE (SEROTYPES 16,18,31,33,35,39,45,51,52,56,58,59,66,68) COMPLETED ON 2018-02-15 ADEQUACY: SATISFACTORY ENDOCERVICAL/TRANSFORMATION ZONE COMPONENT ABSENT. SOURCE: THINPREP PAP HPV ANY DX: REFLEX 16 AND 18, CERVICAL, IMAGED: CLINICAL INFORMATION: HPV ANY DIAGNOSIS. Z12.4, Z01.419, PAP HX: NEGATIVE, PERIMENOPAUSE Kerry Underwood DO LAB CYTOLOGY ORDERABLES Final Result HISTORICAL TESTING LAB RESULTING AGENCY from Last 3 Months or Most Recently Relevant to Health Maintenance Insurance [employer] MEDICARE [place] - [place] Advance Directives Documents on File Type Date Recorded Patient Investment Analyst Expl anation Health Care Decision (hx) 11/01/2022 AD PHAN DIRECTIVE Health Care Decision (hx) 11/01/2022 AD PHAN DIRECTIVE Health Care Decision (hx) 11/01/2022 AD PHAN DIRECTIVE Health Care Decision (hx) 11/01/2022 AD PHAN DIRECTIVE Health Care Decision (hx) 11/01/2022 AD PHAN DIRECTIVE Health Care Decision (hx) 11/01/2022 AD PHAN DIRECTIVE Care Teams Diaper Folder Relationship Specialty Start Date End Date Rebeka Tapia MD [address] [place] [id number] PCP - General Internal Medicine 10/18/21
== END 2024-12-19 10:23 | disposition home or self-care (01) ==
LOC: HO.RHES 09:18
PROVIDERS: PCP Internal Medicine; Visit Provider Student in an Organized Health Care Education/Training Program
DX: L40.50 Arthropathic psoriasis, unspecified (principal); M15.9 Polyosteoarthritis, unspecified; M79.7 Fibromyalgia; Z79.620 Long term (current) use of immunosuppressive biologic
CPT/HCPCS: 99215; G2211

== ENCOUNTER → 2024-12-19 09:18 | Outpatient (BNVA) | payer MEDICARE, SELFPAY | PROVIDERS: PCP Internal Medicine; Visit Provider Student in an Organized Health Care Education/Training Program | DX: L40.50 Arthropathic psoriasis, unspecified (principal); M15.9 Polyosteoarthritis, unspecified; M79.7 Fibromyalgia; Z79.620 Long term (current) use of immunosuppressive biologic | CPT/HCPCS: 99212 ==